=== PATIENT | female | born 1955 | race Caucasian/White ===

== ENCOUNTER → 2018-05-18 12:33 | Outpatient (CLI) | payer OTHER, SELFPAY ==
--- NOTE | 2018-05-18 12:38 | XR_ITS ---
XR chest 2V HISTORY: Follow-up renal cell cancer ITS.REASON: H/O RENAL CELL CA ORDERING PHYSICIAN: Fidel Barkley MD PATIENT AGE: 63 years COMPARISON: 09/09/2017 FINDINGS: The cardiomediastinal silhouette and pulmonary vascularity are within normal limits. The lungs are clear without infiltrates, suspicious nodules, or pleural effusions. No acute bony abnormalities. There is a bone plate over the lower cervical spine. Degenerative changes are present in the thoracic spine IMPRESSION: Negative chest, no acute finding
[2018-05-18 14:40] LABS: Alanine Aminotransferase 26 U/L (12-78); Albumin Level 3.3 gm/dL (3.4-5.0); Albumin/Globulin Ratio 1.2 (1.1-1.8); Alkaline Phosphatase 159 U/L (46-116); Anion Gap 12.7 mEq/L (5-15); Aspartate Amino Transferase 15 U/L (15-37); Bilirubin,Total 0.5 mg/dL (0.2-1.0); Blood Urea Nitrogen 31 mg/dL (7-18); Calcium 9.3 mg/dL (8.5-10.1); Carbon Dioxide 28 mmol/L (21.0-32.0); Chloride 105 mmol/L (98-107); Creatinine,Serum 1.95 mg/dL (0.55-1.02); Estimated Glomerular Filt Rate 26 ml/min (>60); GFR (African American) 31 ML/MIN (>60); Globulin 2.7 gm/dl (1.3-3.2); Glucose 147 mg/dL (74-106); Potassium 4.7 mmoL/L (3.5-5.1); Sodium 141 mmol/L (136-145)
== END ==
PROVIDERS: PCP Internal Medicine; Visit Provider Urology
DX: Z85.528 Personal history of other malignant neoplasm of kidney (principal)
CPT/HCPCS: 36415; 71046; 80053; 87086; 87088; 87186

== ENCOUNTER → 2018-12-19 09:17 | Outpatient (CLI) | payer OTHER, SELFPAY ==
[2018-12-20 15:44] LABS: C difficile Toxins AB, EIA Positive (Negative)
== END ==
PROVIDERS: PCP Internal Medicine; Visit Provider Internal Medicine
DX: R10.9 Unspecified abdominal pain (principal); R19.7 Diarrhea, unspecified
CPT/HCPCS: 87324

== ENCOUNTER 2019-04-23 09:24 | Outpatient (CLI) | payer MEDICARE, OTHER, SELFPAY ==
[2019-04-23 09:31] LABS: Microscopic, Urine URINE MICROSCOPIC (MICROSCOPIC)
--- NOTE | 2019-04-23 09:45 | XR_ITS ---
XR KUB HISTORY: ITS.REASON: RECTAL BLEED, DEFUSED ABD PAIN ORDERING PHYSICIAN: Jd Santacruz PATIENT AGE: 64 years COMPARISON: None FINDINGS: Nonspecific nonobstructive bowel gas pattern. Postsurgical changes of the lumbar spine. There are surgical clips in the left upper quadrant and left mid abdominal region. There are degenerative changes of the hips. IMPRESSION: Nonspecific nonacute findings
[2019-04-23 09:56] LABS: Basophils % 0.1 % (0.1-2.0); Eosinophils # 0.5 K/mm3 (0.0-0.4); Eosinophils % 2.1 % (0.1-12.0); Hemoglobin 14.6 g/dL (12.2-16.2); Lymphocytes # 1.4 K/mm3 (0.7-4.5); Lymphocytes % 6.6 % (10-50); Mean Corpuscular HGB Conc 31.7 g/dL (31.8-35.4); Mean Corpuscular Hemoglobin 26.9 pg (27.0-31.2); Mean Corpuscular Volume 84.9 fl (81-99); Mean Platelet Volume 7.9 fl (7.4-10.4); Monocytes # 1.1 K/mm3 (0.1-1.0); Monocytes % 5.3 % (1.7-9.3); Neutrophils # 18.7 K/mm3 (1.8-7.8); Neutrophils % 85.9 % (37.0-80.0); Platelet Count 303 K/mm3 (142-424); Red Blood Count 5.42 M/mm3 (4.20-5.40); Red Cell Distribution Width 15.9 % (11.5-17.5); White Blood Count 21.8 K/mm3 (4.8-10.8)
[2019-04-23 10:02] LABS: MANUAL DIFFERENTIAL MANUAL DIFFERENTIAL (MANUAL DIFF)
[2019-04-23 10:05] LABS: Appearance,Urine CLEAR (Clear); Bilirubin,Urine Negative (Negative); Blood, Urine Negative (Negative); Color,Urine YELLOW (Yellow); Glucose,Urine (UA) Negative (Negative); Ketones,Urine Negative (Negative); Leukocyte Esterase,Urine TRACE (Negative); Nitrate,Urine Negative (Negative); PH,Urine 6.5 (5.0-8.5); Protein,Urine Negative (Negative); Urobilinogen,Urine 0.2 EU/dl (0.2)
[2019-04-23 10:19] LABS: Eosinophils % 2 % (0-3); Lymphocytes % 3 % (10-50); Monocytes % 4 % (2-9); Neutrophils % 87 % (42-76); Total Cells Counted 100
[2019-04-23 10:20] LABS: Hypochromasia 2+
[2019-04-23 10:21] LABS: Platelet Estimate Normal
[2019-04-23 10:22] LABS: Bacteria,Urine Trace /lpf
[2019-04-23 10:29] LABS: Alanine Aminotransferase 24 U/L (12-78); Alkaline Phosphatase 141 U/L (46-116); Anion Gap 15.7 mEq/L (5-15); Aspartate Amino Transferase 8 U/L (15-37); Blood Urea Nitrogen 37 mg/dL (7-18); Carbon Dioxide 25 mmol/L (21.0-32.0); Chloride 103 mmol/L (98-107); Creatinine,Serum 1.62 mg/dL (0.55-1.02); Estimated Glomerular Filt Rate 32 ml/min (>60); GFR (African American) 39 ML/MIN (>60); Globulin 2.9 gm/dl (1.3-3.2); Glucose 128 mg/dL (74-106); Potassium 4.7 mmoL/L (3.5-5.1); Sodium 139 mmol/L (136-145); Total Protein,Serum 5.9 gm/dL (6.4-8.2)
--- NOTE | 2019-04-23 10:59 | CT_ITS ---
CT abdomen pelvis wo con CLINICAL INDICATION: Lower abdominal pain and tenderness ITS.REASON: ABD PAIN, ELEVATED WHITE BLOOD COUNT 21.8 ORDERING PHYSICIAN: Jd Santacruz PATIENT AGE: 64 years COMPARISON: 01/26/2011 TECHNIQUE: Axial images obtained with sagittal and coronal reformats. All CT scans at the facility use one or more dose reduction, viz: automated exposure control, ma/kV adjustment per patient size (including targeted exams where dose is matched to indication, i.e. head), or iterative reconstruction technique. FINDINGS: Lung bases are clear. There is evidence of old granulomatous disease. The liver, gallbladder, spleen, adrenal glands, and pancreas have an unremarkable unenhanced appearance. There has been a prior left nephrectomy. The right kidney has an unremarkable appearance. No renal or ureteral calculi are evident. Unremarkable appendix. Small ventral abdominal wall hernia containing fat just superior to the umbilicus. There is diverticulosis of the sigmoid colon with thickening of the proximal aspect of the sigmoid colon and stranding of the pericolic fat consistent with acute diverticulitis. In addition, there is a separate area of thickening of the sigmoid colon or distally proximal to the rectosigmoid junction suggesting a second area of acute diverticulitis with stranding of paracolic fat. There are multiple hyperdense diverticula noted. There is no evidence of abscess or perforation. There is a small amount fluid in the pelvis. There has been a prior hysterectomy. There is mild thickening of the ascending colon and hepatic flexure nonspecific and may be due to nondistention. Extensive postsurgical changes are present in the lumbar spine with prior laminectomy at L4 and L5 with posterior fusion. IMPRESSION: 1. The findings are compatible with acute diverticulitis within the sigmoid colon appear to be in 2 separate areas. No evidence of abscess or perforation. Suggest follow-up with IV and oral contrast following treatment to confirm resolution due to the atypical appearance. Neoplasm is not excluded. 2. Prior left nephrectomy.
[2019-04-23 12:23] VITALS: BP 139/78; PULSE 107; RESP 18; TEMP 36.5; O2SAT 97
[2019-04-23 13:40] VITALS: BP 140/82; PULSE 110; RESP 18; O2SAT 98
[2019-04-23 14:45] VITALS: BP 161/80; PULSE 112; RESP 20; O2SAT 96
[2019-04-23 15:56] VITALS: BP 132/83; PULSE 108; RESP 18; O2SAT 98
== END 2019-04-23 15:56 | disposition home or self-care (01) ==
PROVIDERS: PCP Internal Medicine; Visit Provider Internal Medicine
DX: R10.84 Generalized abdominal pain (principal); N18.5 Chronic kidney disease, stage 5; K62.5 Hemorrhage of anus and rectum
CPT/HCPCS: 36415; 74018; 74176; 80053; 81001; 85007; 85025; 86850; 96360; 96361; 96367; J1956

== ENCOUNTER 2019-04-25 09:56 | Outpatient (CLI) | payer MEDICARE, OTHER, SELFPAY ==
[2019-04-25 10:03] LABS: Basophils # 0.1 K/mm3 (0-0.2); Basophils % 0.4 % (0.1-2.0); Eosinophils # 0.5 K/mm3 (0.0-0.4); Eosinophils % 2.6 % (0.1-12.0); Hematocrit 41.5 % (37.0-47.0); Hemoglobin 13.2 g/dL (12.2-16.2); Lymphocytes # 1.5 K/mm3 (0.7-4.5); Lymphocytes % 7.7 % (10-50); Mean Corpuscular HGB Conc 31.9 g/dL (31.8-35.4); Mean Corpuscular Hemoglobin 27.1 pg (27.0-31.2); Mean Platelet Volume 7.6 fl (7.4-10.4); Monocytes # 1.3 K/mm3 (0.1-1.0); Monocytes % 6.4 % (1.7-9.3); Neutrophils # 16.3 K/mm3 (1.8-7.8); Neutrophils % 82.9 % (37.0-80.0); Platelet Count 316 K/mm3 (142-424); Red Blood Count 4.88 M/mm3 (4.20-5.40); Red Cell Distribution Width 16.2 % (11.5-17.5); White Blood Count 19.7 K/mm3 (4.8-10.8)
[2019-04-25 10:06] LABS: MANUAL DIFFERENTIAL MANUAL DIFFERENTIAL (MANUAL DIFF)
[2019-04-25 10:39] LABS: Eosinophils % 3 % (0-3); Lymphocytes % 2 % (10-50); Monocytes % 5 % (2-9); Neutrophils % 90 % (42-76); Platelet Estimate Normal; RBC Morphology Normal; Total Cells Counted 100
[2019-04-25 11:07] VITALS: BP 107/58; PULSE 79; RESP 18; O2SAT 96
[2019-04-25 12:05] VITALS: BP 101/58; PULSE 74; RESP 18; O2SAT 94
[2019-04-25 13:30] VITALS: BP 108/58; PULSE 77; RESP 20; O2SAT 96
[2019-04-25 14:40] VITALS: BP 105/58; PULSE 71; RESP 18; O2SAT 96
[2019-04-25 14:50] VITALS: BP 105/58; PULSE 71; RESP 18; O2SAT 96
== END 2019-04-25 14:50 | disposition home or self-care (01) ==
LOC: LAB.DROPOF 09:57 → INF 10:22
PROVIDERS: PCP Internal Medicine; Visit Provider Internal Medicine
DX: K57.32 Diverticulitis of large intestine without perforation or abscess without bleeding (principal); K62.5 Hemorrhage of anus and rectum; N18.4 Chronic kidney disease, stage 4 (severe)
CPT/HCPCS: 85007; 85025; 96360; 96361; 96365; 96367; J1956

== ENCOUNTER → 2019-04-27 09:47 | Outpatient (CLI) | payer MEDICARE, OTHER, SELFPAY ==
[2019-04-27 09:58] LABS: Basophils % 0.4 % (0.1-2.0); Eosinophils # 0.5 K/mm3 (0.0-0.4); Eosinophils % 4.7 % (0.1-12.0); Hematocrit 41.2 % (37.0-47.0); Hemoglobin 12.9 g/dL (12.2-16.2); Lymphocytes # 1.6 K/mm3 (0.7-4.5); Lymphocytes % 15.4 % (10-50); Mean Corpuscular HGB Conc 31.2 g/dL (31.8-35.4); Mean Corpuscular Hemoglobin 26.8 pg (27.0-31.2); Mean Corpuscular Volume 85.9 fl (81-99); Mean Platelet Volume 7.8 fl (7.4-10.4); Monocytes # 0.8 K/mm3 (0.1-1.0); Monocytes % 7.3 % (1.7-9.3); Neutrophils # 7.5 K/mm3 (1.8-7.8); Neutrophils % 72.2 % (37.0-80.0); Platelet Count 281 K/mm3 (142-424); Red Cell Distribution Width 15.9 % (11.5-17.5); White Blood Count 10.4 K/mm3 (4.8-10.8)
== END ==
PROVIDERS: Visit Provider Internal Medicine
DX: K57.32 Diverticulitis of large intestine without perforation or abscess without bleeding (principal); K62.5 Hemorrhage of anus and rectum; N18.4 Chronic kidney disease, stage 4 (severe)
CPT/HCPCS: 85025

== ENCOUNTER → 2019-05-19 09:58 | Outpatient (CLI) | payer MEDICARE, OTHER, SELFPAY ==
--- NOTE | 2019-05-19 10:07 | XR_ITS ---
PROCEDURE: XR WRIST LT MIN 3V CLINICAL INDICATION: PAIN COMPARISON: No exams were available for comparison FINDINGS: The distal radius and ulna appear intact. There is mild narrowing and spurring of the 1st carpometacarpal joint. Otherwise the carpal bones appear normal. IMPRESSION: Mild osteoarthritic changes at the base of the thumb, no acute fracture seen Dictated by: Dr. Aleksey Figueroa MD 05/19/2019 10:42 Signed by: <Electronically signed by Dr. Aleksey Figueroa MD in [place]> 05/19/2019 10:42
== END ==
PROVIDERS: PCP Internal Medicine; Visit Provider Internal Medicine
DX: M25.532 Pain in left wrist (principal)
CPT/HCPCS: 73110

== ENCOUNTER → 2019-05-29 09:03 | Outpatient (CLI) | payer MEDICARE, OTHER, SELFPAY ==
--- NOTE | 2019-05-29 09:08 | NM_ITS ---
PROCEDURE: NM BONE SCAN WHOLE BODY CLINICAL INDICATION: WEAKNESS,FATIGUE,H/O ILANA CELL CA,BODY PAIN COMPARISON: ABDPELWO CT abdomen pelvis wo con from 04/23/2019 FINDINGS: Dose: 25.7 mCi technetium MDP There are several areas of increased activity within the spine including T9 and T10 as well as L 3 L4 and L5. There are inter pedicular screws at L4 and L5 with prior laminectomy. Multilevel osteophytes are present in the thoracic and lumbar spine. Previous CT scan of 04/23/2019 did not demonstrate any lytic or blastic lesions in the spine. The slight increased activity is present in the greater trochanter of the femur on the right, in the knees, shoulders, and ankles and feet. IMPRESSION: Nonspecific increased activity in the thoracic and lumbar spine which may be due to degenerative and postsurgical changes. Overall, no convincing evidence of metastatic disease. Dictated by: Rhett Segovia MD 05/31/2019 05:53 Electronically signed by Rhett Segovia MD in [place] 05/31/2019 05:53
== END ==
PROVIDERS: PCP Internal Medicine; Visit Provider Internal Medicine
DX: M79.10 Myalgia, unspecified site (principal); R53.1 Weakness; R53.83 Other fatigue; Z85.528 Personal history of other malignant neoplasm of kidney
CPT/HCPCS: 78306; A9503

== ENCOUNTER → 2020-01-31 07:51 | Outpatient (CLI) | payer MEDICARE, OTHER, SELFPAY ==
--- NOTE | 2020-01-31 07:57 | US_ITS ---
PROCEDURE: US ABDOMEN LIMITED CLINICAL INDICATION: RUQ PAIN,POSSIBLE BILARY COLIC COMPARISON: No exams were available for comparison FINDINGS: PANCREAS: Unremarkable. No obvious mass or abnormal fluid collection. No ductal dilatation LIVER: No focal liver lesions demonstrated. Homogeneous echogenicity. No intrahepatic biliary ductal dilatation evident. There is appropriate direction of blood flow within a non dilated portal vein RIGHT KIDNEY: There is cortical thinning of the right kidney. No hydronephrosis. GALLBLADDER: Gallbladder wall is slightly thickened measuring up to 5 mm. No stones, pericholecystic fluid, or biliary dilatation. Common bile duct 5 mm. IMPRESSION: Gallbladder appears contracted with mildly thickened wall otherwise negative right upper quadrant Thinning of the right renal cortex Dictated by: Rhett Segovia MD 01/31/2020 14:50 Electronically signed by Rhett Segovia MD in [place] 01/31/2020 14:50
== END ==
PROVIDERS: PCP Internal Medicine; Visit Provider Internal Medicine
DX: R10.11 Right upper quadrant pain (principal)
CPT/HCPCS: 76705

== ENCOUNTER → 2020-04-28 17:53 | Outpatient (CLI) | payer MEDICARE, OTHER, SELFPAY | PROVIDERS: PCP Internal Medicine; Visit Provider Internal Medicine | DX: G47.33 Obstructive sleep apnea (adult) (pediatric) (principal) | CPT/HCPCS: G0399 ==

== ENCOUNTER → 2020-06-13 10:12 | Outpatient (CLI) | payer MEDICARE, OTHER, SELFPAY ==
--- NOTE | 2020-06-13 10:17 | XR_ITS ---
PROCEDURE: XR CHEST 2V CLINICAL HISTORY: COUGH,SOA, nonsmoker COMPARISON: CR CXR CHEST(2 VIEWS-NOT PORTABLE) from 05/12/2017 CR CXR CHEST(2 VIEWS-NOT PORTABLE) from 09/09/2017 DX CXR2V XR chest 2V from 05/18/2018 FINDINGS: The cardiomediastinal silhouette and pulmonary vascularity are within normal limits. The lungs are clear without infiltrates, suspicious nodules, or pleural effusions. No acute bony abnormalities. There has been previous anterior cervical fusion of C7 and T1. There is mild kyphotic curvature of the thoracic spine with mild multilevel degenerate changes IMPRESSION: No acute findings. Dictated by: Dr. Aleksey Figueroa MD 06/13/2020 11:04 Dr. Aleksey Figueroa MD in [place] 06/13/2020 11:04
== END ==
PROVIDERS: PCP Internal Medicine; Visit Provider Internal Medicine
DX: R06.02 Shortness of breath (principal); R05 Cough
CPT/HCPCS: 71046

== ENCOUNTER → 2020-06-21 10:42 | Outpatient (CLI) | payer MEDICARE, OTHER, SELFPAY ==
[2020-06-21 14:22] LABS: Coronavirus 19 IgG Antibody Negative (Negative); Coronavirus 19 IgM Antibody Negative (Negative)
== END ==
PROVIDERS: Visit Provider Internal Medicine Gastroenterology
DX: Z01.89 Encounter for other specified special examinations (principal); Z13.810 Encounter for screening for upper gastrointestinal disorder
CPT/HCPCS: 36415; 86328

== ENCOUNTER 2020-06-23 13:04 | Day surgery (SDC) | payer MEDICARE, OTHER, SELFPAY ==
[2020-06-23 13:47] VITALS: BP 126/57; PULSE 70; RESP 18; TEMP 36.2; O2SAT 97; BMI 43.5
[2020-06-23 14:14] LABS: POC Glucose,Bedside 194 (70-110)
--- NOTE | 2020-06-23 14:24 | HMH.ANESCL ---
[facility] Anesthesia Checklist - Patient Identification Patient Identification: Arm Band - Structural Data Admitted From: Home Planned Operative Procedure/s: egd Consent for Planned Operative Procedure(s) Verified: Yes Verified Documents: Surgical Consent, History and Physical - NPO Status Verified Time NPO: 00:00 - Additional verifications Anesthesia Reactions: No - Airway Assessment C-Spine Mobility Assessed: Yes (mp2) TMJ Mobility Assessed: Yes Dentition: Good Dentition - Neurological Assessment Level of Consciousness: Awake, Alert - Anesthesia Plan Anesthesia Risk discussed: Yes Anesthesia Plan: Verified ASA Class: III Anesthesia Type: MAC [facility] History I have reviewed the patient's past medical history: Yes Medical History: Reports:: Cancer (kidney CA,), Depression, Diabetes Mellitus Type 2, Hyperlipidemia, Hypertension, MRSA (epidural space) Denies:: Seizures *Have you ever received a pneumonia vaccine?: Yes *Have you received a flu vaccine this season?: Yes Other Medical History: Reports: Other (Gout) Anesthesia experience/problems:: slow to wake Laterality Cases: Right: Arthroscopy Knee, Bilateral: Tonsillectomy Other Surgeries: Yes: Cancer Surgery (Kidney removed ), Other (Kidney Removed) Amputation: No Fractures: No - *Social History Last grade of school completed: High school graduate Smoking Status: Never smoker Alcohol Intake: never Substance Use Type: denies use *Occupational Status:: employed *Travel in the last 8 weeks: None - Psychiatric History Pschychiatric History:: Reports:: Depression Family Hx:: No significant family history
[2020-06-23 15:12] VITALS: O2SAT 98
--- NOTE | 2020-06-23 15:28 | HMH.PROC ---
[facility] Procedure Note Procedure Note:: Upper Endoscopy Procedure Report: Esophagogastroduodenoscopy with cold biopsies and TTS balloon dilation Endoscopost: Adam Reyes II, MD Referring Physician: Jd Santacruz MD Date of Procedure: June 23, 2020 Equipment: Olympus GIF 180 standard upper endoscope Sedation: MAC sedation Indications: Mrs. Ward is a 65-year-old female who is here for diagnostic/therapeutic upper endoscopy secondary to dysphagia over the last 3 to 4 months to solid foods. This can even occur with potatoes and carrots. The patient has had some increased heartburn and reflux. She does get some lower retrosternal pain and discomfort. When she does have dysphagia to a certain solid food she will also get some hiccups and regurgitation. The patient does report some chronic diarrhea for the last year and a half. She has had some occasional bright red rectal bleeding. Her last colonoscopy in 2011 revealed colon polyps. The patient's recent blood work from June 13, 2020 showed normal hemoglobin 11.8 and hematocrit 36.7. She also had normal liver function. Her creatinine was elevated at 2.3. Procedure: Prior to the procedure, a history and physical exam was performed, and patient's medications and allergies were reviewed. The risks, benefits and alternatives of the sedation and procedure were discussed with the patient. All questions were answered and informed consent was obtained. The patient was brought to the procedure room. Patient identification and proposed procedure were verified by the physician and the nurse. The patient was placed in a left lateral decubitus position and the scope was passed under direct vision. Throughout the procedure, the patient's blood pressure, pulse, and oxygen saturations were monitored continuously. The upper GI endoscopy was accomplished without difficulty. The patient tolerated the procedure well. Findings: The scope was passed directly into the upper esophagus and advanced to the third portion of the duodenum. The post bulbar duodenum and duodenal bulb were normal with normal mucosa and conniventes. Within the duodenal bulb there was some peptic duodenitis identified. The scope was withdrawn through a normal pylorus into the stomach. There was some linear reactive gastropathy with bile reflux of the antrum and body. The remainder of the antrum, body and fundus of the stomach were grossly normal. Upon retroflexion there was a small hiatal hernia. 2 biopsies were taken in the antrum and along the lesser curvature for histology to rule out gastritis and/or H pylori. The scope was then withdrawn into the esophagus. There was a distal peptic stricture with distal ulceration of the esophagus and evidence of grade D (LA classification) reflux esophagitis and probable Cortez's esophagus. Cold biopsies were obtained distally. Next, the distal esophagus was dilated gently up to 18 mm with a TTS hydrostatic balloon. The remainder of the mid and proximal esophagus were normal. Impression: 1. Grade D reflux esophagitis with distal peptic stricture status post dilation to 18 mm and with a small 1 to 2 cm hiatal hernia 2. Linear reactive gastropathy with some peptic duodenitis Plan: I am going to place the patient on omeprazole 40 mg by mouth daily. I will follow-up the biopsies to rule out Cortez's esophagus and H. pylori. She does have complicated GERD and will need to maintain PPI therapy long-term. I will discuss the findings with the patient and family.
[2020-06-23 15:35] VITALS: BP 141/82; PULSE 86; RESP 12; TEMP 36.4; O2SAT 95
[2020-06-23 15:45] VITALS: BP 150/81; PULSE 78; RESP 16; O2SAT 97
[2020-06-23 15:55] VITALS: BP 147/69; PULSE 79; RESP 16; O2SAT 100
[2020-06-23 16:05] VITALS: BP 152/85; PULSE 75; RESP 16; TEMP 36.4; O2SAT 98
== END 2020-06-23 16:12 | disposition home or self-care (01) ==
LOC: OUTP 13:07
PROVIDERS: PCP Internal Medicine; Visit Provider Internal Medicine Gastroenterology
PROC: 0DJ08ZZ Inspection of Upper Intestinal Tract, Via Natural or Artificial Opening Endoscopic (ICD-10-PCS; CPT 43235; principal; 2020-06-23 14:00)
DX: K21.0 Gastro-esophageal reflux disease with esophagitis; K31.89 Other diseases of stomach and duodenum; K44.9 Diaphragmatic hernia without obstruction or gangrene; K29.80 Duodenitis without bleeding; K22.10 Ulcer of esophagus without bleeding; K31.9 Disease of stomach and duodenum, unspecified; E11.9 Type 2 diabetes mellitus without complications; I10 Essential (primary) hypertension; E78.5 Hyperlipidemia, unspecified; J45.909 Unspecified asthma, uncomplicated; G47.33 Obstructive sleep apnea (adult) (pediatric); Z85.528 Personal history of other malignant neoplasm of kidney
CPT/HCPCS: 43239; 43249; 82962; 88305; C1726

== ENCOUNTER → 2020-07-30 09:41 | Outpatient (CLI) | payer MEDICARE, OTHER, SELFPAY ==
[2020-07-30 15:09] LABS: Coronavirus 19 IgG Antibody Negative (Negative); Coronavirus 19 IgM Antibody Negative (Negative)
== END ==
PROVIDERS: Visit Provider Internal Medicine Gastroenterology
DX: Z01.818 Encounter for other preprocedural examination (principal); Z13.810 Encounter for screening for upper gastrointestinal disorder; Z12.11 Encounter for screening for malignant neoplasm of colon; R19.7 Diarrhea, unspecified
CPT/HCPCS: 36415; 86328

== ENCOUNTER 2020-08-01 10:35 | Day surgery (SDC) | payer MEDICARE, OTHER, SELFPAY ==
[2020-07-25 13:32] VITALS: BMI 44.1
[2020-08-01] VITALS (7 sets, daily range): BP systolic 97–145; BP diastolic 60–87; PULSE 70–117; RESP 18; TEMP 36.1–36.3; O2SAT 97–100
--- NOTE | 2020-08-01 12:34 | ECG_ITS ---
APPROVED REPORT Exam: Resting ECG HR:113 bpm ECG Measurements Heart Rate [address] 174 P 34 QRSd 82 QRS 21 QT 336 T 16 QTc 460 Conclusion Sinus tachycardia Nonspecific ST-T wave abnormalities Abnormal ECG Electronically signed by : Jd Santacruz, 08/01/2020 18:14:28
--- NOTE | 2020-08-01 13:01 | HMH.PROC ---
[facility] Procedure Note Procedure Note:: Colonoscopy Procedure Report: Colonoscopy with cold snare polypectomy and monopolar ablation/coagulation of internal hemorrhoids to destruction Endoscopist: Adam Reeys II, MD Referring physician: Jd Santacruz MD Date of Procedure: August 01, 2020 Equipment: Olympus 180 variable stiffness pediatric colonoscope Sedation: MAC sedation Indication: Mrs. Ward is a 65-year-old female who is here for screening/surveillance colonoscopy. The patient does have some bowel frequency and intermittent diarrhea. She does have some frequent bright red rectal bleeding/hemorrhoidal bleeding 2-3 times a week. She reports some hemorrhoidal prolapse. She reports some excessive wiping. She reports no abdominal pain, change in bowel habits or family history of colon cancer. Her last colonoscopy was at the [facility] in 2011 and polyps were removed. The patient has had an elevated creatinine at 2.3-2.5 and she just recently had an ultrasound of the kidneys at the [facility]. Procedure: Prior to the procedure, a history and physical exam was performed, and patient's medications and allergies were reviewed. The risks, benefits and alternatives of the sedation and procedure were discussed with the patient. All questions were answered and informed consent was obtained. The patient was brought to the procedure room. Patient identification and proposed procedure were verified by the physician and the nurse. The patient was placed in a left lateral decubitus position and the scope was passed under direct vision. Throughout the procedure, the patient's blood pressure, pulse, and oxygen saturations were monitored continuously. The colonoscopy was accomplished without difficulty. The patient tolerated the procedure well. Findings: On digital rectal examination there was normal rectal tone. There were no external hemorrhoids. The colonoscope was introduced through the anal canal to the rectum and advanced to the cecum. The ileocecal valve and appendiceal orifice were identified. The scope was advanced a short distance into the ileum which appeared grossly normal. The scope was then withdrawn into the colon. There were a total of 5 diminutive colon polyps (cecum x2 (3 and 3 mm), transverse x1 (4 mm) and descending x2 (3 and 4 mm)) which were all removed via cold snare polypectomy. There were scattered diverticuli throughout the descending and sigmoid colon (LEFT colon). The rectum itself was normal. Upon retroflexion within the rectum there were grade 2 internal hemorrhoids. These columns of hemorrhoids were ablated/coagulated using monopolar ablation to destruction. The preparation was excellent throughout with [place] Preparation Score of 9. The cecal time was 12 minutes. Impression: 1. Diminutive colonic polyps x5 2. Left-sided diverticulosis 3. Grade 2 internal hemorrhoids status post monopolar ablation/coagulation Plan: I will follow up the polyp pathology and recommend repeat colonoscopy again in 5 years based upon the polyp histology. I would encourage dietary measures, probiotic and bulk fiber supplementation on a long-term daily maintenance basis.
[2020-08-02 11:26] LABS: POC Glucose,Bedside 220 (70-110)
== END 2020-08-01 14:00 | disposition home or self-care (01) ==
LOC: OUTP 10:36
PROVIDERS: PCP Internal Medicine; Visit Provider Internal Medicine Gastroenterology
PROC: 0DJD8ZZ Inspection of Lower Intestinal Tract, Via Natural or Artificial Opening Endoscopic (ICD-10-PCS; CPT 45378; principal; 2020-08-01 11:30)
DX: Z12.11 Encounter for screening for malignant neoplasm of colon (principal); K63.5 Polyp of colon; K57.30 Diverticulosis of large intestine without perforation or abscess without bleeding; K64.1 Second degree hemorrhoids; E78.5 Hyperlipidemia, unspecified; I11.0 Hypertensive heart disease with heart failure; I50.9 Heart failure, unspecified; G47.33 Obstructive sleep apnea (adult) (pediatric); J45.909 Unspecified asthma, uncomplicated; E11.9 Type 2 diabetes mellitus without complications; K21.9 Gastro-esophageal reflux disease without esophagitis; F41.9 Anxiety disorder, unspecified
CPT/HCPCS: 45385; 46930; 82962; 88305; 93005

== ENCOUNTER → 2020-09-05 11:54 | Outpatient (CLI) | payer MEDICARE, OTHER, SELFPAY ==
[2020-09-05] VITALS (9 sets, daily range): BP systolic 119–178; BP diastolic 77–101; PULSE 81–105; RESP 19–21; TEMP 36.6–37.2; O2SAT 91–94
--- NOTE | 2020-09-05 13:45 | PC.NURSE ---
INFUSION COMPLETE NO REACTION NOTED
--- NOTE | 2020-09-05 14:42 | PC.NURSE ---
PT DISCHARGED, NO REACTION NOTED
== END ==
PROVIDERS: PCP Internal Medicine; Visit Provider Internal Medicine
DX: U07.1 COVID-19 (principal)
CPT/HCPCS: 96365

== ENCOUNTER → 2020-09-17 10:11 | Outpatient (CLI) | payer MEDICARE, OTHER, SELFPAY ==
[2020-09-18 14:17] LABS: Covid-19 Nasal PCR Sendout P&C POSITIVE
== END ==
PROVIDERS: PCP Internal Medicine; Visit Provider Internal Medicine
DX: Z20.828 Contact with and (suspected) exposure to other viral communicable diseases (principal); U07.1 COVID-19
CPT/HCPCS: U0004

== ENCOUNTER → 2020-10-24 09:58 | Outpatient (CLI) | payer MEDICARE, OTHER, SELFPAY ==
--- NOTE | 2020-10-24 10:14 | XR_ITS ---
PROCEDURE: XR CERVICAL SPINE 5V CLINICAL INDICATION: CERVICALGIA Neck pain COMPARISON: No exams were available for comparison FINDINGS: There is normal alignment. There has been prior anterior cervical disc fusion at C6-C7 with an anterior bone plate and disc spacer. No fracture or dislocation. No lytic or blastic change. Anterior osteophytes are present at C3, C4, C5, and C6. Foraminal narrowing is present on the right at C4-C5 and on the left at C3-C4. Facet hypertrophic changes are present from C3-C7. IMPRESSION: Postsurgical and degenerative changes as described above, no acute finding. Dictated by: Rhett Segovia MD 10/24/2020 11:21 Rhett Segovia MD in [place] 10/24/2020 11:21
--- NOTE | 2020-10-24 10:14 | XR_ITS ---
PROCEDURE: XR SHOULDER LT MIN 2V CLINICAL INDICATION: PAIN Left shoulder pain COMPARISON: No exams were available for comparison FINDINGS: No fracture or dislocation. No lytic or blastic change. There is normal mineralization. There are mild osteoarthritic changes of the acromioclavicular and glenohumeral joint. Other findings:None. IMPRESSION: Mild osteoarthritis Dictated by: Rhett Segovia MD 10/24/2020 11:27 Rhett Segovia MD in [place] 10/24/2020 11:27
[2020-10-24 10:35] LABS: Hemoglobin A1C 7.2 % (4.0-6.0)
[2020-10-24 10:46] LABS: Anion Gap 14.4 mEq/L (5-15); Blood Urea Nitrogen 21 mg/dl (7-17); Calcium 10.3 mg/dl (8.4-10.2); Carbon Dioxide 30 mmol/L (22.0-30.0); Chloride 102 mmol/L (98-107); Estimated Glomerular Filt Rate 26 ml/min (>60); GFR (African American) 32 ML/MIN (>60); Glucose 106 mg/dl (74-100); Potassium 4.4 mmoL/L (3.5-5.1); Sodium 142 mmol/L (136-145)
== END ==
PROVIDERS: Visit Provider Internal Medicine
DX: E11.9 Type 2 diabetes mellitus without complications (principal); I10 Essential (primary) hypertension; N14.4 Toxic nephropathy, not elsewhere classified; M54.2 Cervicalgia; M25.512 Pain in left shoulder
CPT/HCPCS: 36415; 72050; 73030; 80048; 83036

== ENCOUNTER → 2021-01-07 08:57 | Outpatient (CLI) | payer MEDICARE, OTHER, SELFPAY | PROVIDERS: PCP Internal Medicine; Visit Provider Internal Medicine | DX: Z20.822 Contact with and (suspected) exposure to COVID-19 (principal) | CPT/HCPCS: U0003 ==

== ENCOUNTER 2021-03-24 20:47 | Emergency (ER) | payer MEDICARE, OTHER, SELFPAY ==
[2021-03-24 20:48] VITALS: BP 157/100; PULSE 92; RESP 18; TEMP 36.6; O2SAT 97; BMI 37.3
[2021-03-24 21:01] LABS: Microscopic, Urine URINE MICROSCOPIC (MICROSCOPIC)
[2021-03-24 21:02] LABS: Appearance,Urine CLEAR (Clear); Bilirubin,Urine Negative (Negative); Blood, Urine TRACE-I (Negative); Color,Urine YELLOW (Yellow); Glucose,Urine (UA) Negative (Negative); Ketones,Urine Negative (Negative); Leukocyte Esterase,Urine 1+ (Negative); Nitrate,Urine Negative (Negative); PH,Urine 5.5 (5.0-8.5); Protein,Urine Negative (Negative); Urobilinogen,Urine 0.2 EU/dl (0.2)
--- NOTE | 2021-03-24 21:09 | CT_ITS ---
PROCEDURE INFORMATION: Exam: CT Abdomen And Pelvis Without Contrast Exam date and time: 03/24/2021 9:09 PM Age: 66 years old Clinical indication: Abdominal pain; Patient HX: Right flank pain, left kidney removed due to cancer several years ago. TECHNIQUE: Imaging protocol: Computed tomography of the abdomen and pelvis without contrast. Radiation optimization: All CT scans at this facility use at least one of these dose optimization techniques: automated exposure control; mA and/or kV adjustment per patient size (includes targeted exams where dose is matched to clinical indication); or iterative reconstruction. COMPARISON: [facility] CT abdomen pelvis wo con 04/23/2019 11:08 AM FINDINGS: Liver: Normal. No mass. Gallbladder and bile ducts: Normal. No calcified stones. No ductal dilation. Pancreas: Normal. No ductal dilation. Spleen: Splenic calcified granulomas. Adrenal glands: Normal. No mass. Kidneys and ureters: The left kidney has been removed. The right kidney is unremarkable. No hydronephrosis or hydroureter. Stomach and bowel: Descending and sigmoid colon diverticula. No abnormal bowel dilation Appendix: Normal appendix. Intraperitoneal space: Unremarkable. No free air. No significant fluid collection. Vasculature: Abdominal aorta and iliac arteries contain scattered calcified plaque. Lymph nodes: Calcified left hilar nodes. Urinary bladder: Unremarkable as visualized. Reproductive: The uterus has been removed. Bones/joints: L4-S1 posterior spinal fusion changes with bipedicular screws and rods. L4 and L5 laminectomy changes. [id number] multilevel degenerative changes of the spine. Soft tissues: 4.2 cm wide anterior abdominal wall defect with mesenteric fat herniating through it. Fat containing right inguinal hernia. IMPRESSION: 1. No acute appearing findings. 2. Stable chronic changes as above.
[2021-03-24 21:13] LABS: Bacteria,Urine 1+ /lpf; Mucus,Urine 1+ /lpf
[2021-03-24 21:41] LABS: Basophils # 0.1 K/mm3 (0-0.2); Basophils % 0.5 % (0.1-2.0); Eosinophils # 0.5 K/mm3 (0.0-0.4); Eosinophils % 5.2 % (0.1-12.0); Hematocrit 37.6 % (37.0-47.0); Hemoglobin 12.3 g/dL (12.2-16.2); Lymphocytes # 1.8 K/mm3 (0.7-4.5); Lymphocytes % 17.9 % (10-50); Mean Corpuscular HGB Conc 32.6 g/dL (31.8-35.4); Mean Corpuscular Hemoglobin 26.1 pg (27.0-31.2); Mean Platelet Volume 8.5 fl (7.4-10.4); Monocytes # 0.6 K/mm3 (0.1-1.0); Monocytes % 6.1 % (1.7-9.3); Neutrophils # 7.2 K/mm3 (1.8-7.8); Neutrophils % 70.2 % (37.0-80.0); Platelet Count 300 K/mm3 (142-424); Red Cell Distribution Width 15.9 % (11.5-17.5); White Blood Count 10.3 K/mm3 (4.8-10.8)
--- NOTE | 2021-03-24 21:42 | HMH.EDNVD ---
ED Disposition Clinical Impression: Lumbar radicular pain Disposition: Home, Self-Care Condition on Discharge: Good Instructions: DI for Low Back Pain Additional Instructions: use meds and see pcp for follow up and urine culture results Prescriptions: predniSONE [Prednisone 20mg Tab] 20 mg PO BID #10 tab Prescription Printed Referrals: Jd Santacruz [Primary Care Provider] - - Critical Care Critical Care Time: No Attestation: On 03/24/21, the high probability of a clinically significant, sudden or life threatening deterioration of the following system(s) required my full and direct attention, intervention and personal management. The time I documented below is in addition to time spent performing reported procedures but includes the following listed in this critical care notation. Medical Decision Making - Medical Records Medical records reviewed: Yes: I reviewed the patient's medical records. - [place] Inquiry Pt receiving controlled substance: No Vital Signs: 03/24/21 20:48 03/24/21 22:56 03/24/21 23:31 Temperature 97.9 F Temperature Source Oral Pulse Rate 69 61 Pulse Rate [Right] 92 H Respiratory Rate 18 Blood Pressure 132/53 L 116/53 L Blood Pressure [Right Arm] 157/100 H Blood Pressure Mean 71 Blood Pressure Mean [Right Arm] 119 02 Sat by Pulse Oximetry 97 96 97 03/25/21 00:01 Temperature Temperature Source Pulse Rate 55 L Pulse Rate [Right] Respiratory Rate Blood Pressure 125/53 L Blood Pressure [Right Arm] Blood Pressure Mean 70 Blood Pressure Mean [Right Arm] 02 Sat by Pulse Oximetry 97 - Lab Data Lab results reviewed: Yes: I reviewed the patient's lab results. Lab Results 03/24/21 21:00: Urine Color Yellow, Urine Appearance Clear, Urine pH 5.5, Ur Specific [place] 1.020, Urine Protein Negative, Urine Glucose (UA) Negative, Urine Ketones Negative, Urine Blood Trace-i, Urine Nitrate Negative, Urine Bilirubin Negative, Urine Urobilinogen 0.2, Ur Leukocyte Esterase 1+ A, Urine RBC 3-5, Urine WBC 10-20, Ur Squamous Epith Cells 10-20, Urine Bacteria 1+, Urine Mucus 1+ 03/24/21 21:30: WBC 10.3, RBC 4.70, Hgb 12.3, Hct 37.6, MCV 80.0 L, MCH 26.1 L, MCHC 32.6, RDW 15.9, Plt Count 300, MPV 8.5, Neut % (Auto) 70.2, Lymph % (Auto) 17.9, [place] % (Auto) 6.1, Eos % (Auto) 5.2, Baso % (Auto) 0.5, Neut # (Auto) 7.2, Lymph # (Auto) 1.8, [place] # (Auto) 0.6, Eos # (Auto) 0.5 H, Baso # (Auto) 0.1, ESR 39 H 03/24/21 21:30: Sodium 139, Potassium 3.9, Chloride 102, Carbon Dioxide 23, Anion Gap 17.9 H, BUN 38 H, Creatinine 2.20 H, Estimated Creat Clear 37, Estimated GFR 22 L, Est GFR ( Amer) 27 L, Glucose 85, Calcium 9.2, Total Bilirubin 0.7, AST 24, ALT 15, Alkaline Phosphatase 145 H, C-Reactive Protein 13.2 H, Total Protein 6.8, Albumin 4.2, Globulin 2.6, Albumin/Globulin Ratio 1.6, Amylase 89, Lipase 229 Result diagrams: 03/24/21 21:30 03/24/21 21:30 Orders (Tests/Meds): ED MEDICATIONS Generic Name Dose Route Start Last Admin Trade Name Freq PRN Reason Stop Dose Admin Sodium Chloride 1,000 mls @ 999 mls/hr 03/24/21 21:45 03/24/21 22:19 Sod Chlor 0.9% 1000ml Bag IV 03/24/21 22:45 999 mls/hr .[id number] DANI Administration Discontinued Medications Generic Name Dose Route Start Last Admin Trade Name Freq PRN Reason Stop Dose Admin Hydromorphone HCl 1 mg 03/24/21 22:57 03/24/21 23:03 Hydromorphone 2mg/Ml Syringe IV 03/24/21 22:58 1 mg ONCE ONE Administration Hydromorphone HCl 1 mg 03/24/21 23:38 03/24/21 23:39 Hydromorphone 2mg/Ml Syringe IV 03/24/21 23:39 1 mg ONCE ONE Administration Methylprednisolone Sodium Succinate 125 mg 03/24/21 23:25 03/24/21 23:27 Methylprednisolone Sod Succ 125mg Vial IV 03/24/21 23:26 125 mg ONCE ONE Administration Morphine Sulfate 4 mg 03/24/21 21:41 03/24/21 22:19 Morphine 4mg/Ml Syringe IV 03/24/21 21:42 4 mg ONCE ONE Administration Ondansetron HCl 4 mg 03/24/21 21:41 03/24
[2021-03-24 21:47] LABS: Alanine Aminotransferase 15 U/L (12-78); Albumin Level 4.2 g/dl (3.5-5.0); Albumin/Globulin Ratio 1.6 (1.1-1.8); Alkaline Phosphatase 145 U/L (38-126); Amylase 89 U/L (30-110); Anion Gap 17.9 mEq/L (5-15); Aspartate Amino Transferase 24 U/L (14-36); Bilirubin,Total 0.7 mg/dl (0.2-1.3); Blood Urea Nitrogen 38 mg/dl (7-17); Calcium 9.2 mg/dl (8.4-10.2); Carbon Dioxide 23 mmol/L (22.0-30.0); Chloride 102 mmol/L (98-107); Creatinine Clearance Estimated 37 mL/min (50-200); Estimated Glomerular Filt Rate 22 ml/min (>60); GFR (African American) 27 ML/MIN (>60); Globulin 2.6 g/dL (1.3-3.2); Glucose 85 mg/dl (74-100); Lipase 229 U/L (23-300); Potassium 3.9 mmoL/L (3.5-5.1); Sodium 139 mmol/L (136-145); Total Protein,Serum 6.8 g/dl (6.3-8.2)
[2021-03-24 21:53] LABS: C-Reactive Protein 13.2 mg/L (0-4)
[2021-03-24 22:10] LABS: Erythrocyte Sedimentation Rate 39 mm/hr (0-30)
[2021-03-24 22:56] VITALS: BP 132/53; PULSE 69; O2SAT 96
[2021-03-24 23:31] VITALS: BP 116/53; PULSE 61; O2SAT 97
[2021-03-25 00:01] VITALS: BP 125/53; PULSE 55; O2SAT 97
[2021-03-25 00:30] VITALS: BP 124/62; PULSE 65; O2SAT 98
[2021-03-25 00:49] VITALS: BP 120/83; PULSE 59; RESP 16; TEMP 36.6; O2SAT 97
== END 2021-03-25 00:50 | disposition home or self-care (01) ==
PROVIDERS: Emergency Provider Emergency Medicine; PCP Internal Medicine
DX: M54.16 Radiculopathy, lumbar region (principal); R10.11 Right upper quadrant pain; E11.9 Type 2 diabetes mellitus without complications; I10 Essential (primary) hypertension; F33.1 Major depressive disorder, recurrent, moderate; E78.5 Hyperlipidemia, unspecified
CPT/HCPCS: 74176; 80053; 81001; 82150; 83690; 85025; 85651; 86140; 87086; 87088; 87186; 96365; 96375; 96376; 99283; J2405

== ENCOUNTER → 2021-08-11 17:39 | Outpatient (CLI) | payer MEDICARE, OTHER, SELFPAY ==
[2021-08-11 18:54] LABS: Alanine Aminotransferase 17 U/L (12-78); Albumin Level 3.8 g/dl (3.5-5.0); Albumin/Globulin Ratio 1.7 (1.1-1.8); Alkaline Phosphatase 140 U/L (38-126); Anion Gap 13.4 mEq/L (5-15); Aspartate Amino Transferase 26 U/L (14-36); Bilirubin,Total 0.4 mg/dl (0.2-1.3); Blood Urea Nitrogen 25 mg/dl (7-17); Calcium 9.2 mg/dl (8.4-10.2); Carbon Dioxide 28 mmol/L (22.0-30.0); Chloride 104 mmol/L (98-107); Chol/HDL Ratio 5.5 (1-3.5); Cholesterol 221 mg/dl (140-200); Estimated Glomerular Filt Rate 28 ml/min (>60); GFR (African American) 34 ML/MIN (>60); Globulin 2.2 g/dL (1.3-3.2); Glucose 74 mg/dl (74-100); HDL Cholesterol 40 mg/dl (40-60); Potassium 4.4 mmoL/L (3.5-5.1); Sodium 141 mmol/L (136-145); Triglycerides 220 mg/dl (30-150); VLDL Cholesterol 44 mg/dL (0-40)
[2021-08-11 19:05] LABS: Direct LDL Cholesterol 109.94 mg/dL (100-129)
[2021-08-11 22:51] LABS: Hemoglobin A1C 5.5 % (4.0-6.0)
== END ==
PROVIDERS: Visit Provider Internal Medicine
DX: E11.9 Type 2 diabetes mellitus without complications (principal); E78.5 Hyperlipidemia, unspecified; I10 Essential (primary) hypertension; N18.9 Chronic kidney disease, unspecified
CPT/HCPCS: 80053; 80061; 83036

== ENCOUNTER → 2022-01-04 10:07 | Outpatient (CLI) | payer MEDICARE, OTHER, SELFPAY ==
--- NOTE | 2022-01-04 10:15 | XR_ITS ---
FINAL REPORT CLINICAL HISTORY: LEFT MEDIAL KNEE PAIN FINDINGS: 3 views of the left knee were obtained. There is no acute fracture or dislocation. There are mild hypertrophic changes along the joint margins. There are small osteophytes along the undersurface of the patella. IMPRESSION: Mild osteoarthritis. Reviewed, Interpreted and Dictated by Rick Clark MD Transcribed by Rk Correa Authenticated by Rick Clark MD on 01/04/2022 11:05:06 AM [facility]
== END ==
PROVIDERS: PCP Internal Medicine; Visit Provider Internal Medicine
DX: M25.562 Pain in left knee (principal)
CPT/HCPCS: 73562

== ENCOUNTER 2022-02-07 17:34 | Observation (INO) | payer MEDICARE, OTHER, SELFPAY ==
--- NOTE | 2022-02-07 17:58 | PC.NURSE ---
EUNICE Quintana at [facility]
[2022-02-07 18:09] VITALS: BP 122/71; PULSE 127; RESP 17; TEMP 36.8; O2SAT 97; BMI 35.6
--- NOTE | 2022-02-07 18:48 | HMH.EDGENADL ---
ED Disposition Clinical Impression: Gastroenteritis, Dehydration Headache Qualifiers: Headache type: unspecified Headache chronicity pattern: acute headache Intractability: intractable Qualified Code(s): R51.9 - Headache, unspecified Disposition: Admitted as Observation Condition on Discharge: Fair Referrals: Jd Santacruz MD [Primary Care Provider] - - Critical Care Critical Care Time: No Attestation: On 02/07/22, the high probability of a clinically significant, sudden or life threatening deterioration of the following system(s) required my full and direct attention, intervention and personal management. The time I documented below is in addition to time spent performing reported procedures but includes the following listed in this critical care notation. Medical Decision Making - Triston Inquiry Pt receiving controlled substance: Yes Triston was queried for this patient: Yes Risks and benefits of using a controlled substance: were not discussed with pt by me Vital Signs: 02/07/22 18:09 Temperature 98.2 F Temperature Source Oral Pulse Rate [Left Radial] 127 H Respiratory Rate 17 Blood Pressure [Right Arm] 122/71 Blood Pressure Mean [Right Arm] 88 02 Sat by Pulse Oximetry 97 Oxygen Delivery Method Room Air - Lab Data Lab Results 02/07/22 19:02: Urine Color Yellow, Urine Appearance Sl cloudy, Urine pH 5.0, Ur Specific [place] 1.020, Urine Protein Negative, Urine Glucose (UA) Negative, Urine Ketones Negative, Urine Blood Negative, Urine Nitrate Negative, Urine Bilirubin Negative, Urine Urobilinogen 0.2, Ur Leukocyte Esterase 1+ A, Urine WBC 10-20, Ur Squamous Epith Cells 10-20 02/07/22 19:04: SARS-CoV-2 (PCR) Not detected, Influenza A Untype (PCR) Not detected, Influenza Type B (PCR) Not detected 02/07/22 19:25: WBC 9.0, RBC 5.01, Hgb 13.6, Hct 41.9, MCV 83.6, MCH 27.2, MCHC 32.6, RDW 16.7, Plt Count 229, MPV 8.3, Neut % (Auto) 88.6 H, Lymph % (Auto) 5.0 L, [place] % (Auto) 4.6, Eos % (Auto) 1.1, Baso % (Auto) 0.8, Neut # (Auto) 8.0 H, Lymph # (Auto) 0.5 L, [place] # (Auto) 0.4, Eos # (Auto) 0.1, Baso # (Auto) 0.1, Total Counted 100, Neutrophils % (Manual) 86 H, Band Neutrophils % 5.0, Lymphocytes % (Manual) 9 L, Platelet Estimate Normal, RBC Morphology Normal 02/07/22 19:25: Sodium 139, Potassium 3.4 L, Chloride 107, Carbon Dioxide 24, Anion Gap 11.4, BUN 34 H, Creatinine 1.90 H, Estimated Creat Clear 41, Estimated GFR 26 L, Est GFR ( Amer) 32 L, Glucose 141 H, Calcium 8.8, Total Bilirubin 0.8, AST 25, ALT 20, Alkaline Phosphatase 117, Total Protein 5.8 L, Albumin 3.6, Globulin 2.2, Albumin/Globulin Ratio 1.6, Lipase 135 Result diagrams: 02/07/22 19:25 02/07/22 19:25 Orders (Tests/Meds): ED MEDICATIONS Generic Name Dose Route Start Last Admin Trade Name Freq PRN Reason Stop Dose Admin Sodium Chloride 10 ml 02/07/22 19:00 Sodium Chloride 0.9% 10ml Flush Syringe IV 03/09/22 18:59 NEEDED PRN Maintain IV Site Discontinued Medications Generic Name Dose Route Start Last Admin Trade Name Freq PRN Reason Stop Dose Admin Morphine Sulfate 4 mg 02/07/22 21:02 02/07/22 21:05 Morphine 4mg/Ml Syringe IV 02/07/22 21:03 4 mg ONCE ONE Administration Ondansetron HCl 4 mg 02/07/22 21:02 02/07/22 21:05 Ondansetron 4mg/2ml Vial IV 02/07/22 21:03 4 mg ONCE ONE Administration Sodium Chloride 1,000 ml 02/07/22 21:03 02/07/22 21:05 Sodium Chloride 0.9% 1000ml Bag IV 02/07/22 21:04 1,000 ml BOLUS ONE Administration ORDERS Category Date Time Status Diarrhea 6-11 Panel, Cdiff PCR Stat Lab 02/07/22 19:10 Ordered Urine Culture Stat Micro 02/07/22 19:02 Received - Physician Consults Physician Consulted: Siri Time: 21:09 Reason -: Admission Comment/Response: Agrees to admit the patient to the hospital. We discussed the patient's clinical information, including history, exam, laboratory and radiology results and ED course. Per hospital procedure, I will
--- NOTE | 2022-02-07 19:00 | CT_ITS ---
PROCEDURE INFORMATION: Exam: CT Abdomen And Pelvis Without Contrast Exam date and time: 02/07/2022 7:55 PM Age: 67 years old Clinical indication: Abdominal pain; Generalized; Additional info: Abd pain TECHNIQUE: Imaging protocol: Computed tomography of the abdomen and pelvis without contrast. Radiation optimization: All CT scans at this facility use at least one of these dose optimization techniques: automated exposure control; mA and/or kV adjustment per patient size (includes targeted exams where dose is matched to clinical indication); or iterative reconstruction. COMPARISON: CT ABDOMEN PELVIS WO CON 03/24/2021 9:50 PM FINDINGS: Diaphragm: Small hiatal hernia, unchanged. Liver: Unremarkable. Gallbladder and bile ducts: Unremarkable. Pancreas: Unremarkable. Spleen: Scattered punctate calcifications in the spleen, compatible with sequelae of prior granulomatous disease. Adrenal glands: Unremarkable. Kidneys and ureters: Stable post-operative appearance of prior left nephrectomy. Stomach and bowel: Colonic diverticulosis without inflammatory changes. Appendix: Appendix is visualized and is normal. Intraperitoneal space: No free fluid. No pneumoperitoneum. Vasculature: Moderate amount of calcific arterial atherosclerosis. No abdominal aortic aneurysm. Lymph nodes: Unremarkable. Urinary bladder: Bladder is decompressed, limiting evaluation. Reproductive: Status post hysterectomy. Bones/joints: Stable post-operative appearance of prior lumbosacral fixation. Multi-level bridging osteophytes in the spine, compatible with diffuse idiopathic skeletal hyperostosis (DISH), unchanged. No acute osseous abnormality. Soft tissues: Small fat containing umbilical hernia, unchanged. IMPRESSION: 1. No acute findings in the abdomen or pelvis. 2. Colonic diverticulosis without evidence of acute diverticulitis. 3. Additional chronic ancillary findings are unchanged from prior exam, as detailed above.
[2022-02-07 19:06] LABS: Microscopic, Urine URINE MICROSCOPIC (MICROSCOPIC)
--- NOTE | 2022-02-07 19:06 | PC.NURSE ---
ED MD at
[2022-02-07 19:08] LABS: Appearance,Urine SL CLOUDY (Clear); Bilirubin,Urine Negative (Negative); Blood, Urine Negative (Negative); Color,Urine YELLOW (Yellow); Glucose,Urine (UA) Negative (Negative); Ketones,Urine Negative (Negative); Leukocyte Esterase,Urine 1+ (Negative); Nitrate,Urine Negative (Negative); Protein,Urine Negative (Negative); Urobilinogen,Urine 0.2 EU/dl (0.2)
--- NOTE | 2022-02-07 19:10 | PC.NURSE ---
Covid/flu swab sent to lab
[2022-02-07 19:12] LABS: Coronavirus 19, PCR Not Detected (NotDetected); Influenza A, PCR Not Detected (NotDetected); Influenza B, PCR Not Detected (NotDetected)
[2022-02-07 19:32] LABS: Basophils # 0.1 K/mm3 (0-0.2); Basophils % 0.8 % (0.1-2.0); Eosinophils # 0.1 K/mm3 (0.0-0.4); Eosinophils % 1.1 % (0.1-12.0); Hematocrit 41.9 % (37.0-47.0); Hemoglobin 13.6 g/dL (12.2-16.2); Lymphocytes # 0.5 K/mm3 (0.7-4.5); Mean Corpuscular HGB Conc 32.6 g/dL (31.8-35.4); Mean Corpuscular Hemoglobin 27.2 pg (27.0-31.2); Mean Corpuscular Volume 83.6 fl (81-99); Mean Platelet Volume 8.3 fl (7.4-10.4); Monocytes # 0.4 K/mm3 (0.1-1.0); Monocytes % 4.6 % (1.7-9.3); Neutrophils % 88.6 % (37.0-80.0); Platelet Count 229 K/mm3 (142-424); Red Blood Count 5.01 M/mm3 (4.20-5.40); Red Cell Distribution Width 16.7 % (11.5-17.5)
[2022-02-07 19:35] LABS: MANUAL DIFFERENTIAL MANUAL DIFFERENTIAL (MANUAL DIFF)
[2022-02-07 19:42] LABS: Alanine Aminotransferase 20 U/L (12-78); Albumin Level 3.6 g/dl (3.5-5.0); Albumin/Globulin Ratio 1.6 (1.1-1.8); Alkaline Phosphatase 117 U/L (38-126); Anion Gap 11.4 mEq/L (5-15); Aspartate Amino Transferase 25 U/L (14-36); Bilirubin,Total 0.8 mg/dl (0.2-1.3); Blood Urea Nitrogen 34 mg/dl (7-17); Calcium 8.8 mg/dl (8.4-10.2); Carbon Dioxide 24 mmol/L (22.0-30.0); Chloride 107 mmol/L (98-107); Creatinine Clearance Estimated 41 mL/min (50-200); Estimated Glomerular Filt Rate 26 ml/min (>60); GFR (African American) 32 ML/MIN (>60); Globulin 2.2 g/dL (1.3-3.2); Glucose 141 mg/dl (74-100); Lipase 135 U/L (23-300); Potassium 3.4 mmoL/L (3.5-5.1); Sodium 139 mmol/L (136-145); Total Protein,Serum 5.8 g/dl (6.3-8.2)
[2022-02-07 19:58] LABS: Lymphocytes % 9 % (10-50); Neutrophils % 86 % (42-76); Platelet Estimate Normal; RBC Morphology Normal; Total Cells Counted 100
--- NOTE | 2022-02-07 21:11 | PC.NURSE ---
Patient admitted to [address] Horner with dehydration and gastroenteritis
[2022-02-07 21:40] VITALS: BMI 35.9
[2022-02-07 22:23] VITALS: BP 111/60; PULSE 96; RESP 16; TEMP 36.7; O2SAT 99
--- NOTE | 2022-02-07 22:31 | PC.NURSE ---
patient up to floor via wheelchair @ this time.
[2022-02-07 22:43] VITALS: BP 111/60; PULSE 105; RESP 22; TEMP 36.8; O2SAT 96
[2022-02-08 04:00] VITALS: BP 105/57; PULSE 102; RESP 16; TEMP 36.6; O2SAT 93
[2022-02-08 05:00] VITALS: BMI 35.9
--- NOTE | 2022-02-08 05:33 | PC.NURSE ---
Pt admitted with colitis, dehydration. Pt states shes been having diarrhea for a week. Since admitted to floor, pt has c/o of lower abd pain once. Medicated per NOV. Took collection hat and specimen cup to pts bathroom and explained to pt need for stool sample. Pt verbalized understanding. Pt has not had a BM yet. IV infusing per order. Call light in reach. No other needs voiced at this time.
[2022-02-08 06:42] LABS: Anion Gap 8.4 mEq/L (5-15); Blood Urea Nitrogen 31 mg/dl (7-17); Calcium 8.4 mg/dl (8.4-10.2); Carbon Dioxide 25 mmol/L (22.0-30.0); Chloride 109 mmol/L (98-107); Creatinine Clearance Estimated 46 mL/min (50-200); Estimated Glomerular Filt Rate 30 ml/min (>60); GFR (African American) 36 ML/MIN (>60); Glucose 103 mg/dl (74-100); Potassium 3.4 mmoL/L (3.5-5.1); Sodium 139 mmol/L (136-145)
--- NOTE | 2022-02-08 07:17 | P.CONPHA_ITS ---
[facility] Pharmacy VTE Monitoring - Patient Demographics Admission date: 02/07/22 Report Date: 02/08/22 Time: 07:17 Allergies/Adverse Reactions: Patient Allergies povidone-iodine [From Betadine] Allergy (Intermediate, Verified 03/24/21 21:11) Rash soap [From Betadine] Allergy (Intermediate, Verified 03/24/21 21:11) Rash amoxicillin [From Augmentin] Adverse Reaction (Severe, Verified 03/24/21 21:11) Diarrhea clavulanic acid [From Augmentin] Adverse Reaction (Severe, Verified 03/24/21 21:11) Diarrhea NSAIDS (Non-Steroidal Anti-Inflamma Adverse Reaction (Intermediate, Verified 03/24/21 21:11) Unknown allergy reaction Sulfa (Sulfonamide Antibiotics) Adverse Reaction (Unknown, Verified 02/08/22 06:14) Unknown allergy reaction Height: 1.6 m Weight: 92.079 kg Patient Problems: Current Active Problems Gastroenteritis (Acute) Dehydration (Acute) Headache (Acute) - VTE Risk Labs: VTE Related Lab Results Hgb 13.6 g/dL (12.2-16.2) 02/07/22 19:25 Hct 41.9 % (37.0-47.0) 02/07/22 19:25 Plt Count 229 K/mm3 (142-424) 02/07/22 19:25 BUN 31 mg/dl (7-17) H 02/08/22 06:00 Creatinine 1.70 mg/dl (0.52-1.04) H 02/08/22 06:00 Estimated Creat Clear 46 mL/min (50-200) 02/08/22 06:00 Was VTE Risk Assessment Performed: Yes VTE Score: 7 VTE Risk Level: Moderate Risk - Prophylaxis VTE Prophylaxis Ordered?: Yes Types of VTE Prophylaxis: TEDS Knee High Location of Applied Device: Bilateral Lower Extremeties
[2022-02-08 08:00] VITALS: BP 133/89; PULSE 85; RESP 15; TEMP 37.1; O2SAT 93; O2SAT 97
--- NOTE | 2022-02-08 08:56 | HMH.HPDC ---
General - General Admission date:: 02/07/22 Discharge date: 02/08/22 *Admission Date: 02/07/22 *Chief complaint: Abdominal pain/nausea *History of present illness: 67-year-old white female with single kidney was recently been traveling and developed a gastroenteritis. This unfortunately has not improved and she came to the emergency department. She is very concerned about dehydration. Although she improved in the ER with treatment and evaluation showed evidence of diverticulosis on CT scan she was admitted overnight for fluid hydration and to make sure that her kidney function and not worsen. [facility] History I have reviewed the patient's past medical history: Yes Medical History: Reports:: Arrhythmia, Cancer, Depression, Diabetes Mellitus Type 2, Hyperlipidemia, Hypertension Denies:: Diabetes Mellitus Type 1, Internal Pacemaker, MRSA, Seizures *Have you ever received a pneumonia vaccine?: Yes *Have you received a flu vaccine this season?: Yes Other Medical History: Reports: Anemia, Arthritis, Fibromyalgia, Other (Gout) Laterality Cases: Right: Arthroscopy Knee, Bilateral: Tonsillectomy Other Surgeries: Yes: Cancer Surgery (Kidney removed ), Hysterectomy-Total, Other (Kidney Removed). No: Pacemaker Amputation: No Fractures: No - *Social History Last grade of school completed: Advanced degree Smoking Status: Never smoker Alcohol Intake: never Substance Use Type: denies use *Occupational Status:: employed Housing: house Household Members: spouse *Travel in the last 8 weeks: Inside the [facility] - Psychiatric History Pschychiatric History:: Reports:: Depression Family Hx:: Diabetes, Heart Attack, Stroke Review of Systems - Review of Systems Review of systems:: pertinent systems reviewed and negative unless documented below Exam Vital signs and Labs for Last 24 Hours: Temp Pulse Resp BP Pulse Ox 98.8 F 85 15 133/89 97 02/08/22 08:00 02/08/22 08:00 02/08/22 08:00 02/08/22 08:00 02/08/22 08:00 Laboratory Results - last 24 hr 02/07/22 19:02: Urine Color Yellow, Urine Appearance Sl cloudy, Urine pH 5.0, Ur Specific [place] 1.020, Urine Protein Negative, Urine Glucose (UA) Negative, Urine Ketones Negative, Urine Blood Negative, Urine Nitrate Negative, Urine Bilirubin Negative, Urine Urobilinogen 0.2, Ur Leukocyte Esterase 1+ A, Urine WBC 10-20, Ur Squamous Epith Cells 10-20 02/07/22 19:04: SARS-CoV-2 (PCR) Not detected, Influenza A Untype (PCR) Not detected, Influenza Type B (PCR) Not detected 02/07/22 19:25: WBC 9.0, RBC 5.01, Hgb 13.6, Hct 41.9, MCV 83.6, MCH 27.2, MCHC 32.6, RDW 16.7, Plt Count 229, MPV 8.3, Neut % (Auto) 88.6 H, Lymph % (Auto) 5.0 L, [place] % (Auto) 4.6, Eos % (Auto) 1.1, Baso % (Auto) 0.8, Neut # (Auto) 8.0 H, Lymph # (Auto) 0.5 L, [place] # (Auto) 0.4, Eos # (Auto) 0.1, Baso # (Auto) 0.1, Total Counted 100, Neutrophils % (Manual) 86 H, Band Neutrophils % 5.0, Lymphocytes % (Manual) 9 L, Platelet Estimate Normal, RBC Morphology Normal 02/07/22 19:25: Sodium 139, Potassium 3.4 L, Chloride 107, Carbon Dioxide 24, Anion Gap 11.4, BUN 34 H, Creatinine 1.90 H, Estimated Creat Clear 41, Estimated GFR 26 L, Est GFR ( Amer) 32 L, Glucose 141 H, Calcium 8.8, Total Bilirubin 0.8, AST 25, ALT 20, Alkaline Phosphatase 117, Total Protein 5.8 L, Albumin 3.6, Globulin 2.2, Albumin/Globulin Ratio 1.6, Lipase 135 02/08/22 06:00: Sodium 139, Potassium 3.4 L, Chloride 109 H, Carbon Dioxide 25, Anion Gap 8.4, BUN 31 H, Creatinine 1.70 H, Estimated Creat Clear 46, Estimated GFR 30 L, Est GFR ( Amer) 36 L, Glucose 103 H D, Calcium 8.4 I & O for Last 24 hours: Intake & Output 02/05/22 02/06/22 02/07/22 02/08/22 11:59 11:59 11:59 11:59 Intake Total 1939 Balance 1939 Weight 202 lb 15.991 oz - Constitutional no acute distress - *Routine HEENT Exam Head: Present: normocephalic Eye: Present: EOMI, PERRL ENT: Present: mucous membranes moist - *Routine Neck Exam Present: sup
--- NOTE | 2022-02-08 09:50 | PC.NURSE ---
Discharge instructions provided by JELENA Hutton under supervision of this RN. All questions answered, pt verbalized understanding. PIV removed. Tyrell Beck pharmD speaking w/ pt at this time regarding discharge med list. Pt will notify staff when she is ready to leave the floor and her ride has arrived.
--- NOTE | 2022-02-09 14:51 | CARE MANAGER ---
I called and spoke with patient today r/t post discharge status. Patient confirmed that she has started all 3 new medications that were ordered at discharge. Patient states that she is doing well, and resting today. She is aware of upcoming f/u appointments.
== END 2022-02-08 09:58 | disposition home or self-care (01) ==
LOC: ER 21:06 → 2ND 21:49
PROVIDERS: Admitting Provider Internal Medicine Adolescent Medicine; Emergency Provider Emergency Medicine; PCP Internal Medicine; Visit Provider Internal Medicine Adolescent Medicine
DX: K57.31 Diverticulosis of large intestine without perforation or abscess with bleeding (principal); E86.0 Dehydration; K52.9 Noninfective gastroenteritis and colitis, unspecified; E11.9 Type 2 diabetes mellitus without complications; Z79.84 Long term (current) use of oral hypoglycemic drugs; K21.9 Gastro-esophageal reflux disease without esophagitis; I10 Essential (primary) hypertension; Z79.899 Other long term (current) drug therapy; Z20.822 Contact with and (suspected) exposure to COVID-19
CPT/HCPCS: 96365; G0378; 36415; 74176; 80048; 80053; 81001; 83690; 85007; 85025; 87086; 96375; 99285; C9803; J2405; U0003; U0005

== ENCOUNTER → 2022-02-16 12:20 | Outpatient (CLI) | payer MEDICARE, OTHER, SELFPAY ==
[2022-02-16 13:25] LABS: Basophils # 0.1 K/mm3 (0-0.2); Basophils % 1.3 % (0.1-2.0); Eosinophils # 0.2 K/mm3 (0.0-0.4); Eosinophils % 1.7 % (0.1-12.0); Hematocrit 43.3 % (37.0-47.0); Lymphocytes # 2.4 K/mm3 (0.7-4.5); Lymphocytes % 22.3 % (10-50); Mean Corpuscular HGB Conc 32.3 g/dL (31.8-35.4); Mean Corpuscular Hemoglobin 27.1 pg (27.0-31.2); Mean Corpuscular Volume 83.9 fl (81-99); Mean Platelet Volume 8.9 fl (7.4-10.4); Monocytes % 9.1 % (1.7-9.3); Neutrophils # 7.1 K/mm3 (1.8-7.8); Neutrophils % 65.7 % (37.0-80.0); Platelet Count 330 K/mm3 (142-424); Red Blood Count 5.16 M/mm3 (4.20-5.40); Red Cell Distribution Width 16.6 % (11.5-17.5); White Blood Count 10.7 K/mm3 (4.8-10.8)
[2022-02-16 14:37] LABS: Alanine Aminotransferase 29 U/L (12-78); Albumin Level 3.2 g/dl (3.5-5.0); Albumin/Globulin Ratio 1.7 (1.1-1.8); Alkaline Phosphatase 97 U/L (38-126); Anion Gap 11.7 mEq/L (5-15); Aspartate Amino Transferase 25 U/L (14-36); Bilirubin,Total 0.2 mg/dl (0.2-1.3); Blood Urea Nitrogen 44 mg/dl (7-17); Calcium 8.6 mg/dl (8.4-10.2); Carbon Dioxide 25 mmol/L (22.0-30.0); Chloride 106 mmol/L (98-107); Chol/HDL Ratio 2.8 (1-3.5); Cholesterol 117 mg/dl (140-200); Estimated Glomerular Filt Rate 28 ml/min (>60); GFR (African American) 34 ML/MIN (>60); Globulin 1.9 g/dL (1.3-3.2); Glucose 66 mg/dl (74-100); HDL Cholesterol 42 mg/dl (40-60); Potassium 3.7 mmoL/L (3.5-5.1); Sodium 139 mmol/L (136-145); Total Protein,Serum 5.1 g/dl (6.3-8.2); Triglycerides 169 mg/dl (30-150); Uric Acid 8.7 mg/dl (2.5-6.2); VLDL Cholesterol 34 mg/dL (0-40)
[2022-02-16 14:48] LABS: Direct LDL Cholesterol 38.51 mg/dL (100-129)
[2022-02-16 15:48] LABS: Hemoglobin A1C 5.8 % (4.0-6.0)
== END ==
PROVIDERS: PCP Internal Medicine; Visit Provider Internal Medicine
DX: K57.90 Diverticulosis of intestine, part unspecified, without perforation or abscess without bleeding; Z79.899 Other long term (current) drug therapy
CPT/HCPCS: 80053; 80061; 83036; 84550; 85025

== ENCOUNTER → 2022-03-25 09:18 | Outpatient (CLI) | payer MEDICARE, OTHER, SELFPAY ==
[2022-03-25 09:37] LABS: Microscopic, Urine URINE MICROSCOPIC (MICROSCOPIC)
[2022-03-25 10:09] LABS: Appearance,Urine SL CLOUDY (Clear); Bilirubin,Urine Negative (Negative); Blood, Urine TRACE-L (Negative); Color,Urine YELLOW (Yellow); Glucose,Urine (UA) Negative (Negative); Ketones,Urine Negative (Negative); Leukocyte Esterase,Urine 2+ (Negative); Nitrate,Urine Negative (Negative); Protein,Urine Negative (Negative); Urobilinogen,Urine 0.2 EU/dl (0.2)
[2022-03-25 10:21] LABS: Bacteria,Urine 3+ /lpf; Squamous Epithelial Cell,Urine Occasional #/hpf (0-5); WBC,Urine 50-100 #/hpf (0-3)
== END ==
PROVIDERS: PCP Internal Medicine; Visit Provider Internal Medicine
DX: N39.0 Urinary tract infection, site not specified (principal); B96.20 Unspecified Escherichia coli [E. coli] as the cause of diseases classified elsewhere
CPT/HCPCS: 81001; 87086; 87088; 87186

== ENCOUNTER → 2022-08-24 12:15 | Outpatient (CLI) | payer MEDICARE, OTHER, SELFPAY | PROVIDERS: PCP Internal Medicine; Visit Provider Internal Medicine | DX: N18.4 Chronic kidney disease, stage 4 (severe) (principal); N39.0 Urinary tract infection, site not specified; B96.29 Other Escherichia coli [E. coli] as the cause of diseases classified elsewhere | CPT/HCPCS: 87086; 87088; 87186 ==

== ENCOUNTER → 2022-08-31 09:41 | Outpatient (CLI) | payer MEDICARE, OTHER, SELFPAY ==
--- NOTE | 2022-08-31 09:50 | ECG_ITS ---
APPROVED REPORT Exam: Resting ECG HR:81 bpm ECG Measurements Heart Rate 81 AXES NH 202 P 56 QRSd 92 QRS 25 QT 372 T 36 QTc 410 Conclusion SINUS RHYTHM NORMAL ECG Electronically signed by : Jd Santacruz MD 08/31/2022 13:56:06
== END ==
PROVIDERS: PCP Internal Medicine; Visit Provider Internal Medicine
DX: Z01.818 Encounter for other preprocedural examination (principal); I10 Essential (primary) hypertension
CPT/HCPCS: 93005

== ENCOUNTER → 2022-08-31 13:27 | Outpatient (CLI) | payer MEDICARE, OTHER, SELFPAY ==
[2022-08-31 14:28] LABS: Basophils # 0.1 K/mm3 (0-0.2); Eosinophils # 0.2 K/mm3 (0.0-0.4); Eosinophils % 3.7 % (0.1-12.0); Hematocrit 39.1 % (37.0-47.0); Hemoglobin 12.7 g/dL (12.2-16.2); Lymphocytes # 1.3 K/mm3 (0.7-4.5); Lymphocytes % 20.7 % (10-50); Mean Corpuscular HGB Conc 32.6 g/dL (31.8-35.4); Mean Corpuscular Hemoglobin 27.5 pg (27.0-31.2); Mean Corpuscular Volume 84.3 fl (81-99); Mean Platelet Volume 9.5 fl (7.4-10.4); Monocytes # 0.4 K/mm3 (0.1-1.0); Neutrophils # 4.2 K/mm3 (1.8-7.8); Neutrophils % 67.5 % (37.0-80.0); Platelet Count 245 K/mm3 (142-424); Red Blood Count 4.64 M/mm3 (4.20-5.40); Red Cell Distribution Width 14.9 % (11.5-17.5); White Blood Count 6.3 K/mm3 (4.8-10.8)
[2022-08-31 15:33] LABS: Alanine Aminotransferase 19 U/L (12-78); Albumin Level 3.7 g/dl (3.5-5.0); Albumin/Globulin Ratio 1.9 (1.1-1.8); Alkaline Phosphatase 150 U/L (38-126); Anion Gap 14.5 mEq/L (5-15); Aspartate Amino Transferase 25 U/L (14-36); Bilirubin,Total 0.5 mg/dl (0.2-1.3); Blood Urea Nitrogen 32 mg/dl (7-17); Calcium 9.4 mg/dl (8.4-10.2); Carbon Dioxide 26 mmol/L (22.0-30.0); Chloride 107 mmol/L (98-107); Chol/HDL Ratio 4.6 (1-3.5); Cholesterol 173 mg/dl (140-200); Estimated Glomerular Filt Rate 25 ml/min (>60); GFR (African American) 30 ML/MIN (>60); Glucose 81 mg/dl (74-100); HDL Cholesterol 38 mg/dl (40-60); Potassium 4.5 mmoL/L (3.5-5.1); Sodium 143 mmol/L (136-145); Total Protein,Serum 5.7 g/dl (6.3-8.2); Triglycerides 112 mg/dl (30-150); Uric Acid 8.7 mg/dl (2.5-6.2); VLDL Cholesterol 22 mg/dL (0-40)
[2022-08-31 15:44] LABS: Direct LDL Cholesterol 88.68 mg/dL (100-129)
[2022-08-31 16:14] LABS: Hemoglobin A1C 5.4 % (4.0-6.0)
== END ==
PROVIDERS: PCP Internal Medicine; Visit Provider Internal Medicine
DX: Z01.818 Encounter for other preprocedural examination (principal); E11.9 Type 2 diabetes mellitus without complications; I10 Essential (primary) hypertension; E78.5 Hyperlipidemia, unspecified; M10.9 Gout, unspecified; Z79.84 Long term (current) use of oral hypoglycemic drugs
CPT/HCPCS: 80053; 80061; 83036; 84550; 85025; 93005

== ENCOUNTER 2023-02-09 09:00 | Outpatient (RCR) | payer MEDICARE, OTHER, SELFPAY | END 2023-03-14 16:35 | disposition home or self-care (01) | LOC: PT 09:00 | PROVIDERS: PCP Internal Medicine; Visit Provider Neurological Surgery | DX: M48.061 Spinal stenosis, lumbar region without neurogenic claudication (principal) | CPT/HCPCS: 20561; 97010; 97014; 97110; 97140; 97163; G0283 ==

== ENCOUNTER 2023-04-22 12:13 | Emergency (ER) | payer MEDICARE, OTHER, SELFPAY ==
[2023-04-22 12:14] VITALS: BP 179/94; PULSE 102; RESP 18; TEMP 37.7; O2SAT 95; BMI 36.3
--- NOTE | 2023-04-22 12:31 | PC.NURSE ---
DR MAYNARD AT BEDSIDE
--- NOTE | 2023-04-22 12:38 | XR_ITS ---
FINAL REPORT TECHNIQUE: Single view chest CLINICAL HISTORY: dyspnea COMPARISON: 06/13/2020 FINDINGS: A single view of the chest was obtained. The heart and mediastinum are within normal limits. The lungs are clear. There is no pneumothorax. Osseous structures are unremarkable. IMPRESSION: No acute cardiopulmonary process. No change from prior exam. Reviewed, Interpreted and Dictated by Jesus Rapp MD Transcribed by Kelley Arellano Authenticated and [facility]
--- NOTE | 2023-04-22 12:39 | HMH.EDGENADL ---
Discharge Plan Disposition Patient Disposition: Home, Self-Care Prescriptions Prescriptions: New Paxlovid 300 mg (150 mg x 2)-100 mg tablets,dose pack See Rx Instructions .ROUTE .COMPLEX Qty: 30 0RF Rx Instructions: take TWO 150 mg tablets of nirmatrelvir with ONE 100 mg tablet of ritonavir twice daily for 5 days albuterol sulfate 90 mcg/actuation HFA aerosol inhaler 4 inh inhalation Q4H PRN (Reason: shortness of breath or wheezing) Qty: 8.5 0RF Rx Instructions: 4 puffs every 4 hours for 48 hours then as needed for shortness of breath or wheezing following benzonatate 100 mg capsule 100 mg PO TID PRN (Reason: cough) 5 Days Qty: 20 0RF No Action diltiazem HCl [Cartia XT] 180 mg capsule,extended release 24hr 180 mg PO DAILY losartan 50 mg tablet 50 mg PO DAILY pregabalin [Lyrica] 100 mg capsule 100 mg PO BID hydrocodone-acetaminophen 5-300 mg tablet 1 tab PO Q6H PRN (Reason: pain) Hold Instructions: Resume on 02/10/22. atorvastatin 40 mg tablet 40 mg PO DAILY semaglutide 7 MG tablet 7 mg PO DAILY promethazine 25 MG tablet 25 mg PO Q6H PRN (Reason: Nausea And Vomiting) Qty: 10 0RF prednisone 20 MG tablet 20 mg PO BID 7 Days Qty: 14 0RF ciprofloxacin HCl 500 MG tablet 500 mg PO BID Qty: 14 0RF fluticasone propion-salmeterol 12 GM HFA aerosol inhaler 12 gm IH DAILY Rx Instructions: pt states she does not use as regular as she should albuterol sulfate 8.5 GM HFA aerosol inhaler 8.5 gm IH DAILY PRN (Reason: Wheezing) omeprazole 20 MG capsule,delayed release(DR/EC) 40 mg PO DAILY amitriptyline 10 MG tablet 10 mg PO DAILY PRN (Reason: Restless) Referrals Follow up/Referrals: Jd Santacruz MD [Primary Care Provider] - See instructions Activity Restrictions/Add. Instructions Additional Instructions/Restrictions: Your symptoms today are consistent with a viral syndrome from COVID-19. Given your previous immunity naturally and from his actions I suspect he will have a benign course. However it is possible you still could have a severe course if you get worse and have significant shortness of breath or feeling worse please return to the emergency department. Paxlovid has been prescribed for you. Continue to take symptomatic medications as instructed including Tylenol and the medications I prescribed for your cough. Clinical Impressions Clinical Impression: COVID-19 Discharge ED Provider: Chanel Sanchez General Adult HPI General Chief complaint: Upper Respiratory Infection Stated complaint: fever, congestion, NGUYEN Time Seen by Provider: 04/22/23 12:31 Mode of Arrival: Ambulatory Limitations: No Limitations Description of Symptoms (Recalled from ER Triage Doc. by RN): PT C/O FEVER, COUGH, HEADACHE, NECK PAIN AND CONGESTION THAT STARTED YESTERDAY. REPORTS 02 SAT AT HOME 89-92% History of Present Illness HPI narrative: 68-year-old female with a history of stage IV CKD and nephrectomy secondary to renal cell carcinoma presenting today with 24-hour period of fevers chills cough and headache. States she felt good 2 days ago and this came on relatively suddenly. No throat ache ear pain nausea vomiting diarrhea or other symptoms. Fever was 103 at home yesterday evening she took Tylenol yesterday but has not had any further antipyretics today. States oxygen saturations at home are between 89 and 92. Related Data Home Medications Medication Instructions Recorded Confirmed atorvastatin 40 mg tablet 40 mg PO DAILY Cholesterol 05/18/18 02/07/22 diltiazem HCl 180 mg 180 mg PO DAILY blood pressure 05/18/18 02/07/22 capsule,extended release 24 hr (Cartia XT) hydrocodone 5 mg-acetaminophen 300 1 tab PO Q6H PRN pain 05/18/18 02/07/22 mg tablet losartan 50 mg tablet 50 mg PO DAILY blood pressure 05/18/18 02/07/22 pregabalin 100 mg capsule (Lyrica) 100 mg PO BID Pain 05/18/18 02/07/22 fluticasone propionate 115
[2023-04-22 12:43] LABS: Influenza A, PCR Not Detected (NotDetected); Influenza B, PCR Not Detected (NotDetected)
[2023-04-22 12:47] LABS: Basophils % 0.4 % (0.1-2.0); Eosinophils % 0.3 % (0.1-12.0); Hematocrit 39.9 % (37.0-47.0); Hemoglobin 12.5 g/dL (12.2-16.2); Lymphocytes # 0.6 K/mm3 (0.7-4.5); Lymphocytes % 14.7 % (10-50); Mean Corpuscular HGB Conc 31.5 g/dL (31.8-35.4); Mean Corpuscular Volume 82.7 fl (81-99); Mean Platelet Volume 8.4 fl (7.4-10.4); Monocytes # 0.6 K/mm3 (0.1-1.0); Monocytes % 14.8 % (1.7-9.3); Neutrophils # 2.8 K/mm3 (1.8-7.8); Neutrophils % 69.8 % (37.0-80.0); Platelet Count 171 K/mm3 (142-424); Red Blood Count 4.82 M/mm3 (4.20-5.40); Red Cell Distribution Width 15.8 % (11.5-17.5); White Blood Count 3.9 K/mm3 (4.8-10.8)
[2023-04-22 12:50] LABS: Alanine Aminotransferase 22 U/L (12-78); Albumin Level 3.7 g/dl (3.5-5.0); Albumin/Globulin Ratio 1.5 (1.1-1.8); Alkaline Phosphatase 115 U/L (38-126); Anion Gap 10.1 mEq/L (5-15); Aspartate Amino Transferase 33 U/L (14-36); Bilirubin,Total 0.9 mg/dl (0.2-1.3); Blood Urea Nitrogen 24 mg/dl (7-17); Calcium 8.8 mg/dl (8.4-10.2); Carbon Dioxide 27 mmol/L (22.0-30.0); Chloride 107 mmol/L (98-107); Creatinine Clearance Estimated 43 mL/min (50-200); Estimated Glomerular Filt Rate 28 ml/min (>60); GFR (African American) 34 ML/MIN (>60); Globulin 2.4 g/dL (1.3-3.2); Glucose 89 mg/dl (74-100); Potassium 4.1 mmoL/L (3.5-5.1); Sodium 140 mmol/L (136-145); Total Protein,Serum 6.1 g/dl (6.3-8.2)
[2023-04-22 13:05] VITALS: BP 158/82; PULSE 108; RESP 20; O2SAT 95
[2023-04-22 13:30] VITALS: BP 137/75; PULSE 88; RESP 18; O2SAT 92
[2023-04-22 13:39] LABS: Coronavirus 19, PCR Detected (NotDetected)
[2023-04-22 13:52] LABS: Lactic Acid 0.9 mmol/L (0.7-2.1)
[2023-04-22 14:00] VITALS: BP 146/78; PULSE 86; RESP 18; O2SAT 93
[2023-04-22 14:30] VITALS: BP 148/74; PULSE 88; RESP 18; O2SAT 93
[2023-04-22 15:30] VITALS: BP 148/74; PULSE 88; RESP 18; TEMP 37.7; O2SAT 95
== END 2023-04-22 15:32 | disposition home or self-care (01) ==
PROVIDERS: Emergency Provider Student in an Organized Health Care Education/Training Program; PCP Internal Medicine
DX: U07.1 COVID-19 (principal); R50.9 Fever, unspecified; R51.9 Headache, unspecified; M54.2 Cervicalgia
CPT/HCPCS: 71045; 80053; 83605; 85025; 87040; 87077; 87186; 87636; 96374; 96375; 99285; J0131

== ENCOUNTER → 2023-05-18 15:13 | Outpatient (CLI) | payer MEDICARE, OTHER, SELFPAY ==
--- NOTE | 2023-05-18 | ECG_ITS ---
APPROVED REPORT Exam: Resting ECG HR:86 bpm ECG Measurements Heart Rate 86 AXES [place] 197 P 49 QRSd 88 QRS 33 QT 367 T 25 QTc 411 Conclusion SINUS RHYTHM POSSIBLE RIGHT VENTRICULAR CONDUCTION DELAY [RSR (QR) IN V1/V2] OTHERWISE NORMAL ECG Electronically signed by : Jd Santacruz MD 06/06/2023 11:51:33
== END ==
PROVIDERS: PCP Internal Medicine; Visit Provider Internal Medicine
DX: R07.89 Other chest pain (principal)
CPT/HCPCS: 93005

== ENCOUNTER → 2023-08-26 13:12 | Outpatient (CLI) | payer MEDICARE, OTHER, SELFPAY ==
[2023-08-26 13:53] LABS: Basophils % 0.4 % (0.1-2.0); Eosinophils # 0.3 K/mm3 (0.0-0.4); Eosinophils % 4.2 % (0.1-12.0); Hematocrit 41.1 % (37.0-47.0); Hemoglobin 13.5 g/dL (12.2-16.2); Lymphocytes # 1.3 K/mm3 (0.7-4.5); Mean Corpuscular HGB Conc 32.8 g/dL (31.8-35.4); Mean Corpuscular Hemoglobin 27.7 pg (27.0-31.2); Mean Corpuscular Volume 84.4 fl (81-99); Mean Platelet Volume 9.3 fl (7.4-10.4); Monocytes # 0.4 K/mm3 (0.1-1.0); Monocytes % 6.3 % (1.7-9.3); Neutrophils # 4.7 K/mm3 (1.8-7.8); Neutrophils % 70.1 % (37.0-80.0); Platelet Count 223 K/mm3 (142-424); Red Blood Count 4.87 M/mm3 (4.20-5.40); Red Cell Distribution Width 15.5 % (11.5-17.5); White Blood Count 6.8 K/mm3 (4.8-10.8)
[2023-08-26 14:14] LABS: Chloride 107 mmol/L (98-107); Sodium 142 mmol/L (136-145)
[2023-08-26 14:17] LABS: Alanine Aminotransferase 23 U/L (12-78); Albumin Level 3.6 g/dl (3.5-5.0); Albumin/Globulin Ratio 1.7 (1.1-1.8); Alkaline Phosphatase 111 U/L (38-126); Aspartate Amino Transferase 27 U/L (14-36); Bilirubin,Total 0.5 mg/dl (0.2-1.3); Blood Urea Nitrogen 28 mg/dl (7-17); Carbon Dioxide 29 mmol/L (22.0-30.0); Cholesterol 119 mg/dl (140-200); Estimated Glomerular Filt Rate 28 ml/min (>60); GFR (African American) 34 ML/MIN (>60); Globulin 2.1 g/dL (1.3-3.2); Total Protein,Serum 5.7 g/dl (6.3-8.2); Triglycerides 101 mg/dl (30-150); VLDL Cholesterol 20 mg/dL (0-40)
[2023-08-26 14:18] LABS: Calcium 8.7 mg/dl (8.4-10.2); Chol/HDL Ratio 3.1 (1-3.5); Glucose 84 mg/dl (74-100); HDL Cholesterol 39 mg/dl (40-60)
[2023-08-26 14:29] LABS: Direct LDL Cholesterol 55.15 mg/dL (100-129)
[2023-08-26 14:48] LABS: Hemoglobin A1C 5.3 % (4.0-6.0)
== END ==
PROVIDERS: PCP Internal Medicine; Visit Provider Internal Medicine
DX: E11.9 Type 2 diabetes mellitus without complications (principal); I10 Essential (primary) hypertension; N18.4 Chronic kidney disease, stage 4 (severe); E78.5 Hyperlipidemia, unspecified; J45.909 Unspecified asthma, uncomplicated; Z85.528 Personal history of other malignant neoplasm of kidney; Z79.84 Long term (current) use of oral hypoglycemic drugs
CPT/HCPCS: 80053; 80061; 83036; 85025

== ENCOUNTER 2023-12-06 10:14 | Outpatient (CLI) | payer MEDICARE, OTHER, SELFPAY ==
--- NOTE | 2023-12-06 10:24 | XR_ITS ---
FINAL REPORT CLINICAL HISTORY: RT SHOULDER PAIN FINDINGS: Right shoulder Three views were obtained. There is no acute fracture or dislocation. There is mild AC joint degenerative change. Spurring is seen along the undersurface of the acromion. No soft tissue abnormality is identified. IMPRESSION: Degenerative changes as above. Reviewed, Interpreted and Dictated by Sunday Sweet III, MD Transcribed by Sachi Santizo Authenticated and . [facility]
--- NOTE | 2023-12-06 10:24 | XR_ITS ---
FINAL REPORT CLINICAL HISTORY: RENAL CELL CARCINOMA COMPARISON: 10/24/2020 FINDINGS: CERVICAL SPINE Six views demonstrate no acute fracture. There are mild and moderate degenerative changes at multiple levels with osteophytes. There is fusion of C6-7. There is mild left C5-6 neural foraminal narrowing. There is no malalignment. IMPRESSION: Degenerative changes as above. Reviewed, Interpreted and Dictated by Sunday Sweet III, MD Transcribed by Sachi Santizo Authenticated and [facility]
== END 2023-12-06 23:59 ==
LOC: RAD 10:15
PROVIDERS: PCP Internal Medicine; Visit Provider Internal Medicine
DX: M54.2 Cervicalgia (principal); M79.601 Pain in right arm; M25.511 Pain in right shoulder; Z85.528 Personal history of other malignant neoplasm of kidney
CPT/HCPCS: 72050; 73030

== ENCOUNTER 2024-03-13 18:00 | Outpatient (CLI) | payer MEDICARE, OTHER, SELFPAY | END 2024-03-13 23:59 | disposition home or self-care (01) | LOC: LAB.DROPOF 03-14 12:26 | PROVIDERS: PCP Internal Medicine; Visit Provider Internal Medicine | DX: N39.0 Urinary tract infection, site not specified (principal); B96.89 Other specified bacterial agents as the cause of diseases classified elsewhere | CPT/HCPCS: 87086; 87088; 87186 ==

== ENCOUNTER 2024-04-13 14:26 | Outpatient (CLI) | payer MEDICARE, OTHER, SELFPAY ==
--- NOTE | 2024-04-13 14:26 | US_ITS ---
FINAL REPORT CLINICAL HISTORY: Rt mass on thigh FINDINGS: Limited sonographic images of the right thigh were obtained. There is a hypoechoic mass at the area of interest measuring 5.8 cm which is relatively avascular most consistent with a lipoma. IMPRESSION: Lipoma at the area of interest. Reviewed, Interpreted and Dictated by Debbi Morgan MD Transcribed by Sachi Santizo Authenticated and [facility]
== END 2024-04-13 23:59 | disposition home or self-care (01) ==
LOC: RAD 14:26
PROVIDERS: PCP Internal Medicine; Visit Provider Surgery
DX: D17.23 Benign lipomatous neoplasm of skin and subcutaneous tissue of right leg (principal)
CPT/HCPCS: 76882

== ENCOUNTER 2024-05-14 06:17 | Day surgery (SDC) | payer MEDICARE, OTHER, SELFPAY ==
[2024-05-09 13:12] VITALS: BMI 38.0
[2024-05-14] VITALS (14 sets, daily range): BP systolic 136–179; BP diastolic 75–97; PULSE 75–94; RESP 16–19; TEMP 36.3–36.6; O2SAT 92–95
[2024-05-14] MEDS: LACTATED RINGERS 1000ML 1,000 ML 25 ML IV (06:27)
[2024-05-14 06:51] LABS: POC Glucose,Bedside 95 (70-110)
--- NOTE | 2024-05-14 07:11 | P.PNANES_ITS ---
[facility] Disclaimer: The information contained in this section may have been updated after the patient was seen, as this information can be updated by other users. Medical History History of kidney disease History of kidney cancer Asthma Hypertension Surgical History History of colonoscopy History of foot surgery History of right knee surgery History of local excision of skin lesion History of nephrectomy History of back surgery Family History Other Family history of diabetes mellitus type II Family history of myocardial infarction Family history of stroke Social History Smoking Status: Never smoker alcohol intake: never substance use type: denies use current occupational status: employed Travel in the last 8 weeks: Inside the [place] household members: spouse housing: house 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 Anesthesia Checklist Patient Identification Patient Identification: Arm Band, Family and Verbal (Name & ) Structural Data Admitted From: Home Planned Operative Procedure/s: Excision of Rt. thigh lipoma Consent for Planned Operative Procedure(s) Verified: Yes Verified Documents: Surgical Consent and History and Physical NPO Status Verified Time NPO: 23:00 Chart Verification Results Verified: CBC, BMP, ECG and Chest Xray Additional verifications Fingerstick Blood Glucose: 95 Patient : No Anesthesia Reactions: No (difficulty waking, difficulty urinating) Hx Blood Transfusions: Yes Blood Transfusion Reaction: No Previous Colonoscopy: Yes Cardiovascular Assessment Heart Sounds: S1 & S2 Pulse Rhythm: Irregular Peripheral Edema: No Airway Assessment Mallampati Score:: Class II C-Spine Mobility Assessed: Yes (FROM) TMJ Mobility Assessed: Yes Dentition: Good Dentition (Nothing loose per pt.) Neurological Assessment Level of Consciousness: Awake, Alert, Appropriate and Follows Commands Hx Seizures: No Numbness or tingling in extremities: No Anesthesia Plan Anesthesia Risk discussed: Yes Anesthesia Plan: Verified ASA Class: III Anesthesia Type: General
[2024-05-14] MEDS: ROPIVACAINE 0.5% 30ML VIAL 150 MG (07:30)
[2024-05-14] MEDS: LIDOCAINE 1% 10ML MDV 10 ML (07:30)
[2024-05-14] MEDS: CLINDAMYCIN PHOSPHATE/D5W 900 MG/50 ML PIGGYBACK 100 MG (07:30)
--- NOTE | 2024-05-14 08:01 | P.OP_ITS ---
Date of procedure: 05/14/24 Pre-op Diagnosis:: Recurrent right thigh lipoma Post-op Diagnosis:: Same Procedure performed:: Excision of recurrent deep right thigh lipoma (excisional length 6 cm) with intermediate complex closure Surgeon:: Sunday Burks MD PHOTOLETTERING MACHINE OPERATOR:: Yue Donnelly Anesthesia: local and LMA Estimated blood loss (mL): 5 Clinical Note:: Patient is a pleasant 69-year-old female whom I had previously performed excision of right thigh lipoma on 02/01/2011. She had recurrence of a lump at the location which increased in size slowly over time. I did have her undergo ultrasound which revealed findings consistent with 5.8 cm lipoma. Operative findings:: Consistent with benign lobulated lipoma Operative note:: Consent was obtained patient was taken to the operating room. She was given preoperative intravenous antibiotic. In the operating room she was placed in a supine position. General anesthesia was induced via LMA. The area was prepped and draped in the standard surgical fashion. Boundaries of the palpable lipoma are marked with a skin marker. Incision was made in previous scar. Careful dissection was carried down through dermis and superficial subcutaneous tissues using electrocautery. Well-circumscribed lobulated fatty tissue was encountered consistent with a lobulated lipoma. This was dissected free from surrounding tissues using some careful blunt dissection and some use of electrocautery. Lipoma was rather deep but within the subcutaneous tissues. It was removed in its entirety. Wound was inspected for residual lipomatous tissue of which none obviously was noted. Wound was irrigated. Local anesthetic was infiltrated. Hemostasis was achieved with electrocautery. Subdermal tissues were closed with interrupted 2-0 Vicryl. Skin was closed with 4-0 Monocryl in a running subcuticular fashion. Dermabond and bulky dressing was applied. Condition: stable Disposition: PACU Complications:: None immediately apparent
--- NOTE | 2024-05-14 08:06 | P.PNANES_ITS ---
[facility] Anesthesia Record Part I Anesthesia Record I Intake, IV Amount: 500 Hydration: Adequate Estimated blood loss (mL): 5 Urine output (mL): 0 Blood Pressure: 147/96 SaO2: 94 Pulse Rate: 94 Airway Patency: Patent Respiratory Rate: 19 Temperature: 97.5 F Patient is:: Awake Stable to PACU at:: 08:04
[2024-05-14 08:14] LABS: POC Glucose,Bedside 98 (70-110)
--- NOTE | 2024-05-14 09:43 | EXP.ANES.II ---
[facility] Anesthesia Record Part II Anesthesia Record Part II Discharge Time: 09:04 Destination: Surgical Day Care (OP Surgery) PACU nurse assessment reviewed?: Yes Patient Condition:: Good Anesthesia Complications:: None Swallowing reflex intact?: Yes Airway Patency: Patent Cyanosis?: No Blood Pressure: 166/76 SaO2: 95 Respiratory Rate: 18 Pulse Rate: 75 Temperature: 97.6 F Mental Status: Alert & Oriented Pain level:: 0 Nausea and/or vomitting:: None Intake, IV Amount: 0 Hydration: Adequate
--- NOTE | 2024-05-17 09:26 | EXP.ANES.II ---
[facility] Anesthesia Record Part II Anesthesia Record Part II Discharge Time: 09:04 Destination: Surgical Day Care (OP Surgery) PACU nurse assessment reviewed?: Yes Patient Condition:: Good Anesthesia Complications:: None Swallowing reflex intact?: Yes Airway Patency: Not Patent Cyanosis?: No Blood Pressure: 166/76 SaO2: 95 Respiratory Rate: 18 Pulse Rate: 75 Temperature: 97.9 F Mental Status: Alert & Oriented Pain level:: 0 Nausea and/or vomitting:: None Intake, IV Amount: 0 Hydration: Adequate
[2024-05-17 09:27] VITALS: BP 166/76; PULSE 75; RESP 18; TEMP 36.6; O2SAT 95
== END 2024-05-14 10:00 | disposition home or self-care (01) ==
PROVIDERS: PCP Internal Medicine; Visit Provider Surgery
DX: D17.23 Benign lipomatous neoplasm of skin and subcutaneous tissue of right leg (principal); E11.9 Type 2 diabetes mellitus without complications; Z79.84 Long term (current) use of oral hypoglycemic drugs; I10 Essential (primary) hypertension; E78.5 Hyperlipidemia, unspecified; Z90.5 Acquired absence of kidney; Z08 Encounter for follow-up examination after completed treatment for malignant neoplasm; Z85.528 Personal history of other malignant neoplasm of kidney
CPT/HCPCS: 27337; 82962; 88304; J1100; J2405; J3010; J7120

== ENCOUNTER 2024-06-20 08:45 | Outpatient (CLI) | payer MEDICARE, OTHER, SELFPAY ==
--- NOTE | 2024-06-20 08:49 | XR_ITS ---
FINAL REPORT CLINICAL HISTORY: Progressive left knee pain and stiffness FINDINGS: LEFT KNEE 3 views of the left knee were obtained. There is no acute fracture or dislocation. There is there is severe patellofemoral joint disease. Mild degenerative changes are seen of the medial and lateral compartments. Bones are osteopenic. Visualized joint spaces are normally aligned. Soft tissues are unremarkable. IMPRESSION: No acute bony abnormality. Reviewed, Interpreted and Dictated by Jesus Rapp MD Transcribed by Kelley Arellano Authenticated and . [facility]
--- NOTE | 2024-06-20 08:49 | XR_ITS ---
FINAL REPORT CLINICAL HISTORY: Progressive right knee pain and stiffness FINDINGS: RIGHT KNEE 3 views of the right knee were obtained. There is no acute fracture or dislocation. There is there is severe patellofemoral joint disease. Mild degenerative changes are seen of the medial and lateral compartments. Bones are osteopenic. Visualized joint spaces are normally aligned. Soft tissues are unremarkable. IMPRESSION: No acute bony abnormality. Reviewed, Interpreted and Dictated by Jesus Rapp MD Transcribed by Kelley Arellano Authenticated and . [facility]
== END 2024-06-20 23:59 | disposition home or self-care (01) ==
LOC: RAD 08:47
PROVIDERS: PCP Internal Medicine; Visit Provider Internal Medicine
DX: M25.562 Pain in left knee (principal); M25.561 Pain in right knee
CPT/HCPCS: 73562

== ENCOUNTER 2024-07-25 14:01 | Outpatient (CLI) | payer MEDICARE, OTHER, SELFPAY ==
--- NOTE | 2024-07-25 14:05 | CA_ITS ---
FINAL REPORT TECHNIQUE: Ultrasound images of the deep venous system were obtained from the left groin to the calf veins. CLINICAL HISTORY: popliteal pain, r/o bakers cyst, FINDINGS: The deep venous system is normally compressible. Normal flow is identified. No mass is seen in the popliteal fossa. IMPRESSION: No evidence of left lower extremity DVT. Reviewed, Interpreted and Dictated by Valente Birmingham MD Transcribed by Sheron Hendricks Authenticated and [facility]
== END 2024-07-25 23:59 | disposition home or self-care (01) ==
LOC: RT 14:02
PROVIDERS: PCP Internal Medicine; Visit Provider Internal Medicine
DX: M79.605 Pain in left leg (principal); M79.89 Other specified soft tissue disorders
CPT/HCPCS: 93971

== ENCOUNTER 2024-09-13 13:40 | Outpatient (CLI) | payer MEDICARE, OTHER, SELFPAY ==
[2024-09-13 14:15] LABS: Hematocrit 39.4 % (37.0-47.0); Hemoglobin 12.5 g/dL (12.2-16.2); Mean Corpuscular HGB Conc 31.7 g/dL (31.8-35.4); Mean Corpuscular Hemoglobin 26.8 pg (27.0-31.2); Mean Corpuscular Volume 84.5 fl (81-99); Mean Platelet Volume 11.1 fl (7.4-10.4); Neutrophils % 70.2 % (37.0-80.0); Platelet Count 221 K/mm3 (142-424); Red Blood Count 4.66 M/mm3 (4.20-5.40); Red Cell Distribution Width 15.9 % (11.5-17.5); White Blood Count 6.1 K/mm3 (4.8-10.8)
[2024-09-13 14:16] LABS: Basophils % 0.3 % (0.1-2.0); Eosinophils # 0.3 K/mm3 (0.0-0.4); Eosinophils % 4.7 % (0.1-12.0); Lymphocytes % 16.2 % (10-50); Monocytes # 0.5 K/mm3 (0.1-1.0); Monocytes % 8.3 % (1.7-9.3); Neutrophils # 4.3 K/mm3 (1.8-7.8)
[2024-09-13 15:08] LABS: Albumin Level 3.7 g/dl (3.5-5.0); Chloride 111 mmol/L (98-107); Potassium 4.6 mmoL/L (3.5-5.1); Sodium 138 mmol/L (136-145)
[2024-09-13 15:10] LABS: Blood Urea Nitrogen 25 mg/dl (7-17)
[2024-09-13 15:11] LABS: Alanine Aminotransferase 19 U/L (12-78); Albumin/Globulin Ratio 1.9 (1.1-1.8); Alkaline Phosphatase 124 U/L (38-126); Anion Gap 5.6 mEq/L (5-15); Aspartate Amino Transferase 28 U/L (14-36); Bilirubin,Total 0.7 mg/dl (0.2-1.3); Calcium 9.1 mg/dl (8.4-10.2); Carbon Dioxide 26 mmol/L (22.0-30.0); Cholesterol 139 mg/dl (140-200); Estimated Glomerular Filt Rate 28 ml/min (>60); GFR (African American) 34 ML/MIN (>60); Globulin 1.9 g/dL (1.3-3.2); Glucose 86 mg/dl (74-100); HDL Cholesterol 35 mg/dl (40-60); Total Protein,Serum 5.6 g/dl (6.3-8.2); Triglycerides 133 mg/dl (30-150); VLDL Cholesterol 27 mg/dL (0-40)
[2024-09-13 15:22] LABS: Direct LDL Cholesterol 61.11 mg/dL (100-129)
== END 2024-09-13 23:59 | disposition home or self-care (01) ==
LOC: LAB.DROPOF 13:41
PROVIDERS: PCP Internal Medicine; Visit Provider Internal Medicine
DX: I10 Essential (primary) hypertension (principal); N18.4 Chronic kidney disease, stage 4 (severe); E11.42 Type 2 diabetes mellitus with diabetic polyneuropathy; E78.5 Hyperlipidemia, unspecified
CPT/HCPCS: 80053; 80061; 83036; 85025

== ENCOUNTER 2024-12-04 11:40 | Outpatient (CLI) | payer MEDICARE, OTHER, SELFPAY ==
--- NOTE | 2024-12-04 11:43 | XR_ITS ---
FINAL REPORT CLINICAL HISTORY: Right sciatica FINDINGS: LUMBAR SPINE AP and lateral views were obtained. There is no acute fracture or malalignment. There is posterior fusion at L4-5 and L5-S1. Moderate anterior osteophytes are seen at T12-L1, L1-2 and L2-3. Vertebrae are normal height. Prevertebral soft tissues are unremarkable. IMPRESSION: No acute bony abnormality. Reviewed, Interpreted and Dictated by Rick Clark MD Transcribed by Kelley Arellano Authenticated and [facility]
--- NOTE | 2024-12-04 11:43 | XR_ITS ---
FINAL REPORT CLINICAL HISTORY: Right hip pain FINDINGS: RIGHT HIP Two views of the right hip demonstrate no acute fracture or dislocation. The joint spaces appear normal. The visualized bony structures are well aligned. Moderate hypertrophic changes are seen in the acetabular margins. No soft tissue abnormality is seen. IMPRESSION: Mild degenerative change without acute bony abnormality. Reviewed, Interpreted and Dictated by Rick Clark MD Transcribed by Kelley Arellano Authenticated and [facility]
== END 2024-12-04 23:59 | disposition home or self-care (01) ==
LOC: RAD 11:42
PROVIDERS: PCP Internal Medicine; Visit Provider Internal Medicine
DX: M25.551 Pain in right hip (principal); M54.31 Sciatica, right side
CPT/HCPCS: 72100; 73502

== ENCOUNTER 2025-03-26 15:23 | Outpatient (CLI) | payer MEDICARE, OTHER, SELFPAY ==
--- OUTSIDE RECORDS SUMMARY | 2025-03-19 14:20 | XMS_ITS | Encounter Summary ---
Author Organization Healthcare Address [address] [place] [address] Care Team Providers Care Application Processor Name Role Phone Jd Santacruz MD Primary Care Provider [phone] Reason for Referral * Imaging (Routine) - Authorized Specialty Diagnoses / Procedures Referred By Contac t Referred To Contact Radiology Diagnoses Stage 3b chronic kidney disease (CMS/HCC) Other cystic kidney diseases Procedures US Renal Complete Nick Harrington MD [address] [place] [phone] Phone: tel: fax: Referral ID Status Reason Start Date Expiration Date V isits Requested Visits Authorized [id number] Authorized 03/19/2025 09/18/2026 1 1 * Consultation (Routine) - Authorized Specialty Diagnoses / Procedures Referred By Contac t Referred To Contact Diagnoses Stage 3b chronic kidney disease (CMS/HCC) Nick Harrington MD [address] [address] Phone: tel: fax: Referral ID Status Reason Start Date Expiration Date V isits Requested Visits Authorized [id number] Authorized 03/19/2025 09/18/2026 1 1 Reason for Visit * Reason Comments Follow-up Encounter Details Date Type Department Care Team ([facility] st Contact Info) Description 03/19/2025 2:20 PM EDT Office Visit [facility] Nephrology, Bone & Mineral Metabolism [address], [address] [place] [address] Nick Harrington MD [address] [place] [address] Stage 3b chronic kidney disease [...] on file Sexual Orientation Not on file Travel History Travel Start Travel End [place] 03/02/2025 03/09/2025 documented as of this encounter Last Filed [...] (Lasix) 40 MG tablet As needed HYDROcodone-acetaminophen ([place]) 5-325 MG tablet Every 6 hours losartan [...] Care Team (Late st Contact Info) Description 09/03/2025 9:10 AM EST Clinical Support [facility] Laboratory Services [address] [place] [address] 09/10/2025 2:20 PM EST Office Visit [facility] Nephrology, Bone & Mineral Metabolism [address], [address] [place] [address] Nick Harrington MD [address] [place] [address] Scheduled Orders Name Type Priority Associated Diagnoses Orde r Schedule Renal Function Panel, Plasma Lab Routine Stage 3b chronic kidney disease (CMS/HCC) Expected: 03/19/2025 (Approximate), Expires: 09/18/2026 CBC W/O Differential Lab Routine Stage 3b chronic kidney disease (CMS/HCC) Expected: 03/19/2025 (Approximate), Expires: 09/18/2026 Urinalysis with reflex microscopic (Culture NOT Included) Lab Routine Stage 3b chronic kidney disease (CMS/HCC) Expected: 03/19/2025 (Approximate), Expires: 09/18/2026 Creatinine, Random, Urine Lab Routine Stage 3b chronic kidney disease (CMS/HCC) Expected: 03/19/2025 (Approximate), Expires: 09/18/2026 Protein, Random, Urine with Creatinine Lab Routine Stage 3b chronic kidney disease (CMS/HCC) Expected: 03/19/2025 (Approximate), Expires: 09/18/2026 PTH Intact Total Lab Routine Stage 3b chronic kidney disease (CMS/HCC) Ordered: 03/19/2025 US Renal Complete Imaging Routine Stage 3b chronic kidney disease (CMS/HCC) Other cystic kidney diseases Expected: 08/27/2025 (Approximate), Expires: 09/20/2026 Scheduled Referrals Name Type Priority Associated Diagnoses Order Schedule Follow Up Nephrology Outpatient Referral Routine Stage 3b chronic kidney disease (CMS/HCC) Expected: 09/12/2025 (Approximate), Expires: 09/20/2026 documented as of this encounter Visit Diagnoses Diagnosis Stage 3b chronic kidney disease (CMS/HCC)- Primary Other cystic kidney diseases Recurrent UTI [...] documented as of this encounter Care Teams Application Processor Relationship Specialty Start Date End Date Jd Santacruz MD [address] [place] [address] [address] [place] [address] PCP - General 02/06/21 documented as of this encounter
[2025-03-26 15:19] LABS: Albumin Level 4.2 g/dl (3.5-5.0); Chloride 100 mmol/L (98-107); Potassium 4.4 mmoL/L (3.5-5.1); Sodium 141 mmol/L (136-145)
[2025-03-26 15:22] LABS: Alanine Aminotransferase 20 U/L (12-78); Albumin/Globulin Ratio 2.0 (1.1-1.8); Alkaline Phosphatase 131 U/L (38-126); Anion Gap 16.4 mEq/L (5-15); Aspartate Amino Transferase 26 U/L (14-36); Bilirubin,Total 1.1 mg/dl (0.2-1.3); Blood Urea Nitrogen 22 mg/dl (7-17); Calcium 9.4 mg/dl (8.4-10.2); Carbon Dioxide 29 mmol/L (22.0-30.0); Cholesterol 130 mg/dl (140-200); Creatinine,Serum 1.80 mg/dl (0.52-1.04); Estimated Glomerular Filt Rate 28 ml/min (>60); GFR (African American) 34 ML/MIN (>60); Globulin 2.1 g/dL (1.3-3.2); Glucose 89 mg/dl (74-100); Total Protein,Serum 6.3 g/dl (6.3-8.2); Triglycerides 173 mg/dl (30-150)
[2025-03-26 15:23] LABS: HDL Cholesterol 36 mg/dl (40-60)
--- OUTSIDE RECORDS SUMMARY | 2025-03-26 15:25 | XMS_ITS | Encounter Summary ---
Author Organization Healthcare Address [address] [place] [address] Care Team Providers Care Java Sdet Name Role Phone Jd Santacruz MD Primary Care Provider [phone] Encounter Details Date Type Department Care Team (Latest Contact Info) Description 03/12/2025 Travel Social History Tobacco Use Types Packs/Day Years Used Date Smoking Tobacco: Never Smokeless Tobacco: Never Alcohol Use Standard Drinks/Week Comments Never 0 (1 standard drink = 0.6 oz pur e alcohol) PHQ-2 Answer Date Recorded Patient Health Questionnaire-2 Score 0 06/18/2024 PHQ-2A Answer Date Recorded Patient Health Questionnaire-2 Score 0 02/08/2023 Comments Unknown Sex and Gender Information Value Date Recorded Sex Assigned at Not on file Legal Sex Female 7:55 PM EDT Gender Identity Not on file Sexual Orientation Not on file Travel History Travel Start Travel End [place] 03/02/2025 03/09/2025 documented as of this encounter Plan of Treatment Upcoming Encounters Date Type Department Care Team (Late st Contact Info) Description 09/03/2025 9:10 AM EST Clinical Support [facility] Laboratory Services [address], [address] [place] [address] 09/10/2025 2:20 PM EST Office Visit [facility] Nephrology, Bone & Mineral Metabolism [address], [address] [place] [address] Nick Harrington MD [address] [place] [address] documented as of this encounter Visit Diagnoses Not on filedocumented in this encounter Additional Health Concerns Assessment Noted Time A fall risk assessment has been complete d for the patient 11/12/2024 1:08 PM EST A Body Mass Index follow-up plan has been documented for the patient 11/12/2024 2:16 PM EST documented as of this encounter Care Teams Java Sdet Relationship Specialty Start Date End Date Jd Santacruz MD [address] [place] [address] [address] [place] [address] PCP - General 02/06/21 documented as of this encounter
--- OUTSIDE RECORDS SUMMARY | 2025-03-26 15:25 | XMS_ITS | Encounter Summary ---
Author Organization Healthcare Address [address] [place] [address] Care Team Providers Care Conservation Scientist Name Role Phone Jd Santacruz MD Primary Care Provider [phone] Encounter Details Date Type Department Care Team (Latest Contact Info) Description 03/15/2025 Travel Social History Tobacco Use Types Packs/Day [...] file Travel History Travel Start Travel End [place] 03/02/2025 03/09/2025 documented as of this encounter Plan of Treatment Upcoming Encounters Date Type Department Care Team (Late st Contact Info) Description 09/03/2025 9:10 AM EST Clinical Support [facility] Laboratory Services [address], [address] [place] [address] 09/10/2025 2:20 PM EST Office Visit [facility] Nephrology, Bone & Mineral Metabolism [address], [address] [place] [address] Nick Harrington MD [address] [place] [address] documented as of this encounter Visit Diagnoses Not on filedocumented in this encounter Additional Health Concerns Assessment Noted Time A fall risk assessment has been complete d for the patient 11/12/2024 1:08 PM EST A Body Mass Index follow-up plan has been documented for the patient 11/12/2024 2:16 PM EST documented as of this encounter Care Teams Conservation Scientist Relationship Specialty Start Date End Date Jd Santacruz MD [address] [place] [address] [address] [place] [address] PCP - General 02/06/21 documented as of this encounter
--- OUTSIDE RECORDS SUMMARY | 2025-03-26 15:25 | XMS_ITS | Clinical Summary ---
Author DANI Salazar [id number] Phone Email Address Preferred Language Prydeinig Marital Status Caodaism Affiliation Unknown Race White Ethnic Group Not or Lati no Author Organization [facility] Address [address] [place] [address] Phone Care Team Providers Care Gear Tester Name Role Phone Sunday Hilliard MD [ ] Conditions or Problems Problem Name Problem Code Onset Date Status Entry Date Provider Comment Standard Description Annotate Clostridium difficile colitis 665791556 (SNOMED CT) 01/03 Active 01/03 Sunday Hilliard MD Clostridium difficile colitis Spine, subsequent encounter, infection/in flammatory reaction due to internal fixation device T84.63xD (ICD-10-CM) 10/10 Active 10/10 Ct [facility] Infection and inflammatory reaction due to internal fixation device of spine, subsequent encounter Abscess, epidural G06.1 (ICD-10-CM) 10/10 Active 10/10 Ct [facility] Intraspinal abscess and granuloma Peptostrepto coccus infection 701139424870 101 (SNOMED CT) 10/10 Active 10/10 Ct [facility] Peptostreptococc us infection DM II with diabetic CKD, 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) 499201101 (SNOMED CT) 10/10 Active 10/10 Ct [facility] Renal disorder due to type 2 diabetes mellitus Neutrophilic leukemoid reaction D72.823 (ICD-10-CM) 10/10 Active 10/10 Ct [facility] Leukemoid reaction Benign Essential Hypertension 35406332 (SNOMED CT) 10/10 Active 10/10 Ct [facility] Benign hypertension CKD, Stage III 789147120 (SNOMED CT) 10/10 Active 10/10 Ct [place] Chronic kidney disease stage 3 Medications Medication Instructions Start Date Stop Date Generic Name NDC Provider CEFDINIR 300 MG CAPS by mouth daily CEFDINIR 12114343041 Mane K PREDNISONE 20 MG TABS by mouth twice daily PREDNISONE 85591494897 Mane K DOXYCYCLINE MONOHYDRATE 100 MG CAPS Take one (1) tablet by mouth twice a day 04/16 DOXYCYCLINE MONOHYDRATE 55785061235 Mane K DOXYCYCLINE MONOHYDRATE 100 MG CAPS Take one (1) tablet by mouth twice a day 04/16 DOXYCYCLINE MONOHYDRATE 03421158141 Sunday Hilliard MD AMOXICILLIN 500 MG CAPS Take one pill three times a day. 01/03 AMOXICILLIN 70127437375 Siage Alexis RN DOXYCYCLINE MONOHYDRATE 100 MG CAPS Take one (1) tablet by mouth twice a day 03/19 DOXYCYCLINE MONOHYDRATE 02511314867 Sunday Hilliard MD CYCLOBENZAPRINE HCL 10 MG TABS Take one by mouth 3 times daily, morning, afternoon and evening./PRN 2/06 CYCLOBENZAPRINE HCL 60325922467 Kristi S DULOXETINE HCL 60 MG CPEP Take one by mouth daily 0 2/06 DULOXETINE HCL 67438715439 Kristi S FLAGYL 500 MG ORAL TABLET Take one (1) tablet by mouth three times a day. 11/15 METRONIDAZOLE 36820558433 Saige Alexis RN CEFTRIAXONE SODIUM 2 GM SOLR 2gm IV Q24hrs/ OPAT 11/15 CEFTRIAXONE SODIUM 54013016895 Saige Alexis RN AMOXICILLIN 500 MG CAPS Take one pill three times a day. 03/08 AMOXICILLIN 80437541843 Sunday Hilliard MD FLAGYL 500 MG ORAL TABLET Take one (1) tablet by mouth three times a day. 11/15 METRONIDAZOLE 74272465488 Sunday Hilliard MD CEFTRIAXONE SODIUM 2 GM SOLR 2gm IV Q24hrs/ OPAT 11/15 CEFTRIAXONE SODIUM 45849249794 Ирина Salvador RN LEVOFLOXACIN 750 MG TABS 750 mg, Oral, Every Other Day, 1 tab every other day for 15 days starting 07/12/1810/14 LEVOFLOXACIN 78057692351 Sunday Hilliard MD FLAGYL 500 MG ORAL TABLET Take one (1) tablet by mouth twice a day 2/03 METRONIDAZOLE 58176304510 Sunday Hilliard MD LYRICA 100 MG CAPS Take one by mouth daily PREGABALIN 14827941763 Gladys Elizaldedox LOSARTAN POTASSIUM 50 MG TABS Take one by mouth daily LOSARTAN POTASSIUM 40725068918 Gladys Campbell LEVOFLOXACIN 750 MG TABS 750 mg, Oral, Every Other Day, 1 tab every other day for 15 days starting 07/12/1810/14 LEVOFLOXACIN 88496984319 Gladys Campbell DULOXETINE HCL 60 MG CPEP Take one by mouth daily 0 4/ DULOXETINE HCL 41210588292 Gladys Elizaldedox CYCLOBENZAPRINE HCL 10 MG TABS Take one by mouth 3 times daily, morning, afternoon and evening./PRN 2/06 CYCLOBENZAPRINE HCL 00192691280 Gladys Elizaldedox CARTIA XT 180 MG [id number] Daily, Hold for BP<100/60, or HR<60 DILTIAZEM HCL COATED BEADS 70171871040 Gladys Campbell ATORVASTATIN CALCIUM 40 MG TABS Take one by mouth daily ATORVASTATIN CALCIUM 80134645017 Gladys Elizaldedox AMITRIPTYLINE HCL 10 MG TABS Take one by mouth daily AMITRIPTYLINE HCL 18904128595 Gladys Campbell ALLOPURINOL 100 MG TABS Take one by mouth daily ALLOPURINOL 65971754382 Gladys Campbell FOLIC ACID 1 MG TABS Take one by mouth daily FOLIC ACID 95802324140 Gladys Campbell FERROUS SULFATE 325 (65 Fe) MG TBEC Take one by mouth daily FERROUS SULFATE 14383950364 Gladys Campbell BETHANECHOL CHLORIDE 25 MG TABS Take one by mouth 3 times daily, morning, afternoon and evening. BETHANECHOL CHLORIDE [id number] Gladys Campbell Medications Administered No information available. Allergies, Adverse Reactions, Alerts Allergy Name Reaction Description Start Date Severity Statu s Provider BETADINE redness Moderate Active Sunday Hilliard MD NSAIDS bad kidney function Moderate Active Sunday Hilliard MD BETADINE Moderate No Longer Active Gladys Campbell BACTRIM DECREASES KIDNEY FUNCTION-HAS ONE KIDNEY AND CKD IN THIS KIDNEY OCCURS WITH BACTRIM Severe Active Gladys Campbell NSAIDS Moderate No Longer Active Gladys Campbell Results Date Name Value Unit Range Flag Description Clinical Lists Update: Prelo ad HGBA1C 6.00 % Hemoglobin A1c/Hemoglobin, total in Blood - % External Other: Patient port al update - Email Push, [employer] ... PAT E-MAIL [email or web address] patient's e-mail address External Other: Patient port al update - [facility]Status, [facility] ... PATPORTALPIN Linked This jack l be used to establish a PIN number for patients to register in the Patient Portal. Lab Report: MANUAL DIFFERENT IAL BASOABSOLMAN 0.00 10*3/MM3 {Cells} /uL 0.00-0.20 basophils, absolute, manual EOSINPABSMAN 0.57 10*3/MM3 {Cells} /uL 0.10-0.30 H eosinophils, absolute, manual MONOCYTABMAN 0.68 10*3/MM3 {Cells} /uL 0.00-1.00 monocytes, absolute, manual LYMPHSABSMAN 0.68 10*3/MM3 {Cells} /uL 0.60-4.80 lymphocytes, absolute, manual NEUT CT MANU 9.12 10*3/mm 3 1.50-8.30 H neutrophil count, blood, manual BASO % MANU 0.0 % 0.0-1.0 basophils as percent of blood leukocytes, manual count EOS % MANU 5.0 % 0.0-3.0 H eosinophil s as percent of blood leukocytes, manual count MONOS % MANU 6.0 % 0.0-12.0 monocyt es as percent of blood leukocytes, manual count LYMPH % MANU 6.0 % 24.0-44.0 L lympho cytes as percent of blood leukocytes, manual count PMN%(MANUAL) 79.0 41.0-71.0 H neutro phils, polymorphonuclear as percent of blood leukocytes, manual count Lab Report: COMPREHENSIVE ME TABOLIC PANEL ANIONGAP 10.0 mmol/L 3.0-11.0 anion gap, serum BUN/CREAT 14.9 7.0-25.0 Urea nitrogen/Creatinine [Mass Ratio] in Serum or Plasma GFRC 45 mL/min/ 1.73m2 >60 L Glomerular Filtration Rate Calculation BILI TOTAL 0.3 mg/dL 0.3-1.2 Bilirubin. total [Mass/volume] in Serum or Plasma ALK PHOS 120 U/L 25-100 H Alkaline marcelle sphatase [Enzymatic activity/volume] in Blood SGOT (AST) 16 U/L 0-33 Aspartate aminotransferase [Enzymatic activity/volume] in Serum or Plasma SGPT (ALT) 13 U/L 7-40 Alanine aminotransferase [Enzymatic activity/volume] in Serum or Plasma ALBUMIN 4.03 g/dL 3.20-4.80 Albumin [Mass/volume] in Serum or Plasma PROTEIN, TOT 5.3 g/dL 5.7-8.2 L Protein [Mass/volume] in Serum or Plasma CALCIUM 9.1 mg/dL 8.7-10.4 Calcium [Moles/volume] in Serum or Plasma CO2 24.0 mmol/L 20.0-31.0 Carbon diox ramakrishna, total [Moles/volume] in Venous blood CHLORIDE 107 mmol/L 99-109 Chloride [Moles/volume] in Serum or Plasma POTASSIUM 4.3 mmol/L 3.5-5.5 Potassium [Moles/volume] in Serum or Plasma SODIUM 141 mmol/L 132-146 Sodium [Moles/volume] in Serum or Plasma CREATININE 1.21 mg/dL 0.60-1.30 Creatini ne [Mass/volume] in Serum or Plasma BUN 18 mg/dL 9-23 Urea nitrogen [Mass/volume] in Serum or Plasma GLUCOSE SER 172 mg/dL 70-100 H Glucose [Mass/volume] in Serum or Plasma Lab Report: CBC WITH AUTO DI FFERENTIAL IMMATUREGRAN 0.03 10*3/MM3 0.00-0.03 Immature granulocytes [#/volume] in Blood BASO# 0.01 10*3/mm3 0.00-0.20 Basop hils [#/volume] in Blood EOS ABSLT 0.51 10*3/uL 0.00-0.30 H Eosinophi ls [#/volume] in Blood MONOSCT AUTO 0.81 10*3/uL 0.00-1.00 Monocy cristela [#/volume] in Blood by Automated count LYMPHCT AUTO 1.21 10*3/mm 3 0.60-4.80 Lymphocytes [#/volume] in Blood by Automated count ABS NEUTROPH 9.73 10*3/uL 1.50-8.30 H Neutro phils [#/volume] in Blood IMM GRANU % 0.2 % 0.0-0.6 Immature granulocytes/100 leukocytes in Blood % EOS AUTO 4.2 % 0.0-3.0 H Eosinophil s/100 leukocytes in Blood by Automated count MONOCYTE BF 6.6 % 0.0-12.0 monocyte s as percent of body fluid leukocytes LYMPHOCY BF 9.9 % 24.0-44.0 L lymphoc ytes as percent of body fluid leukocytes PMN % 79.2 % 41.0-71.0 H Neutrophils /100 leukocytes in Blood by Automated count PLATELETS 360 10*3/mm 3 150-450 Platelets [#/volume] in Blood by Automated count RDW_ 17.2 11.3-14.5 H RDW, no uni ts MCHC 30.3 G/DL 32.0-36.0 L MCHC [Mass/ volume] by Automated count MCH 25.8 pg 27.0-31.0 L MCH [Entiti c mass] by Automated count MCV 85.1 fL 80.0-99.0 MCV [Entiti c volume] by Automated count HCT 39.9 % 34.5-44.0 Hematocrit [Volume Fraction] of Blood by Automated count HGB 12.1 g/dL 11.5-15.5 Hemoglobin [Mass/volume] in Blood RBC 4.69 10*6/mm 3 3.89-5.14 Erythrocytes [#/volume] in Blood by Automated count WBC 12.27 10*3/mm 3 3.50-10.80 H Leukocytes [#/volume] in Blood by Automated count Lab Report: CBC With Differe ntial/Platelet, Comp. Metabolic Panel (14), ... CBC COMMENTS NOTE complete blood count (CBC), comments A/G RATIO 3.2 g/dL 1.5-2.5 H Albumin/Michaela bulin [Mass Ratio] in Serum or Plasma GLOBULIN 1.3 Globulin [Mass/volume] in Serum EGFR NOT AFA 45 mL/min/ 1.73m2 >60 Glomerular filtration rate/1.73 sq M.predicted among non-blacks [Volume Rate/Area] in Serum, Plasma or Blood by Creatinine-based formula (MDRD) BG RANDOM 172 mg/dL 70-100 H Glucose [Mass/volume] in Blood BASOPHIL % 0.1 % 0.0-1.0 Basophils/ 100 leukocytes in Blood by Manual count MONOCYTE % 6.6 % 0.0-12.0 Monocytes /100 leukocytes in Blood by Automated count LYMPHS % 9.9 % 24.0-44.0 L Lymphocyte s/100 leukocytes in Blood by Automated count RDW 17.2 % 11.3-14.5 H Erythrocyte distribution width [Ratio] by Automated count Lab Report: CK CPK 58 U/L 26-174 Creatine jillian se [Enzymatic activity/volume] in Serum or Plasma Lab Report: SEDIMENTATION RA TE ESR 33 mm/h 0-30 H Erythrocyte sedimentation rate by Westergren method Lab Report: C-REACTIVE PROTE IN CRP 1.76 mg/dL 0.00-0.50 H C reactive protein [Mass/volume] in Serum or Plasma Lab Report: URINALYSIS, MICR OSCOPIC ONLY [id number] Automated Microscopy GE use only - fo r LinkLogic import when terms are not otherwise specified HYAL CAST UR 0-6 /[LPF] 0-6 Hyaline casts [#/area] in Urine sediment by Microscopy low power field Lab Report: URINALYSIS WITHO UT MICROSCOPIC (NO CULTURE) UROBILINOGEN 0.2 E.U./dL 0.2 - 1.0 Ur obilinogen [Presence] in Urine by Test strip NITRITE URN Negative Negative Nitrite [Presence] in Urine by Test strip WBC DIPSTK U Large (3+) Negative A Leuk ocyte esterase [Presence] in Urine by Test strip PROTEIN, URN Negative Negative protei n, urine, semiquantitative (dipstick) BILIRUBIN UR Negative Negative Biliru bin.total [Presence] in Urine by Test strip KETONES URN Negative Negative Ketones [Mass/volume] in Urine by Test strip GLUCOSE, URN Negative Negative Glucos e [Mass/volume] in Urine by Test strip SPEC GR URIN 1.017 1.001-1.03 Speci fic gravity of Urine by Test strip PH URINE 5.5 5.0-8.0 pH of Urine by Test strip APPEARANCE U Cloudy Clear A Appearan ce of Urine UA COLOR Yellow Yellow, St Color of Urine Office Visit: Room 6 MEDS REVIEW Done Documenta tion of current medications (procedure) 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 SHRIMP BOAT CAPTAIN yes Dietary management education, guidance, and counseling (procedure) ORALTOBACUSE Never Tobacco smoking status SMOK STATUS Never 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 Plan of Care Type Date Detail Pending order Urine Culture & Sensitivity Pending order Urinalysis with microscopic exam Pending order STAT Labs Pending order C- reactive prot ein Pending order Sedimentation Ra te (ESR) Pending order C- reactive prot ein Pending order Sedimentation Ra te (ESR) Pending order STAT Labs Pending order CPK Pending order STAT Labs Pending order C- reactive prot ein Pending order Sedimentation Ra te (ESR) Pending order C- reactive prot ein Pending order Sedimentation Ra te (ESR) Pending order C- reactive prot ein Pending order Sedimentation Ra te (ESR) Pending order Continue IV anti biotics Pending order CMP Pending order CBC w/o Differen tial Pending order C- reactive prot ein Pending order Sedimentation Ra te (ESR) Pending order CMP Pending order CBC w/o Differen tial Pending order Sedimentation Ra te (ESR) Pending order C- reactive prot ein Pending order CMP Pending order CBC w/o Differen tial Pending order Sedimentation Ra te (ESR) Pending order CMP Pending order CBC with Differe ntial Pending order C- reactive prot ein Pending order Sedimentation Ra te (ESR) Pending order Stat Weekly Labs Patient education Medications Patient education Medications Patient education Medications Patient education Ceftriaxone%20 (Injection)%20(Injectable) Procedures Code Procedure Name Date Entry Date CPT-40955 Urine Culture & Sensitivity CPT-43879 Urinalysis with microscopic exam CPT-sl STAT Labs CPT-24192 C- reactive protein CPT-69471 Sedimentation Rate (ESR) 201 05/31/13 CPT-J8499 Med Administration (PO-SL-IN-IL) CPT-56492 C- reactive protein CPT-43533 Sedimentation Rate (ESR) 201 05/30/10 CPT-sl STAT Labs [id number], [id number] CPK CPT-sl STAT Labs CPT-26696 C- reactive protein CPT-98666 Sedimentation Rate (ESR) 201 05/28/05 CPT-73165 C- reactive protein CPT-01152 Sedimentation Rate (ESR) 201 05/27/09 CPT-75049 C- reactive protein CPT-46855 Sedimentation Rate (ESR) 201 05/07/20 CPT-ca Continue IV antibiotics 2017 CPT-09532 CMP CPT-58074 CBC w/o Differential CPT-27350 C- reactive protein CPT-31287 Sedimentation Rate (ESR) 201 05/07/10 CPT-52539 CMP CPT-36385 CBC w/o Differential CPT-25307 Sedimentation Rate (ESR) 201 05/07/03 CPT-22488 C- reactive protein CPT-77369 CMP CPT-18104 CBC w/o Differential CPT-81117 Sedimentation Rate (ESR) 201 05/06/26 CPT-93603 CMP [id number] CBC with Differential 2017 CPT-84906 C- reactive protein CPT-30842 Sedimentation Rate (ESR) 201 05/06/19 CPT- stat weekly Stat Weekly Labs Vital Signs Date Name Value Unit Description BMI (Body Mass Index) 36.13 kg/m2 Bod y Mass Index (Ratio) Body Temperature 97.9 [degF] temperat ure E&M BP Diastolic 64 mm[Hg] blood pressu re, diastolic BP Systolic 138 mm[Hg] blood pressur e, systolic Heart Rate 78 /min pulse rate Height 63.0 [in_us] height E&M Respiratory Rate 16 /min respirat ory rate E&M Weight Measured 204 [lb_av] weight E& M Weight Measured 204 [lb_av] weight E& M Immunizations Vaccine Administration Date Standard Description CVX Co de Dose Havrix Intramuscular Suspension 720 EL U/0.5ML Havrix Intramuscular Suspension 720 EL U/0.5ML 83 1.0 mL Havrix Intramuscular Suspension 720 EL U/0.5ML Havrix Intramuscular Suspension 720 EL U/0.5ML 83 1.0 mL Advance Directives Directive Description Start Date NO ADVANCED DIRECTIVES AT THIS TIME 2017
--- OUTSIDE RECORDS SUMMARY | 2025-03-26 15:25 | XMS_ITS | Encounter Summary ---
Author Organization Healthcare Address [address] [place] [address] Care Team Providers Care Metal Bed Assembler Name Role Phone Jd Santacruz MD Primary Care Provider [phone] Encounter Details Date Type Department Care Team (Latest Contact Info) Description 03/19/2025 Travel Social History Tobacco Use Types Packs/Day [...] file Travel History Travel Start Travel End [place] 03/02/2025 03/09/2025 documented as of this encounter Functional Status * AUDIT-C Score [...] Mary Callahan documented as of this encounter Plan of Treatment Upcoming Encounters Date Type Department Care Team (Late st Contact Info) Description 09/03/2025 9:10 AM EST Clinical Support [facility] Laboratory Services [address] [address], [address] [place] [address] 09/10/2025 2:20 PM EST Office Visit [facility] Nephrology, Bone & Mineral Metabolism [address], [address] [place] [address] Nick Harrington MD [address] [facility] [address] [place] [address] documented as of this encounter Visit Diagnoses Not on filedocumented in this encounter Additional Health Concerns Assessment Noted Time A fall risk assessment has been complete d for the patient 03/19/2025 1:58 PM EDT A Body Mass Index follow-up plan has been documented for the patient 03/19/2025 3:32 PM EDT documented as of this encounter Care Teams Metal Bed Assembler Relationship Specialty Start Date End Date Jd Santacruz MD [address] [address] [place] [address] PCP - General 02/06/21 documented as of this encounter
--- OUTSIDE RECORDS SUMMARY | 2025-03-26 15:25 | XMS_ITS | Clinical Summary ---
Author Organization [facility] Address [address] [place] [address] Care Team Providers Care It Generalist Name Role Phone Jd Santacruz MD Primary Care Provider [phone] Allergies Active Allergy Reactions Criticality Noted Date Comments Nsaids Unknown - Patient states they do not know rxn details,Nausea High 01/21/2016 Pt had Lt kidney removed due to cancer- Povidone Iodine Rash,Swelling High 11/16/2012 RASH AND SWELLING Sulfa Drugs Hives Medium 02/08/2022 Sulfamethoxazole-Trim ethoprim Unknown - Patient states they do not know rxn details,Headache Low 01/21/2016 DECREASES KIDNEY FUNCTION-HAS ONE KIDNEY AND CKD IN THIS KIDNEY OCCURS WITH BACTRIM Medications atorvastatin (Lipitor) 40 MG tablet Take by mouth 1 (one) time each day. 12/26/19 16 Active furosemide (Lasix) 40 MG tablet Take by mouth as needed. As needed 10/24/19 21 Active HYDROcodone-ac etaminophen ([place]) 5-325 MG tablet Take by mouth every 6 (six) hours. As need 01/09/20 15 Active omeprazole (PriLOSEC) [address] capsule Take by mouth 1 (one) time if needed. 07/28/20 20 Active pregabalin (Lyrica) 100 MG capsule Take by mouth 2 (two) times a day. 03/09/20 14 Active Amitriptyline HCl (ELAVIL PO) Take 10 mg by mouth if needed. 09/10/20 19 Active dilTIAZem CD (Cardizem CD) 180 MG 24 hr capsule Take 1 capsule (180 mg) by mouth 1 (one) time each day. 04/06/20 22 Active aspirin 81 MG EC tablet Take 1 tablet (81 mg) by mouth 1 (one) time each day. 06/06/20 23 Active ezetimibe (Zetia) 10 MG tablet Take 1 tablet (10 mg) by mouth 1 (one) time each day. 07/21/20 23 Active albuterol (Ventolin HFA) 108 (90 Base) MCG/ACT inhaler INHALE 4 PUFFS BY MOUTH EVERY 4 HOURS FOR 48 HOURS THEN NEEDED FOR SHORTNESS OF BREATH OR WHEEZING 04/22/20 23 Active losartan (Cozaar) 25 MG tablet Take 1 tablet (25 mg) by mouth 1 (one) time each day. 90 tablet 3 06/18/20 24 Active Dilt-XR 240 MG 24 hr capsule Take 1 capsule (240 mg) by mouth daily. 07/25/20 24 Active estradiol (Estrace) 0.1 MG/GM vaginal cream Apply pea-size amount daily. 2 g 3 11/12/19 25 Active Mounjaro 10 MG/0.5ML solution auto-injector solution pen-injector 03/11/20 25 Active Semaglutide (Rybelsus) 7 MG tablet 10/24/19 21 025 Discontinued(Pe r Patient Report) diclofenac (Voltaren) 1 % topical gel apply 2 grams topically TO THE affected area(s) of knees FOUR TIMES DAILY NEEDED FOR arthritis pain 06/20/20 24 025 Discontinued Active Problems Problem Noted Date Diagnosed Date Acquired absence of kidney 11/12/2024 Obesity (BMI 35.0-39.9 without comorbidity) 01/25 Class III obesity with body mass index (BMI) of 40.0 or higher 08/15/2023 Stage 3b chronic kidney disease 02/08/2023 Vitamin D deficiency 02/08/2023 E. coli UTI 10/12/2022 Gout due to renal impairment 07/28/2021 Essential hypertension 07/28/2021 ADONAY (renal osteodystrophy) 07/28/2021 Acute cystitis without hematuria 07/28/2021 Resolved Problems Problem Noted Date Diagnosed Date Resolved Date CKD (chronic kidney disease) stage 4, GFR 15-29 ml/min 07/28/2021 02/13/2024 Encounters Date Type Department Care Team Description 03/19/2025 2:20 PM EDT Office Visit [facility] Nephrology, Bone & Mineral Metabolism [address], [address] [place] [address] Nick Harrington MD Stage 3b chronic kidney disease (CMS/HCC) (Primary Dx); Other cystic kidney diseases; Recurrent UTI; Essential hypertension; Vitamin D deficiency; Acquired absence of kidney 03/19/2025 Travel 03/15/2025 Travel 03/12/2025 Travel from Last 3 Months Family History Medical History Relation Name Comments Diabetes Brother 1 Hypercholesterolemia Brother 2 Hypertension Brother 3 Diabetes Father Hypertension Father Stroke Father Diabetes Mother Heart disease Mother Hypertension Mother Arthritis Other 1 Diabetes Other 2 Hypertension Other 3 Hypercholesterolemia Sister 1 Hypertension Sister 2 Relation Name Status Comments Brother 1 Brother 2 Brother 3 Father Mother Other 1 Other 2 Other 3 Sister 1 Sister 2 Social History Tobacco Use Types Packs/Day Years [...] file Travel History Travel Start Travel End [place] 03/02/2025 03/09/2025 Last Filed Vital Signs Vital Sign Reading [...] Mass Index 39.87 03/19/2025 1:50 PM EDT Plan of Treatment Upcoming Encounters Date Type Department Care Team (Late st Contact Info) Description 09/03/2025 9:10 AM EST Clinical Support [facility] Laboratory Services [address] [place] [address] 09/10/2025 2:20 PM EST Office Visit [facility] Nephrology, Bone & Mineral Metabolism [address], [address] [place] [address] Nick Harrington MD [address] [place] [address] Health Maintenance Due Date Last Done Comments [facility]-Hepatitis C Screening 1955 [facility]-Medicare Annual Wellness (AWV) 1955 [facility]-Infant/Child/Adol SDOH Screenings 1955 [facility]- SDOH Screenings 02/07/1972 [facility]-Adult SDOH Screenings 02/07/1972 [facility]-DTaP,Tdap,and Td Vaccines (1 - Tdap) 1973 CT Colonography 1999 FIT-DNA 1999 FIT 1999 FOBT 1999 Sigmoidoscopy 1999 [facility]-Breast Cancer Screening 02/07/2004 [facility]-Pneumococcal Vaccine: 50+ Years (2 of 2 - PCV) 07/28/2019 07/28/2018 [facility]-Bone Density Scan 06/06/2021 06/06/2019, 019 Colonoscopy 10/26/2021 10/26/2011 [facility]-Colorectal Cancer Screening 10/26/2021 [id number] Vaccine ( season) 2024 07/23/2021, 12/25/2020, 11/27/2020 [facility]-Influenza Vaccine (#1) 2025 07/25/2024 [facility]-Depression Screening 06/18/2025 06/18/2024 [facility]-RSV Vaccine: 60+ Years or (1 - 1-dose 75+ series) 2029 [facility]-Hepatitis A Vaccines Aged Out 03/12/2019, 08/26 No longer eligible based on patient's age to complete this topic [facility]-Zoster Vaccines Completed 03/12/2025, [facility]-Obesity Intervention Completed 025, 11/12/2024, 06/18/2024, Additional history exists HPV Vaccines Aged Out No longer eligi ble based on patient's age to complete this topic [facility]-HIB Vaccines Aged Out No longer e ligible based on patient's age to complete this topic [facility]-IPV Vaccines Aged Out No longer e ligible based on patient's age to complete this topic [facility]-Rotavirus Vaccines Aged Out No lo nger eligible based on patient's age to complete this topic Procedures Procedure Name Priority Date/Time Associated Diagnosis Comments URINALYSIS MICROSCOPIC FOR UA REFLEX Routine 03/15/2025 12:39 PM EDT Stage 3b chronic kidney disease (CMS/HCC) URINALYSIS WITH REFLEX MICROSCOPIC Routine 03/15/2025 12:39 PM EDT Stage 3b chronic kidney disease (CMS/HCC) PROTEIN, URINE, RANDOM WITH CREATININE Routine 03/15/2025 12:39 PM EDT Stage 3b chronic kidney disease (CMS/HCC) RENAL FUNCTION PANEL, PLASMA Routine 03/15/2025 11:01 AM EDT Stage 3b chronic kidney disease (CMS/HCC) CBC W/O DIFFERENTIAL Routine 03/15/2025 11:01 AM EDT Stage 3b chronic kidney disease (CMS/HCC) COLONOSCOPY 10/26/2011 from Last 3 Months or Most Recently Relevant to Health Maintenance Results * Urinalysis Microscopic Examination (03/15/2025 12:39 PM EDT) Urine Urine specimen obtained by clean catch procedure / Unknown Non-blood Collection / Unknown 03/15/2025 12:39 PM EDT 03/15/2025 12:40 PM EDT us Nick Harrington MD LAB URINE ORDERABLES Final R esult Performing Organization Address [facility] Co de Phone Number [facility] [address] [place] [address] * Protein, Random, Urine with Creatinine (03/15/2025 12:39 PM EDT) Protein, Urine 9 mg/dL 03/15/2025 3:10 PM EDT [facility] Creatinine, Urine 82 mg/dL 03/15/2025 3:10 PM EDT [facility] Protein/Creati nine Ratio 0.1 mg/mg Creat 03/15/2025 3:10 PM EDT [facility] Urine Urine specimen obtained by clean catch procedure / Unknown Non-blood Collection / Unknown 03/15/2025 12:39 PM EDT 03/15/2025 12:40 PM EDT us Nick Harrington MD LAB URINE ORDERABLES Final R esult Performing Organization Address [facility] de Phone Number [facility] [address] [place] [address] * (ABNORMAL) Urinalysis with reflex microscopic (Culture NOT Included) (03/15/2025 12:39 PM EDT) Color, Urine Yellow LAB URINALYSIS - AUTOMATED METHOD 03/15/2025 3:09 PM EDT [facility] Clarity, Urine Clear LAB URINALYSIS - AUTOMATED METHOD 03/15/2025 3:09 PM EDT [facility] Spec [place], Urine 1.014 1.005 - 1.030 LAB URINALYSIS - AUTOMATED METHOD 03/15/2025 3:09 PM EDT [facility] pH, Urine 7.0 5.0 - 8.0 LAB URINALYSIS - AUTOMATED METHOD 03/15/2025 3:09 PM EDT [facility] Protein, Urine Negative Negative mg/dL LAB URINALYSIS - AUTOMATED METHOD 03/15/2025 3:09 PM EDT [facility] Glucose, Urine Negative Negative mg/dL LAB URINALYSIS - AUTOMATED METHOD 03/15/2025 3:09 PM EDT [facility] Ketones, Urine Negative Negative mg/dL LAB URINALYSIS - AUTOMATED METHOD 03/15/2025 3:09 PM EDT [facility] Blood, Urine Negative Negative LAB URINALYSIS - AUTOMATED METHOD 03/15/2025 3:09 PM EDT [facility] Bilirubin, Urine Negative Negative LAB URINALYSIS - AUTOMATED METHOD 03/15/2025 3:09 PM EDT [facility] Urobilinogen, Urine 1.0 0.2 to 1.0 mg/dL LAB URINALYSIS - AUTOMATED METHOD 03/15/2025 3:09 PM EDT [facility] Leukocytes, Urine Trace(A) Negative LAB URINALYSIS - AUTOMATED METHOD 03/15/2025 3:09 PM EDT [facility] Nitrite, Urine Negative Negative LAB URINALYSIS - AUTOMATED METHOD 03/15/2025 3:09 PM EDT [facility] RBC, Urine <1 0 to 3 /HPF 03/15/2025 3:09 PM EDT [facility] Comment:This result was prev iously suppressed from the chart. WBC, Urine 6 - 10(A) 0 to 5 /HPF 03/15/2025 3:09 PM EDT [facility] Comment:This result was prev iously suppressed from the chart. Squamous Epithelial Cells 6 - 10(A) 0 to 5 /HPF 03/15/2025 3:09 PM EDT [facility] Comment:This result was prev iously suppressed from the chart. Hyaline Casts 0 - 2 0 to 5 /LPF 03/15/2025 3:09 PM EDT [facility] Comment:This result was prev iously suppressed from the chart. Bacteria, Urine Present Negative 03/15/2025 3:09 PM EDT [facility] Comment:This result was prev iously suppressed from the chart. Urine Urine specimen obtained by clean catch procedure / Unknown Non-blood Collection / Unknown 03/15/2025 12:39 PM EDT 03/15/2025 12:40 PM EDT Narrative [facility] - 03/15/2025 3:09 PM EDT Performed by manual method us Nick Harrington MD LAB URINE ORDERABLES Final R esult [facility] [address] [place] [address] * (ABNORMAL) CBC W/O Differential (03/15/2025 11:01 AM EDT) WBC Count 12.45(H) 3.70 - 10.30 10*3/uL LAB HEMATOLOGY METHOD 03/15/2025 2:41 PM EDT [facility] RBC Count 5.07 3.90 - 5.20 10*6/uL LAB HEMATOLOGY METHOD 03/15/2025 2:41 PM EDT [facility] HGB 13.3 11.2 - 15.7 g/dL LAB HEMATOLOGY METHOD 03/15/2025 2:41 PM EDT [facility] HCT 42.9 34.0 - 45.0 % LAB HEMATOLOGY METHOD 03/15/2025 2:41 PM EDT [facility] Platelet Count 234 155 - 369 10*3/uL LAB HEMATOLOGY METHOD 03/15/2025 2:41 PM EDT [facility] MCV 85 79 - 98 fL LAB HEMATOLOGY METHOD 03/15/2025 2:41 PM EDT [facility] MCH 26.2 26.0 - 32.0 pg LAB HEMATOLOGY METHOD 03/15/2025 2:41 PM EDT [facility] MCHC 31.0 30.7 - 35.5 g/dL LAB HEMATOLOGY METHOD 03/15/2025 2:41 PM EDT [facility] RDW 16.5(H) 11.5 - 14.5 % LAB HEMATOLOGY METHOD 03/15/2025 2:41 PM EDT [facility] MPV 11.3 8.8 - 12.5 fL LAB HEMATOLOGY METHOD 03/15/2025 2:41 PM EDT [facility] nRBC 0.0 <=0.0 per 100 WBCs LAB HEMATOLOGY METHOD 03/15/2025 2:41 PM EDT [facility] Blood Venous blood specimen / Unknown Venipuncture / Unknown 03/15/2025 11:01 AM EDT 03/15/2025 11:01 AM EDT us Nick Harrington MD LAB BLOOD ORDERABLES Final R esult [facility] [address] [place] [address] * (ABNORMAL) Renal Function Panel, Plasma (03/15/2025 11:01 AM EDT) Glucose, Plasma 161(H) 74 - 99 mg/dL 03/15/2025 2:54 PM EDT [facility] BUN, Plasma 32(H) 8 - 23 mg/dL 03/15/2025 2:54 PM EDT [facility] Creatinine, Plasma 2.04(H) 0.60 - 1.10 mg/dL 03/15/2025 2:54 PM EDT [facility] BUN/Creatinine Ratio 16 03/15/2025 2:54 PM EDT [facility] Sodium, Plasma 142 136 - 145 mmol/L 03/15/2025 2:54 PM EDT [facility] Potassium, Plasma 4.4 3.6 - 4.9 mmol/L 03/15/2025 2:54 PM EDT [facility] Chloride, Plasma 99 97 - 107 mmol/L 03/15/2025 2:54 PM EDT [facility] CO2, Plasma 29 22 - 29 mmol/L 03/15/2025 2:54 PM EDT [facility] Anion Gap 14 6 - 16 mmol/L 03/15/2025 2:54 PM EDT [facility] Total Calcium, Plasma 9.5 8.9 - 10.2 mg/dL 03/15/2025 2:54 PM EDT [facility] Phosphorus, Plasma 3.1 2.5 - 4.5 mg/dL 03/15/2025 2:54 PM EDT [facility] Albumin, Plasma 4.1 3.5 - 5.2 g/dL 03/15/2025 2:54 PM EDT [facility] eGFRcr 25.7 mL/min/1.7 3m*2 03/15/2025 2:54 PM EDT [facility] Comment:Reported eGFRcr in m L/min/1.73m2 is based the CKD-EPI 2020 equation that does not use a race coefficient. Blood Venous blood specimen / Unknown Venipuncture / Unknown 03/15/2025 11:01 AM EDT 03/15/2025 11:01 AM EDT us Nick Harrington MD LAB BLOOD ORDERABLES Final R esult [facility] [address] [place] [address] * COLONOSCOPY (10/26/2011) Anatomical Region Laterality Modality Endoscopy Narrative 10/26/2011 Ordered by an unspecified provider. us Historical Provider GI PROCEDURE ORDERABLES F inal Result from Last 3 Months or Most Recently Relevant to Health Maintenance Insurance MEDICARE Member Subscriber Plan / Payer (Ef fective 2019-Present) Name:Eva Ward Member ID:[id number] Relation to Subscriber:Self Name:Eva Ward Subscriber ID:[id number] Payer ID:MEDICARE Group ID:Not on file Type:Medicare Address: [address] [facility] [place] [address] Care Teams It Generalist Relationship Specialty Start Date End Date Jd Santacruz MD [address] [facility] [address] [place] [address] PCP - General 02/06/21
[2025-03-26 17:45] LABS: Hemoglobin A1C 7.1 % (4.0-6.0)
== END 2025-03-26 23:59 | disposition home or self-care (01) ==
LOC: LAB.DROPOF 15:24
PROVIDERS: PCP Internal Medicine; Visit Provider Internal Medicine
DX: I12.9 Hypertensive chronic kidney disease with stage 1 through stage 4 chronic kidney disease, or unspecified chronic kidney disease (principal); E11.42 Type 2 diabetes mellitus with diabetic polyneuropathy; E78.5 Hyperlipidemia, unspecified; N18.4 Chronic kidney disease, stage 4 (severe)
CPT/HCPCS: 80053; 80061; 82043; 82570; 83036

== ENCOUNTER 2025-04-17 12:12 | Outpatient (CLI) | payer MEDICARE, OTHER, SELFPAY ==
--- OUTSIDE RECORDS SUMMARY | 2025-02-28 13:00 | XMS_ITS | Encounter Summary ---
Author Organization [facility] Address [address] [place] [id number] Care Team Providers Care Acid Supervisor Name Role Phone Jd Santacruz MD Primary Care Provider [phone] Reason for Referral * MRI/CAT/PET Scan (Routine) - Closed Specialty Diagnoses / Procedures Referred By Daniel palmer Referred To Contact Radiology Diagnoses Lumbar stenosis with neurogenic claudication Preoperative testing Procedures MRI Thoracic Spine Without Contrast Azar Andino MD [address] [facility] [address] [place] [address] Phone: tel: fax: Referral ID Status Reason Start Date Expiration Date Visits Re quested Visits Authorized [id number] Closed 02/28/2025 05/30/2026 1 1 * Surgical (Routine) - Closed Specialty Diagnoses / Procedures Referred By Contbridgette palmer Referred To Contact Diagnoses Lumbar stenosis with neurogenic claudication Lumbar postlaminectomy syndrome Procedures External Facility Surgical/Procedural Request Azar Andino MD [address] [facility] [address] [place] [address] Phone: tel: fax: [facility] [address] [facility] [address] [place] [address] Phone: tel: fax: Referral ID Status Reason Start Date Expiration Date V isits Requested Visits Authorized [id number] Closed Other 02/28/2025 05/30/2026 1 1 Encounter Details Date Type Department Care Team (Late st Contact Info) Description 02/28/2025 1:00 PM EDT Office Visit [facility] [address] [phone] Azar Andino MD [address] [id number] Lumbar postlaminectomy syndrome; Lumbar stenosis with neurogenic claudication; Ligamentum flavum hypertrophy; Degeneration of intervertebral disc of lumbosacral region with discogenic back pain; Piriformis syndrome of right side; Myofascial pain; Stage 4 chronic kidney disease; Renal insufficiency; BMI 38.0-38.9,adult; Moderate obesity; Physical deconditioning; Gait disturbance; Impaired functional mobility, balance, gait, and endurance; Preoperative testing Social History Tobacco Use Types Packs/Day Years Used Date Smoking Tobacco: Never Smokeless Tobacco: Never Alcohol Use Standard Drinks/Week Comments No 0 (1 standard drink = 0.6 oz pur e alcohol) PHQ-2 Answer Date Recorded Retired PHQ-9: Brief Depression Severity Measure Score 0 03/15/2023 PHQ-2 Answer Date Recorded Patient Health Questionnaire-2 Score 1 02/28/2025 Comments No Sex and Gender Information Value Date Recorded Sex Assigned at Not on file Legal Sex Female 10:05 AM EDT Gender Identity Not on file Sexual Orientation Not on file documented as of this encounter Last Filed Vital Signs Vital Sign Reading Time Taken Comments Blood Pressure - - Pulse - - Temperature - - Respiratory Rate - - Oxygen Saturation - - Inhaled Oxygen Concentration - - Weight 98 kg (216 lb) 02/28/2025 12:12 PM EDT Height 157.5 cm (5' 2 ) 02/28/2025 12:12 PM EDT Body Mass Index 39.51 02/28/2025 12:12 PM EDT documented in this encounter Functional Status documented as of this encounter Progress Notes * Azar Andino MD - 02/28/2025 1:00 PM EDT Chief Complaint: Lower back, both hips and leg pain. Chronic Pain History: Ms. Eva Ward, 70 y.o. female originally referred by Dr. Isaias Alvarado in consultation for longstanding for chronic progressive intractable lower back pain. Eva Ward underwent L4-S1 PLIF by Dr. Christensen on 06/28/2018. Her postoperative course was complicated by an abscess that required a operation on 07/15/2018. She did well thereafter. By [id number], she started experiencing lower back pain radiating into the gluteal area RT> LT with protracted sitting. Eva Ward underwent neurosurgical consultation with Dr. Isaias Alvarado on on 02/22/2023, and was found not to be a surgical candidate. MRI of the lumbar spine without contrast on 12/22/2022 revealed PLIF L4-S1 with intact hardware. Possible neuroforaminal stenosis at L5-S1. Lumbar facet hypertrophy from L1-L2 through L3-L4. At L3-L4, disc bulge, facet hypertrophy, ligamentum flavum hypertrophy, and a left-sided facet joint synovial cyst contributing to moderate canal stenosis and neuroforaminal s tenosis. Lumbar x-rays with flexion and extension views on 02/22/2023 revealed L4-S1 PLIF without evidence of instability. Facet hypertrophy most advanced at L2-L3 and L3-L4. Eva Ward presentswith significant comorbidities including chronic kidney disease, history of left nephrectomy in 2010, diabetes mellitus, hypercholesterolemia, gout, hypertension, migraines. Eva Ward underwenttwo sets of diagnostic bilateral lumbar MBBs followed by bilateral lumbar medial branch rhizotomiesat L1, L2, L3; for bilateral lumbar facet joints at L2-L3, and L3-L4 on 03/28/2023, from which she experienced almost 100% pain relief and functional improvement that lasted for more than 18 months. On 01/30/2025, she underwent Dx and Tx bilateral L3-L4 TESI with short term pain relief. Therefore, she does not meet the criteria for repeat procedure. She is not a candidate for repeat RFA. Recent lumbar MRI revealed severe lumbar stenosis. She is here to discuss the prospects of a spinal cord stimulator trial, as this has also been recommended by Dr. Alvarado. The patient has been found not to radha surgical candidate. In addition, she is not interested in the prospects of additional lumbar surgery given her medical comorbidities and past experiences with lumbar surgery. She would like to gainmore information regarding SCS because she doesn't know much about the procedure or how the SCS could help her pain. Eva Ward underwent recent follow up psychological evaluation with Dr Hurtado on 02/20/2025: From a psychological perspective patient appears to be an appropriate candidate for a PNS, SCS or an Intrathecal Pain Pump at this time. Eva Ward failed to obtain pain relief with conservative measures for several years including oral analgesics, topical analgesics,ice, heat, physical therapy (4 weeks/3 x per week, last visit within the past 6 weeks; no relief), physical therapist directed home exercise program HEP (ongoing), to name a few. 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 Paraspinal muscle atrophy. Postsurgical changes of posterior fusion and decompression from L4-S1. Degenerative change most pronounced at L3-4 with severe canal stenosis. Moderate right greater than left neural foraminal stenosis at L5-S1 difficult to evaluate due to susceptibility artifact. She did not complete lumbar X-rays or MRI of the T spine. Pain Description: Constant lower back pain with intermittent exacerbation, described as aching, dull, sharp, stabbing, throbbing, and burning sensation. Radiation of Pain: The pain radiates into the gluteal region and down both legs Pain intensity today: 10/10 Average pain intensity last week: 5/10 Pain intensity ranges from: 0/10 to 10/10 Aggravating factors: Pain increases with standing, walking. Patient describes neurogenic claudication. Patient reports limitations and general mobility deficits. Patient uses a cane Alleviating factors: Pain decreases with sitting down, sitting on a recliner, lying down Associated Symptoms: Patient denies pain, numbness, or weakness in the lower extremities. Patient denies any new bladder or bowel problems. Patient denies difficulties with her balance or recent falls. Pain interferes with ADLs, general activities, and affects patient's quality of life Pain interferes with sleep: Falling asleep and causing sleep fragmentation Muscle spasms: BLE Stiffness: LB Review of previous therapies and additional medical records: Eva Ward has already failed the following measures, including: Conservative Measures: Oral analgesics, topical analgesics, ice, heat, physical therapy (several rounds in the past, 4 weeks/3 x per week, last visit within the past 6 weeks; no relief), physical therapist directed home exercise program HEP (ongoing) Interventional Measures: 01/30/2025: Dx and Tx bilateral L3-L4 TESI with short term pain relief. 03/28/2023: Bilateral lumbar medial branch rhizotomies at L1, L2, L3; for bilateral lumbar facet joints at L2-L3, and L3-L4 03/21/2023: Second set diagnostic bilateral lumbar medial branch blocks at L1, L2, L3; for bilateral lumbar facet joints at L2-L3, and L3-L4 03/16/2023: First set diagnostic bilateral lumbar medial branch blocks at L1, L2, L3; for bilaterallumbar facet joints at L2-L3, and L3-L4 Surgical Measures: 06/28/2018: L4-S1 PLIF by Dr. Christensen followed by evacuation of abscess an 07/15/2018. No history of previous hip surgery. Eva Ward underwent neurosurgical consultation with Dr. Isaias Alvarado on 02/22/2023, and was found not to be a surgical candidate. Eva Ward underwent psychological evaluation with Dr Lisbet Hong on 02/20/2025: From a psychological perspective patient appears to be an appropriate candidate for a PNS, SCS or an Intrathecal Pain Pump at this time. Eva Ward presents with significant comorbidities including chronic kidney disease, history of left nephrectomy in 2010, diabetes mellitus, hypercholesterolemia, gout, hypertension, migraines, aspirin 81 mg In terms of current analgesics, Eva Ward takes: Arma, Lyrica, amitriptyline. Patient also takes allopurinol I have reviewed Chance Report consistent with medication reconciliation. SOAPP: Low Risk Little interest or pleasure in doing things? Several days Feeling down, depressed, or hopeless? Not at all PHQ-2 Total Score 1 Pain Self-Efficacy Questionnaire (PSEQ) ITEM 03-15 I can enjoy things despite the pain. 5 5 1 I can do most of the basketball player (tidying up, washing dishes, etc), despite the pain. 5 4 1 I can socialize with my friends or family members as often as I used to do, despite the pain. 4 6 1 I can cope with my pain in most situations. 5 5 1 I can do some form of work, despite the pain (includes housework, paid, and unpaid work). 5 6 1 I can still do many of the things I enjoy doing, such as hobbies or leisure activity despite pain. 4 5 1 I can cope with my pain without medications. 5 5 1 I can accomplish most of my goals in life despite the pain. 4 5 1 I can live in a normal lifestyle, despite the pain. 4 5 1 I can gradually become more active, despite the pain. 4 4 1 TOTAL SCORE 45/60 50/60 10 Global Pain Scale 03-15 Pain 10 3 17 Feelings 4 0 2 Clinical outcomes 5 10 16 Activities 12 0 18 GPS Total: 31 13 53 [place] Back Pain Disability Scale DATE 03-15 Sleep through the night 2 1 4 Turn over in bed 2 1 4 Get out of bed 1 1 4 Make your bed 0 0 4 Put on socks (pantyhose) 1 0 4 Ride in a car 1 0 1 Sit in a chair for several hours 2 2 1 Stand up for 20-30 minutes 3 0 4 Climb one flight of stairs 1 1 4 Walk a few blocks (200-300 yards) 2 2 4 Walk several miles 5 5 4 Run one block (about 50 yards) 5 5 4 Take food out of the refrigerator 1 0 2 Reach up to high shelves 2 1 4 Move a chair 1 0 4 Pull or push heavy doors 1 0 4 Bend over to clean the bathtub 1 1 4 Throw a ball 0 0 4 Carry two bags of groceries 0 0 4 Lift and carry a heavy suitcase 3 1 4 Total score 35 21 76 Review of New Diagnostic Studies: I have independently reviewed and interpreted the images with thepatient and used the images and a tridimensional spine model to explain findings. I have also reviewed the reports. MRI LUMBAR SPINE WO CONTRAST: 01/24/2025. The last well formed disc space is labeled as L5-S1. Normal morphology and signal. The conus medullaris terminates at L2. Cauda equina and nerve roots: Slightly redundant appearance of the nerve roots secondary to canal stenosis. The vertebral bodies appearin normal alignment. The vertebral body heights are preserved. Type II Modic changes at L3-4, L4-5 and L5-S1. No suspicious osseous lesions are demonstrated. Paraspinal muscle atrophy. Postsurgical changes of posterior fusion and decompression from L4-S1. Degenerative change most pronounced at L3-4with severe canal stenosis. Moderate right greater than left neural foraminal stenosis at L5-S1 difficult to evaluate due to susceptibility artifact. Axial imaging: T12-L1: Facet arthropathy. No spinal canal or neural foraminal stenosis. L1-L2: Mild facet arthropathy. No spinal canal or neural foraminal stenosis. L2-L3: Facet arthropathy. No spinal canal or neural foraminal stenosis. L3-L4: Posterior disc bulge, facet arthropathy and ligamentum flavum hypertrophy. Severe canal stenosis. Mild right greater than left neural foraminal stenosis. L4-L5: Postsurgical changes of posterior fusion and decompression. No canal stenosis. Mild bilateral foraminal stenosis. L5-S1: Postsurgical changes of posterior fusion and decompression. No canal stenosis. At least moderate right greater than left neural foraminal stenosis difficult to evaluate due to susceptibility. Review of Previous Diagnostic Studies: I have independently reviewed and interpreted the images with the patient and used the images and a tridimensional spine model to explain findings. I have also reviewed the reports. MRI of the lumbar spine without contrast on 12/22/2022 revealed L4 S1 PLIF with intact hardware. Multilevel spondylosis. Axial imaging: L1-L2: Disc bulge, facet hypertrophy. No significant canal or foraminal stenosis L2-L3: Disc bulge, facet hypertrophy. Mild canal stenosis and mild bilateral foraminal stenosis L3-L4: Disc bulge, facet hypertrophy, ligamentum flavum hypertrophy. Left-sided intracanalicular facet joint cyst. Moderate canal stenosis and moderate bilateral neuroforaminal stenosis L4-L5: PLIF well decompressed canal and foramina L5-S1: PLIF well decompressed canal and foraminal, although questionable neuroforaminal stenosis Lumbar x-rays with flexion and extension views on 02/22/2023 revealed L4-S1 PLIF with interbody spacers and without evidence of hardware complication. Minimal retrolisthesis of L2 on L3 without change during flexion or extension. Facet hypertrophy most advanced at L2-L3 and L3-L4. The following portions of the patient's history were reviewed and updated as appropriate: problem list, past medical history, past surgery history, social history, family history, medication reconciliation, and allergies Review of Systems Respiratory: Positive for apnea. Cardiovascular: Positive for leg swelling. Musculoskeletal: Positive for arthralgias, back pain, myalgias and neck stiffness. All other systems reviewed and are negative. Patient Active Problem List Diagnosis Spondylolisthesis of lumbar region Degeneration of lumbar or lumbosacral intervertebral disc Lumbar stenosis with neurogenic claudication Chronic renal disease Low back pain Essential hypertension Anemia due to stage 3 chronic kidney disease Renal insufficiency Impaired mobility and ADLs Impaired functional mobility, balance, gait, and endurance Folate deficiency Arthritis S/P lumbar spinal fusion Chronic bilateral low back pain without sciatica Spondylosis of lumbar region without myelopathy or radiculopathy Piriformis syndrome of right side Synovial cyst of lumbar facet joint Myofascial pain Lumbar postlaminectomy syndrome Ligamentum flavum hypertrophy Moderate obesity Physical deconditioning Acute cystitis without hematuria Gout due to renal impairment Recurrent UTI ADONAY (renal osteodystrophy) Gait disturbance BMI 38.0-38.9,adult Past Medical History: Diagnosis Date BOSTON (acute kidney injury) 07/05/2018 Anemia 1980 Anesthesia complication VERY HARD TIME TO AWAKEN FOLLOWING KIDNEY SURGERY Arthritis Arthritis 09/12/2018 Asthma Bronchitis Cancer kidney Cataract Cervical disc disorder 12/2009 Chronic kidney disease (CKD) stage G4/A1, severely decreased glomerular filtration rate (GFR) between 15-29 mL/min/1.73 square meter and albuminuria creatinine ratio less than 30 mg/g Chronic pain disorder 2004 Diabetes mellitus DOESN'T DO FSBG AT HOME, DOESN'T TAKE MEDICATIONS FOR THIS EITHER. Elevated cholesterol Extremity pain Fibromyalgia, primary Gout Headache, tension-type History of echocardiogram History of echocardiogram 2022 History of stress test History of transfusion Hypertension Joint pain 1989 Low back pain Lumbosacral disc disease 2010 Migraine NONE SINCE MENOPAUSE Neck pain 2010 Osteoarthritis 2014 Piriformis syndrome of right side 03/15/2023 Pneumonia Sleep apnea Spinal stenosis Thoracic disc disorder 2010 TMJ dysfunction Wears reading eyeglasses Past Surgical History: Procedure Laterality Date BACK SURGERY 06/2018 CERVICAL FUSION COLONOSCOPY ECTOPIC EPIDURAL BLOCK HEEL SPUR SURGERY Left HYSTERECTOMY KNEE ARTHROSCOPY Right LAMINECTOMY LUMBAR DISCECTOMY FUSION INSTRUMENTATION N/A 06/28/2018 Procedure: TLIF L4-S1, WITH POST LATERAL FUSION L4-S1; Surgeon: Fidel Christensen MD; [facility]; Service: Neurosurgery NECK SURGERY 12/2009 NEPHRECTOMY Left 2010 due to cancer ORTHOPEDIC SURGERY SPINAL FUSION 06/2018 TRIGGER POINT INJECTION 2016 TUBAL ABDOMINAL LIGATION WOUND CLOSURE Bilateral 07/19/2018 Procedure: WOUND EXPLORATION EVACUATION OF EPIDURAL ABSCESS AND PRIMARY CLOSURE; Surgeon: Fidel Christensen MD; Location: [facility] OR; Service: Neurosurgery Family History Problem Relation Age of Onset Heart attack Mother Diabetes Mother Hyperlipidemia Mother Stroke Father Diabetes Father Alcohol abuse Father Hyperlipidemia Father Diabetes Sister Diabetes Brother Liver disease Brother Alcohol abuse Brother Hyperlipidemia Brother Hyperlipidemia Sister Hyperlipidemia Sister Hyperlipidemia Brother Social History Socioeconomic History Marital status: Tobacco Use Smoking status: Never Smokeless tobacco: Never Vaping Use Vaping status: Never Used Substance and Sexual Activity Alcohol use: No Drug use: No Sexual activity: Yes Partners: Male control/protection: Tubal ligation, Hysterectomy Current Outpatient Medications: amitriptyline (ELAVIL) 10 MG tablet, Take 1 tablet by mouth At Night As Needed., Disp: , Rfl: aspirin 81 MG EC tablet, Take 1 tablet by mouth Daily., Disp: 90 tablet, Rfl: 3 atorvastatin (LIPITOR) 40 MG tablet, Take 1 tablet by mouth Every Night., Disp: , Rfl: Dilt-XR 240 MG 24 hr capsule, Take 1 capsule by mouth Daily., Disp: , Rfl: ezetimibe (ZETIA) 10 MG tablet, Take 1 tablet by mouth Daily., Disp: 90 tablet, Rfl: 3 HYDROcodone-acetaminophen (NORCO) 5-325 MG per tablet, Take 1 tablet by mouth 2 (Two) Times a Day As Needed., Disp: , Rfl: losartan (COZAAR) 50 MG tablet, Take 0.5 tablets by mouth Daily., Disp: , Rfl: LYRICA 100 MG capsule, Take 1 capsule by mouth 2 (Two) Times a Day., Disp: , Rfl: Mounjaro 5 MG/0.5ML solution auto-injector, Inject 5 mg under the skin into the appropriate area asdirected 1 (One) Time Per Week., Disp: , Rfl: omeprazole (priLOSEC) 40 MG capsule, 1 capsule Daily., Disp: , Rfl: Ventolin HFA 108 (90 Base) MCG/ACT inhaler, INHALE 4 PUFFS BY MOUTH EVERY 4 HOURS FOR 48 HOURS THENAS NEEDED FOR SHORTNESS OF BREATH OR WHEEZING, Disp: , Rfl: Allergies Allergen Reactions Clavulanic Acid Diarrhea Levaquin [Levofloxacin] Other (See Comments) Makes all her joints hurt Nsaids Other (See Comments) and Unknown (See Comments) Pt had Lt kidney removed due to cancer- Povidone Iodine Swelling and Rash RASH AND SWELLING Acetaminophen Headache Povidone-Iodine Rash Soap Rash Sulfa Antibiotics Hives Sulfamethoxazole-Trimethoprim Other (See Comments) and Unknown (See Comments) DECREASES KIDNEY FUNCTION-HAS ONE KIDNEY AND CKD IN THIS KIDNEY OCCURS WITH BACTRIM Ht 157.5 cm (62 ) Wt 98 kg (216 lb) LMP (LMP Unknown) BMI 39.51 kg/m?? Physical Exam: Constitutional: Patient appears well-developed, well-nourished, well-hydrated, appears younger thanstated age HEENT: Head: Normocephalic and atraumatic Eyes: Conjunctivae and lids are normal Pupils: Equal, round, reactive to light Peripheral vascular exam: Posterior tibialis: right 2+ and left 2+. Dorsalis pedis: right 2+ and left 2+. 1+edema. Musculoskeletal Gait and station: Gait evaluation demonstrated shuffling (limited). Uses a cane Lumbar Spine: Passive and active range of motion are limited secondary to pain. Extension, rotationof the lumbar spine increased and reproduced pain. Lumbar facet joint loading maneuvers are positive. Sacroiliac Joints Provocative Maneuvers: Negative Piriformis maneuvers: Negative Right Hip Joint: The range of motion of the hip joint is limited to flexion and internal rotation but without pain Left Hip Joint: The range of motion of the hip joint is limited to flexion and internal rotation but without pain Palpation of the bilateral psoas tendons and iliopsoas bursas: Unrevealing Palpation of the bilateral greater trochanters: Reveals tenderness on the right Examination of the Iliotibial band: Reveals tenderness on the right Neurological: Patient is alert and oriented to person, place, and time. Speech: Normal. Cortical function: Normal mental status. Reflex Scores: Right patellar: 0+ Left patellar: 0+ Right Achilles: 0+ Left Achilles: 0+ Motor strength: 5/5 Motor Tone: Normal Involuntary movements: None. Superficial/Primitive Reflexes: Primitive reflexes were absent. Right Whitt: Absent Left Whitt: Absent Right ankle clonus: Absent Left ankle clonus: Absent Babinsky: Absent Long tract signs: Negative. Straight leg raising test: Negative. Femoral stretch sign: Negative. Sensory exam: Intact to light touch, intact pain and temperature sensation, intact vibration sensation and normal proprioception Coordination: Finger to nose: Normal. Balance: Normal. Romberg's sign: Negative Skin and subcutaneous tissue: Skin is warm and intact. No rash noted. No cyanosis. Psychiatric: Judgment and insight: Normal. Recent and remote memory: Intact. Mood and affect: Normal. Eva Ward 1955 ASSESSMENT: 1. Lumbar postlaminectomy syndrome 2. Lumbar stenosis with neurogenic claudication 3. Ligamentum flavum hypertrophy 4. Degeneration of intervertebral disc of lumbosacral region with discogenic back pain 5. Piriformis syndrome of right side 6. Myofascial pain 7. Stage 4 chronic kidney disease 8. Renal insufficiency 9. BMI 38.0-38.9,adult 10. Moderate obesity 11. Physical deconditioning 12. Gait disturbance 13. Impaired functional mobility, balance, gait, and endurance 14. Preoperative testing PLAN/MEDICAL DECISION MAKING: Ms. Eva Ward, 70 y.o. female originally referred by Dr. Cerrato in consultation for longstanding for chronic progressive intractable lower back pain. Melany Ward underwent L4-S1 PLIF by Dr. Christensen on 06/28/2018. Her postoperative course was complicatedby an abscess that required a operation on 07/15/2018. She did well thereafter. By [id number], she started experiencing lower back pain radiating into the gluteal area RT> LT with protracted sitting. Eva Ward underwent neurosurgical consultation with Dr. Isaias Alvarado on on 02/22/2023, andwas found not to be a surgical candidate. MRI of the lumbar spine without contrast on 12/22/2022 revealed PLIF L4-S1 with intact hardware. Possible neuroforaminal stenosis at L5-S1. Lumbar facet hypertrophy from L1-L2 through L3-L4. At L3-L4, disc bulge, facet hypertrophy, ligamentum flavum hypertrophy, and a left-sided facet joint synovial cyst contributing to moderate canal stenosis and neuroforaminal stenosis. Lumbar x-rays with flexion and extension views on 02/22/2023 revealed L4-S1 PLIF without evidence of instability. Facet hypertrophy most advanced at L2-L3 and L3-L4. Eva Ward presents with significant comorbidities including chronic kidney disease, history of left nephrectomy in 2010, diabetes mellitus, hypercholesterolemia, gout, hypertension, migraines. Eva Ward underwent two sets of diagnostic bilateral lumbar MBBs followed by bilateral lumbar medial branch rhizotomies at L1, L2, L3; for bilateral lumbar facet joints at L2-L3, and L3-L4 on 03/28/2023, from which she experienced almost 100% pain relief and functional improvement that lasted for more than 18 months. On 01/30/2025, she underwent Dx and Tx bilateral L3-L4 TESI with short term pain relief. Therefore, she does not meet the criteria for repeat procedure. She is not a candidate for repeat RFA. Recent lumbar MRI revealed severe lumbar stenosis. She is here to discuss the prospects of a spinal cord stimulator trial, as this has also been recommended by Dr. Alvarado. The patient has been found not to be a surgical candidate. In addition, she is not interested in the prospects of additional lumbar surgery given her medical comorbidities and past experiences with lumbar surgery. She would liketo gain more information regarding SCS because she doesn't know much about the procedure or how theSCS could help her pain. Eva Ward underwent recent follow up psychological evaluation with Dr Lisbet Hong on 02/20/2025: From a psychological perspective patient appears to be an appropriate candidate for a PNS, SCS or an Intrathecal Pain Pump at this time. Eva Ward failed to obtain pain relief with conservative measures for several years including oral analgesics, topical analgesics, ice, heat, physical therapy (4 weeks/3 x per week, last visit within the past 6 weeks; no relief), physical therapist directed home exercise program HEP (ongoing), to name a few. A recent MRIof the lumbar spine wo contrast on 01/24/2025 revealed clumping of the nerve roots resembling arachn oiditis secondary to canal stenosis. Paraspinal muscle atrophy. Postsurgical changes of posterior fusion and decompression from L4-S1. Degenerative change most pronounced at L3-4 with severe canal stenosis. Moderate right greater than left neural foraminal stenosis at L5-S1 difficult to evaluate due to susceptibility artifact. She did not complete lumbar X-rays or MRI of the T spine. A comprehensive evaluation--including a detailed history, physical examination, and relevant physiologic and functional assessments--was conducted. The patient presents with intractable pain attributed to the diagnoses listed above. This pain has persisted despite trials of conservative modalities, as well as prior minimally invasive interventional pain procedures and surgical interventions, as documented in the HPI and previous records. The patient's moderate to severe pain significantly impacts daily functioning, activities of daily living (ADLs), and overall quality of life. This is evidenced by results from standardized assessment tools, including: Global Pain Scale: 53 /100 [place] Back Pain Disability Scale: 76/100 [place] Claudication Score: NA/50 [place] Gait & Balance Assessment Tool: NA (limited ambulation secondary to severe pain) Additionally, I have reviewed relevant diagnostic imaging and studies supporting the chronicity andseverity of the patient???s pain condition. I have also reviewed available medical records, including documentation of previous therapies and treatment outcomes. Psychological screening was also performed: PHQ-2: 1 Pain Self-Efficacy Questionnaire (PSEQ): Pain nature: The patient???s pain is predominantly physical in nature. I conducted a detailed discussion with Ms. Eva Ward regarding the nature of her chronic pain condition and reviewed potential therapeutic options. This conversation included a review of the risks, benefits, alternatives, and the rationale for each approach. We agreed to pursue a stepwise treatment strategy, beginning with the least invasive interventions appropriate to the severity and complexity of the patient???s condition. The proposed treatment plan is consistent with current clinical guidelines and evidence-based standards of care. Its scope, duration, and setting are medically appropriate, with the intent toimprove function, reduce pain, and enhance quality of life. Accordingly, I recommend the following plan: 1. Diagnostic studies: A. Lumbar Spine X-rays, full views including flexion and extension to assess lumbar stability B. Bilateral hip X-rays, full views C. MRI of the thoracic spine without contrast to assess capacity and patency of the spinal canal and epidural space prior to spinal cord stimulator trial and implant D. CBC, PT, PTT, CMP, HbA1C 2. Interventional pain management measures: Patient does not take blood thinners other than ASA 81 mg Patient will be scheduled for a spinal cord stimulator trial with Nevro. Patient has received formal education from me including risks, benefits, and alternative treatments, as well as detailed information regarding the procedure and specific goals for the trial. Patient has also received didactic materials including educational booklets and DVDs on spinal cord stimulation therapies. 3. Pharmacological measures: Reviewed and discussed; Patient takes amitriptyline, Lyrica 100 mg BID. Patient also takes Arma. She can't take NSAIDs 4. Long-term rehabilitation efforts: A. The patient does not have a history of falls. Fall precautions: Patient has been instructed regarding universal fall precautions, such as; Using gait aids a cane and/or a walker at the appropriate height at all times for ambulation or a wheelchair Removing all area rugs and coffee tables to create a safe environment at home Ensure clean, dry floors Wearing supportive footwear and properly fitting clothing Ensure bed/chair is appropriate height and patient's feet can touch the floor Using a shower transfer bench Using walk-in shower and having shower safety bars installed Ensure proper lighting, minimize glare Have nightlights operational and in use Participation in an exercise program for gait training, balance training and strength Avoid carrying laundry up and down steps Ensure proper compliance and organization of medications to avoid errors Avoid use of over the counter sedatives and alcohol consumption Ensure easy access to call harrell, glasses, TV control, telephone Ensure glasses/hearing aids are in use or close by (on top of night table) B. Physical therapy program: Deferred C. Contrast therapy: Apply ice-packs for 15-20 minutes, followed by heating pads for 15-20 minutes to affected area D. Start a low impact exercise program such as water therapy, swimming, yoga, Pilates: Deferred E. Referral to Dr. Tom Juan for update on psychological clearance for peripheral nerve stimulation, spinal cord stimulation, intrathecal therapies F. Referral to [facility]. Patient's Body mass index is 40.59 kg/m??. Patient counseled on the importance of weight loss to help with overall health and pain control. GRocio Ward reports that she has never smoked. She has never used smokeless tobacco. 5. The patient has been instructed to contact my office with any questions or difficulties. The patient understands the plan and agrees to proceed accordingly. The patient has a documented plan of care to address chronic pain. Eva Ward reports a pain score of 10/10. Given her pain assessment as noted, treatment options were discussed and the following options were decided upon as a follow-up plan to address the patient's pain: continuation of current treatment plan for pain, educational materials on pain management, home exercises and therapy, patient declined analgesics, patient not interested in pharmacological measures, prescription for non-opiod analgesics, referral to Physical Therapy, referral to specialist for assistance in pain treatment guidance, steroid injections, use of non-medical modalities (ice, heat, stretching and/or behavior modifications), and interventional pain management measures. Patient does not receive prescriptions for controlled substances from this office. Therefore, a controlled substance agreement is not medically necessary at this time. CHANCE query complete. CHANCE reviewed by Azar Andino MD. Pain Management Panel Latest Ref Rng & Units 06/29/2018 Pain Management Panel Creatinine, Urine mg/dL 151.9 Pain Medications amitriptyline (ELAVIL) 10 MG tablet Take 1 tablet by mouth At Night As Needed. aspirin 81 MG EC tablet Take 1 tablet by mouth Daily. HYDROcodone-acetaminophen (NORCO) 5-325 MG per tablet Take 1 tablet by mouth 2 (Two) Times a Day AsNeeded. LYRICA 100 MG capsule Take 1 capsule by mouth 2 (Two) Times a Day. Orders Placed This Encounter Procedures External Facility Surgical/Procedural Request Standing Status: Future Expected Date: 02/28/2025 Expiration Date: 02/28/2026 Provider: AZAR ANDINO [[id number]] Requested Location: [address] [place] [address] Procedure/ Order for Consent: spinal cord stimulator trial with Nevro Laterality: Not Applicable Anesthesia type: Sedation [260] Pre-op diagnosis: lumbar postlaminectomy syndrome MRI Thoracic Spine Without Contrast Standing Status: Future Expected Date: 03/01/2025 Expiration Date: 05/31/2026 Release to patient: Routine Release [[id number]] Reason for Exam:: preoperative assessment for SCS trial and implant aPTT Standing Status: Future Expected Date: 03/30/2025 Expiration Date: 02/28/2026 Release to patient: Routine Release [[id number]] Protime-INR Standing Status: Future Expected Date: 03/30/2025 Expiration Date: 02/28/2026 Release to patient: Routine Release [[id number]] CBC (No Diff) Standing Status: Future Expected Date: 03/30/2025 Expiration Date: 02/28/2026 Release to patient: Routine Release [[id number]] Comprehensive Metabolic Panel Standing Status: Future Expected Date: 03/05/2025 Expiration Date: 02/28/2026 Release to patient: Routine Release [[id number]] Hemoglobin A1c Standing Status: Future Expected Date: 03/05/2025 Expiration Date: 05/31/2026 Release to patient: Routine Release [[id number]] Please note that portions of this note were completed with a voice recognition program. Any copied data in any portion of my note from previous notes included in the HPI, PE, MDM and/or assessment and plan has been reviewed by myself and accurate as of this date. The Cures Act makes medical notes like this available to patients in the interest of transparency. This is a medical document intended as peer to peer communication. It is written in medical language and may contain abbreviations or verbiage that are unfamiliar. It may appear blunt or direct. Medical documents are intended to carry relevant information, facts as evident, and the clinical opinion of the practitioner. Azar Andino MD Patient Care Team: Jd Santacruz MD as PCP - General (Internal Medicine) Jeremias Nascimento MD as Consulting Physician (Anesthesiology) Jeremias Nascimento MD as Consulting Physician (Anesthesiology) Azar Andino MD as Consulting Physician (Pain Medicine) Messi Looney MD as Consulting Physician (Cardiology) No orders of the defined types were placed in this encounter. Future Appointments Date Time Provider Department Center 04/22/2025 10:30 AM Messi Looney MD [facility] 05/07/2025 10:30 AM Shakira Joshua APRN [facility] documented in this encounter Plan of Treatment Upcoming Encounters Date Type Department Care Team (Late st Contact Info) Description 04/22/2025 10:30 AM EDT Office Visit [facility] [address] [facility] [address] [place] [address] Messi Looney MD [address] [place] [address] [address] [place] [address] 04/22/2025 2:19 PM EDT Hospital Encounter [facility] [address] [place] [phone] Azar Andino MD [address] [id number] 04/22/2025 2:19 PM EDT - 04/22/2025 4:25 PM EDT Surgery [facility] OR [address] [place] [phone] Azar Andino MD [address] [id number] SPINAL CORD STIMULATOR INSERTION PHASE 2 [[id number] (CPT ) +2 more] 04/25/2025 7:30 AM EDT Office Visit [facility] [address] [place] [phone] Shakira Joshua, MOLDING LINE ASSISTANT [address] [id number] 05/07/2025 10:30 AM EDT Office Visit [facility] [address] [place] [phone] Shakira Joshua, MOLDING LINE ASSISTANT [address] [address] Scheduled Orders Name Type Priority Associated Diagnoses Orde r Schedule External Facility Surgical/Procedural Request Procedures Routine Lumbar stenosis with neurogenic claudication Lumbar postlaminectomy syndrome Expected: 02/28/2025, Expires: 02/28/2026 Scheduled Procedures Name Priority Associated Diagnoses Date/Ti me SPINAL CORD STIMULATOR INSERTION PHASE 2 Lumbar postlaminectomy syndrome 04/22/2025 2:19 PM EDT documented as of this encounter Results * (ABNORMAL) Hemoglobin A1c (03/19/2025 1:24 PM EDT) Hemoglobin A1C 6.00(H) 4.80 - 5.60 % 03/20/2025 12:02 AM EDT [facility] Blood Venipuncture / Unknown 03/19/2025 1:24 PM EDT 03/19/2025 1:24 PM EDT Narrative [facility] - 03/20/2025 12:02 AM EDT Hemoglobin A1C Ranges: Increased Risk for Diabetes 5.7% to 6.4% Diabetes >= 6.5% Diabetic Goal < 7.0% Azar Andino MD LAB BLOOD ORDERABLES Final Re sult [facility]
[address] [place] [address], * (ABNORMAL) Comprehensive Metabolic Panel (03/19/2025 1:24 PM EDT) Glucose 128(H) 65 - 99 mg/dL 03/20/2025 12:19 AM EDT [facility] BUN 32.0(H) 8.0 - 23.0 mg/dL 03/20/2025 12:19 AM EDT [facility] Creatinine 2.02(H) 0.57 - 1.00 mg/dL 03/20/2025 12:19 AM EDT [facility] Sodium 143 136 - 145 mmol/L 03/20/2025 12:19 AM EDT [facility] Potassium 4.5 3.5 - 5.2 mmol/L 03/20/2025 12:19 AM EDT [facility] Chloride 105 98 - 107 mmol/L 03/20/2025 12:19 AM EDT [facility] CO2 25.0 22.0 - 29.0 mmol/L 03/20/2025 12:19 AM EDT [facility] Calcium 9.9 8.6 - 10.5 mg/dL 03/20/2025 12:19 AM [facility] Total Protein 6.4 6.0 - 8.5 g/dL 03/20/2025 12:19 AM [facility] Albumin 3.7 3.5 - 5.2 g/dL 03/20/2025 12:19 AM [facility] ALT (SGPT) 13 1 - 33 U/L 03/20/2025 12:19 AM [facility] AST (SGOT) 16 1 - 32 U/L 03/20/2025 12:19 AM [facility] Alkaline Phosphatase 105 39 - 117 U/L 03/20/2025 12:19 AM [facility] Total Bilirubin 0.8 0.0 - 1.2 mg/dL 03/20/2025 12:19 AM [facility] Globulin 2.7 gm/dL 03/20/2025 12:19 AM [facility] A/G Ratio 1.4 g/dL 03/20/2025 12:19 AM [facility] BUN/Creatinine Ratio 15.8 7.0 - 25.0 03/20/2025 12:19 AM [facility] Anion Gap 13.0 5.0 - 15.0 mmol/L 03/20/2025 12:19 AM [facility] eGFR 26.0(L) >60.0 mL/min/1.7 3 03/20/2025 12:19 AM [facility] Blood Venipuncture / Unknown 03/19/2025 1:24 PM EDT 03/19/2025 1:24 PM [facility] - 03/20/2025 12:19 AM EDT GFR Categories in Chronic Kidney Disease (CKD) GFR Category GFR (mL/min/1.73) Interpretation G1 90 or greater Normal or high (1) G2 60-89 Mild decrease (1) G3a 45-59 Mild to moderate decrease G3b 30-44 Moderate to severe decrease G4 15-29 Severe decrease G5 14 or less Kidney failure (1)In the absence of evidence of kidney disease, neither GFR category G1 or G2 fulfill the criteria for CKD. eGFR calculation 2020 CKD-EPI creatinine equation, which does not include race as a factor Azar Andino MD LAB BLOOD ORDERABLES Final Re sult [facility]
[address] [place] [address], * (ABNORMAL) CBC (No Diff) (03/19/2025 1:24 PM EDT) WBC 7.85 3.40 - 10.80 10*3/mm3 03/19/2025 11:22 PM EDT [facility] RBC 4.88 3.77 - 5.28 10*6/mm3 03/19/2025 11:22 PM EDT [facility] Hemoglobin 13.0 12.0 - 15.9 g/dL 03/19/2025 11:22 PM EDT [facility] Hematocrit 42.1 34.0 - 46.6 % 03/19/2025 11:22 PM EDT [facility] MCV 86.3 79.0 - 97.0 fL 03/19/2025 11:22 PM EDT [facility] MCH 26.6 26.6 - 33.0 pg 03/19/2025 11:22 PM EDT [facility] MCHC 30.9(L) 31.5 - 35.7 g/dL 03/19/2025 11:22 PM EDT [facility] RDW 15.5(H) 12.3 - 15.4 % 03/19/2025 11:22 PM EDT [facility] RDW-SD 48.4 37.0 - 54.0 fl 03/19/2025 11:22 PM EDT [facility] MPV 11.6 6.0 - 12.0 fL 03/19/2025 11:22 PM EDT [facility] Platelets 192 140 - 450 10*3/mm3 03/19/2025 11:22 PM EDT [facility] Blood Venipuncture / Unknown 03/19/2025 1:24 PM EDT 03/19/2025 1:24 PM EDT us Azar Andino MD LAB BLOOD ORDERABLES Final Re sult [facility]
[address] [place] [address], [place] [phone] * Protime-INR (03/19/2025 1:24 PM EDT) Protime 13.0 12.2 - 15.3 Seconds 03/19/2025 5:58 PM EDT [facility] INR 0.92 0.89 - 1.12 03/19/2025 5:58 PM EDT [facility] Blood Venipuncture / Unknown 03/19/2025 1:24 PM EDT 03/19/2025 1:24 PM EDT us Azar Andino MD LAB BLOOD ORDERABLES Final Re sult Performing Organization Address City/[facility]/ZIP Co de Phone Number [facility]
[address] [place] [address], [place] [phone] * aPTT (03/19/2025 1:24 PM EDT) PTT 32.7 22.0 - 39.0 seconds 03/19/2025 5:58 PM EDT [facility] Blood Venipuncture / Unknown 03/19/2025 1:24 PM EDT 03/19/2025 1:24 PM EDT Narrative [facility] - 03/19/2025 5:58 PM EDT PTT = The equivalent PTT values for the therapeutic range of heparin levels at 0.3 to 0.5 U/ml are 60 to 70 seconds. us Azar Andino MD LAB BLOOD ORDERABLES Final Re sult [facility]
[address] [place] [address], * MRI Thoracic Spine Without Contrast (03/16/2025 4:34 PM EDT) Anatomical Region Laterality Modality Spine, T-spine N/A Magnetic Resonan ce 03/23/2025 7:20 AM EDT Impressions 03/23/2025 7:26 AM EDT 1. Multilevel thoracic degenerative disc disease with small disc protrusions in the mid thoracic spine. There is no canal stenosis. 2. Mild neural foraminal narrowing in the lower thoracic spine. 3. T2 hyperintense 7 mm lesion in the T9 vertebral body is suspected to represent an atypical hemangioma. Electronically Signed: Triny Mohr MD 03/23/2025 7:26 AM EDT Workstation ID: [id number] Narrative 03/23/2025 7:26 AM EDT MRI THORACIC SPINE WO CONTRAST Date of Exam: 03/16/2025 4:07 PM EDT Indication: preoperative assessment for SCS trial and implant. Comparison: None available. Technique: Routine multiplanar/multisequence sequence images of the thoracic spine were obtained without contrast administration. Findings: ALIGNMENT: There is exaggeration of the normal thoracic kyphosis without subluxation. DISK SPACE: There is multilevel moderate disc space narrowing throughout the thoracic spine. VERTEBRA: There is no acute fracture. There are multiple small vertebral body hemangiomas. There is also a 7 mm round lesion in the T9 vertebral body which is hyperintense on T2-weighted images and may represent an atypical hemangioma. CORD: Normal anatomy and signal intensity. CRANIOVETEBRAL JUNCTION: Normal SOFT TISSUES: No mass nor lymphadenopathy. There is a small right renal cyst. LEVELS: T6-T7: 1 mm central disc protrusion. No significant canal stenosis or neural foraminal narrowing. T7-T8: 2 mm left paracentral disc protrusion contacts and deforms the left ventral cord surface. The central canal is widely patent. There is no significant neural foraminal narrowing. T11-T12: There is mild bilateral foraminal narrowing slightly greater on the left secondary to facet joint arthropathy. T12-L1: Mild bilateral neural foraminal narrowing secondary to facet joint arthropathy. Procedure Note Triny Mohr MD - 03/23/2025 MRI THORACIC SPINE WO CONTRAST Date of Exam: 03/16/2025 4:07 PM EDT Indication: preoperative assessment for SCS trial and implant. Comparison: None available. Technique: Routine multiplanar/multisequence sequence images of thethoracic spine were obtained without contrast administration. Findings: ALIGNMENT: There is exaggeration of the normal thoracic kyphosis withoutsubluxation. DISK SPACE: There is multilevel moderate disc space narrowing throughoutthe thoracic spine. VERTEBRA: There is no acute fracture. There are multiple small vertebralbody hemangiomas. There is also a 7 mm round lesion in the T9 vertebralbody which is hyperintense on T2-weighted images and may represent anatypical hemangioma. CORD: Normal anatomy and signal intensity. CRANIOVETEBRAL JUNCTION: Normal SOFT TISSUES: No mass nor lymphadenopathy. There is a small right renalcyst. LEVELS: T6-T7: 1 mm central disc protrusion. No significant canal stenosis orneural foraminal narrowing. T7-T8: 2 mm left paracentral disc protrusion contacts and deforms the leftventral cord surface. The central canal is widely patent. There is nosignificant neural foraminal narrowing. T11-T12: There is mild bilateral foraminal narrowing slightly greater onthe left secondary to facet joint arthropathy. T12-L1: Mild bilateral neural foraminal narrowing secondary to facet jointarthropathy. IMPRESSION: 1. Multilevel thoracic degenerative disc disease with small discprotrusions in the mid thoracic spine. There is no canal stenosis. 2. Mild neural foraminal narrowing in the lower thoracic spine. 3. T2 hyperintense 7 mm lesion in the T9 vertebral body is suspected torepresent an atypical hemangioma. Electronically Signed: Triny Mohr MD 03/23/2025 7:26 AM EDT Workstation ID: [id number] Azar Andino MD IMG MRI ORDERABLES Final Resu lt documented in this encounter Visit Diagnoses Diagnosis Lumbar postlaminectomy syndrome Postlaminectomy syndrome, lumbar region Lumbar stenosis with neurogenic claudication Ligamentum flavum hypertrophy Degeneration of intervertebral disc of lumbosacral region with discogenic back pain Piriformis syndrome of right side Myofascial pain Unspecified myalgia and myositis Stage 4 chronic kidney disease Renal insufficiency Unspecified disorder of kidney and ureter BMI 38.0-38.9,adult Moderate obesity Physical deconditioning Muscular wasting and disuse atrophy, not elsewhere classified Gait disturbance Abnormality of gait Impaired functional mobility, balance, gait, and endurance Preoperative testing Unspecified pre-operative examination Lumbar stenosis with neurogenic claudication Preoperative testing Unspecified pre-operative examination Lumbar postlaminectomy syndrome Postlaminectomy syndrome, lumbar region documented in this encounter Care Teams Acid Supervisor Relationship Specialty Start Date End Date Jd Santacruz MD [address] [facility] [address] [place] [id number] PCP - General Internal Medicine 05/18/18 documented as of this encounter
--- OUTSIDE RECORDS SUMMARY | 2025-03-16 15:30 | XMS_ITS | Encounter Summary ---
Author Organization [facility] Address [address] [place] [address] Care Team Providers Care Comb Fixer Name Role Phone Jd Santacruz MD Primary Care Provider [phone] Reason for Referral * MRI/CAT/PET Scan (Routine) - Closed Specialty Diagnoses / Procedures Referred By Contac t Referred To Contact Radiology Diagnoses Lumbar stenosis with neurogenic claudication Preoperative testing Procedures MRI Thoracic Spine Without Contrast [facility]ar [facility] MD [facility] [place] [address] Phone: tel: fax: Referral ID Status Reason Start Date Expiration Date Visits Re quested Visits Authorized [id number] Closed 02/28/2025 05/30/2026 1 1 Reason for Visit * MRI/CAT/PET Scan (Routine) - Closed Specialty Diagnoses / Procedures Referred By Contac t Referred To Contact Radiology Diagnoses Lumbar stenosis with neurogenic claudication Preoperative testing Procedures MRI Thoracic Spine Without Contrast Azar Andino MD [address] [place] [address] Phone: tel: fax: Referral ID Status Reason Start Date Expiration Date Visits Re quested Visits Authorized [id number] Closed 02/28/2025 05/30/2026 1 1 Encounter Details Date Type Department Care Team (Latest Contact Info) Description 03/16/2025 3:30 PM EDT - 03/16/2025 11:59 PM EDT Hospital Encounter [facility] MRI [place] [address] [place] [address] Lumbar stenosis with neurogenic claudication; Preoperative testing Discharge Disposition: Home or Self Care Social History Tobacco Use Types Packs/Day Years [...] on file documented as of this encounter Medications at Time of Discharge amitriptyline (ELAVIL) 10 MG tablet Take 1 tablet by mouth At Night As Needed. 03/22/2018 aspirin 81 MG EC tablet Take 1 tablet by mouth Daily. 90 tablet 3 06/12/2024 atorvastatin (LIPITOR) 40 MG tablet Take 1 tablet by mouth Every Night. 03/22/2018 Dilt-XR 240 MG 24 hr capsule Take 1 capsule by mouth Daily. 07/25/2024 ezetimibe (ZETIA) 10 MG tablet Take 1 tablet by mouth Daily. 90 tablet 3 09/25/2024 HYDROcodone-acet aminophen (NORCO) 5-325 MG per tablet Take 1 tablet by mouth 2 (Two) Times a Day As Needed. 02/24/2023 losartan (COZAAR) 25 MG tablet Take 1 tablet by mouth Daily. losartan (COZAAR) 25 MG tablet Take 1 tablet by mouth Daily. 03/11/2025 LYRICA 100 MG capsule Take 1 capsule by mouth 2 (Two) Times a Day. 04/20/2018 Mounjaro 5 MG/0.5ML solution auto-injector Inject 5 mg under the skin into the appropriate area as directed 1 (One) Time Per Week. 01/09/2025 omeprazole (priLOSEC) 40 MG capsule 1 capsule Daily. 06/26/2020 Ventolin HFA 108 (90 Base) MCG/ACT inhaler INHALE 4 PUFFS BY MOUTH EVERY 4 HOURS FOR 48 HOURS THEN NEEDED FOR SHORTNESS OF BREATH OR WHEEZING 04/22/2023 documented as of this encounter Plan of Treatment Upcoming Encounters Date Type Department Care Team (Late st Contact Info) Description 04/22/2025 10:30 AM EDT Office Visit [facility] CARDIOLOGY [address] [facility] [address] [place] [phone] Messi Looney MD [address] [facility] [address] [place] [address] 04/22/2025 2:19 PM EDT Hospital Encounter [facility] OR [address] [place] [address] Azar Andino MD 1760 [facility] [address] [place] [address] 04/22/2025 2:19 PM EDT - 04/22/2025 4:25 PM EDT Surgery [facility] OR [address] [place] [address] Azar Andino MD [address]60 [facility] [address] [place] [address] SPINAL CORD STIMULATOR INSERTION PHASE 2 [23901 (CPT ) +2 more] 04/25/2025 7:30 AM EDT Office Visit [facility] PAIN MANAGEMENT [address] [facility] [address] [place] [address] Shakira Joshua, TOOL POLISHING MACHINE OPERATOR 1760 [facility] [address] [place] [address] 05/07/2025 10:30 AM EDT Office Visit [facility] PAIN MANAGEMENT [address] [facility] [address] [place] [address] Shakira Joshua, TOOL POLISHING MACHINE OPERATOR [address] [facility] [address] [place] [address] Scheduled Procedures Name Priority Associated Diagnoses Date/Ti me SPINAL CORD STIMULATOR INSERTION PHASE 2 Lumbar postlaminectomy syndrome 04/22/2025 2:19 PM EDT documented as of this encounter Procedures Procedure Name Priority Date/Time Associated Diagnosis Comments MRI THORACIC SPINE WO CONTRAST Routine 03/16/2025 4:34 PM EDT Lumbar stenosis with neurogenic claudication Preoperative testing documented in this encounter Results * MRI Thoracic Spine Without Contrast (03/16/2025 [...] MD 03/23/2025 7:26 AM EDT Workstation ID: [id number] Narrative 03/23/2025 7:26 AM EDT MRI THORACIC [...] MD 03/23/2025 7:26 AM EDT Workstation ID: [id number] us Azar Andino MD IMG MRI ORDERABLES Final Resu lt documented in this encounter Visit Diagnoses Diagnosis Lumbar stenosis with neurogenic claudication Preoperative testing Unspecified pre-operative examination Lumbar postlaminectomy syndrome Postlaminectomy syndrome, lumbar region documented in this encounter Care Teams Comb Fixer Relationship Specialty Start Date End Date Jd Santacruz MD [address] [facility] [address] [facility] [address] [facility] [place] [address] PCP - General Internal Medicine 05/18/18 documented as of this encounter
--- OUTSIDE RECORDS SUMMARY | 2025-03-16 15:47 | XMS_ITS | Encounter Summary ---
Author Organization [facility] Address [address] [place] [address] Care Team Providers Care Ornamental Metal Fabricator Apprentice Name Role Phone Jd Santacruz MD Primary Care Provider [phone] Reason for Referral * Diagnostic Imaging (Emergency) - Closed Specialty Diagnoses / Procedures Referred By Contac t Referred To Contact Radiology Diagnoses Lumbar postlaminectomy syndrome Impaired functional mobility, balance, gait, and endurance Procedures XR Pelvis 3+ View Azar Andino MD [address] [place] [address] Phone: tel: fax: Referral ID Status Reason Start Date Expiration Date Visits Re quested Visits Authorized Closed 01/24/2025 04/25/2026 1 1 * Diagnostic Imaging (Emergency) - Closed Specialty Diagnoses / Procedures Referred By Contac t Referred To Contact Radiology Diagnoses Lumbar postlaminectomy syndrome Impaired functional mobility, balance, gait, and endurance Procedures XR Spine Lumbar Complete With Flex & Ext Azar Andino MD [address] [place] [address] Phone: tel: fax: Referral ID Status Reason Start Date Expiration Date Visits Re quested Visits Authorized Closed 01/24/2025 04/25/2026 1 1 Reason for Visit * Diagnostic Imaging (Emergency) - Closed Specialty Diagnoses / Procedures Referred By Contac t Referred To Contact Radiology Diagnoses Lumbar postlaminectomy syndrome Impaired functional mobility, balance, gait, and endurance Procedures XR Spine Lumbar Complete With Flex & Ext Azar Andino MD [address] [facility] [address] [place] [address] Phone: tel: fax: Referral ID Status Reason Start Date Expiration Date Visits Re quested Visits Authorized [id number] Closed 01/24/2025 04/25/2026 1 1 Encounter Details Date Type Department Care Team (Latest Contact Info) Description 03/16/2025 3:47 PM EDT - 03/16/2025 11:59 PM EDT Hospital Encounter [facility] [place] [address] [facility] [address] [place] [phone] Lumbar postlaminectomy syndrome; Impaired functional mobility, balance, gait, and endurance Discharge Disposition: Home or Self Care Social [...] Description 04/22/2025 10:30 AM EDT Office Visit [facility] CARDIOLOGY [address] [facility] [address] [place] [phone] Messi Looney MD [address] [place] [address] 04/22/2025 2:19 PM EDT Hospital Encounter [facility] OR [address] [place] [address] Azar Andino MD [address]60 [facility] [address] [place] [address] 04/22/2025 2:19 PM EDT - 04/22/2025 4:25 PM EDT Surgery [facility] OR [address] [place] [address] Azar Andino MD [address]60 [facility] [address] [place] [address] SPINAL CORD STIMULATOR INSERTION PHASE 2 [39273 (CPT ) +2 more] 04/25/2025 7:30 AM EDT Office Visit [facility] PAIN MANAGEMENT [address] [address] Shakira Joshua, DINING SERVICE INSPECTOR [address] [id number] 05/07/2025 10:30 AM EDT Office Visit [facility] PAIN MANAGEMENT [address] [address] Shakira Joshua, DINING SERVICE INSPECTOR [address] [phone] Scheduled Procedures Name Priority Associated Diagnoses Date/Ti me SPINAL CORD STIMULATOR INSERTION PHASE 2 Lumbar postlaminectomy syndrome 04/22/2025 2:19 PM EDT documented as of this encounter Procedures Procedure Name Priority Date/Time Associated Diagnosis Comments XR PELVIS 3+ VW STAT 03/16/2025 4:57 PM EDT Lumbar postlaminectomy syndrome Impaired functional mobility, balance, gait, and endurance XR SPINE LUMBAR COMPLETE W FLEX EXT STAT 03/16/2025 4:57 PM EDT Lumbar postlaminectomy syndrome Impaired functional mobility, balance, gait, and endurance documented in this encounter Results * XR Pelvis 3+ View (03/16/2025 4:57 PM EDT) Anatomical Region Laterality Modality Body, Pelvis N/A Radiographic Inna ging 03/16/2025 5:03 PM EDT Impressions 03/16/2025 5:05 PM EDT Impression: 1.No evidence of acute fracture. 2.Moderate bilateral hip arthritis. Electronically Signed: Robert Walden MD 03/16/2025 5:05 PM EDT Workstation ID: [id number] Narrative 03/16/2025 5:05 PM EDT XR PELVIS 3+ VW Date of Exam: 03/16/2025 4:33 PM EDT Indication: Hx PLIF. Sudden onset of LBP/RLE pain Comparison: None available. Findings: No evidence of acute fracture. Moderate bilateral hip arthritis. Partially visualized lumbar fusion hardware. Mild bilateral SI joint arthritis. Soft tissues are unremarkable. Procedure Note Robert Walden MD - 03/16/2025 XR PELVIS 3+ VW Date of Exam: 03/16/2025 4:33 PM EDT Indication: Hx PLIF. Sudden onset of LBP/RLE pain Comparison: None available. Findings: No evidence of acute fracture. Moderate bilateral hip arthritis. Partiallyvisualized lumbar fusion hardware. Mild bilateral SI joint arthritis. Softtissues are unremarkable. IMPRESSION: Impression: 1.No evidence of acute fracture. 2.Moderate bilateral hip arthritis. Electronically Signed: Robert Walden MD 03/16/2025 5:05 PM EDT Workstation ID: [id number] Azar Andino MD IMG DIAGNOSTIC IMAGING ORDERA BLES Final Result * XR Spine Lumbar Complete With Flex & Ext (03/16/2025 4:57 PM EDT) Anatomical Region Laterality Modality Spine, L-spine N/A Radiographic Inna ging 03/16/2025 5:01 PM EDT Impressions 03/16/2025 5:06 PM EDT Impression: Lumbar spine series with obliques demonstrating multilevel degenerative and postoperative change, stable. No subluxation or instability is evident on flexion and extension views. Electronically Signed: Gustavo Kunz MD 03/16/2025 5:06 PM EDT Workstation ID: [id number] Narrative 03/16/2025 5:06 PM EDT XR SPINE LUMBAR COMPLETE W FLEX EXT Date of Exam: 03/16/2025 4:33 PM EDT Indication: Hx PLIF. Sudden onset of LBP/RLE pain Comparison: MR lumbar spine 01/24/2025, L-spine series 02/22/2023 Technique: Radiographs of the lumbar spine were obtained with flexion and extension. 6 views minimum were obtained. Findings: Vertebral body heights are maintained. Disc spaces are maintained. Pedicle screws are seen in the L4, L5, and S1 vertebral elements. Posterior laminectomy defect is evident. Metallic markers consistent with interbody prostheses in the L4-5 and L5-S1 disc spaces are in unchanged position. No fracture or subluxation is seen. No instability is evident on flexion and extension views. The wall of the abdominal aorta is calcified. The abdominal aorta is mildly ectatic. Procedure Note Gustavo Kunz MD - 03/16/2025 XR SPINE LUMBAR COMPLETE W FLEX EXT Date of Exam: 03/16/2025 4:33 PM EDT Indication: Hx PLIF. Sudden onset of LBP/RLE pain Comparison: MR lumbar spine 01/24/2025, L-spine series 02/22/2023 Technique: Radiographs of the lumbar spine were obtained with flexion andextension. 6 views minimum were obtained. Findings: Vertebral body heights are maintained. Disc spaces are maintained. Pedicle screws are seen in the L4, L5, and S1 vertebral elements.Posterior laminectomy defect is evident. Metallic markers consistent withinterbody prostheses in the L4-5 and L5-S1 disc spaces are in unchangedposition. No fracture or subluxation is seen. No instability is evident on flexion and extension views. The wall of the abdominal aorta is calcified. The abdominal aorta ismildly ectatic. IMPRESSION: Impression: Lumbar spine series with obliques demonstrating multilevel degenerativeand postoperative change, stable. No subluxation or instability is evident on flexion and extension views. Electronically Signed: Gustavo Kunz MD 03/16/2025 5:06 PM EDT Workstation ID: [id number] us Azar Andino MD IMG DIAGNOSTIC IMAGING ORDERA BLES Final Result documented in this encounter Visit Diagnoses Diagnosis Lumbar postlaminectomy syndrome Postlaminectomy syndrome, lumbar region Impaired functional mobility, balance, gait, and endurance Lumbar postlaminectomy syndrome Postlaminectomy syndrome, lumbar region documented in this encounter Care Teams Ornamental Metal Fabricator Apprentice Relationship Specialty Start Date End Date Jd Santacruz MD [address] [place] [facility] [address] [place] [address] PCP - General Internal Medicine 05/18/18 documented as of this encounter
--- OUTSIDE RECORDS SUMMARY | 2025-03-19 13:25 | XMS_ITS | Encounter Summary ---
Author Organization [facility] Address [address] [place] [address] Care Team Providers Care Bar Pointer Name Role Phone Jd Santacruz MD Primary Care Provider Encounter Details Date Type Department Care Team (Late st Contact Info) Description 03/19/2025 1:25 PM EDT Lab [facility] DIAGNOSTIC [place] AT [address] [place] [address] Preoperative testing Social History Tobacco Use Types [...] on file documented as of this encounter Plan of Treatment Upcoming Encounters Date Type Department Care Team (Late st Contact Info) Description 04/22/2025 10:30 AM EDT Office Visit [facility] CARDIOLOG[facility] [address] [facility] [address] [place] [address] Messi Looney MD [address] [facility] [address] [place] [address] 04/22/2025 2:19 PM EDT Hospital Encounter [facility] OR [address]40 [place] [address] Azar Andino MD [address] [address] 04/22/2025 2:19 PM EDT - 04/22/2025 4:25 PM EDT Surgery [facility] OR [address] [place] [address] Azar Andino MD [address] [id number] SPINAL CORD STIMULATOR INSERTION PHASE 2 [53711 (CPT ) +2 more] 04/25/2025 7:30 AM EDT Office Visit [facility] PAIN MANAGEMENT [address] [phone] Shakira Joshua, AMPOULE WASHING MACHINE OPERATOR [address] [address] 05/07/2025 10:30 AM EDT Office Visit [facility] PAIN MANAGEMENT [address] [phone] Shakira Joshua, AMPOULE WASHING MACHINE OPERATOR [address] [address] Scheduled Procedures Name Priority Associated Diagnoses Date/Ti me SPINAL CORD STIMULATOR INSERTION PHASE 2 Lumbar postlaminectomy syndrome 04/22/2025 2:19 PM EDT documented as of this encounter Procedures Procedure Name Priority Date/Time Associated Diagnosis Comments APTT Routine 03/19/2025 1:24 PM EDT Preoperative testing PROTIME-INR Routine 03/19/2025 1:24 PM EDT Preoperative testing CBC (NO DIFF) Routine 03/19/2025 1:24 PM EDT Preoperative testing HEMOGLOBIN A1C Routine 03/19/2025 1:24 PM EDT Preoperative testing COMPREHENSIVE METABOLIC PANEL Routine 03/19/2025 1:24 PM EDT Preoperative testing documented in this encounter Results * (ABNORMAL) Hemoglobin A1c (03/19/2025 1:24 PM EDT) Hemoglobin A1C 6.00(H) 4.80 - 5.60 % 03/20/2025 12:02 AM EDT [facility] Blood Venipuncture / Unknown 03/19/2025 1:24 PM EDT 03/19/2025 1:24 PM EDT [facility]ORY - 03/20/2025 12:02 AM EDT Hemoglobin A1C Ranges: Increased Risk for Diabetes 5.7% to 6.4% Diabetes >= 6.5% Diabetic Goal < 7.0% Azar Andino MD LAB BLOOD ORDERABLES Final Re sult [facility]
[address] [place] [address], * (ABNORMAL) Comprehensive Metabolic Panel (03/19/2025 1:24 PM EDT) Glucose 128(H) 65 - 99 mg/dL 03/20/2025 12:19 AM EDT [facility] BUN 32.0(H) 8.0 - 23.0 mg/dL 03/20/2025 12:19 AM EDT [facility] Creatinine 2.02(H) 0.57 - 1.00 mg/dL 03/20/2025 12:19 AM EDT [facility] Sodium 143 136 - 145 mmol/L 03/20/2025 12:19 AM EDT [facility] Potassium 4.5 3.5 - 5.2 mmol/L 03/20/2025 12:19 AM [facility] Chloride 105 98 - 107 mmol/L 03/20/2025 12:19 AM [facility] CO2 25.0 22.0 - 29.0 mmol/L 03/20/2025 12:19 AM [facility] Calcium 9.9 8.6 - 10.5 mg/dL 03/20/2025 12:19 AM [facility] Total Protein 6.4 6.0 - 8.5 g/dL 03/20/2025 12:19 AM [facility] Albumin 3.7 3.5 - 5.2 g/dL 03/20/2025 12:19 AM [facility] ALT (SGPT) 13 1 - 33 U/L 03/20/2025 12:19 AM [facility] AST (SGOT) 16 1 - 32 U/L 03/20/2025 12:19 AM [facility] Alkaline Phosphatase 105 39 - 117 U/L 03/20/2025 12:19 AM [facility] Total Bilirubin 0.8 0.0 - 1.2 mg/dL 03/20/2025 12:19 AM [facility] Globulin 2.7 gm/dL 03/20/2025 12:19 AM [facility] A/G Ratio 1.4 g/dL 03/20/2025 12:19 AM [facility] BUN/Creatinine Ratio 15.8 7.0 - 25.0 03/20/2025 12:19 AM [facility] Anion Gap 13.0 5.0 - 15.0 mmol/L 03/20/2025 12:19 AM [facility] eGFR 26.0(L) >60.0 mL/min/1.7 3 03/20/2025 12:19 AM [facility] Blood Venipuncture / Unknown 03/19/2025 1:24 PM T 03/19/2025 1:24 PM EDT Narrative [facility] - 03/20/2025 12:19 AM EDT GFR [...] does not include race as a factor us Azar Andino MD LAB BLOOD ORDERABLES Final Re sult [facility]
[address] [place] [address], * (ABNORMAL) CBC (No Diff) (03/19/2025 1:24 PM EDT) WBC 7.85 3.40 - 10.80 10*3/mm3 03/19/2025 11:22 PM EDT [facility] RBC 4.88 3.77 - 5.28 10*6/mm3 03/19/2025 11:22 PM EDT [facility] Hemoglobin 13.0 12.0 - 15.9 g/dL 03/19/2025 11:22 PM EDT [facility] Hematocrit 42.1 34.0 - 46.6 % 03/19/2025 11:22 PM EDT [facility] MCV 86.3 79.0 - 97.0 fL 03/19/2025 11:22 PM EDT [facility] MCH 26.6 26.6 - 33.0 pg 03/19/2025 11:22 PM EDT [facility] MCHC 30.9(L) 31.5 - 35.7 g/dL 03/19/2025 11:22 PM EDT [facility] RDW 15.5(H) 12.3 - 15.4 % 03/19/2025 11:22 PM EDT [facility] RDW-SD 48.4 37.0 - 54.0 fl 03/19/2025 11:22 PM EDT [facility] MPV 11.6 6.0 - 12.0 fL 03/19/2025 11:22 PM EDT [facility] Platelets 192 140 - 450 10*3/mm3 03/19/2025 11:22 PM EDT [facility] Blood Venipuncture / Unknown 03/19/2025 1:24 PM EDT 03/19/2025 1:24 PM EDT us Azar Andino MD LAB BLOOD ORDERABLES Final Re sult Performing Organization Address City/[facility]/ZIP Co de Phone Number [facility]
[address] [place] [address], [place] [phone] * Protime-INR (03/19/2025 1:24 PM EDT) Protime 13.0 12.2 - 15.3 Seconds 03/19/2025 5:58 PM EDT [facility] INR 0.92 0.89 - 1.12 03/19/2025 5:58 PM EDT [facility] Blood Venipuncture / Unknown 03/19/2025 1:24 PM EDT 03/19/2025 1:24 PM EDT us Azar Andino MD LAB BLOOD ORDERABLES Final Re sult [facility]
[address] [place] [address], [place] [phone] * aPTT (03/19/2025 1:24 PM EDT) PTT 32.7 22.0 - 39.0 seconds 03/19/2025 5:58 PM EDT [facility] Blood Venipuncture / Unknown 03/19/2025 1:24 PM EDT 03/19/2025 1:24 PM EDT Narrative [facility] - 03/19/2025 5:58 PM EDT PTT = The equivalent PTT values for the therapeutic range of heparin levels at 0.3 to 0.5 U/ml are 60 to 70 seconds. us Azar Andino MD LAB BLOOD ORDERABLES Final Re sult [facility]
[address] [place] [address], documented in this encounter Visit Diagnoses Diagnosis Preoperative testing Unspecified pre-operative examination Lumbar postlaminectomy syndrome Postlaminectomy syndrome, lumbar region documented in this encounter Care Teams Bar Pointer Relationship Specialty Start Date End Date Jd Santacruz MD [address] [place] [address] [address] [place] [address] PCP - General Internal Medicine 05/18/18 documented as of this encounter
--- OUTSIDE RECORDS SUMMARY | 2025-03-19 14:20 | XMS_ITS | Encounter Summary ---
Author Organization Healthcare Address [address] [place] [address] Care Team Providers Care Gore Stitcher Name Role Phone Jd Santacruz MD Primary Care Provider [phone] Reason for Referral * Imaging (Routine) - Authorized Specialty Diagnoses / Procedures Referred By Contac t Referred To Contact Radiology Diagnoses Stage 3b chronic kidney disease (CMS/HCC) Other cystic kidney diseases Procedures US Renal Complete Nick Harrington MD [address] [place] [id number] Phone: tel: fax: Referral ID Status Reason Start Date Expiration Date V isits Requested Visits Authorized [id number] Authorized 03/19/2025 09/18/2026 1 1 * Consultation (Routine) - Authorized Specialty Diagnoses / Procedures Referred By Contac t Referred To Contact Diagnoses Stage 3b chronic kidney disease (CMS/HCC) Nick Harrington MD [address] [address] Phone: tel: fax: Referral ID Status Reason Start Date Expiration Date V isits Requested Visits Authorized [id number] Authorized 03/19/2025 09/18/2026 1 1 Reason for Visit * Reason Comments Follow-up Encounter Details Date Type Department Care Team ([facility] st Contact Info) Description 03/19/2025 2:20 PM EDT Office Visit [facility] Nephrology, Bone & Mineral Metabolism [address], [address] [place] [address] Nick Harrington MD [address] [place] [address] Stage 3b chronic kidney disease (CMS/HCC) (Primary Dx); Other cystic kidney diseases; Recurrent UTI; Essential hypertension; Vitamin D deficiency; Acquired absence of kidney Social History Tobacco Use Types Packs/Day Years Used Date Smoking Tobacco: Never Smokeless Tobacco: Never Alcohol Use Standard Drinks/Week Comments Never 0 (1 standard drink = 0.6 oz pur e alcohol) PHQ-2 Answer Date Recorded Patient Health Questionnaire-2 Score 0 06/18/2024 AUDIT-C Answer Date Recorded Q1: How often do you have a drink containing alcohol? Never 03/19/2025 Q2: How many drinks containi ng alcohol do you have on a typical day when you are drinking? Patient does not drink Q3: How often do you have si x or more drinks on one occasion? Never 03/19/2025 PHQ-2A Answer Date Recorded Patient Health Questionnaire-2 Score 0 02/08/2023 Comments Unknown Sex and Gender Information Value Date Recorded Sex Assigned at Not on file Legal Sex Female 7:55 PM EDT Gender Identity Not on file Sexual Orientation Not on file documented as of this encounter Last Filed Vital Signs Vital Sign Reading Time Taken Comments Blood Pressure 125/85 03/19/2025 1:50 PM EDT Pulse 105 03/19/2025 1:50 PM EDT Temperature 36.8 C (98.2 F) 03/19/2025 1:50 PM EDT Respiratory Rate 18 03/19/2025 1:50 PM EDT Oxygen Saturation 94% 03/19/2025 1:50 PM EDT Inhaled Oxygen Concentration - - Weight 98.9 kg (218 lb) 03/19/2025 1:50 PM EDT Height 157.5 cm (5' 2 ) 03/19/2025 1:50 PM EDT Body Mass Index 39.87 03/19/2025 1:50 PM EDT documented in this encounter Functional Status * AUDIT-C Score Answer Date of Assessment Author 0 03/19/2025 1:53 PM EDT Kinga Callahan * Question Answer Date of Assessment Author Q1: How often do you have a drink containing alcohol? Never 03/19/2025 1:53 PM EDT Mary Callahan Q2: How many drinks containing alcohol do you have on a typical day when you are drinking? Patient does not drink 03/19/2025 1:53 PM EDT Mary Callahan Q3: How often do you have six or more drinks on one occasion? Never 03/19/2025 1:53 PM EDT Mary Callahan documented as of this encounter Miscellaneous Notes * Progress Notes - Nick Harrington MD - 03/19/2025 2:20 PM EDT AARON Ward is a 70 y.o. female who presents for follow-up CKD3b/ S/P nephrectomy HPI-doing great. No c/o. MRI wirg right cyst. No UTI. BP good. No protein. Patient RTC with . No c/o. Doing great. No edema. No SOA. No CP. No LUTS. BP excellent. Recent MRI revealed right cyst- not present in prior US. Current Outpatient Medications Medication Instructions albuterol (Ventolin HFA) 108 (90 Base) MCG/ACT inhaler INHALE 4 PUFFS BY MOUTH EVERY 4 HOURS FOR 48HOURS THEN NEEDED FOR SHORTNESS OF BREATH OR WHEEZING Amitriptyline HCl (ELAVIL PO) 10 mg, As needed aspirin 81 mg, ZZ Daily RT atorvastatin (Lipitor) 40 MG tablet Daily diclofenac (Voltaren) 1 % topical gel apply 2 grams topically TO THE affected area(s) of knees FOURTIMES DAILY NEEDED FOR arthritis pain Dilt-XR 240 mg, Daily dilTIAZem CD (CARDIZEM CD) 180 mg, Daily estradiol (Estrace) 0.1 MG/GM vaginal cream Apply pea-size amount daily. ezetimibe (ZETIA) 10 mg, ZZ Daily RT furosemide (Lasix) 40 MG tablet As needed HYDROcodone-acetaminophen ([place]) 5-325 MG tablet Every 6 hours losartan (COZAAR) 25 mg, Oral, Daily Mounjaro 10 MG/0.5ML solution auto-injector solution pen-injector omeprazole (PriLOSEC) [address] capsule Once pregabalin (Lyrica) 100 MG capsule 2 times daily OBJECTIVE Vitals: 03/19/25 1350 BP: 125/85 Pulse: 105 Resp: 18 Temp: 36.8 ??C (98.2 ??F) SpO2: 94% BMI Readings from Last 5 Encounters: 03/19/25 39.87 kg/m?? 11/12/24 39.21 kg/m?? 06/18/24 38.97 kg/m?? 02/13/24 39.75 kg/m?? 08/15/23 40.17 kg/m?? PHYSICAL EXAMINATION Constitutional: No acute distress. Comfortable in the chair. HEENT: No icterus Cardiovascular: Normal rate and regular rhythm; No S3 gallop or rub; No edema Pulmonary: Normal effort of breathing; Clear to auscultation. No CVAT Abdominal: Soft, non-distended. No tenderness; No organomegaly Musculoskeletal: Normal range of motion in upper and lower extremities Skin: No rashes or lesions in exposed areas Neurologic: No focal deficits Psychiatric: Orientated to person, place, and time: Normal Mood and affect LAB RESULTS Lab Results Component Value Date/Time CREATININE 2.04 (H) 03/15/2025 1101 CREATININE 1.79 (H) 11/12/2024 1045 CREATININE 1.64 (H) 06/08/2024 1327 BUN 32 (H) 03/15/2025 1101 BUN 23 11/12/2024 1045 BUN 18 06/08/2024 1327 EGFR 25.7 03/15/2025 1101 EGFR 30.2 11/12/2024 1045 EGFR 33.5 06/08/2024 1327 K 4.4 03/15/2025 1101 K 4.4 11/12/2024 1045 K 4.3 06/08/2024 1327 CO2 29 03/15/2025 1101 CO2 23 11/12/2024 1045 CO2 23 06/08/2024 1327 NA 142 03/15/2025 1101 NA 141 11/12/2024 1045 NA 143 06/08/2024 1327 UTPCR 0.1 03/15/2025 1239 UTPCR 0.1 11/12/2024 1136 UTPCR 0.1 06/08/2024 1325 URBC <1 03/15/2025 1239 URBC <1 11/12/2024 1136 URBC <1 06/08/2024 1325 VITD25 43.0 11/12/2024 1045 VITD25 40.1 06/08/2024 1327 VITD25 33.9 02/10/2024 1502 PTH 179 (H) 11/12/2024 1045 PTH 122 (H) 06/08/2024 1327 PTH 101 (H) 02/10/2024 1502 HGB 13.3 03/15/2025 1101 HGB 14.2 11/12/2024 1045 HGB 13.0 06/08/2024 1327 CALCIUM 9.5 03/15/2025 1101 CALCIUM 9.9 11/12/2024 1045 CALCIUM 9.8 06/08/2024 1327 PHOS 3.1 03/15/2025 1101 PHOS 3.8 11/12/2024 1045 PHOS 3.9 06/08/2024 1327 WBC 12.45 (H) 03/15/2025 1101 WBC 8.26 11/12/2024 1045 WBC 7.30 06/08/2024 1327 ASSESSMENT #CKD-3b- secondary to HTN, nephrectomy - Cr at baseline at 1.6-1.8- today up slightly to 2.0 #Secondary Hyperparathyroidism of renal origin #CKD/MBD -PTH 179 (10/2024)- level is appropriate for degree of decreased GFR. -Continue vitamin d 1000 units/day -Last DEXA shows mild osteopenia in L. Hip; patient will need repeat DEXA at least every 2 years #HTN -on target #Hx of Renal Cell Carcinoma -S/p left nephrectomy -Follows with Dr. Soto, urologist #Gout -No recent flairs #UTI/Cystitis - Likely E. Coli as before #Hyperlipidemia in CKD -on atorvastatin and ezetimibe #Cyst-right kidney PLAN -Increase fluid intake. RTC 6 months with labs and US to follow up the cyst. documented in this encounter Plan of Treatment Upcoming Encounters Date Type Department Care Team (Late Contact Info) Description 09/03/2025 9:10 AM EST Clinical Support [facility] Laboratory Services [address], [address] [place] [address] 09/10/2025 2:20 PM EST Office Visit [facility] Nephrology, Bone & Mineral Metabolism [address], [address] [place] [address] Nick Harrington MD [address] [place] [address] Scheduled Orders Name Type Priority Associated Diagnoses Orde r Schedule Renal Function Panel, Plasma Lab Routine Stage 3b chronic kidney disease ([facility]/HCC) Expected: 03/19/2025 (Approximate), Expires: 09/18/2026 CBC W/O Differential Lab Routine Stage 3b chronic kidney disease ([facility]/HCC) Expected: 03/19/2025 (Approximate), Expires: 09/18/2026 Urinalysis with reflex microscopic (Culture NOT Included) Lab Routine Stage 3b chronic kidney disease ([facility]/HCC) Expected: 03/19/2025 (Approximate), Expires: 09/18/2026 Creatinine, Random, Urine Lab Routine Stage 3b chronic kidney disease ([facility]/HCC) Expected: 03/19/2025 (Approximate), Expires: 09/18/2026 Protein, Random, Urine with Creatinine Lab Routine Stage 3b chronic kidney disease ([facility]/HCC) Expected: 03/19/2025 (Approximate), Expires: 09/18/2026 PTH Intact Total Lab Routine Stage 3b chronic kidney disease ([facility]/HCC) Ordered: 03/19/2025 Renal Complete Imaging Routine Stage 3b chronic kidney disease ([facility]/HCC) Other cystic kidney diseases Expected: 08/27/2025 (Approximate), Expires: 09/20/2026 Scheduled Referrals Name Type Priority Associated Diagnoses Order Schedule Follow Up Nephrology Outpatient Referral Routine Stage 3b chronic kidney disease ([facility]/HCC) Expected: 09/12/2025 (Approximate), Expires: 09/20/2026 documented as of this encounter Visit Diagnoses Diagnosis Stage 3b chronic kidney disease ([facility])- Primary Other cystic kidney diseases Recurrent UTI Urinary tract infection, site not specified Essential hypertension Unspecified essential hypertension Vitamin D deficiency Acquired absence of kidney documented in this encounter Additional Health Concerns Assessment Noted Time A fall risk assessment has been complete d for the patient 03/19/2025 1:58 PM EDT A Body Mass Index follow-up plan has been documented for the patient 03/19/2025 3:32 PM EDT documented as of this encounter Care Teams Gore Stitcher Relationship Specialty Start Date End Date Jd Santacruz MD [address] [place] [address] [address] [facility] PCP - General 02/06/21 documented as of this encounter
--- OUTSIDE RECORDS SUMMARY | 2025-04-03 08:15 | XMS_ITS | Encounter Summary ---
Author Organization [facility] Address [address] [place] [id number] Care Team Providers Care Gold Plater Name Role Phone Jd Santacruz MD Primary Care Provider [phone] Reason for Visit * Surgical (Routine) - Closed Specialty Diagnoses / Procedures Referred By Contac t Referred To Contact Diagnoses Lumbar stenosis with neurogenic claudication Lumbar postlaminectomy syndrome Procedures External Facility Surgical/Procedural Request Azar Andino MD [address] [place] [address] Phone: tel: fax: [facility] AT [address] [address] Phone: tel: fax: Referral ID Status Reason Start Date Expiration Date V isits Requested Visits Authorized [id number] Closed Other 02/28/2025 05/30/2026 1 1 Encounter Details Date Type Department Care Team (Late st Contact Info) Description 04/03/2025 8:15 AM EDT Outside Facility Service [facility] PAIN MANAGEMENT [address] [place] [phone] Azar Andino MD [address] [place] [address] Social History Tobacco Use Types Packs/Day Years [...] Description 04/22/2025 10:30 AM EDT Office Visit [facility] CARDIOLOGY [address] [facility] [address] [place] [address] Messi Looney MD [address] [facility] [address] [place], [place] [id number] 04/22/2025 2:19 PM EDT Hospital Encounter [facility] OR [address] [place] [address] Azar Andino MD [address] [facility] [address] [place] [address] 04/22/2025 2:19 PM EDT - 04/22/2025 4:25 PM EDT Surgery [facility] OR [address] [place] [address] Azar Andino MD [address] [facility] [address] [place] [address] SPINAL CORD STIMULATOR INSERTION PHASE 2 [91997 (CPT ) +2 more] 04/25/2025 7:30 AM EDT Office Visit [facility] PAIN MANAGEMENT [address] [facility] [address] [place] [phone] Shakira Joshua, GMAT INSTRUCTOR [address] [facility] [address] [place] [address] 05/07/2025 10:30 AM EDT Office Visit [facility] PAIN MANAGEMENT [address] [facility] [address] [place] [phone] Shakira Joshua, GMAT INSTRUCTOR [address] [facility] [address] [place] [address] Scheduled Procedures Name Priority Associated Diagnoses Date/Ti pa SPINAL CORD STIMULATOR INSERTION PHASE 2 Lumbar postlaminectomy syndrome 04/22/2025 2:19 PM EDT documented as of this encounter Visit Diagnoses Not on filedocumented in this encounter Care Teams Gold Plater Relationship Specialty Start Date End Date Jd Santacruz MD [address] [facility] [address] [facility] [address] [place] [address] PCP - General Internal Medicine 05/18/18 documented as of this encounter
--- OUTSIDE RECORDS SUMMARY | 2025-04-09 09:00 | XMS_ITS | Encounter Summary ---
Author Organization [facility] Address [address] [place] [phone] Care Team Providers Care Systems Support Engineer Name Role Phone Jd Santacruz MD Primary Care Provider [phone] Encounter Details Date Type Department Care Team (Late st Contact Info) Description 04/09/2025 9:00 AM EDT Office Visit [facility] PAIN MANAGEMENT [address] [facility] [address] [place] [phone] Shakira Joshua, AUTO HEADLIGHT MECHANIC [address] [facility] [address] [place] [address] Lumbar postlaminectomy syndrome; Lumbar stenosis with neurogenic [...] this encounter Progress Notes * Shakira Joshua, AUTO HEADLIGHT MECHANIC - 04/09/2025 9:00 AM EDT Chief Complaint: [...] hypertrophy most advanced at L2-L3 and L3-L4. vEa Ward presents with significant comorbidities including chronic [...] found not to be a surgical candidate. [facility] psychological evaluation with Dr Lisbet Hong on 02/20/2025: From a psychological perspective patient appears to be an appropriate candidate for a PNS, SCS or an Intrathecal Pain Pump at thistime. Eva Ward presents with significant comorbidities including chronic kidney disease, history of left nephrectomy in 2010, diabetes mellitus, hypercholesterolemia, gout, hypertension, migraines, aspirin 81 mg In terms of current analgesics, Eva Ward takes: [place], Lyrica, amitriptyline. Patient also takes allopurinol I [...] FUSION L4-S1; Surgeon: Fidel Christensen MD; Location: [facility]; Service: Neurosurgery NECK SURGERY 12/2009 NEPHRECTOMY Left 2010 due to cancer ORTHOPEDIC SURGERY SPINAL FUSION 06/2018 TRIGGER POINT INJECTION 2016 TUBAL ABDOMINAL LIGATION WOUND CLOSURE Bilateral 07/19/2018 Procedure: WOUND EXPLORATION EVACUATION OF EPIDURAL ABSCESS AND PRIMARY CLOSURE; Surgeon: Fidel Christensen MD; Location: [facility] OR; Service: Neurosurgery Family History Problem Relation [...] on 07/15/2018. She did well thereafter. By [phone], she started experiencing lower back pain radiating [...] daily for 5 days before surgery Start [id number] Hibiclens showers daily 5 days before surgery [...] 04/22/2025 10:30 AM Messi Looney MD Kateryna [facility] 05/07/2025 10:30 AM Shakira Joshua APRN MGE APM RIKKI RIKKI documented in this encounter Plan of Treatment Upcoming Encounters Date Type Department Care Team (Late st Contact Info) Description 04/22/2025 10:30 AM EDT Office Visit [facility] CARDIOLOGY [address] [facility] [address] [place] [phone] Messi Looney MD [address] [facility] [address] [place] [address] 04/22/2025 2:19 PM EDT Hospital Encounter [facility] OR [address] [place] [phone] Azar Andino MD [address] [address] 04/22/2025 2:19 PM EDT - 04/22/2025 4:25 PM EDT Surgery [facility] OR [address] [place] [phone] Azar Andino MD [address] [address] SPINAL CORD STIMULATOR INSERTION PHASE 2 [79333 (CPT ) +2 more] 04/25/2025 7:30 AM EDT Office Visit [facility] PAIN MANAGEMENT [address] [phone] Shakira Joshua, AUTO HEADLIGHT MECHANIC [address] [address] 05/07/2025 10:30 AM EDT Office Visit [facility] PAIN MANAGEMENT [address] [phone] Shakira Joshua, AUTO HEADLIGHT MECHANIC [address] [address] Scheduled Procedures Name Priority Associated Diagnoses Date/Ti [...] of spinal cord stimulator Presence of neurostimulator Lumbar postlaminectomy syndrome Postlaminectomy syndrome, lumbar region documented in this encounter Care Teams Systems Support Engineer Relationship Specialty Start Date End Date Jd Santacruz MD [address] [place] [address] [place] [address] PCP - General Internal Medicine 05/18/18 documented as of this encounter
--- OUTSIDE RECORDS SUMMARY | 2025-04-16 15:30 | XMS_ITS | Encounter Summary ---
[facility] Address [address] [place] [address] Care Team Providers Care Recovery Assistant Name Role Phone Jd Santacruz MD Primary Care Provider [phone] Encounter Details Date Type Department Care Team (Latest Contact Info) Description 04/16/2025 3:30 PM EDT Pre-Admission Testing [facility] PREADMISSION T [address] [place] [address] Lumbar postlaminectomy syndrome Social History Tobacco Use Types Packs/Day Years Used Date Smoking Tobacco: Never Smokeless Tobacco: Never Alcohol Use Standard Drinks/Week Comments No 0 (1 standard drink = 0.6 oz pur e alcohol) PHQ-2 Answer Date Recorded Retired PHQ-9: Brief Depression Severity Measure Score 0 03/15/2023 Abuse Screen Answer Date Recorded Feels Unsafe at Home or Work/School no 04/16/2025 Feels Threatened by Someone no 03/27 Does Anyone Try to Keep You From Having Contact with Others or Doing Things Outside Your Home? no 04/16/2025 Physical Signs of Abuse Present no 04/16/2025 Education Answer Date Recorded Help with school or training? Not on file Preferred Language Tuvaluan 04/16/2025 PHQ-2 Answer Date Recorded Patient Health Questionnaire-2 [...] - Inhaled Oxygen Concentration - - Weight 97.2 kg (214 lb 4.6 oz) 04/16/2025 4:17 P M EDT Height 157.5 cm (5' 2 ) 04/16/2025 4:17 PM EDT Body Mass Index 39.19 04/16/2025 4:17 PM EDT documented in this encounter OR Notes * PAT - Cristin Andrade RN - 04/16/2025 3:30 PM EDT An arrival time for procedure was not provided during PAT visit. If patient had any questions or concerns about their arrival time, they were instructed to contact their surgeon/physician. Additionally, if the patient referred to an arrival time that was acquired from their my chart account, patient was encouraged to verify that time with their surgeon/physician. Arrival times are NOT provided inPre Admission Testing Department. Patient's surgeon called in a prescription for Bactroban nasal ointment to patient's pharmacy. Verbal and written instructions given regarding proper use of the Bactroban nasal ointment were providedto patient and/or famlily during PAT visit. Patient/family also instructed to complete Bactroban nasal ointment checklist and return it to Pre-op on the day of surgery. Patient and/or family verbalized understanding. Patient to apply Chlorhexadine wipes to surgical area (as instructed) the night before procedure and the AM of procedure. Wipes provided. documented in this encounter Plan of Treatment Upcoming Encounters Date Type Department Care Team (Late st Contact Info) Description 04/22/2025 10:30 AM EDT Office Visit [facility] [address] [facility] [address] [place] [phone] Messi Looney MD [address] [place] [address] 04/22/2025 2:19 PM EDT Hospital Encounter [facility] OR [address] [place] [phone] Azar Andino MD [address] [id number] 04/22/2025 2:19 PM EDT - 04/22/2025 4:25 PM EDT Surgery [facility] OR [address] [place] [address] Azar Andino MD [address] [address] SPINAL CORD STIMULATOR INSERTION PHASE 2 [84626 (CPT ) +2 more] 04/25/2025 7:30 AM EDT Office Visit [facility] PAIN [facility] [address] [phone] Shakira Joshua, COAT CHECKER [address] [address] 05/07/2025 10:30 AM EDT Office Visit [facility] [address] [phone] Shakira Joshua, COAT CHECKER [address] [address] Pending Results Name Type Priority Associated Diagnoses Date /Time MRSA Screen Culture (Outpatient) - Swab, Nares Microbiology Routine Lumbar postlaminectomy syndrome 04/16/2025 3:42 PM EDT ECG 12 Lead ECG Routine 04/16/2025 4: 10 PM EDT Urine Culture - Urine, Urine, Clean Catch Microbiology Routine Lumbar postlaminectomy syndrome 04/16/2025 3:42 PM EDT Scheduled Procedures Name Priority Associated Diagnoses Date/Ti me SPINAL CORD STIMULATOR INSERTION PHASE 2 Lumbar postlaminectomy syndrome 04/22/2025 2:19 PM EDT documented as of this encounter Procedures Procedure Name Priority Date/Time Associated Diagnosis Comments ECG 12-LEAD Routine 04/16/2025 4:10 PM EDT Procedure Note - 04/16/2025 4:10 PM EDTThis note is in progress. Test Reason : Pre-Op / Pre-Procedure Blood Pressure : */* mmHG Vent. Rate : 86 BPM Atrial Rate : 86 BPM P-R Int : 216 ms QRS Dur : 80 ms QT Int : 364 ms P-R-T Axes : 62 36 36 degrees QTcB Int : 435 ms Sinus rhythm with 1st degree AV block Otherwise normal ECG When compared with ECG of 01-Jul-2018 02:10, MS interval has increased Referred By: Confirmed By: URINALYSIS, MICROSCOPIC ONLY Routine 04/16/2025 3:42 PM EDT Lumbar postlaminectomy syndrome URINALYSIS W/ CULTURE IF INDICATED Routine 04/16/2025 3:42 PM EDT Lumbar postlaminectomy syndrome CBC WITH AUTO DIFFERENTIAL Routine 04/16/2025 3:42 PM EDT Lumbar postlaminectomy syndrome APTT Routine 04/16/2025 3:42 PM EDT Lumbar postlaminectomy syndrome PROTIME-INR Routine 04/16/2025 3:42 PM EDT Lumbar postlaminectomy syndrome CBC AND DIFFERENTIAL Routine 04/16/2025 3:42 PM EDT Lumbar postlaminectomy syndrome COMPREHENSIVE METABOLIC PANEL Routine 04/16/2025 3:42 PM EDT Lumbar postlaminectomy syndrome documented in this encounter Results * (ABNORMAL) Urinalysis, Microscopic Only - Urine, Clean Catch (04/16/2025 3:42 PM EDT) RBC, UA 0-2 None Seen, 0-2 /HPF 04/16/2025 4:26 PM EDT [facility] WBC, UA 3-5(A) None Seen, 0-2 /HPF 04/16/2025 4:26 PM EDT [facility] Bacteria, UA 3+(A) None Seen /HPF 04/16/2025 4:26 PM EDT [facility] Squamous Epithelial Cells, UA 7-12(A) None Seen, 0-2 /HPF 04/16/2025 4:26 PM EDT [facility] Hyaline Casts, UA 0-2 None Seen /LPF 04/16/2025 4:26 PM EDT [facility] Methodology Automated Microscopy 04/16/2025 4:26 PM EDT [facility] Urine Urine specimen obtained by clean catch procedure / Unknown Collection / Unknown 04/16/2025 3:42 PM EDT 04/16/2025 4:15 PM EDT Shakira Joshua COAT CHECKER URINE ORDERABLES Final Resul t [facility]
[address] [place] [address], * (ABNORMAL) CBC Auto Differential (04/16/2025 3:42 PM EDT) WBC 7.56 3.40 - 10.80 10*3/mm3 04/16/2025 4:33 PM EDT [facility] RBC 4.64 3.77 - 5.28 10*6/mm3 04/16/2025 4:33 PM EDT [facility] Hemoglobin 12.1 12.0 - 15.9 g/dL 04/16/2025 4:33 PM EDT [facility] Hematocrit 39.5 34.0 - 46.6 % 04/16/2025 4:33 PM EDT [facility] MCV 85.1 79.0 - 97.0 fL 04/16/2025 4:33 PM EDT [facility] MCH 26.1(L) 26.6 - 33.0 pg 04/16/2025 4:33 PM EDT [facility] MCHC 30.6(L) 31.5 - 35.7 g/dL 04/16/2025 4:33 PM [facility] RDW 16.0(H) 12.3 - 15.4 % 04/[facility]25 [facility] RDW-SD 50.2 37.0 - 54.0 fl 04/16/2025 4:33 PM [facility] MPV 11.1 6.0 - 12.0 fL 04/16/2025 4:33 PM EDT [facility] Platelets 238 140 - 450 10*3/mm3 04/16/2025 4:33 PM [facility] Neutrophil % 73.1 42.7 - 76.0 % 04/16/2025 4:33 PM [facility] Lymphocyte % 13.1(L) 19.6 - 45.3 % 04/16/2025 4:33 PM [facility] Monocyte % 9.7 5.0 - 12.0 % 04/16/2025 4:33 PM [facility] Eosinophil % 3.4 0.3 - 6.2 % 04/16/2025 4:33 PM [facility] Basophil % 0.4 0.0 - 1.5 % 04/16/2025 4:33 PM [facility] Immature Grans % 0.3 0.0 - 0.5 % 04/16/2025 4:33 PM [facility] Neutrophils, Absolute 5.53 1.70 - 7.00 10*3/mm3 04/16/2025 4:33 PM [facility] Lymphocytes, Absolute 0.99 0.70 - 3.10 10*3/mm3 04/16/2025 4:33 PM [facility] Monocytes, Absolute 0.73 0.10 - 0.90 10*3/mm3 04/16/2025 4:33 PM [facility] Eosinophils, Absolute 0.26 0.00 - 0.40 10*3/mm3 04/16/2025 4:33 PM [facility] Basophils, Absolute 0.03 0.00 - 0.20 10*3/mm3 04/16/2025 4:33 PM EDT [facility] Immature Grans, Absolute 0.02 0.00 - 0.05 10*3/mm3 04/16/2025 4:33 PM EDT [facility] nRBC 0.0 0.0 - 0.2 /100 WBC 04/16/2025 4:33 PM EDT [facility] Blood Venipuncture / Unknown 04/16/2025 3:42 PM EDT 04/16/2025 4:23 PM EDT Shakira Joshua APRN LAB BLOOD ORDERABLES Final R esult [facility]
[address] [place] [address], [place] [phone] * (ABNORMAL) Urinalysis With Culture If Indicated - Urine, Clean Catch (04/16/2025 3:42 PM EDT) Color, UA Yellow Yellow, Straw 04/16/2025 4:21 PM EDT [facility] Appearance, UA Cloudy(A) Clear 04/16/2025 4:21 PM EDT [facility] pH, UA 5.5 5.0 - 8.0 04/16/2025 4:21 PM EDT [facility] Specific [place], UA 1.017 1.005 - 1.030 04/16/2025 4:21 PM EDT [facility] Glucose, UA Negative Negative 04/16/2025 4:21 PM EDT [facility] Ketones, UA Negative Negative 04/16/2025 4:21 PM EDT [facility] Bilirubin, UA Negative Negative 04/16/2025 4:21 PM EDT [facility] Blood, UA Negative Negative 04/16/2025 4:21 PM EDT [facility] Protein, UA Negative Negative 04/16/2025 4:21 PM EDT [facility] Leuk Esterase, UA Small (1+)(A) Negative 04/16/2025 4:21 PM EDT [facility] Nitrite, UA Negative Negative 04/16/2025 4:21 PM EDT [facility] Urobilinogen, UA 1.0 E.U./dL 0.2 - 1.0 E.U./dL 04/16/2025 4:21 PM EDT [facility] Urine Urine specimen obtained by clean catch procedure / Unknown Collection / Unknown 04/16/2025 3:42 PM EDT 04/16/2025 4:15 PM EDT [facility] - 04/16/2025 4:21 PM EDT In absence of clinical symptoms, the presence of pyuria, bacteria, and/or nitrites on the urinalysis result does not correlate with infection. Shakira Joshua APRN URINE ORDERABLES Final Resul t Performing Organization Address City/[facility]/ZIP Co de Phone Number [facility]
[address] [place] [address], [place] [phone] * Protime-INR (04/16/2025 3:42 PM EDT) Protime 13.8 12.2 - 15.3 Seconds 04/16/2025 4:46 PM EDT [facility] INR 1.00 0.89 - 1.12 04/16/2025 4:46 PM EDT [facility] Blood Venipuncture / Unknown 04/16/2025 3:42 PM EDT 04/16/2025 4:22 PM EDT us Shakira Joshua APRN LAB BLOOD ORDERABLES Final R esult [facility]
[address] [place] [address], [place] [phone] * aPTT (04/16/2025 3:42 PM EDT) Pathologist [facility] PTT 33.7 22.0 - 39.0 seconds 04/16/2025 4:46 PM EDT [facility] Blood Venipuncture / Unknown 04/16/2025 3:42 PM EDT 04/16/2025 4:22 PM EDT Narrative [facility] - 04/16/2025 4:46 PM EDT PTT = The equivalent PTT values for the therapeutic range of heparin levels at 0.3 to 0.5 U/ml are 60 to 70 seconds. Shakira Joshua COAT CHECKER LAB BLOOD ORDERABLES Final R esult [facility]
[address] [place] [address], * (ABNORMAL) Comprehensive Metabolic Panel (04/16/2025 3:42 PM EDT) [facility] Glucose 96 65 - 99 mg/dL 04/16/2025 4:54 PM EDT [facility] BUN 23.4(H) 8.0 - 23.0 mg/dL 04/16/2025 4:54 PM EDT [facility] Creatinine 2.00(H) 0.57 - 1.00 mg/dL 04/16/2025 4:54 PM EDT [facility] Sodium 144 136 - 145 mmol/L 04/16/2025 4:54 PM EDT [facility] Potassium 5.0 3.5 - 5.2 mmol/L 04/16/2025 4:54 PM EDT [facility] Chloride 111(H) 98 - 107 mmol/L 04/16/2025 4:54 PM EDT [facility] CO2 23.4 22.0 - 29.0 mmol/L 04/16/2025 4:54 PM EDT [facility] Calcium 9.5 8.6 - 10.5 mg/dL 04/16/2025 4:54 PM EDT [facility] Total Protein 5.7(L) 6.0 - 8.5 g/dL 04/16/2025 4:54 PM EDT [facility] Albumin 4.0 3.5 - 5.2 g/dL 04/16/2025 4:54 PM EDT [facility] ALT (SGPT) 13 1 - 33 U/L 04/16/2025 4:54 PM EDT [facility] AST (SGOT) 18 1 - 32 U/L 04/16/2025 4:54 PM EDT [facility] Alkaline Phosphatase 120(H) 39 - 117 U/L 04/16/2025 4:54 PM T [facility] Total Bilirubin 0.5 0.0 - 1.2 mg/dL 04/16/2025 4:54 PM [facility] Globulin 1.7 gm/dL 04/16/2025 4:54 PM T [facility] Comment:Calculated Result A/G Ratio 2.4 g/dL 04/16/2025 4:54 PM T [facility] BUN/Creatinine Ratio 11.7 7.0 - 25.0 04/16/2025 4:54 PM T [facility] Anion Gap 9.6 5.0 - 15.0 mmol/L 04/16/2025 4:54 PM [facility] eGFR 26.3(L) >60.0 mL/min/1.7 3 04/16/2025 4:54 PM T [facility] Blood Venipuncture / Unknown 04/16/2025 3:42 PM EDT 04/16/2025 4:23 PM EDT [facility] - 04/16/2025 4:54 PM EDT GFR Categories in Chronic Kidney Disease [...] does not include race as a factor Shaikra Joshua COAT CHECKER LAB BLOOD ORDERABLES Final R esult [facility]
[address] [place] [address], documented in this encounter Visit Diagnoses Diagnosis Lumbar postlaminectomy syndrome- Primary Postlaminectomy syndrome, lumbar region Lumbar postlaminectomy syndrome Postlaminectomy syndrome, lumbar region Lumbar postlaminectomy syndrome Postlaminectomy syndrome, lumbar region documented in this encounter Care Teams Recovery Assistant Relationship Specialty Start Date End Date Jd Santacruz MD [address] [place] [address] [address] [place] [address] PCP - General Internal Medicine 05/18/18 documented as of this encounter
--- OUTSIDE RECORDS SUMMARY | 2025-04-17 12:14 | XMS_ITS | Clinical Summary ---
Author DANI Salazar [address] Phone Email Address Preferred Language Kittitian Marital Status Caodaism Affiliation Unknown Race White Ethnic Group Not or Lati no Author Organization [facility] Address [address] [facility] [address] [place] [address] Phone Care Team Providers Care Certified Nursing Attendant Name Role Phone Sunday Hilliard MD [phone] [ ] Conditions or Problems Problem Name Problem Code Onset Date Status Entry Date Provider Comment Standard Description Annotate Clostridium difficile colitis 196170802 (SNOMED CT) 01/03 Active 01/03 Sunday Hilliard MD Clostridium difficile colitis Spine, subsequent encounter, infection/in flammatory reaction due to internal fixation device T84.63xD (ICD-10-CM) 10/10 Active 10/10 Ct [facility] Infection and inflammatory reaction due to internal fixation device of spine, subsequent encounter Abscess, epidural G06.1 (ICD-10-CM) 10/10 Active 10/10 Ct [facility] Intraspinal abscess and granuloma Peptostrepto coccus infection 913906770227 101 (SNOMED CT) 10/10 Active 10/10 Ct [facility] Peptostreptococc us infection DM II with diabetic CKD, 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) 156545065 (SNOMED CT) 10/10 Active 10/10 Ct [facility] Renal disorder due to type 2 diabetes mellitus Neutrophilic leukemoid reaction D72.823 (ICD-10-CM) 10/10 Active 10/10 Ct [facility] Leukemoid reaction Benign Essential Hypertension 17303667 (SNOMED CT) 10/10 Active 10/10 Ct [facility] Benign hypertension CKD, Stage III 082434158 (SNOMED CT) 10/10 Active 10/10 Ct [facility] Chronic kidney disease stage 3 Medications Medication Instructions Start Date Stop Date Generic Name NDC Provider CEFDINIR 300 MG CAPS by mouth daily CEFDINIR 38442237635 Mane K PREDNISONE 20 MG TABS by mouth twice daily PREDNISONE 18343454946 Mane K DOXYCYCLINE MONOHYDRATE 100 MG CAPS Take one (1) tablet by mouth twice a day 04/16 DOXYCYCLINE MONOHYDRATE 80122340404 Mane K DOXYCYCLINE MONOHYDRATE 100 MG CAPS Take one (1) tablet by mouth twice a day 04/16 DOXYCYCLINE MONOHYDRATE 95287221324 Sunday Hilliard MD AMOXICILLIN 500 MG CAPS Take one pill three times a day. 01/03 AMOXICILLIN 51595159671 Saige Alexis RN DOXYCYCLINE MONOHYDRATE 100 MG CAPS Take one (1) tablet by mouth twice a day 03/19 DOXYCYCLINE MONOHYDRATE 78414082725 Sunday Hilliard MD CYCLOBENZAPRINE HCL 10 MG TABS Take one by mouth 3 times daily, morning, afternoon and evening./PRN 2/06 CYCLOBENZAPRINE HCL 68383096179 Kristi S DULOXETINE HCL 60 MG CPEP Take one by mouth daily 0 2/06 DULOXETINE HCL 06805418245 Kristi S FLAGYL 500 MG ORAL TABLET Take one (1) tablet by mouth three times a day. 11/15 METRONIDAZOLE 61439959328 Saige Alexis RN CEFTRIAXONE SODIUM 2 GM SOLR 2gm IV Q24hrs/ OPAT 11/15 CEFTRIAXONE SODIUM 94429263438 Saige Alexis RN AMOXICILLIN 500 MG CAPS Take one pill three times a day. 03/26 AMOXICILLIN 38657952654 Sunday Hilliard MD FLAGYL 500 MG ORAL TABLET Take one (1) tablet by mouth three times a day. 11/15 METRONIDAZOLE 54587803128 Sunday Hilliard MD CEFTRIAXONE SODIUM 2 GM SOLR 2gm IV Q24hrs/ OPAT 11/15 CEFTRIAXONE SODIUM 65410666360 Ирина Salvador RN LEVOFLOXACIN 750 MG TABS 750 mg, Oral, Every Other Day, 1 tab every other day for 15 days starting 07/12/1810/14 LEVOFLOXACIN 90716225102 Sunday Hilliard MD FLAGYL 500 MG ORAL TABLET Take one (1) tablet by mouth twice a day 2/03 METRONIDAZOLE 41580861665 Sunday Hilliard MD LYRICA 100 MG CAPS Take one by mouth daily PREGABALIN 17728771647 Gladys Elizaldedox LOSARTAN POTASSIUM 50 MG TABS Take one by mouth daily LOSARTAN POTASSIUM 93325896040 Gladys Campbell LEVOFLOXACIN 750 MG TABS 750 mg, Oral, Every Other Day, 1 tab every other day for 15 days starting 07/12/1810/14 LEVOFLOXACIN 87144474427 Gladys Campbell DULOXETINE HCL 60 MG CPEP Take one by mouth daily 0 4/ DULOXETINE HCL 50052840145 Gladys Elizaldedox CYCLOBENZAPRINE HCL 10 MG TABS Take one by mouth 3 times daily, morning, afternoon and evening./PRN 2/06 CYCLOBENZAPRINE HCL 64847243463 Gladys Elizaldedox CARTIA XT 180 MG [id number] Daily, Hold for BP<100/60, or HR<60 DILTIAZEM HCL COATED BEADS 01896815283 Gladys Campbell ATORVASTATIN CALCIUM 40 MG TABS Take one by mouth daily ATORVASTATIN CALCIUM 22558232056 Gladys Elizaldedox AMITRIPTYLINE HCL 10 MG TABS Take one by mouth daily AMITRIPTYLINE HCL 17780809488 Gladys Campbell ALLOPURINOL 100 MG TABS Take one by mouth daily ALLOPURINOL 00794868268 Gladys Campbell FOLIC ACID 1 MG TABS Take one by mouth daily FOLIC ACID 28255027545 Gladys Campbell FERROUS SULFATE 325 (65 Fe) MG TBEC Take one by mouth daily FERROUS SULFATE 66190775873 Gladys Campbell BETHANECHOL CHLORIDE 25 MG TABS Take one by mouth 3 times daily, morning, afternoon and evening. BETHANECHOL CHLORIDE [id number] Gladys Campbell Medications Administered No information available. [...] Patient port al update - Email Push, [employer] ... PAT E-MAIL [email or web address] patient's e-mail address External Other: Patient port al update - EmailStatus, [facility] ... 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 smoking status Plan of Care Type Date [...] Procedures Code Procedure Name Date Entry Date CPT-19929 Urine Culture & Sensitivity CPT-98379 Urinalysis with microscopic exam CPT-sl STAT Labs CPT-00885 C- reactive protein CPT-73335 Sedimentation Rate (ESR) 201 05/31/13 CPT-J8499 Med Administration (PO-SL-IN-HI) CPT-63485 C- reactive protein CPT-13510 Sedimentation Rate (ESR) 201 05/30/10 CPT-sl STAT Labs [id number], [id number] CPK CPT-sl STAT Labs CPT-88755 C- reactive protein CPT-59894 Sedimentation Rate (ESR) 201 05/28/05 CPT-78387 C- reactive protein CPT-27844 Sedimentation Rate (ESR) 201 05/27/09 CPT-53834 C- reactive protein CPT-68211 Sedimentation Rate (ESR) 201 05/07/20 CPT-ca Continue IV antibiotics 2017 CPT-02725 CMP CPT-96726 CBC w/o Differential CPT-44930 C- reactive protein CPT-75056 Sedimentation Rate (ESR) 201 05/07/10 CPT-97571 CMP CPT-44013 CBC w/o Differential CPT-34964 Sedimentation Rate (ESR) 201 05/07/03 CPT-11138 C- reactive protein CPT-07130 CMP CPT-22421 CBC w/o Differential CPT-01053 Sedimentation Rate (ESR) 201 05/06/26 CPT-63553 CMP [id number] CBC with Differential 2017 CPT-07957 C- reactive protein CPT-50876 Sedimentation Rate (ESR) 201 05/06/19 CPT- stat [...]
--- OUTSIDE RECORDS SUMMARY | 2025-04-17 12:14 | XMS_ITS | Encounter Summary ---
Author Organization [facility] Address [address] [place] [address] Care Team Providers Care Equalizer Operator Name Role Phone Jd Santacruz MD Primary Care Provider [phone] Encounter Details Date Type Department Care Team (Latest Contact Info) Description 04/16/2025 Travel Social History Tobacco Use Types Packs/Day [...] or training? Not on file Preferred Language Comoran 04/16/2025 PHQ-2 Answer Date Recorded Patient Health Questionnaire-2 Score 1 02/28/2025 Comments No Sex and Gender Information Value Date Recorded Sex Assigned at Not on file Legal Sex Female 10:05 AM EDT Gender Identity Not on file Sexual Orientation Not on file documented as of this encounter Plan of Treatment Upcoming Encounters Date Type Department Care Team ( st Contact Info) Description 04/22/2025 10:30 AM EDT Office Visit [facility] [address] [facility] [address] [place] [address] Messi Looney MD [address] [facility] [address] [place] [address] 04/22/2025 2:19 PM EDT Hospital Encounter [facility] OR [address] [place] [phone] Azar Andino MD [address] [address] 04/22/2025 2:19 PM EDT - 04/22/2025 4:25 PM EDT Surgery [facility] OR [address] [place] [phone] Azar Andino MD [address] [address] SPINAL CORD STIMULATOR INSERTION PHASE 2 [89520 (CPT ) +2 more] 04/25/2025 7:30 AM EDT Office Visit [facility] [address] [phone] Shakira Joshua, CAN RECONDITIONER [address] [address] 05/07/2025 10:30 AM EDT Office Visit [facility] [address] [phone] Shakira Joshua, CAN RECONDITIONER [address] [address] Scheduled Procedures Name Priority Associated Diagnoses Date/Ti me SPINAL CORD STIMULATOR INSERTION PHASE 2 Lumbar postlaminectomy syndrome 04/22/2025 2:19 PM EDT documented as of this encounter Visit Diagnoses Not on filedocumented in this encounter Care Teams Equalizer Operator Relationship Specialty Start Date End Date Jd Santacruz MD [address] [place] [address] [place] [address] PCP - General Internal Medicine 05/18/18 documented as of this encounter
--- OUTSIDE RECORDS SUMMARY | 2025-04-17 12:15 | XMS_ITS | Encounter Summary ---
Author Organization [facility] Address [address] [place] [address] Care Team Providers Care Smoking Tobacco Cutter Operator Name Role Phone Jd Santacruz MD Primary Care Provider [phone] Encounter Details Date Type Department Care Team (Late Contact Info) Description 04/10/2025 Telephone [facility] PAIN [facility]NAGEMENT [address] [address] Genet Jnoes RN Social History Tobacco Use Types Packs/Day Years [...] on file documented as of this encounter Miscellaneous Notes * Telephone Encounter - Genet Jones RN - 04/10/2025 6:32 PM EDT LVM with surgery arrival information. [employer] message sent to patient with same information and paper copy sent to patient. documented in this encounter Plan of Treatment Upcoming Encounters Date Type Department Care Team (Late Contact Info) Description 04/22/2025 10:30 AM EDT Office Visit [facility] CARDIOLOGY 3000 [facility] [address] [place] [address] Messi Looney MD 1720 [facility] [address] [place] [address] 04/22/2025 2:19 PM EDT Hospital Encounter [facility] OR 1740 [place] [phone] Azar Andino MD 1760 [facility] 302 [place] [address] 04/22/2025 2:19 PM EDT - 04/22/2025 4:25 PM EDT Surgery [facility] OR 1740 [place] [address] Azar Andino MD 1760 [facility] 302 [place] [address] SPINAL CORD STIMULATOR INSERTION PHASE 2 [35410 (CPT ) +2 more] 04/25/2025 7:30 AM EDT Office Visit [facility] PAIN MANAGEMENT [address] [phone] Shakira Joshua, MACHINE ATTENDANT [address] [address] 05/07/2025 10:30 AM EDT Office Visit [facility] PAIN MANAGEMENT [address] [phone] Shakira Joshua, MACHINE ATTENDANT [address] [address] Scheduled Procedures Name Priority Associated Diagnoses Date/Ti me SPINAL CORD STIMULATOR INSERTION PHASE 2 Lumbar postlaminectomy syndrome 04/22/2025 2:19 PM EDT documented as of this encounter Visit Diagnoses Not on filedocumented in this encounter Care Teams Smoking Tobacco Cutter Operator Relationship Specialty Start Date End Date Jd Santacruz MD 1210 [facility] [address] [address] PCP - General Internal Medicine 05/18/18 documented as of this encounter
--- OUTSIDE RECORDS SUMMARY | 2025-04-17 12:15 | XMS_ITS | Encounter Summary ---
Author Organization [facility] Address [address] [place] [id number] Care Team Providers Care Vineyard Supervisor Name Role Phone Jd Santacruz MD Primary Care Provider [phone] Encounter Details Date Type Department Care Team (Late st Contact Info) Description 04/03/2025 Documentation [facility] PAIN MANAGEMENT [address] [address] Azar Andino MD [address] [address] Social History Tobacco Use Types Packs/Day Years [...] on file documented as of this encounter Progress Notes * Azar Andino MD - 04/03/2025 11:01 AM EDT PROCEDURE DATE: 04/03/2025 PREOPERATIVE DIAGNOSES: 1. Lumbar postlaminectomy syndrome 2. Lumbar stenosis with neurogenic claudication 3. Ligamentum flavum hypertrophy 4. Degeneration of intervertebral disc of lumbosacral region 5. Physical deconditioning 6. Impaired functional mobility, balance, gait, and endurance POSTOPERATIVE DIAGNOSES: 1. Lumbar postlaminectomy syndrome 2. Lumbar stenosis with neurogenic claudication 3. Ligamentum flavum hypertrophy 4. Degeneration of intervertebral disc of lumbosacral region 5. Physical deconditioning 6. Impaired functional mobility, balance, gait, and endurance PROCEDURES PERFORMED: Spinal cord stimulator trial: percutaneously placed trial leads (two octopolar leads = 16 electrodes) Complex spinal cord stimulator programming ANESTHESIA: Local anesthesia plus moderate IV sedation COMPLICATIONS: None MEDICAL NECESSITY: A comprehensive evaluation, including history and physical exam and pertinent physiologic and functional assessment, was performed. Patient presents with intractable pain due to the diagnoses listed above. Patient has failed to respond to conservative modalities, as referenced under HPI including the impact of patient's [id number] pain contributing to significant impairment in daily activities, ADLs, and a negative impact on quality of life. Supporting diagnostic studies of patient's chronic pain condition have been reviewed. We have discussed using a stepwise approach starting with the shortest or least intense level of treatment, care, or service as determined by the extent required to diagnose and or treat a patient's condition. The treatments proposed are consistent with the patient's medical condition and are known to be as safe and effective by current guidelines and standard of care. See OV note for additional details. PROCEDURE SUMMARY: After explaining all the risks and benefits of the procedure, an informed consent was obtained. History and physical examination were updated, and the patient's surgical site confirmed with the patient and marked in the holding room accordingly. The patient received antibiotic prophylaxis as per standard protocol. The patient was transferred to the procedure room and placed on the operating room table in the prone position. Time out was completed. Noninvasive monitors were applied. Administration of IV sedation was performed by a designated procedure room nurse, who monitored the patient's level of consciousness and physiological status. Pertinent information was reportedon a sedation flow sheet, which is part of the patient's permanent medical records. Sedation start time: 12:41 PM . The patient's vital signs remained within normal limits. The thoracic and lumbar spine regions were prepped with ChloraPrep followed by DuraPrep, and draped with sterile towels, Iobanand universal drapes. Using C-arm fluoroscopic guidance, the interlaminar space at T12-L1 (target) was identified. The skin and subcutaneous tissues overlying the target were anesthetized with five ml of 1% lidocaine followed by twenty ml of 0.25% bupivacaine with epinephrine 1:200,000. Using NevroTrial Lead Kit Tlead 1058- 50B, 50 cm Length, Lot [id number] , Expiration 08/2027 ; and Lot [id number] , Expiration 08/2027, two Tuohy needles were advanced from about two vertebral levels below target, with a 10-degree needle angle from a bilateral paramedian approach into the posterior epidural space at T12-L1 without difficulties. Aspiration was negative for blood and/or CSF. AP and lateral X-ray view were obtained confirming appropriate needle placement. Two spinal cord stimulator trial leads were advanced through the needles into the posterior epidural space up to the level of the superior endplate of the T8 vertebral body, and the second lead at the level of the superior endplate of T9 at first attempt. The leads were placed in the anatomical midline of the posterior epidural space. AP and lateral x-ray views were obtained and scanned in the patient's chart. Analysis of impedance revealed normal impedance for all contacts. Subsequently, the styletts were removed from the leads, and then, the needles were removed uneventfully. The leads were secured to the skin with Steri-Strips andTegaderm. Fluoroscopy was utilized using low-dose of radiation applying collimation, pulsed mode, and shielding following ALARA recommendations. Fluoroscopy time: 97 seconds. End sedation time: 12:56PM . The patient tolerated the procedure well and without incident. Upon completion of the procedure, the patient was transferred to the recovery room in stable condition. The patient was discharged from the Surgery Center neurologically intact and with appropriate discharge instructions. Complex spinal cord stimulator programming took place in the recovery room. Three programs were created: Program ONE (T9-T10) Electrode polarities: 6-, 7+ Amplitudes: 2.5 mA Pulse width: 30 mcs Rate: 10.000 Hz Program TWO Electrode polarities: 9-, 10+ Amplitudes: 2.5 mA Pulse width: 30 mcs Rate: 10.000 Hz Program THREE Electrode polarities: 1-, 2+, 3-, 4+, 5-, 6+, 7-, 8+ Amplitudes: 2.5 mA Pulse width: 30 mcs Rate: 10.000 Hz Cycling: Yes A copy of the telemetry report was scanned in the patient's chart. PLAN: Follow-up with Shakira The patient has been instructed to contact my office with any questions or difficulties. The patient understands the plan and agrees to proceed accordingly. Signatures Electronically signed by: Azar Andino M.D.; APRIL 03, 2025, 13:59 EST (Author) documented in this encounter Plan of Treatment Upcoming Encounters Date Type Department Care Team (Late st Contact Info) Description 04/22/2025 10:30 AM EDT Office Visit [facility] CARDIOLOGY 3000 [facility] [address] [place] [phone] Messi Looney MD 1720 [facility] [address] [place] [address] 04/22/2025 2:19 PM EDT Hospital Encounter [facility] OR 1740 [place] [address] Azar Andino MD 1760 [facility] 302 [place] [address] 04/22/2025 2:19 PM EDT - 04/22/2025 4:25 PM EDT Surgery [facility] OR 1740 [place] [address] Azar Andino MD 1760 [facility] 302 [place] [address] SPINAL CORD STIMULATOR INSERTION PHASE 2 [15937 (CPT ) +2 more] 04/25/2025 7:30 AM EDT Office Visit [facility] PAIN MANAGEMENT 1760 [facility] 302 [place] [address] Shakira Joshua, SOAKER MEAT 1760 [facility] 302 [place] [address] 05/07/2025 10:30 AM EDT Office Visit [facility] PAIN MANAGEMENT 1760 [facility] 302 [place] [address] Shakira Joshua, SOAKER MEAT 1760 [facility] 302 [place] [address] Scheduled Procedures Name Priority Associated Diagnoses Date/Ti ny SPINAL CORD STIMULATOR INSERTION PHASE 2 Lumbar postlaminectomy syndrome 04/22/2025 2:19 PM EDT documented as of this encounter Visit Diagnoses Not on filedocumented in this encounter Care Teams Vineyard Supervisor Relationship Specialty Start Date End Date Jd Santacruz MD 1210 [facility] 36 E [facility] [address] [place] [address] PCP - General Internal Medicine 05/18/18 documented as of this encounter
--- OUTSIDE RECORDS SUMMARY | 2025-04-17 12:15 | XMS_ITS | Encounter Summary ---
Author Organization [facility] Address [address] [place] [address] Care Team Providers Care Scheduling Specialist Name Role Phone Jd Santacruz MD Primary Care Provider [phone] Encounter Details Date Type Department Care Team (Late Contact Info) Description 03/23/2025 Results Follow-Up [facility] PAIN MANAGEMENT 1760 [facility] 302 [place] [address] Azar Andino MD 1760 [facility] 302 [place] [address] Social History Tobacco Use Types Packs/Day Years [...] Description 04/22/2025 10:30 AM EDT Office Visit [facility] CARDIOLOGY 3000 [facility] [address] [place] [phone] Messi Looney MD 1720 [facility] [address] [place] [address] 04/22/2025 2:19 PM EDT Hospital Encounter [facility] OR 1740 [place] [address] Azar Andino MD [address] [address] 04/22/2025 2:19 PM EDT - 04/22/2025 4:25 PM EDT Surgery [facility] OR 1740 [place] [address] Azar Andino MD [address] [address] SPINAL CORD STIMULATOR INSERTION PHASE 2 [22235 (CPT ) +2 more] 04/25/2025 7:30 AM EDT Office Visit [facility] PAIN MANAGEMENT [address] [phone] Shakira Joshua, FURNITURE REFINISHER [address] [address] 05/07/2025 10:30 AM EDT Office Visit [facility] PAIN MANAGEMENT [address] [phone] Shakira Joshua, FURNITURE REFINISHER [address] [address] Scheduled Procedures Name Priority Associated Diagnoses Date/Ti me SPINAL CORD STIMULATOR INSERTION PHASE 2 Lumbar postlaminectomy syndrome 04/22/2025 2:19 PM EDT documented as of this encounter Visit Diagnoses Not on filedocumented in this encounter Care Teams Scheduling Specialist Relationship Specialty Start Date End Date Jd Santacruz MD [address] [place] [address] [address] [place] [address] PCP - General Internal Medicine 05/18/18 documented as of this encounter
--- OUTSIDE RECORDS SUMMARY | 2025-04-17 12:15 | XMS_ITS | Encounter Summary ---
Author Organization [facility] Address [address] [place] [address] Care Team Providers Care Fuel Cell Systems Engineer Name Role Phone Jd Santacruz MD Primary Care Provider [phone] Encounter Details Date Type Department Care Team (Late st Contact Info) Description 03/20/2025 Telephone [facility] PAIN [facility]EMENT [address] [address] Lisa Chance MA Social History Tobacco Use Types Packs/Day Years [...] encounter Miscellaneous Notes * Telephone Encounter - Lisa Chance MA - 03/20/2025 11:27 AM EDT S/w patient, scheduled SCS rial with Greg. Let her know she does not need to stop Mounjaro, per Dr Andino. documented in this encounter Plan of Treatment Upcoming Encounters Date Type Department Care Team (Late st Contact Info) Description 04/22/2025 10:30 AM EDT Office Visit [facility] CARDIOLOGY 3000 [facility] [address] [place] [phone] Messi Looney MD 1720 [facility] [address] [place] [address] 04/22/2025 2:19 PM EDT Hospital Encounter [facility] OR 1740 [place] [address] Azar Andino MD [address] [phone] 04/22/2025 2:19 PM EDT - 04/22/2025 4:25 PM EDT Surgery [facility] OR 1740 [place] [address] Azar Andino MD [address] [address] SPINAL CORD STIMULATOR INSERTION PHASE 2 [71489 (CPT ) +2 more] 04/25/2025 7:30 AM EDT Office Visit [facility] PAIN MANAGEMENT [address] [phone] Shakira Joshua, MANAGER PLUMBING [address] [address] 05/07/2025 10:30 AM EDT Office Visit [facility] PAIN MANAGEMENT [address] [phone] Shakira Joshua, MANAGER PLUMBING [address] [address] Scheduled Procedures Name Priority Associated Diagnoses Date/Ti me SPINAL CORD STIMULATOR INSERTION PHASE 2 Lumbar postlaminectomy syndrome 04/22/2025 2:19 PM EDT documented as of this encounter Visit Diagnoses Not on filedocumented in this encounter Care Teams Fuel Cell Systems Engineer Relationship Specialty Start Date End Date Jd Santacruz MD 1210 [facility] 36 E [facility] [place] [address] PCP - General Internal Medicine 05/18/18 documented as of this encounter
--- OUTSIDE RECORDS SUMMARY | 2025-04-17 12:15 | XMS_ITS | Encounter Summary ---
Author Organization [facility] Address [address] [place] [id number] Care Team Providers Care Vp Care Management Name Role Phone Jd Santacruz MD Primary Care Provider [phone] Encounter Details Date Type Department Care Team (Late st Contact Info) Description 04/09/2025 Prep for Surgery [facility] ONLY 1740 [place] [address] Shakira Johsua, PROGRAM SPECIALIST [address] [address] Lumbar postlaminectomy syndrome (Primary Dx); Lumbar stenosis with neurogenic claudication; Ligamentum flavum hypertrophy; Spondylosis of lumbar region without myelopathy or radiculopathy; Myofascial pain; Physical deconditioning; Gait disturbance Social History Tobacco Use Types Packs/Day Years [...] Visit [facility] CARDIOLOGY 3000 [facility] [address] [place] [address] Messi Looney MD 1720 [facility] [address] [place] [address] 04/22/2025 2:19 PM EDT Hospital Encounter [facility] OR 1740 [place] [address] Azar Andino MD 1760 [facility] 302 [place] [address] 04/22/2025 2:19 PM EDT - 04/22/2025 4:25 PM EDT Surgery [facility] OR 1740 [place] [address] Azar Andino MD [address] [address] SPINAL CORD STIMULATOR INSERTION PHASE 2 [70751 (CPT ) +2 more] 04/25/2025 7:30 AM EDT Office Visit [facility] PAIN MANAGEMENT [address] [phone] Shakira Joshua, PROGRAM SPECIALIST [address] [address] 05/07/2025 10:30 AM EDT Office Visit [facility] PAIN MANAGEMENT [address] [address] Shakira Joshua, PROGRAM SPECIALIST [address] [address] Pending Results Name Type Priority Associated Diagnoses Date /Time MRSA Screen Culture (Outpatient) - Swab, Nares Microbiology Routine Lumbar postlaminectomy syndrome 04/16/2025 3:42 PM EDT Scheduled Orders Name Type Priority Associated Diagnoses Orde r Schedule MRSA Screen Culture (Outpatient) - Swab, Nares Microbiology Routine Lumbar postlaminectomy syndrome Expected: 04/16/2025 (Approximate), Expires: 07/10/2026 Scheduled Procedures Name Priority Associated Diagnoses Date/Ti me SPINAL CORD STIMULATOR INSERTION PHASE 2 Lumbar postlaminectomy syndrome 04/22/2025 2:19 PM EDT documented as of this encounter Results * (ABNORMAL) Urinalysis With Culture If Indicated - Urine, Clean Catch (04/16/2025 3:42 PM EDT) Color, UA Yellow Yellow, Straw 04/16/2025 4:21 PM EDT [facility] Appearance, UA Cloudy(A) Clear 04/16/2025 4:21 PM EDT [facility] pH, UA 5.5 5.0 - 8.0 04/16/2025 4:21 PM EDT [facility] Specific [place], UA 1.017 1.005 - 1.030 04/16/2025 4:21 PM EDT [facility] Glucose, UA Negative Negative 04/16/2025 4:21 PM EDT [facility] Ketones, UA Negative Negative 04/16/2025 4:21 PM EDT [facility] Bilirubin, UA Negative Negative 04/16/2025 4:21 PM EDT [facility] Blood, UA Negative Negative 04/16/2025 4:21 PM EDT [facility] Protein, UA Negative Negative 04/16/2025 4:21 PM EDT [facility] Leuk Esterase, UA Small (1+)(A) Negative 04/16/2025 4:21 PM EDT [facility] Nitrite, UA Negative Negative 04/16/2025 4:21 PM EDT [facility] Urobilinogen, UA 1.0 E.U./dL 0.2 - 1.0 E.U./dL 04/16/2025 4:21 PM EDT [facility] Urine Urine specimen obtained by clean catch procedure / Unknown Collection / Unknown 04/16/2025 3:42 PM EDT 04/16/2025 4:15 PM EDT [facility]ORATORY - 04/16/2025 4:21 PM EDT In absence of clinical symptoms, the presence of pyuria, bacteria, and/or nitrites on the urinalysis result does not correlate with infection. us Shakira Joshua PROGRAM SPECIALIST URINE ORDERABLES Final Resul t Performing Organization Address [facility] de Phone Number [facility]
[address] [place] [address], * Protime-INR (04/16/2025 3:42 PM EDT) Protime 13.8 12.2 - 15.3 Seconds 04/16/2025 4:46 PM EDT [facility] INR 1.00 0.89 - 1.12 04/16/2025 4:46 PM EDT [facility] Blood Venipuncture / Unknown 04/16/2025 3:42 PM EDT 04/16/2025 4:22 PM EDT us Shakira Joshua APRN LAB BLOOD ORDERABLES Final R esult Performing Organization Address [facility] de Phone Number [facility]
[address] [place] [address], [place] [phone] * aPTT (04/16/2025 3:42 PM EDT) PTT 33.7 22.0 - 39.0 seconds 04/16/2025 4:46 PM EDT [facility] Blood Venipuncture / Unknown 04/16/2025 3:42 PM EDT 04/16/2025 4:22 PM EDT Amalia [facility] - 04/16/2025 4:46 PM EDT PTT = The equivalent PTT values for the therapeutic range of heparin levels at 0.3 to 0.5 U/ml are 60 to 70 seconds. Shakira Joshua PROGRAM SPECIALIST LAB BLOOD ORDERABLES Final R esult [facility]
[address] [place] [address], * (ABNORMAL) Comprehensive Metabolic Panel (04/16/2025 3:42 PM EDT) [facility] Glucose 96 65 - 99 mg/dL 04/16/2025 4:54 PM EDT [facility] BUN 23.4(H) 8.0 - 23.0 mg/dL 04/16/2025 4:54 PM EDT [facility] Creatinine 2.00(H) 0.57 - 1.00 mg/dL 04/16/2025 4:54 PM EDT [facility] Sodium 144 136 - 145 mmol/L 04/16/2025 4:54 PM EDT [facility] Potassium 5.0 3.5 - 5.2 mmol/L 04/16/2025 4:54 PM EDT [facility] Chloride 111(H) 98 - 107 mmol/L 04/16/2025 4:54 PM EDT [facility] CO2 23.4 22.0 - 29.0 mmol/L 04/16/2025 4:54 PM EDT [facility] Calcium 9.5 8.6 - 10.5 mg/dL 04/16/2025 4:54 PM EDT [facility] Total Protein 5.7(L) 6.0 - 8.5 g/dL 04/16/2025 4:54 PM EDT [facility] Albumin 4.0 3.5 - 5.2 g/dL 04/16/2025 4:54 PM EDT [facility] ALT (SGPT) 13 1 - 33 U/L 04/16/2025 4:54 PM EDT [facility] AST (SGOT) 18 1 - 32 U/L 04/16/2025 4:54 PM EDT [facility] Alkaline Phosphatase 120(H) 39 - 117 U/L 04/16/2025 4:54 PM EDT [facility] Total Bilirubin 0.5 0.0 - 1.2 mg/dL 04/16/2025 4:54 PM EDT [facility] Globulin 1.7 gm/dL 04/16/2025 4:54 PM EDT [facility] Comment:Calculated Result A/G Ratio 2.4 g/dL 04/16/2025 4:54 PM EDT [facility] BUN/Creatinine Ratio 11.7 7.0 - 25.0 04/16/2025 4:54 PM EDT [facility] Anion Gap 9.6 5.0 - 15.0 mmol/L 04/16/2025 4:54 PM EDT [facility] eGFR 26.3(L) >60.0 mL/min/1.7 3 04/16/2025 4:54 PM EDT [facility] Blood Venipuncture / Unknown 04/16/2025 3:42 PM EDT 04/16/2025 4:23 PM EDT [facility]ORATORY - 04/16/2025 4:54 PM EDT GFR [...] race as a factor us Shakira Joshua APRN LAB BLOOD ORDERABLES Final R esult [facility]
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 Myofascial pain Unspecified myalgia and myositis Physical deconditioning Muscular wasting and disuse atrophy, not elsewhere classified Gait disturbance Abnormality of gait Lumbar postlaminectomy syndrome- Primary Postlaminectomy syndrome, lumbar region Lumbar postlaminectomy syndrome Postlaminectomy syndrome, lumbar region documented in this encounter Care Teams Vp Care Management Relationship Specialty Start Date End Date Jd Santacruz MD [facility] [address] [address] PCP - General Internal Medicine 05/18/18 documented as of this encounter
--- OUTSIDE RECORDS SUMMARY | 2025-04-17 12:15 | XMS_ITS | Encounter Summary ---
Author Organization Healthcare Address [address] [place] [address] Care Team Providers Care Heel Slugger Name Role Phone Jd Santacruz MD Primary Care Provider [phone] Encounter Details Date Type Department Care Team [...] on file documented as of this encounter Functional Status [...] Description 09/03/2025 9:10 AM EST Clinical Support [facility] Laboratory Services [address] [facility], 1st [place] [address] 09/10/2025 2:20 PM EST Office Visit [facility] Nephrology, Bone & Mineral Metabolism [address] [facility], [address] [place] [address] Nick Harrington MD [address] [facility] [address] [place] [address] documented as of this encounter Visit Diagnoses Not on filedocumented in this encounter Additional Health Concerns Assessment Noted Time A fall risk assessment has been complete d for the patient 03/19/2025 1:58 PM EDT A Body Mass Index follow-up plan has been documented for the patient 03/19/2025 3:32 PM EDT documented as of this encounter Care Teams Heel Slugger Relationship Specialty Start Date End Date Jd Santacruz MD [facility] [address] [place] [address] PCP - General 02/06/21 documented as of this encounter
--- OUTSIDE RECORDS SUMMARY | 2025-04-17 12:15 | XMS_ITS | Encounter Summary ---
Author Organization Healthcare Address [address] [place] [address] Care Team Providers Care Director Of State Name Role Phone Jd Santacruz MD Primary Care Provider [phone] Encounter Details Date Type Department Care Team [...] Description 09/03/2025 9:10 AM EST Clinical Support [facility] Laboratory Services [address], 1st [place] [address] 09/10/2025 2:20 PM EST Office Visit [facility] Nephrology, Bone & Mineral Metabolism [address], [address] [place] [address] Nick Harrington MD [address] [place] [address] documented as of this encounter Visit Diagnoses Not on filedocumented in this encounter Additional Health Concerns Assessment Noted Time A fall risk assessment has been complete d for the patient 11/12/2024 1:08 PM EST A Body Mass Index follow-up plan has been documented for the patient 11/12/2024 2:16 PM EST documented as of this encounter Care Teams Director Of State Relationship Specialty Start Date End Date Jd Santacruz MD [address] [place] [address] PCP - General 02/06/21 documented as of this encounter
--- OUTSIDE RECORDS SUMMARY | 2025-04-17 12:15 | XMS_ITS | Encounter Summary ---
Author Organization [facility] Address [address] [place] [id number] Care Team Providers Care Watch Case Polisher Name Role Phone Jd Santacruz MD Primary Care Provider [phone] Reason for Visit * Reason Onset Date Comments Med Management 02/04/2025 Encounter Details Date Type Department Care Team (Late st Contact Info) Description 02/04/2025 Telephone [facility] PAIN [facility]NAGEMENT [address] [phone] Azar Andino MD [address] [address] Med Management Social History Tobacco Use Types Packs/Day Years [...] documented as of this encounter Functional Status documented as of this encounter Miscellaneous Notes * Telephone Encounter - Genet Jones RN - 03/08/2025 9:46 AM EDT OV 02/28, closing encounter * Telephone Encounter - Elisha So RegSched Rep - 2025 2:04 PM EDT PATIENT CALLED TO CHECK STATUS OF CALL BACK - PLEASE REACH OUT AND ADVISE * Telephone Encounter - Florencia Foley RegSched Rep - 02/04/2025 11:59 AM EDT Caller: EVA Relationship: SELF Best call back number: [phone] What is the best time to reach you: ANY Who are you requesting to speak with (clinical staff, provider, specific staff member): CLINICAL What was the call regarding: GOT UP TO USE RESTROOM ON 02/01/25 AND PAIN WAS BACK- 6 OR 7/10 NOW- RIGHT LEG WORSE BUT PAIN IS BACK IN BOTH LEGS- PLEASE CALL documented in this encounter Plan of Treatment Upcoming Encounters Date Type Department Care Team (Late st Contact Info) Description 04/22/2025 10:30 AM EDT Office Visit [facility] CARDIOLOGY [address] [facility] [address] [place] [address] Messi Looney MD [address] [place] [id number] 04/22/2025 2:19 PM EDT Hospital Encounter [facility] OR [address] [place] [address] Azar Andino MD [address] [place] [address] 04/22/2025 2:19 PM EDT - 04/22/2025 4:25 PM EDT Surgery [facility] OR [address] [place] [address] Azar Andino MD [address] [phone] SPINAL CORD STIMULATOR INSERTION PHASE 2 [83189 (CPT ) +2 more] 04/25/2025 7:30 AM EDT Office Visit [facility] PAIN MANAGEMENT [address] [phone] Shakira Joshua, EQUITY TRADER [address] [phone] 05/07/2025 10:30 AM EDT Office Visit [facility] PAIN MANAGEMENT [address] [address] Shakira Joshua, EQUITY TRADER [address] [address] Scheduled Procedures Name Priority Associated Diagnoses Date/Ti me SPINAL CORD STIMULATOR INSERTION PHASE 2 Lumbar postlaminectomy syndrome 04/22/2025 2:19 PM EDT documented as of this encounter Visit Diagnoses Not on filedocumented in this encounter Care Teams Watch Case Polisher Relationship Specialty Start Date End Date Jd Santacruz MD 1210 [facility] [address] [facility] [address] [place] [address] PCP - General Internal Medicine 05/18/18 documented as of this encounter
--- OUTSIDE RECORDS SUMMARY | 2025-04-17 12:15 | XMS_ITS | Encounter Summary ---
Author Organization [facility] Address [address] [place] [address] Care Team Providers Care Senior Security Engineer Name Role Phone Jd Santacruz MD Primary Care Provider [phone] Encounter Details Date Type Department Care Team (Late st Contact Info) Description 03/18/2025 Telephone [facility] [address] [address] Lisa Chance MA Social History [...] Telephone Encounter - Lisa Chance MA - 03/18/2025 11:02 AM EDT Patient called because she said the staff at the [facility] lab where she went to do her labwork told her there were no labs entered for her. I advised her to tell the staff that her labs are attached to her 02/28/[address] Anidno. documented in this encounter Plan of Treatment Upcoming Encounters Date Type Department Care Team (Late st Contact Info) Description 04/22/2025 10:30 AM EDT Office Visit [facility] C[facility] [address] [facility] [address] [place] [phone] Messi Looney MD [address] [facility] [address] [place], [place] [phone] 04/22/2025 2:19 PM EDT Hospital Encounter [facility] OR [address] [place] [address] Azar Andino MD [address] [address] 04/22/2025 2:19 PM EDT - 04/22/2025 4:25 PM EDT Surgery [facility] OR [address] [place] [phone] Azar Andino MD [address] [phone] SPINAL CORD STIMULATOR INSERTION PHASE 2 [45804 (CPT ) +2 more] 04/25/2025 7:30 AM EDT Office Visit [facility] [address] [phone] Shakira Joshua, LABORER [employer] [address] [address] 05/07/2025 10:30 AM EDT Office Visit [facility] [address] [phone] Shakira Joshua, LABORER [employer] [address] [address] Scheduled Procedures Name Priority Associated Diagnoses Date/Ti me SPINAL CORD STIMULATOR INSERTION PHASE 2 Lumbar postlaminectomy syndrome 04/22/2025 2:19 PM EDT documented as of this encounter Visit Diagnoses Not on filedocumented in this encounter Care Teams Senior Security Engineer Relationship Specialty Start Date End Date Jd Santacruz MD [facility]0 [facility] [address] [facility] [address] [place] [address] PCP - General Internal Medicine 05/18/18 documented as of this encounter
--- OUTSIDE RECORDS SUMMARY | 2025-04-17 12:15 | XMS_ITS | Encounter Summary ---
Author Organization [facility] Address [address] [place] [id number] Care Team Providers Care Wood Carver Hand Name Role Phone Jd Santacruz MD Primary Care Provider [phone] Encounter Details Date Type Department Care Team (Latest Contact Info) Description 02/28/2025 Travel Social History Tobacco Use Types Packs/Day [...] Functional Status documented as of this encounter Plan of Treatment Upcoming Encounters Date Type Department Care Team (Late st Contact Info) Description 04/22/2025 10:30 AM EDT Office Visit [facility] CARDIOLOGY [address] [facility] [address] [place] [address] Messi Looney MD [address] [place], [place] [phone] 04/22/2025 2:19 PM EDT Hospital Encounter [facility] OR [address] [place] [address] Azar Andino MD [address] [address] 04/22/2025 2:19 PM EDT - 04/22/2025 4:25 PM EDT Surgery [facility] OR [address] [place] [address] Azar Andino MD [address] [address] SPINAL CORD STIMULATOR INSERTION PHASE 2 [94767 (CPT ) +2 more] 04/25/2025 7:30 AM EDT Office Visit [facility] PAIN MANAGEMENT [address] [phone] Shakira Joshua, SKYDIVING INSTRUCTOR [address] [address] 05/07/2025 10:30 AM EDT Office Visit [facility] PAIN MANAGEMENT [address] [phone] Shakira Joshua, SKYDIVING INSTRUCTOR [address] [address] Scheduled Procedures Name Priority Associated Diagnoses Date/Ti me SPINAL CORD STIMULATOR INSERTION PHASE 2 Lumbar postlaminectomy syndrome 04/22/2025 2:19 PM EDT documented as of this encounter Visit Diagnoses Not on filedocumented in this encounter Care Teams Wood Carver Hand Relationship Specialty Start Date End Date Jd Santacruz MD [address] [facility] [address] [facility] [address] [place] [address] PCP - General Internal Medicine 05/18/18 documented as of this encounter
--- OUTSIDE RECORDS SUMMARY | 2025-04-17 12:15 | XMS_ITS | Encounter Summary ---
Author Organization Healthcare Address [address] [place] [address] Care Team Providers Care Trigonometry Tutor Name Role Phone Jd Santacruz MD Primary Care Provider [phone] Encounter Details Date Type Department Care Team [...] Description 09/03/2025 9:10 AM EST Clinical Support [facility] Laboratory Services [address], 1st [place] [address] 09/10/2025 2:20 PM EST Office Visit [facility] Nephrology, Bone & Mineral Metabolism [address], [address] [place] [address] Nick Harrington MD [address] [place] [address] documented as of this encounter Visit Diagnoses Not on filedocumented in this encounter Additional Health Concerns Assessment Noted Time A fall risk assessment has been complete d for the patient 11/12/2024 1:08 PM EST A Body Mass Index follow-up plan has been documented for the patient 11/12/2024 2:16 PM EST documented as of this encounter Care Teams Trigonometry Tutor Relationship Specialty Start Date End Date Jd Santacruz MD [address] [place] [address] PCP - General 02/06/21 documented as of this encounter
--- OUTSIDE RECORDS SUMMARY | 2025-04-17 12:15 | XMS_ITS | Clinical Summary ---
Author Organization [facility] Address [address] [place] [address] Care Team Providers Care Registered Nursing Professor Name Role Phone Jd Santacruz MD Primary Care Provider [phone] Allergies Active Allergy Reactions Criticality Noted Date [...] As needed 10/24/19 21 Active HYDROcodone-ac etaminophen ([place]) 5-325 MG tablet Take by mouth every [...] Description 03/19/2025 2:20 PM EDT Office Visit [facility] Nephrology, Bone & Mineral Metabolism [address] [facility], [address] [place] [address] Nick Harrington MD Stage 3b [...] on file Sexual Orientation Not on file Last Filed Vital Signs Vital Sign Reading [...] Description 09/03/2025 9:10 AM EST Clinical Support [facility] Laboratory Services [address] [facility], 1st [place] [address] 09/10/2025 2:20 PM EST Office Visit [facility] Nephrology, Bone & Mineral Metabolism [address] [facility], [address] [place] [address] Nick Harrington MD [address] [place] [address] Health Maintenance Due Date Last Done Comments [facility]-Hepatitis C Screening 1954 [facility]-Medicare Annual Wellness (AWV) 1954 [facility]-/Child/Adol SDOH Screenings 1954 [facility]- SDOH Screenings 02/07/1972 [facility]-Adult SDOH Screenings 02/07/1972 [facility]-DTaP,Tdap,and Td Vaccines (1 - Tdap) 1973 CT Colonography 1999 FIT-DNA 1999 FIT 1999 FOBT 1999 Sigmoidoscopy 1999 [facility]-Breast Cancer Screening 02/07/2004 [facility]-Pneumococcal Vaccine: 50+ Years (2 of 2 - PCV) 07/28/2019 07/28/2018 [facility]-Bone Density Scan 06/06/2021 06/06/2019, 019 Colonoscopy 10/26/2021 10/26/2011 [facility]-Colorectal Cancer Screening 10/26/2021 [id number] Vaccine ( season) 2024 07/23/2021, 12/25/2020, 11/27/2020 [...] 12:39 PM EDT 03/15/2025 12:40 PM EDT Nick Harrington MD LAB URINE ORDERABLES Final R esult Performing Organization Address [facility] Co de Phone Number [facility] [address] [place] [address] * Protein, Random, Urine with Creatinine (03/15/2025 12:39 PM EDT) Protein, Urine 9 mg/dL 03/15/2025 3:10 PM EDT [facility] Creatinine, Urine 82 mg/dL 03/15/2025 3:10 PM EDT [facility] Protein/Creati nine Ratio 0.1 mg/mg Creat 03/15/2025 3:10 PM EDT [facility] Urine Urine specimen obtained by clean catch procedure / Unknown Non-blood Collection / Unknown 03/15/2025 12:39 PM EDT 03/15/2025 12:40 PM EDT Nick Harrington MD LAB URINE ORDERABLES [facility] Performing Organization Address [facility] de Phone Number [facility] [address] [place] [address] * (ABNORMAL) Urinalysis with reflex microscopic (Culture NOT Included) (03/15/2025 12:39 PM EDT) Color, Urine Yellow LAB URINALYSIS - AUTOMATED METHOD 03/15/2025 3:09 PM EDT [facility] Clarity, Urine Clear LAB URINALYSIS - AUTOMATED METHOD 03/15/2025 3:09 PM EDT [facility] Spec Chauncey, Urine 1.014 1.005 - 1.030 LAB URINALYSIS - AUTOMATED METHOD 03/15/2025 3:09 PM EDT [facility] pH, Urine 7.0 5.0 - 8.0 LAB URINALYSIS - AUTOMATED METHOD 03/15/2025 3:09 PM EDT [facility] Protein, Urine Negative Negative mg/dL LAB URINALYSIS - AUTOMATED METHOD 03/15/2025 3:09 PM EDT [facility] Glucose, Urine Negative Negative mg/dL LAB URINALYSIS - AUTOMATED METHOD 03/15/2025 3:09 PM EDT [facility] Ketones, Urine Negative Negative mg/dL LAB URINALYSIS - AUTOMATED METHOD 03/15/2025 3:09 PM EDT [facility] Blood, Urine Negative Negative LAB URINALYSIS - AUTOMATED METHOD 03/15/2025 3:09 PM EDT [facility] Bilirubin, Urine Negative Negative LAB URINALYSIS - AUTOMATED METHOD 03/15/2025 3:09 PM EDT [facility] Urobilinogen, Urine 1.0 0.2 to 1.0 mg/dL LAB URINALYSIS - AUTOMATED METHOD 03/15/2025 3:09 PM EDT [facility] Leukocytes, Urine Trace(A) Negative LAB URINALYSIS - AUTOMATED METHOD 03/15/2025 3:09 PM EDT [facility] Nitrite, Urine Negative Negative LAB URINALYSIS - AUTOMATED METHOD 03/15/2025 3:09 PM EDT [facility] RBC, Urine <1 0 to 3 /HPF 03/15/2025 3:09 PM EDT [facility] Comment:This result was prev iously suppressed from the chart. WBC, Urine 6 - 10(A) 0 to 5 /HPF 03/15/2025 3:09 PM EDT [facility] Comment:This result was prev iously suppressed from the chart. Squamous Epithelial Cells 6 - 10(A) 0 to 5 /HPF 03/15/2025 3:09 PM EDT [facility] Comment:This result was prev iously suppressed from the chart. Hyaline Casts 0 - 2 0 to 5 /LPF 03/15/2025 3:09 PM EDT [facility] Comment:This result was prev iously suppressed from the chart. Bacteria, Urine Present Negative 03/15/2025 3:09 PM EDT [facility] Comment:This result was prev iously suppressed from the chart. Urine Urine specimen obtained by clean catch procedure / Unknown Non-blood Collection / Unknown 03/15/2025 12:39 PM EDT 03/15/2025 12:40 PM EDT Narrative [facility] - 03/15/2025 3:09 PM EDT Performed by manual method us Nick Harrington MD LAB URINE ORDERABLES Final R esult [facility] [address] [place] [id number] * (ABNORMAL) CBC W/O Differential (03/15/2025 11:01 AM EDT) [facility] Signature WBC Count 12.45(H) 3.70 - 10.30 10*3/uL LAB HEMATOLOGY METHOD 03/15/2025 2:41 PM EDT [facility] RBC Count 5.07 3.90 - 5.20 10*6/uL LAB HEMATOLOGY METHOD 03/15/2025 2:41 PM EDT [facility] HGB 13.3 11.2 - 15.7 g/dL LAB HEMATOLOGY METHOD 03/15/2025 2:41 PM EDT [facility] HCT 42.9 34.0 - 45.0 % LAB HEMATOLOGY METHOD 03/15/2025 2:41 PM EDT [facility] Platelet Count 234 155 - 369 10*3/uL LAB HEMATOLOGY METHOD 03/15/2025 2:41 PM EDT [facility] MCV 85 79 - 98 fL LAB HEMATOLOGY METHOD 03/15/2025 2:41 PM EDT [facility] MCH 26.2 26.0 - 32.0 pg LAB HEMATOLOGY METHOD 03/15/2025 2:41 PM EDT [facility] MCHC 31.0 30.7 - 35.5 g/dL LAB HEMATOLOGY METHOD 03/15/2025 2:41 PM EDT [facility] RDW 16.5(H) 11.5 - 14.5 % LAB HEMATOLOGY METHOD 03/15/2025 2:41 PM EDT [facility] MPV 11.3 8.8 - 12.5 fL LAB HEMATOLOGY METHOD 03/15/2025 2:41 PM EDT [facility] nRBC 0.0 <=0.0 per 100 WBCs LAB HEMATOLOGY METHOD 03/15/2025 2:41 PM EDT [facility] Blood Venous blood specimen / Unknown Venipuncture / Unknown 03/15/2025 11:01 AM EDT 03/15/2025 11:01 AM EDT us Nick Harrington MD LAB BLOOD ORDERABLES Final R esult [facility] [address] [place] [address] * (ABNORMAL) Renal Function Panel, Plasma (03/15/2025 11:01 AM EDT) [facility] Glucose, Plasma 161(H) 74 - 99 mg/dL 03/15/2025 2:54 PM EDT [facility] BUN, Plasma 32(H) 8 - 23 mg/dL 03/15/2025 2:54 PM EDT [facility] Creatinine, Plasma 2.04(H) 0.60 - 1.10 mg/dL 03/15/2025 2:54 PM EDT [facility] BUN/Creatinine Ratio 16 03/15/2025 2:54 PM EDT [facility] Sodium, Plasma 142 136 - 145 mmol/L 03/15/2025 2:54 PM EDT [facility] Potassium, Plasma 4.4 3.6 - 4.9 mmol/L 03/15/2025 2:54 PM EDT [facility] Chloride, Plasma 99 97 - 107 mmol/L 03/15/2025 2:54 PM EDT [facility] CO2, Plasma 29 22 - 29 mmol/L 03/15/2025 2:54 PM EDT [facility] Anion Gap 14 6 - 16 mmol/L 03/15/2025 2:54 PM EDT [facility] Total Calcium, Plasma 9.5 8.9 - 10.2 mg/dL 03/15/2025 2:54 PM EDT [facility] Phosphorus, Plasma 3.1 2.5 - 4.5 mg/dL 03/15/2025 2:54 PM EDT [facility] Albumin, Plasma 4.1 3.5 - 5.2 g/dL 03/15/2025 2:54 PM EDT [facility] eGFRcr 25.7 mL/min/1.7 3m*2 03/15/2025 2:54 PM EDT [facility] Comment:Reported eGFRcr in m L/min/1.73m2 is based the CKD-EPI 2020 equation that does not use a race coefficient. Blood Venous blood specimen / Unknown Venipuncture / Unknown 03/15/2025 11:01 AM EDT 03/15/2025 11:01 AM EDT us Nick Harrington MD LAB BLOOD ORDERABLES Final R esult [facility] [address] [place] [address] * COLONOSCOPY (10/26/2011) Anatomical Region Laterality Modality Endoscopy Narrative 10/26/2011 Ordered by an unspecified provider. us Historical Provider GI PROCEDURE ORDERABLES F inal Result from Last 3 Months or Most Recently Relevant to Health Maintenance Insurance MEDICARE Member Subscriber Plan / Payer (Ef fective 2019-Present) Name:Eva Ward Member ID:[id number] Relation to Subscriber:Self Name:Eva Ward Subscriber ID:[id number] Payer ID:MEDICARE Group ID:Not on file Type:Medicare Address: [address] [place] [address] Care Teams Registered Nursing Professor Relationship Specialty Start Date End Date Jd Santacruz MD 12[address] [facility] [address] [place] [address] PCP - General 02/06/21
--- OUTSIDE RECORDS SUMMARY | 2025-04-17 12:15 | XMS_ITS | Encounter Summary ---
Author Organization [facility] Address [address] [place] [address] Care Team Providers Care Bobbin Dumper Name Role Phone Jd Santacruz MD Primary Care Provider [phone] Encounter Details Date Type Department Care Team [...] Description 04/22/2025 10:30 AM EDT Office Visit [facility] CARDIOLOGY [address] [facility] [address] [place] [phone] Messi Looney MD [address]20 [facility] [address] [place] [address] 04/22/2025 2:19 PM EDT Hospital Encounter [facility] OR [address] [place] [phone] Azar Andino MD [address] [address] 04/22/2025 2:19 PM EDT - 04/22/2025 4:25 PM EDT Surgery [facility] OR [address] [place] [address] Azar Andino MD [address] [address] SPINAL CORD STIMULATOR INSERTION PHASE 2 [16894 (CPT ) +2 more] 04/25/2025 7:30 AM EDT Office Visit [facility] PAIN MANAGEMENT [address] [phone] Shakira Joshua, FRENCH WEAVER [address] [address] 05/07/2025 10:30 AM EDT Office Visit [facility] PAIN MANAGEMENT [address] [address] Shakira Joshua, FRENCH WEAVER [address] [address] Scheduled Procedures Name Priority Associated Diagnoses Date/Ti sd SPINAL CORD STIMULATOR INSERTION PHASE 2 Lumbar postlaminectomy syndrome 04/22/2025 2:19 PM EDT documented as of this encounter Visit Diagnoses Not on filedocumented in this encounter Care Teams Bobbin Dumper Relationship Specialty Start Date End Date Jd Santacruz MD 1210 [facility] [address] [facility] [address] [place] [address] PCP - General Internal Medicine 05/18/18 documented as of this encounter
--- OUTSIDE RECORDS SUMMARY | 2025-04-17 12:15 | XMS_ITS | Encounter Summary ---
Author Organization [facility] Address [address] [place] [address] Care Team Providers Care Transport Specialist Name Role Phone Jd Santacruz MD Primary Care Provider [phone] Encounter Details Date Type Department Care Team (Latest Contact Info) Description 04/09/2025 Travel Social History Tobacco Use Types Packs/Day [...] Description 04/22/2025 10:30 AM EDT Office Visit [facility] C[facility] [address] [facility] [address] [place] [phone] Messi Looney MD [address] [facility] [address] [place] [address] 04/22/2025 2:19 PM EDT Hospital Encounter [facility] OR [address] [place] [phone] Azar Andino MD [address] [address] 04/22/2025 2:19 PM EDT - 04/22/2025 4:25 PM EDT Surgery [facility] OR [address] [place] [address] Azar Andino MD [address] [address] SPINAL CORD STIMULATOR INSERTION PHASE 2 [78594 (CPT ) +2 more] 04/25/2025 7:30 AM EDT Office Visit [facility] PAIN [facility]NAGEMENT [address] [phone] Shakira Joshua, ENGINE INSTALLER [address] [address] 05/07/2025 10:30 AM EDT Office Visit [facility] PAIN [facility]NAGEMENT [address] [address] Shakira Joshua, ENGINE INSTALLER [address] [address] Scheduled Procedures Name Priority Associated Diagnoses Date/Ti de SPINAL CORD STIMULATOR INSERTION PHASE 2 Lumbar postlaminectomy syndrome 04/22/2025 2:19 PM EDT documented as of this encounter Visit Diagnoses Not on filedocumented in this encounter Care Teams Transport Specialist Relationship Specialty Start Date End Date Jd Santacruz MD [address] [facility] [address] [facility] [address] [place] [address] PCP - General Internal Medicine 05/18/18 documented as of this encounter
--- OUTSIDE RECORDS SUMMARY | 2025-04-17 12:15 | XMS_ITS | Data Portability ---
Author Rd [place] [address] Home Phone Mobile Phone Preferred Language en Marital Status Unknown Jainism Affiliation Unknown Race White Ethnic Group Not or Lati no Author Organization [facility] - Luis valladares MD, Main Office [facility] [address] [address] Assessment No assessment recorded. Plan of Treatment Reminders Order Date Submit Date Provider Last Modified By Organization Details Last Modified Time Details Appointments None record ed. Lab None record ed. Referral None record ed. Procedures None record ed. Surgeries None record ed. Imaging None record ed. Medication Orders None record ed. Patient TargetsNo targets recorded. Patient Instructions Encounter Date Encounter Id Patient Instructions Last Modified By Organization Details Last Modified Time 06/06/2018 [id number] Learning About Relief for Back Pain [email or web address] Not available 06/06/2018 12:10:58 Reason for Referral None Reported. Results Created Date Observation Date Name Description Value Unit Range Abnormal Flag Note LastModifiedBy Organization Detail LastModifiedTime 06/06/20 18 06/06/2018 elect romyo gram + nerve condu ction study No observ ation record ed. BARCODE Not Available 2017 10:26:58 Result Notes None recorded. Procedures Surgical History Date Name Laterality Status Provider Name and Address Organization Details Recorded Time 06/06/2018 NCV/EMG completed Devang Pete MD 06/06/2018 10:14:03 Imaging Results None recorded. Procedure Notes None recorded. Medical Equipment None Reported. Vitals None Recorded Social History None recorded. Functional Status None recorded. Mental Status None recorded. Family History Nothing Reported. Medical History No medical history recorded. Gynecological HistoryNo gynecological history recorded. Obstetrics History GPAL:G 0 P 0 0 0 0 Past Encounters Encounter ID Performer Location Encounter Start Date Encounter Closed Date Diagnosis/Indication Diagnosis SNOMED-CT Code Diagnosis ICD10 Code Diagnosis Note [id number] Luis Pete MD Main Office 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 Health Concerns Section Related Observation LastModified by Organization Detai ls LastModified Time None Recorded Concern Status LastModified by Organization Details LastModified Time None Recorded Advance Directives Directive None Recorded Payers Insurance Date Sequence Insurance Name Policy Number Policy Valderrama Covered Member ID Valderrama Member ID Guarantor Name 06/06/2018 1 [employer] Eva E Odonnell [id number] Eva E Odonnell OBGyn Episode No OBEpisode recorded.
--- OUTSIDE RECORDS SUMMARY | 2025-04-17 12:15 | XMS_ITS | Encounter Summary ---
Author Organization [facility] Address [address] [place] [address] Care Team Providers Care [employer] Name Role Phone Jd Santacruz MD Primary Care Provider [phone] Encounter Details Date Type Department Care Team (Latest Contact Info) Description 03/16/2025 Travel Social History Tobacco Use Types Packs/Day [...] Description 04/22/2025 10:30 AM EDT Office Visit [facility] CARD[facility] [address] [facility] [address] [place] [phone] Messi Looney MD [address] [facility] [address] [place] [address] 04/22/2025 2:19 PM EDT Hospital Encounter [facility] OR [address] [place] [phone] Azar Andino MD [address] [address] 04/22/2025 2:19 PM EDT - 04/22/2025 4:25 PM EDT Surgery [facility] OR [address] [place] [address] Azar Andino MD [address] [address] SPINAL CORD STIMULATOR INSERTION PHASE 2 [58494 (CPT ) +2 more] 04/25/2025 7:30 AM EDT Office Visit [facility] PAIN MANAGEMENT [address] [phone] Shakira Joshua, LOCK EXPERT [address] [address] 05/07/2025 10:30 AM EDT Office Visit [facility] [address] [address] Shakira Joshua, LOCK EXPERT [address] [address] Scheduled Procedures Name Priority Associated Diagnoses Date/Ti il SPINAL CORD STIMULATOR INSERTION PHASE 2 Lumbar postlaminectomy syndrome 04/22/2025 2:19 PM EDT documented as of this encounter Visit Diagnoses Not on filedocumented in this encounter Care Teams [employer] Relationship Specialty Start Date End Date Jd Santacruz MD [address] [facility] [address] [facility] [address] [place] [address] PCP - General Internal Medicine 05/18/18 documented as of this encounter
--- OUTSIDE RECORDS SUMMARY | 2025-04-17 12:15 | XMS_ITS | Clinical Summary ---
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 Name Role Phone Jd Santacruz MD Primary Care Provider [phone] Allergies Active Allergy Reactions Criticality Noted Date Comments Clavulanic Acid Diarrhea High 03/24/2021 Levofloxacin Other (See Comments) High 04/09/2024 Makes all her joints hurt Nsaids Other (See Comments),Unknown (See Comments) High 01/21/2016 Pt had Lt kidney removed due to cancer- Povidone Iodine Swelling,Rash High 11/16/2012 RASH AND SWELLING Povidone-Iodine Rash Medium 03/24/2021 Soap Rash Medium 03/24/2021 Sulfa Antibiotics Other (See Comments) Medium 02/09/20 22 Kidney function decline Sulfamethoxazole-Trimet hoprim Other (See Comments),Unknown (See Comments) Low 01/21/2016 DECREASES KIDNEY FUNCTION-HAS ONE KIDNEY AND CKD IN THIS KIDNEY OCCURS WITH BACTRIM Medications atorvastatin (LIPITOR) 40 MG tablet Take 1 tablet by mouth Every Night. 8 Active LYRICA 100 MG capsule Take 1 capsule by mouth 2 (Two) Times a Day. 8 Active amitriptyline (ELAVIL) 10 MG tablet Take 1 tablet by mouth At Night As Needed. 8 Active HYDROcodone-jayden taminophen (NORCO) 5-325 MG per tablet Take 1 tablet by mouth 2 (Two) Times a Day As Needed. 3 Active Ventolin HFA 108 (90 Base) MCG/ACT inhaler INHALE 4 PUFFS BY MOUTH EVERY 4 HOURS FOR 48 HOURS THEN NEEDED FOR SHORTNESS OF BREATH OR WHEEZING 3 Active omeprazole (priLOSEC) 40 MG capsule 1 capsule Daily. 0 Active losartan (COZAAR) 25 MG tablet Take 1 tablet by mouth Daily. Active aspirin 81 MG EC tablet Take 1 tablet by mouth Daily. 90 tablet 3 4 Active ezetimibe (ZETIA) 10 MG tablet Take 1 tablet by mouth Daily. 90 tablet 3 4 Active Dilt-XR 240 MG 24 hr capsule Take 1 capsule by mouth Daily. 4 Active Mounjaro 5 MG/0.5ML solution auto-injector Inject 5 mg under the skin into the appropriate area as directed 1 (One) Time Per Week. 5 Active Mounjaro 10 MG/0.5ML solution auto-injector Inject 10 mg under the skin into the appropriate area as directed 1 (One) Time Per Week. Active losartan (COZAAR) 25 MG tablet Take 1 tablet by mouth Daily. 5 Active mupirocin (BACTROBAN) 2 % nasal ointment Administer 1 Application into the nostril(s) as directed by provider 3 (Three) Times a Day. Apply three times daily for 5 days prior to procedure and after procedure as directed by surgeon. 30 g 5 Active loperamide (IMODIUM) 2 MG capsule Take 1 capsule by mouth 4 (Four) Times a Day As Needed for Diarrhea. Active furosemide (LASIX) 40 MG tablet Take 1 tablet by mouth Daily. Active Active Problems Problem Noted Date Diagnosed Date Gait disturbance 01/24/2025 BMI 38.0-38.9,adult 01/24/2025 Spondylosis of lumbar region without myelopathy or radiculopathy 03/15/2023 Piriformis syndrome of right side 03/15/2023 Synovial cyst of lumbar facet joint 03/15/2023 Myofascial pain 03/15/2023 Lumbar postlaminectomy syndrome 03/15/2023 Ligamentum flavum hypertrophy 03/15/2023 Moderate obesity 03/15/2023 Physical deconditioning 03/15/2023 Recurrent UTI 10/12/2022 Acute cystitis without hematuria 07/28/2021 Gout due to renal impairment 07/28/2021 MICHELET (renal osteodystrophy) 07/28/2021 Chronic bilateral low back pain without sciatica 04/10/2019 S/P lumbar spinal fusion 11/14/2018 Arthritis 09/12/2018 Folate deficiency 07/19/2018 Low back pain 07/14/2018 Essential hypertension 07/14/2018 Anemia due to stage 3 chronic kidney disease Renal insufficiency 07/14/2018 Overview (07/19/2018): Added automatically from request for surgery [id number] Impaired mobility and ADLs 07/14/2018 Overview (07/19/2018): Added automatically from request for surgery [id number] Impaired functional mobility, balance, gait, and endurance 07/14/2018 Overview (07/19/2018): Added automatically from request for surgery [id number] Chronic renal disease 07/05/2018 Lumbar stenosis with neurogenic claudication 11/2017 Spondylolisthesis of lumbar region 05/30/2018 Overview (05/30/2018): L4/5 Degeneration of lumbar or lumbosacral interverte bral disc 05/30/2018 Resolved Problems Problem Noted Date Diagnosed Date Resolved Date Abscess in epidural space of lumbar spine. Status post exploration with aspiration and drainage 07/19/18 07/20/2018 09/12/2018 Metabolic encephalopathy due to acute illness 07/19/20 18 07/28/2018 Leukocytosis 07/14/2018 07/20/2018 [place] resolved 07/05/2018 07/28/2018 Spinal stenosis, lumbar traci on, with neurogenic claudication 06/14/2018 09/12/2018 Overview (06/14/2018): Added automatically from request for surgery [id number] Radiculopathy with lower extremity symptoms 05/30/2018 09/12/2018 Encounters Date Type Department Care Team Description 04/16/2025 3:30 PM EDT Pre-Admission Testing [facility] PREADMISSION T [address] [place] [address] Lumbar postlaminectomy syndrome 04/16/2025 Travel 04/10/2025 Telephone [facility] PAIN [facility]NAGEMENT [address] [address] Genet Zelaya RN 04/09/2025 9:00 AM EDT Office Visit [facility]IN [facility] [address] [address] Shakira Joshua, GETTER WELDER Lumbar postlaminectomy syndrome; Lumbar stenosis with neurogenic claudication; Ligamentum flavum hypertrophy; Spondylosis of lumbar region without myelopathy or radiculopathy; Myofascial pain; Physical deconditioning; Gait disturbance; Encounter for fitting and adjustment of spinal cord stimulator; Presence of neurostimulator 04/09/2025 Prep for Surgery [facility] [address] [place] [address] Shakira Joshua, GETTER WELDER Lumbar postlaminectomy syndrome (Primary Dx); Lumbar stenosis with neurogenic claudication; Ligamentum flavum hypertrophy; Spondylosis of lumbar region without myelopathy or radiculopathy; Myofascial pain; Physical deconditioning; Gait disturbance 04/09/2025 Travel 04/03/2025 8:15 AM EDT Outside Facility Service [facility] [address] [address] Azar Andino MD 04/03/2025 Documentation [facility] [address] [address] Azar Andino MD 03/23/2025 Results Follow-Up [facility] [address] [address] Azar Andino MD 03/20/2025 Telephone [facility] [address] [address] Lisa Chance MA 03/19/2025 1:25 PM EDT Lab [facility] DI[facility] AT [address] [place] [address] Preoperative testing 03/19/2025 Travel 03/18/2025 Telephone [facility] [address] [place] [address] Lisa Chance MA 03/16/2025 3:47 PM EDT - 03/16/2025 11:59 PM EDT Hospital Encounter [facility] XRAY [place] [address] [facility] [address] [place] [address] Lumbar postlaminectomy syndrome; Impaired functional mobility, balance, gait, and endurance Discharge Disposition: Home or Self Care 03/16/2025 3:30 PM EDT - 03/16/2025 11:59 PM EDT Hospital Encounter [facility] MRI [place] [address] [facility] [address] [place] [address] Lumbar stenosis with neurogenic claudication; Preoperative testing Discharge Disposition: Home or Self Care 03/16/2025 Travel 02/28/2025 1:00 PM EDT Office Visit [facility]IN [facility]EMENT [address] [place] [address] Azar Andino MD Lumbar postlaminectomy syndrome; Lumbar stenosis with neurogenic claudication; Ligamentum flavum hypertrophy; Degeneration of intervertebral disc of lumbosacral region with discogenic back pain; Piriformis syndrome of right side; Myofascial pain; Stage 4 chronic kidney disease; Renal insufficiency; BMI 38.0-38.9,adult; Moderate obesity; Physical deconditioning; Gait disturbance; Impaired functional mobility, balance, gait, and endurance; Preoperative testing 02/28/2025 Travel 02/05/2025 2:53 PM EDT - 02/05/2025 11:59 PM EDT Hospital Encounter [facility] NUTRIT SV [address] [place] [address] Discharge Disposition: Home or Self Care 02/05/2025 Travel 02/04/2025 Telephone [facility] [address] [facility] [address] [place] [address] Azar Andino MD Med Management 01/31/2025 Telephone [facility]IN [facility] [address] [facility] [address] [place] [address] Azar Andino MD 01/30/2025 12:15 PM EDT Outside Facility Service [facility] [address] [facility] [address] [place] [address] Azar Andino MD 01/24/2025 1:18 PM EDT - 01/24/2025 11:59 PM EDT Hospital Encounter [facility] MRI [place] [address] [facility] [address] [place] [address] Azar Andino MD Discharge Disposition: Home or Self Care 01/24/2025 11:00 AM EDT Office Visit [facility]IN [facility]NAGEMENT [address] [facility] [address] [place] [address] Azar Andino MD Lumbar postlaminectomy syndrome; Lumbar stenosis with neurogenic claudication; Spondylosis of lumbar region without myelopathy or radiculopathy; Degeneration of intervertebral disc of lumbosacral region with discogenic back pain; Ligamentum flavum hypertrophy; Myofascial pain; Stage 4 chronic kidney disease; Moderate obesity; BMI 38.0-38.9,adult; Physical deconditioning; Gait disturbance; Impaired functional mobility, balance, gait, and endurance; Preoperative testing 01/24/2025 Travel from Last 3 Months Immunizations Immunization Administration Dates Next Due Fluzone High-Dose 65+YRS 07/25/2024 Hep A, 2 Dose 03/12/2019,09/04/2018 Hep B, Unspecified 11/08/1995 Pneumococcal Polysaccharide (PPSV23) 07/28/2018 Family History Medical History Relation Name Comments Alcohol abuse Brother 1 Matias Galvan Diabetes Brother 1 Matias Galvan Hyperlipidemia Brother 1 Matias Galvan Liver disease Brother 1 Matias Galvan Hyperlipidemia Brother 2 Anthony Alcohol abuse Father Dionte Galvan Diabetes Father Dionte Galvan Hyperlipidemia Father Dionte Galvan Stroke Father Dionte Galvan Diabetes Mother Poppy Galvan Heart attack Mother Poppy Galvan Hyperlipidemia Mother Poppy Galvan Diabetes Sister 1 Jinajackelin Rivera Hyperlipidemia Sister 2 Jacquie Hyperlipidemia Sister 3 Harrison Relation Name Status Comments Brother 1 Matias Galvan Brother 2 Anthony Father Dionte Galvan Mother Poppy Galvan Sister 1 Jinajackelin Rivera Sister 2 Jacquie Sister 3 Harrison Social History Tobacco Use Types Packs/Day Years [...] or training? Not on file Preferred Language Maltese 04/16/2025 PHQ-2 Answer Date Recorded Patient Health Questionnaire-2 Score 1 02/28/2025 Comments No Sex and Gender Information Value Date Recorded Sex Assigned at Not on file Legal Sex Female 10:05 AM EDT Gender Identity Not on file Sexual Orientation Not on file Last Filed Vital Signs Vital Sign Reading Time Taken Comments Blood Pressure 128/72 10/22/2024 9:28 AM EST Pulse 106 10/22/2024 9:28 AM EST Temperature 35.3 C (95.5 F) 03/15/2023 9:59 AM EDT Respiratory Rate 18 07/28/2018 7:27 AM EDT Oxygen Saturation 96% 10/22/2024 9:28 AM EST Inhaled Oxygen Concentration - - Weight 97.2 kg (214 lb 4.6 oz) 04/16/2025 4:17 P M EDT Height 157.5 cm (5' 2 ) 04/16/2025 4:17 PM EDT Body Mass Index 39.19 04/16/2025 4:17 PM EDT Plan of Treatment Upcoming Encounters Date Type Department Care Team (Late st Contact Info) Description 04/22/2025 10:30 AM EDT Office Visit [facility] CARDIOLOGY [address] [address] [place] [address] Messi Looney MD [address] [facility] [address] [place] [address] 04/22/2025 2:19 PM EDT Hospital Encounter [facility] OR [address] [place] [address] Azar Andino MD [address] [address] 04/22/2025 2:19 PM EDT - 04/22/2025 4:25 PM EDT Surgery [facility] OR [address] [place] [address] Azar Andino MD [address] [phone] SPINAL CORD STIMULATOR INSERTION PHASE 2 [02065 (CPT ) +2 more] 04/25/2025 7:30 AM EDT Office Visit [facility] PAIN [facility]NAGEMENT [address] [place] [phone] Shakira Joshua, GETTER WELDER [address] [address] 05/07/2025 10:30 AM EDT Office Visit [facility] PAIN [facility]NAGEMENT [address] [phone] Shakira Joshua, GETTER WELDER [address] [address] Scheduled Procedures Name Priority Associated Diagnoses Date/Ti me SPINAL CORD STIMULATOR INSERTION PHASE 2 Lumbar postlaminectomy syndrome 04/22/2025 2:19 PM EDT Health Maintenance Due Date Last Done Comments DIABETIC EYE EXAM 02/07/1964 DIABETIC FOOT EXAM 02/07/1964 TDAP/TD VACCINES (1 - Tdap) 1973 MAMMOGRAM 1994 COLOGUARD 1999 COLON CANCER SCREENING 5 YEA R SIGMOIDOSCOPY 1999 CT COLONOGRAPHY 1999 FECAL OCCULT BLOOD TEST 1999 FIT Testing (1 year) 1999 ANNUAL WELLNESS VISIT 05/30/2018 HEPATITIS C SCREENING 05/30/2018 Pneumococcal Vaccine 50+ (2 of 2 - PCV) 07/28/2019 07/28/2018 DXA SCAN 06/06/2021 06/06/2019 COLONOSCOPY 10/26/2021 10/26/2011, 10/26/2011 COLORECTAL CANCER SCREENING 10/26/2021 COVID-19 Vaccine (5 - 2023-2 5 season) 2025 07/30/2024, 07/23/2021, 12/25/2020, Additional history exists LIPID PANEL 04/09/2025 04/09/2024, 06/06/2023 INFLUENZA VACCINE 06/26/2025 07/25/2024 HEMOGLOBIN A1C 09/18/2025 03/19/2025, 06/27, 06/23/2018 URINE MICROALBUMIN-CREATININ E RATIO (uACR) 11/12/2025 11/12/2024 ZOSTER VACCINE Completed 03/12/2025, 12/04/2024 Medical Devices Implanted Type Area Director Of Compensation Device Identifier Shelf Expiration Date Model / Serial / Lot Scrw Kourtney Cdh Legacy Fortune 6.5x50mm - [id number] Implanted:Qty: 1 on 06/28/2018 by Fidel Christensen MD at [facility] Implant N/A: Spine Lumbar [employer] 10/28/2021 [id number] / / [id number] Spacr Capstone Ptc [id number] - [id number] Implanted:Qty: 1 on 06/28/2018 by Fidel Christensen MD at [facility] Implant N/A: Spine Lumbar [employer] 03/21/2026 [id number] / / [id number] Scrw Peek Ext Or Extrnl Hex - [id number] Implanted:Qty: 6 on 06/28/2018 by Fidel Christensen MD at [facility] Implant N/A: Spine Lumbar [employer] [id number] / / Michelet Peek 6.69o74ef - [id number] Implanted:Qty: 1 on 06/28/2018 by Fidel Christensen MD at [facility] Implant N/A: Spine Lumbar [employer] 12/02/2022 [id number] / / [id number] Michelet Peek 6.11n32sz - [id number] Implanted:Qty: 1 on 06/28/2018 by Fidel Christensen MD at [facility] Implant N/A: Spine Lumbar [employer] 12/02/2022 [id number] / / [id number] Scrw Kourtney Cdh Legacy Mas Fortune 6.5x45mm - [id number] Implanted:Qty: 1 on 06/28/2018 by Fidel Christensen MD at [facility] Implant N/A: Spine Lumbar [employer] 02/23/2022 [id number] / / [id number] Scrw Kourtney Cdh [employer] 6.5x50mm - [id number] Implanted:Qty: 1 on 06/28/2018 by Fidel Christensen MD at [facility] Implant N/A: Spine Lumbar [employer] 10/28/2021 [id number] / / [id number] Scrw Kourtney Cdh Legacy Mas Fortune 6.5x45mm - [id number] Implanted:Qty: 1 on 06/28/2018 by Fidel Christensen MD at [facility] Implant N/A: Spine Lumbar [employer] 02/23/2022 [id number] / / [id number] Scrw Kourtney Cdh [employer] 6.5x50mm - [id number] Implanted:Qty: 1 on 06/28/2018 by Fidel Christensen MD at [facility] Implant N/A: Spine Lumbar [employer] 10/28/2021 [id number] / / [id number] Scrw Kourtney Cdh [employer] Fortune 6.5x50mm - [id number] Implanted:Qty: 1 on 06/28/2018 by Fidel Christensen MD at [facility] Implant N/A: Spine Lumbar [employer] 10/28/2021 [id number] / / [id number] Spacr Capstone Ptc 26t80tf - [id number] Implanted:Qty: 1 on 06/28/2018 by Fidel Christensen MD at [facility] Implant N/A: Spine Lumbar [employer] 05/24/2026 [id number] / / [id number] Spacr Capstone Ptc [id number] - [id number] Implanted:Qty: 1 on 06/28/2018 by Fidel Christensen MD at [facility] Implant N/A: Spine Lumbar [employer] 05/24/2026 [id number] / / [id number] Spacr Capstone Ptc 58w17fi - [id number] Implanted:Qty: 1 on 06/28/2018 by Fidel Christensen MD at [facility] Implant N/A: Spine Lumbar [employer] 03/21/2026 [id number] / / [id number] Procedures Procedure Name Priority Date/Time Associated Diagnosis [...] When compared with ECG of 01-Jul-2018 02:10, MI interval has increased Referred By: Confirmed By: CBC AND DIFFERENTIAL Routine 04/16/2025 3:42 PM EDT Lumbar postlaminectomy syndrome URINALYSIS, MICROSCOPIC ONLY Routine 04/16/2025 3:42 PM [...] 04/16/2025 3:42 PM EDT Lumbar postlaminectomy syndrome HEMOGLOBIN A1C Routine 03/19/2025 1:24 PM EDT Preoperative testing COMPREHENSIVE METABOLIC PANEL Routine 03/19/2025 1:24 PM EDT Preoperative testing CBC (NO DIFF) Routine 03/19/2025 1:24 PM EDT Preoperative testing PROTIME-INR Routine 03/19/2025 1:24 PM EDT Preoperative testing APTT Routine 03/19/2025 1:24 PM EDT Preoperative testing XR PELVIS 3+ VW STAT 03/16/2025 4:57 PM EDT Lumbar postlaminectomy syndrome Impaired functional mobility, balance, gait, and endurance XR SPINE LUMBAR COMPLETE W FLEX EXT STAT 03/16/2025 4:57 PM EDT Lumbar postlaminectomy syndrome Impaired functional mobility, balance, gait, and endurance MRI THORACIC SPINE WO CONTRAST Routine 03/16/2025 4:34 PM EDT Lumbar stenosis with neurogenic claudication Preoperative testing MRI LUMBAR SPINE WO CONTRAST STAT 01/24/2025 1:50 PM EDT Lumbar postlaminectomy syndrome Impaired functional mobility, balance, gait, and endurance LIPID PANEL Routine 04/09/2024 11:18 AM EDT Hyperlipidemia, unspecified hyperlipidemia type DEXA BONE DENSITY AXIAL Routine 06/06/2019 2:35 PM EDT Disorder of bone density and structure, unspecified S/P lumbar spinal fusion Chronic bilateral low back pain without sciatica Degenerative disc disease, lumbar from Last 3 Months or Most Recently Relevant to Health Maintenance Results * (ABNORMAL) Urinalysis, Microscopic Only - Urine, Clean Catch (04/16/2025 3:42 PM EDT) RBC, UA 0-2 None Seen, 0-2 /HPF 04/16/2025 4:26 PM EDT [facility] WBC, UA 3-5(A) None Seen, 0-2 /HPF 04/16/2025 4:26 PM EDT [facility] Bacteria, UA 3+(A) None Seen /HPF 04/16/2025 4:26 PM EDT [facility] Squamous Epithelial Cells, UA 7-12(A) None Seen, 0-2 /HPF 04/16/2025 4:26 PM EDT [facility] Hyaline Casts, UA 0-2 None Seen /LPF 04/16/2025 4:26 PM EDT [facility] Methodology Automated Microscopy 04/16/2025 4:26 PM EDT [facility] Urine Urine specimen obtained by clean catch procedure / Unknown Collection / Unknown 04/16/2025 3:42 PM EDT 04/16/2025 4:15 PM EDT us Shakira Joshua GETTER WELDER URINE ORDERABLES Final Resul t [facility]
[address] [place] [address], * (ABNORMAL) Urinalysis With Culture If Indicated - Urine, Clean Catch (04/16/2025 3:42 PM EDT) Color, UA Yellow Yellow, Straw 04/16/2025 4:21 PM EDT [facility] Appearance, UA Cloudy(A) Clear 04/16/2025 4:21 PM EDT [facility] pH, UA 5.5 5.0 - 8.0 04/16/2025 4:21 PM EDT [facility] Specific [place], UA 1.017 1.005 - 1.030 04/16/2025 4:21 PM EDT [facility] Glucose, UA Negative Negative 04/16/2025 4:21 PM EDT [facility] Ketones, UA Negative Negative 04/16/2025 4:21 PM EDT [facility] Bilirubin, UA Negative Negative 04/16/2025 4:21 PM EDT [facility] Blood, UA Negative Negative 04/16/2025 4:21 PM EDT [facility] Protein, UA Negative Negative 04/16/2025 4:21 PM EDT [facility] Leuk Esterase, UA Small (1+)(A) Negative 04/16/2025 4:21 PM EDT [facility] Nitrite, UA Negative Negative 04/16/2025 4:21 PM EDT [facility] Urobilinogen, UA 1.0 E.U./dL 0.2 - 1.0 E.U./dL 04/16/2025 4:21 PM EDT [facility] Urine Urine specimen obtained by clean catch procedure / Unknown Collection / Unknown 04/16/2025 3:42 PM EDT 04/16/2025 4:15 PM EDT [facility] - 04/16/2025 4:21 PM EDT In absence of clinical symptoms, the presence of pyuria, bacteria, and/or nitrites on the urinalysis result does not correlate with infection. Shakira Joshua GETTER WELDER URINE ORDERABLES Final Resul t [facility]
[address] [place] [address], * (ABNORMAL) CBC Auto Differential (04/16/2025 3:42 PM EDT) [facility] WBC 7.56 3.40 - 10.80 10*3/mm3 04/16/2025 4:33 PM EDT [facility] RBC 4.64 3.77 - 5.28 10*6/mm3 04/16/2025 4:33 PM EDT [facility] Hemoglobin 12.1 12.0 - 15.9 g/dL 04/16/2025 4:33 PM EDT [facility] Hematocrit 39.5 34.0 - 46.6 % 04/16/2025 4:33 PM EDT [facility] MCV 85.1 79.0 - 97.0 fL 04/16/2025 4:33 PM EDT [facility] MCH 26.1(L) 26.6 - 33.0 pg 04/16/2025 4:33 PM EDT [facility] MCHC 30.6(L) 31.5 - 35.7 g/dL 04/16/2025 4:33 PM EDT [facility] RDW 16.0(H) 12.3 - 15.4 % 04/16/2025 4:33 PM EDT [facility] RDW-SD 50.2 37.0 - 54.0 fl 04/16/2025 4:33 PM EDT [facility] MPV 11.1 6.0 - 12.0 fL 04/16/2025 4:33 PM EDT [facility] Platelets 238 140 - 450 10*3/mm3 04/16/2025 4:33 PM EDT [facility] Neutrophil % 73.1 42.7 - 76.0 % 04/16/2025 4:33 PM EDT [facility] Lymphocyte % 13.1(L) 19.6 - 45.3 % 04/16/2025 4:33 PM EDT [facility] Monocyte % 9.7 5.0 - 12.0 % 04/16/2025 4:33 PM EDT [facility] Eosinophil % 3.4 0.3 - 6.2 % 04/16/2025 4:33 PM EDT [facility] Basophil % 0.4 0.0 - 1.5 % 04/16/2025 4:33 PM EDT [facility] Immature Grans % 0.3 0.0 - 0.5 % 04/16/2025 4:33 PM EDT [facility] Neutrophils, Absolute 5.53 1.70 - 7.00 10*3/mm3 04/16/2025 4:33 PM EDT [facility] Lymphocytes, Absolute 0.99 0.70 - 3.10 10*3/mm3 04/16/2025 4:33 PM EDT [facility] Monocytes, Absolute 0.73 0.10 - 0.90 10*3/mm3 04/16/2025 4:33 PM EDT [facility] Eosinophils, Absolute 0.26 0.00 - 0.40 10*3/mm3 04/16/2025 4:33 PM EDT [facility] Basophils, Absolute 0.03 0.00 - 0.20 10*3/mm3 04/16/2025 4:33 PM EDT [facility] Immature Grans, Absolute 0.02 0.00 - 0.05 10*3/mm3 04/16/2025 4:33 PM EDT [facility] nRBC 0.0 0.0 - 0.2 /100 WBC 04/16/2025 4:33 PM EDT [facility] Blood Venipuncture / Unknown 04/16/2025 3:42 PM EDT 04/16/2025 4:23 PM EDT us Shakira Joshua APRN LAB BLOOD ORDERABLES Final R esult [facility]
[address] [place] [address], * aPTT (04/16/2025 3:42 PM EDT) Only the most recent of2 resultswithin the time period is included. PTT 33.7 22.0 - 39.0 seconds 04/16/2025 4:46 PM EDT [facility] Blood Venipuncture / Unknown 04/16/2025 3:42 PM EDT 04/16/2025 4:22 PM EDT Narrative [facility] - 04/16/2025 4:46 PM EDT PTT = The equivalent PTT values for the therapeutic range of heparin levels at 0.3 to 0.5 U/ml are 60 to 70 seconds. us Shakira Joshua APRN LAB BLOOD ORDERABLES Final R esult Performing Organization Address City/[facility]/ZIP Co de Phone Number [facility]
[address] [place] [address], [place] [phone] * Protime-INR (04/16/2025 3:42 PM EDT) Only the most recent of2 resultswithin the time period is included. Protime 13.8 12.2 - 15.3 Seconds 04/16/2025 4:46 PM EDT [facility] INR 1.00 0.89 - 1.12 04/16/2025 4:46 PM EDT [facility] Blood Venipuncture / Unknown 04/16/2025 3:42 PM EDT 04/16/2025 4:22 PM EDT Shakira Joshua APRN LAB BLOOD ORDERABLES Final R esult [facility]
[address] [place] [address], [place] [phone] * (ABNORMAL) Comprehensive Metabolic Panel (04/16/2025 3:42 PM EDT) Only the most recent of2 resultswithin the time period is included. Glucose 96 65 - 99 mg/dL 04/16/2025 4:54 PM [facility] BUN 23.4(H) 8.0 - 23.0 mg/dL 04/16/2025 4:54 PM [facility] Creatinine 2.00(H) 0.57 - 1.00 mg/dL 04/16/2025 4:54 PM [facility] Sodium 144 136 - 145 mmol/L 04/16/2025 4:54 PM T [facility] Potassium 5.0 3.5 - 5.2 mmol/L 04/16/2025 4:54 PM [facility] Chloride 111(H) 98 - 107 mmol/L 04/16/2025 4:54 PM [facility] CO2 23.4 22.0 - 29.0 mmol/L 04/16/2025 4:54 PM [facility] Calcium 9.5 8.6 - 10.5 mg/dL 04/16/2025 4:54 PM [facility] Total Protein 5.7(L) 6.0 - 8.5 g/dL 04/16/2025 4:54 PM [facility] Albumin 4.0 3.5 - 5.2 g/dL 04/16/2025 4:54 PM [facility] ALT (SGPT) 13 1 - 33 U/L 04/16/2025 4:54 PM [facility] AST (SGOT) 18 1 - 32 U/L 04/16/2025 4:54 PM [facility] Alkaline Phosphatase 120(H) 39 - 117 U/L 04/16/2025 4:54 PM [facility] Total Bilirubin 0.5 0.0 - 1.2 mg/dL 04/16/2025 4:54 PM [facility] Globulin 1.7 gm/dL 04/16/2025 4:54 PM [facility] Comment:Calculated Result A/G Ratio 2.4 g/dL 04/16/2025 4:54 PM [facility] BUN/Creatinine Ratio 11.7 7.0 - 25.0 04/16/2025 4:54 PM EDT [facility] Anion Gap 9.6 5.0 - 15.0 mmol/L 04/16/2025 4:54 PM EDT [facility] eGFR 26.3(L) >60.0 mL/min/1.7 3 04/16/2025 4:54 PM EDT [facility] Blood Venipuncture / Unknown 04/16/2025 3:42 PM EDT 04/16/2025 4:23 PM EDT [facility] - 04/16/2025 4:54 PM [...] APRN LAB BLOOD ORDERABLES Final R esult [facility]
[address] [place] [address], * (ABNORMAL) CBC (No Diff) (03/19/2025 1:24 PM EDT) WBC 7.85 3.40 - 10.80 10*3/mm3 03/19/2025 11:22 PM EDT [facility] RBC 4.88 3.77 - 5.28 10*6/mm3 03/19/2025 11:22 PM EDT [facility] Hemoglobin 13.0 12.0 - 15.9 g/dL 03/19/2025 11:22 PM EDT [facility] Hematocrit 42.1 34.0 - 46.6 % 03/19/2025 11:22 PM EDT [facility] MCV 86.3 79.0 - 97.0 fL 03/19/2025 11:22 PM EDT [facility] MCH 26.6 26.6 - 33.0 pg 03/19/2025 11:22 PM EDT [facility] MCHC 30.9(L) 31.5 - 35.7 g/dL 03/19/2025 11:22 PM EDT [facility] RDW 15.5(H) 12.3 - 15.4 % 03/19/2025 11:22 PM EDT [facility] RDW-SD 48.4 37.0 - 54.0 fl 03/19/2025 11:22 PM EDT [facility] MPV 11.6 6.0 - 12.0 fL 03/19/2025 11:22 PM EDT [facility] Platelets 192 140 - 450 10*3/mm3 03/19/2025 11:22 PM EDT [facility] Blood Venipuncture / Unknown 03/19/2025 1:24 PM EDT 03/19/2025 1:24 PM EDT Azar Andino MD LAB BLOOD ORDERABLES Final Re sult [facility]
[address] [place] [address], * (ABNORMAL) Hemoglobin A1c (03/19/2025 1:24 PM EDT) Hemoglobin A1C 6.00(H) 4.80 - 5.60 % 03/20/2025 12:02 AM EDT [facility] Blood Venipuncture / Unknown 03/19/2025 1:24 PM EDT 03/19/2025 1:24 PM EDT Narrative [facility] - 03/20/2025 12:02 AM EDT Hemoglobin A1C Ranges: Increased Risk for Diabetes 5.7% to 6.4% Diabetes >= 6.5% Diabetic Goal < 7.0% us Azar Andino MD LAB BLOOD ORDERABLES Final Re sult [facility]
[address] [place] [address], [place] [phone] * XR Pelvis 3+ View (03/16/2025 4:57 PM EDT) Anatomical Region Laterality Modality Body, Pelvis N/A Radiographic Inna ging 03/16/2025 5:03 PM EDT Impressions 03/16/2025 5:05 PM EDT Impression: 1.No evidence of acute fracture. 2.Moderate bilateral hip arthritis. Electronically Signed: Robert Walden MD 03/16/2025 5:05 PM EDT Workstation ID: [id number] Narrative 03/16/2025 5:05 PM EDT XR PELVIS [...] MD 03/16/2025 5:05 PM EDT Workstation ID: [id number] us Azar Andino MD IMG DIAGNOSTIC IMAGING [...] MD 03/16/2025 5:06 PM EDT Workstation ID: [id number] Narrative 03/16/2025 5:06 PM EDT XR SPINE [...] MD 03/16/2025 5:06 PM EDT Workstation ID: [id number] Azar Andino MD IMG DIAGNOSTIC IMAGING ORDERA BLES Final Result * MRI Thoracic Spine Without Contrast (03/16/2025 [...] MD 03/23/2025 7:26 AM EDT Workstation ID: [id number] Narrative 03/23/2025 7:26 AM EDT MRI THORACIC [...] MD 03/23/2025 7:26 AM EDT Workstation ID: [id number] Azar Andino MD IMG MRI ORDERABLES Final Resu lt * MRI Lumbar Spine Without Contrast (01/24/2025 1:50 PM EDT) Anatomical Region Laterality Modality Spine, L-spine N/A Magnetic Resonan ce 01/24/2025 1:53 PM EDT Impressions 01/24/2025 3:20 PM EDT Impression: 1.Postsurgical changes of posterior fusion and decompression from L4-S1. 2.Degenerative change most pronounced at L3-4 with severe canal stenosis. 3.At least moderate right greater than left neural foraminal stenosis at L5-S1 difficult to evaluate due to susceptibility artifact. Electronically Signed: Adria Kelly MD 01/24/2025 3:20 PM EDT Workstation ID: [id number] Narrative 01/24/2025 3:20 PM EDT MRI LUMBAR SPINE WO CONTRAST Date of Exam: 01/24/2025 1:25 PM EDT Indication: Hx PLIF. Sudden onset of LBP/RLE pain. Comparison: 02/22/2023 lumbar spine radiographs, 12/22/2022 MR lumbar spine Technique: Routine multiplanar/multisequence sequence images of the lumbar spine were obtained without contrast administration. Findings: The last well formed disc space is labeled as L5-S1. Distal cord and conus: Normal morphology and signal. The conus medullaris terminates at L2. Cauda equina and nerve roots: Slightly redundant appearance of the nerve roots secondary to canal stenosis. Alignment: The vertebral bodies appear in normal alignment. Bones: The vertebral body heights are preserved. Type II Modic changes at L3-4, L4-5 and L5-S1. No suspicious osseous lesions are demonstrated. Description of degenerative changes at specific levels is as follows: T12-L1: Facet arthropathy. No spinal canal or neural foraminal stenosis. L1-2: Mild facet arthropathy. No spinal canal or neural foraminal stenosis. L2-3: Facet arthropathy. No spinal canal or neural foraminal stenosis. L3-4: Posterior disc bulge, facet arthropathy and ligamentum flavum hypertrophy. Severe canal stenosis. Mild right greater than left neural foraminal stenosis. L4-5: Postsurgical changes of posterior fusion and decompression. No canal stenosis. Mild bilateral foraminal stenosis. L5-S1: Postsurgical changes of posterior fusion and decompression. No canal stenosis. At least moderate right greater than left neural foraminal stenosis difficult to evaluate due to susceptibility. Extra-vertebral soft tissues: Paraspinal muscle atrophy. Visualized abdomen/pelvis: Status post left nephrectomy. Right renal cystic lesions. Procedure Note Adria Kelly MD - 01/24/2025 MRI LUMBAR SPINE WO CONTRAST Date of Exam: 01/24/2025 1:25 PM EDT Indication: Hx PLIF. Sudden onset of LBP/RLE pain. Comparison: 02/22/2023 lumbar spine radiographs, 12/22/2022 MR lumbarspine Technique: Routine multiplanar/multisequence sequence images of thelumbar spine were obtained without contrast administration. Findings: The last well formed disc space is labeled as L5-S1. Distal cord and conus: Normal morphology and signal. The conus medullaristerminates at L2. Cauda equina and nerve roots: Slightly redundant appearance of the nerveroots secondary to canal stenosis. Alignment: The vertebral bodies appear in normal alignment. Bones: The vertebral body heights are preserved. Type II Modic changes atL3-4, L4-5 and L5-S1. No suspicious osseous lesions are demonstrated. Description of degenerative changes at specific levels is as follows: T12-L1: Facet arthropathy. No spinal canal or neural foraminal stenosis. L1-2: Mild facet arthropathy. No spinal canal or neural foraminalstenosis. L2-3: Facet arthropathy. No spinal canal or neural foraminal stenosis. L3-4: Posterior disc bulge, facet arthropathy and ligamentum flavumhypertrophy. Severe canal stenosis. Mild right greater than left neuralforaminal stenosis. L4-5: Postsurgical changes of posterior fusion and decompression. No canalstenosis. Mild bilateral foraminal stenosis. L5-S1: Postsurgical changes of posterior fusion and decompression. Nocanal stenosis. At least moderate right greater than left neural foraminalstenosis difficult to evaluate due to susceptibility. Extra-vertebral soft tissues: Paraspinal muscle atrophy. Visualized abdomen/pelvis: Status post left nephrectomy. Right renalcystic lesions. IMPRESSION: Impression: 1.Postsurgical changes of posterior fusion and decompression from L4-S1. 2.Degenerative change most pronounced at L3-4 with severe canalstenosis. 3.At least moderate right greater than left neural foraminal stenosis atL5-S1 difficult to evaluate due to susceptibility artifact. Electronically Signed: Adria Kelly MD 01/24/2025 3:20 PM EDT Workstation ID: [id number] us Azar Andino MD IMG MRI ORDERABLES Final Resu lt * Lipid Panel (04/09/2024 11:18 AM EDT) Total Cholesterol 124 0 - 200 mg/dL 04/09/2024 11:28 PM EDT [facility] Triglycerides 146 0 - 150 mg/dL 04/09/2024 11:28 PM EDT [facility] HDL Cholesterol 41 40 - 60 mg/dL 04/09/2024 11:28 PM EDT [facility] LDL Cholesterol 58 0 - 100 mg/dL 04/09/2024 11:28 PM EDT [facility] VLDL Cholesterol 25 5 - 40 mg/dL 04/09/2024 11:28 PM EDT [facility] LDL/HDL Ratio 1.31 04/09/2024 11:28 PM EDT [facility] Blood Venipuncture / Unknown 04/09/2024 11:18 AM EDT 04/09/2024 11:19 AM EDT Narrative [facility] - 04/09/2024 11:28 PM EDT Cholesterol Reference Ranges (U.S. Department of Health and Human Services ATP III Classifications) Desirable <200 mg/dL Borderline High 200-239 mg/dL High Risk >240 mg/dL Triglyceride Reference Ranges (U.S. Department of Health and Human Services ATP III Classifications) Normal <150 mg/dL Borderline High 150-199 mg/dL High 200-499 mg/dL Very High >500 mg/dL HDL Reference Ranges (U.S. Department of Health and Human Services ATP III Classifications) Low <40 mg/dl (major risk factor for CHD) High >60 mg/dl ('negative' risk factor for CHD) LDL Reference Ranges (U.S. Department of Health and Human Services ATP III Classifications) Optimal <100 mg/dL Near Optimal 100-129 mg/dL Borderline High 130-159 mg/dL High 160-189 mg/dL Very High >189 mg/dL Messi Looney MD LAB BLOOD ORDERABLES nal Result [facility]
[address] [place] [address], * DEXA Bone Density Axial (06/06/2019 2:35 PM EDT) Anatomical Region Laterality Modality Wrist, Hip, L-spine N/A Other 06/06/2019 3:01 PM EDT Impressions 06/07/2019 3:25 PM EDT Bone mineral density results are within normal limits. The ten year fracture risk assessment was not calculated because all T-scores were at or above -1.0. All the treatment decisions require clinical judgment and consideration of individual patient factors, including patient preferences, co-morbidities, previous drug use, risk factors not captured in the FRAX model (frailty, falls, vitamin D deficiency, increased bone turnover, interval significant decline in bone density) and possible under or over estimation of fracture risk by FRAX. Approaches to reduce osteoporosis related fracture risk include optimizing calcium and vitamin D status, appropriate weight bearing exercises and fall-prevention measurements. The National Osteoporosis Foundation recommends (http://www.nof.org/hcp/practice/mulqwqxu-zwa-lnqzdmmo-guidelines/clinic ans-guide) that FDA-approved medical therapies be considered in postmenopausal women and men aged equal or greater than 50 years with : a) hip or vertebral (clinical or morphometric) fracture; b) T-score of -2.5 or less at the spine or hip; c) Ten-year fracture probability by FRAX of greater than 3% for hip fracture of greater than 20% for major osteoporotic fracture. Secondary causes of bone loss should be evaluated if clinically indicated since the etiology of low BMD cannot be determined by BMD measurement alone. FOLLOWUP: Consider repeating the study in 2-3 years to reassess the patient's status or sooner if there is some new clinical indication. INTERVAL CHANGE: There were no previous studies for comparison. At this facility, the least significant change in the BMD at the left hip with 95% confidence is 0.131935 gm/cm2 at the hip and 0.157700 g/cm2 at the lumbar spine. This report was finalized on 06/07/2019 3:[address] Jose Antonio Roach MD. Narrative 06/07/2019 3:25 PM EDT DUAL-ENERGY X-RAY ABSORPTIOMETRY (DXA) INDICATION: Postmenopausal, screening for osteoporosis, history of glucocorticoids, asthma or emphysema, and stage renal disease, hysterectomy COMPARISON: There are no previous studies for comparison PROCEDURE: A DXA scan was performed using a Hologic densitometer. The lumbar spine L1 and L2 was evaluated as well as bilateral total hip. The T-score compares the patient's bone mineral density with the peak bone mass of young normal patients. According to criteria established by the World Health Organization, patients with T-scores between 1.0 and 2.5 standard deviations BELOW the mean are osteopenic (low bone mass). Patients with T-scores EQUAL TO OR GREATER than 2.5 standard deviations below the mean are osteoporotic. The Z-score compares the patient bone mineral density with age and sex matched peers. According to the International Society for Clinical Densitometry's 2007 consensus conference: In women prior to menopause and men less than age 50, Z-scores, not T-scores are preferred. A Z-score of -2.0 or lower is defined as below the expected range for age and a Z-score above -2.0 is within the expected range for age. The WHO diagnostic criteria may be applied in women in the menopausal transition. Osteoporosis cannot be diagnosed in men under age 50 on the basis of BMD alone. TECHNICAL QUALITY: The study is of good technical quality. RESULTS: Lumbar Spine: The BMD measured in the L1 and L2 region is 1.337 g/cm2. The average T-score is 3.3. The Z-score is 4.9. Total Hip: The BMD measured at the left total proximal femur is 0.983 g/cm2. The T-score is 0.3. The Z-score is 1.6. Femoral Neck: The BMD measured at the left femoral neck is 0.831 g/cm2. The T-score is -0.2. The Z-score is 1.4. Total Hip: The BMD measured at the right total proximal femur is 0.916 g/cm2. The T-score is -0.2. The Z-score is 1.0. Femoral neck: The BMD measured at the right femoral neck is 0.789 g/cm2. The T score is -0.5. The Z score is 1.0. Procedure Note Tori Segura PA - 06/07/2019 DUAL-ENERGY X-RAY ABSORPTIOMETRY (DXA) INDICATION: Postmenopausal, screening for osteoporosis, history of glucocorticoids, asthma or emphysema, and stage renal disease, hysterectomy COMPARISON: There are no previous studies for comparison PROCEDURE: A DXA scan was performed using a Hologic densitometer. The lumbar spine L1 and L2 was evaluated as well as bilateral total hip. The T-score compares the patient's bone mineral density with the peak bone mass of young normal patients. According to criteria established by the World Health Organization, patients with T-scores between 1.0 and 2.5 standard deviations BELOW the mean are osteopenic (low bone mass). Patients with T-scores EQUAL TO OR GREATER than 2.5 standard deviations below the mean are osteoporotic. The Z-score compares the patient bone mineral density with age and sex matched peers. According to the International Society for Clinical Densitometry's 2007 consensus conference: In women prior to menopause and men less than age 50, Z-scores, not T-scores are preferred. A Z-score of -2.0 or lower is defined as below the expected range for age and a Z-score above -2.0 is within the expected range for age. The WHO diagnostic criteria may be applied in women in the menopausal transition. Osteoporosis cannot be diagnosed in men under age 50 on the basis of BMD alone. TECHNICAL QUALITY: The study is of good technical quality. RESULTS: Lumbar Spine: The BMD measured in the L1 and L2 region is 1.337 g/cm2. The average T-score is 3.3. The Z-score is 4.9. Total Hip: The BMD measured at the left total proximal femur is 0.983 g/cm2. The T-score is 0.3. The Z-score is 1.6. Femoral Neck: The BMD measured at the left femoral neck is 0.831 g/cm2. The T-score is -0.2. The Z-score is 1.4. Total Hip: The BMD measured at the right total proximal femur is 0.916 g/cm2. The T-score is -0.2. The Z-score is 1.0. Femoral neck: The BMD measured at the right femoral neck is 0.789 g/cm2. The T score is -0.5. The Z score is 1.0. IMPRESSION: Bone mineral density results are within normal limits. The ten year fracture risk assessment was not calculated because all T-scores were at or above -1.0. All the treatment decisions require clinical judgment and consideration of individual patient factors, including patient preferences, co-morbidities, previous drug use, risk factors not captured in the FRAX model (frailty, falls, vitamin D deficiency, increased bone turnover, interval significant decline in bone density) and possible under or over estimation of fracture risk by FRAX. Approaches to reduce osteoporosis related fracture risk include optimizing calcium and vitamin D status, appropriate weight bearing exercises and fall-prevention measurements. The National Osteoporosis Foundation recommends (http://www.nof.org/hcp/practice/zasxjtuv-noy-ntxipazw-guidelines/clinic ans-guide) that FDA-approved medical therapies be considered in postmenopausal women and men aged equal or greater than 50 years with : a) hip or vertebral (clinical or morphometric) fracture; b) T-score of -2.5 or less at the spine or hip; c) Ten-year fracture probability by FRAX of greater than 3% for hip fracture of greater than 20% for major osteoporotic fracture. Secondary causes of bone loss should be evaluated if clinically indicated since the etiology of low BMD cannot be determined by BMD measurement alone. FOLLOWUP: Consider repeating the study in 2-3 years to reassess the patient's status or sooner if there is some new clinical indication. INTERVAL CHANGE: There were no previous studies for comparison. At this facility, the least significant change in the BMD at the left hip with 95% confidence is 0.611553 gm/cm2 at the hip and 0.571588 g/cm2 at the lumbar spine. This report was finalized on 06/07/2019 3:[address] Jose Antonio Roach MD. Fidel Christensen MD IM DXA ORDERABLES Final Res ult from Last 3 Months or Most Recently Relevant to Health [place] [address] [place] [address] MEDICARE A & B Member Subscriber Plan / Payer (Ef fective 2019-Present) Name:Eva Ward Member ID:[id number] Relation to Subscriber:Self Name:Eva Ward Subscriber ID:[id number] Payer ID:[id number] Group ID:Not on file Type:Not on file Address: [facility] [id number] [address] Advance Directives * CPR (Attempt to Resuscitate) (Latest Code Status on File) Date Activated Date Inactivated Comments 07/19/2018 7:13 PM 07/28/2018 5:22 PM Question Answer Comments Code Status (Patient has no pulse and is not breathing): CPR (Attempt to Resuscitate) Medical Interventions (Patie nt has pulse or is breathing): Full Level Of Support Discussed With: Patient * CPR (Attempt to Resuscitate) Date Activated Date Inactivated Comments 07/14/2018 7:53 PM 07/19/2018 7:12 PM Question Answer Comments Code Status (Patient has no pulse and is not breathing): CPR (Attempt to Resuscitate) Medical Interventions (Patie nt has pulse or is breathing): Full * CPR (Attempt to Resuscitate) Date Activated Date Inactivated Comments 06/28/2018 12:59 PM 07/05/2018 8:20 PM Question Answer Comments Code Status (Patient has no pulse and is not breathing): CPR (Attempt to Resuscitate) Medical Interventions (Patie nt has pulse or is breathing): Full Level Of Support Discussed With: Patient 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
--- NOTE | 2025-04-17 14:30 | MM_ITS ---
PROCEDURE INFORMATION: Exam: MG Bilateral Screening 3D Mammography Exam date and time: 04/17/2025 2:33 PM Age: 70 years old Clinical indication: Screening examination. TECHNIQUE: Imaging protocol: Bilateral Screening tomosynthesis and 2D mammography including computer-aided detection (CAD) when performed. COMPARISON: 1. MG [facility] DIG MAMM-SCREEN GLORIA 04/08/2015 9:53 AM 2. MG [facility] DIGITAL MAMM-SCREEN BILATERAL 05/26/2012 11:38 AM FINDINGS: MAMMOGRAPHY: Breast composition: The breasts are almost entirely fatty. Mass: None. Architectural distortion: None. Calcifications: No suspicious calcifications. Asymmetric density: None. Skin thickening: None. Axillary adenopathy: None. IMPRESSION: No mammographic evidence of malignancy. Annual screening is recommended unless otherwise clinically indicated. ASSESSMENT: BI-RADS Category 1: Negative.
== END 2025-04-17 23:59 | disposition home or self-care (01) ==
LOC: RAD 12:13
PROVIDERS: PCP Internal Medicine; Visit Provider Internal Medicine
DX: Z12.31 Encounter for screening mammogram for malignant neoplasm of breast (principal)
CPT/HCPCS: 77063; 77067

== ENCOUNTER 2025-05-20 09:30 | Outpatient (CLI) | payer MEDICARE, OTHER, SELFPAY ==
--- OUTSIDE RECORDS SUMMARY | 2025-04-03 08:15 | XMS_ITS | Encounter Summary ---
Author Organization [facility] Address [address] [place] [phone] Care Team Providers Care Correctional Program Officer Name Role Phone Jd Santacruz MD Primary Care Provider [phone] Reason for Visit * Surgical (Routine) - Closed Specialty Diagnoses / Procedures Referred By Contac t Referred To Contact Diagnoses Lumbar stenosis with neurogenic claudication Lumbar postlaminectomy syndrome Procedures External Facility Surgical/Procedural Request Azar Andino MD [address] [place] [address] Phone: tel: fax: [facility] AT [address] [address] Phone: tel: fax: Referral ID Status Reason Start Date Expiration Date V isits Requested Visits Authorized [id number] Closed Other 02/28/2025 05/30/2026 1 1 Encounter Details Date Type Department Care Team (Late st Contact Info) Description 04/03/2025 8:15 AM EDT Outside Facility Service [facility] PAIN MANAGEMENT [address] [place] [phone] Azar Andino MD [address] [place] [address] Social History Tobacco Use Types Packs/Day Years [...] Care Team (Late st Contact Info) Description 07/11/2025 11:00 AM EDT Office Visit [facility] PAIN MANAGEMENT [address] [facility] [address] [place] [phone] Shakira Joshua, SHELL TRIM OPERATOR [address] [facility] [address] [place] [address] 01/27/2026 9:45 AM EDT Office Visit [facility]IOLOGY [address] [facility] [address] [place] [phone] Messi Looney MD [address] [facility] [address] [place], [place] [id number] documented as of this encounter Visit Diagnoses Not on filedocumented in this encounter Care Teams Correctional Program Officer Relationship Specialty Start Date End Date Jd Santacurz MD [address] [facility] [address] [place] [address] PCP - General Internal Medicine 05/18/18 documented as of this encounter
--- OUTSIDE RECORDS SUMMARY | 2025-04-09 09:00 | XMS_ITS | Encounter Summary ---
Author Organization [facility] Address [address] [place] [id number] Care Team Providers Care Associate Doctor Name Role Phone Jd Santacruz MD Primary Care Provider [phone] Encounter Details Date Type Department Care Team (Late st Contact Info) Description 04/09/2025 9:00 AM EDT Office Visit [facility]EMENT [address] [phone] Shakira Joshua, CLARIFIER [address] [facility] [address] [place] [address] Lumbar postlaminectomy syndrome; Lumbar stenosis with neurogenic claudication; Ligamentum flavum hypertrophy; Spondylosis of lumbar region without myelopathy or radiculopathy; Myofascial pain; Physical deconditioning; Gait disturbance; Encounter for fitting and adjustment of spinal cord stimulator; Presence of neurostimulator Social History Tobacco Use Types Packs/Day Years Used Date Smoking Tobacco: Never Smokeless Tobacco: Never Tobacco Cessation:Counseling Given: Not Answered Alcohol Use Standard Drinks/Week Comments No 0 [...] - Inhaled Oxygen Concentration - - Weight 99.3 kg (219 lb) 04/09/2025 8:58 AM EDT Height 157.5 cm (5' 2.01 ) 04/09/2025 8:58 AM ED T Body Mass Index 40.05 04/09/2025 8:58 AM EDT documented in this encounter Progress Notes * Shakira Joshua, CLARIFIER - 04/09/2025 9:00 AM EDT Chief Complaint: I did very well during the stimulator trial Brief History: Mrs. Eva Ward is a 70 y.o. female, who returns to the clinic for possible spinal cord stimulator reprogramming and removal of spinal cord stimulator trial leads placed on 04/03/2025. Ms. Eva Ward reports 70% relief of her chronic lower back and lower extremity pain along with remarkable functional improvement with the use of her stimulator device. Patient reports significant relief of her previously severe neurogenic claudication. In addition, patient reports improvement of her nocturnal pain with the use of the SCS device. Eva Ward did not require SCS reprogramming during the trial. Patient was able to operate herstimulator device without difficulties. Patient did not take additional analgesics throughout her spinal cord stimulator trial. She has remained afebrile throughout the trial. Dressings are dry and intact. Patient denies any complications related to the procedure. Patient is very satisfied with the trial and would like to move forward with implantation of a spinal cord stimulator device. Pain level is rated as 2/10 with the stimulator turned on.?? Patient level ranges from 2/10 to 4/10 with the use of the spinal cord stimulator. Patient denies pain, numbness, and weakness in the lower extremities. Patient denies any new bladder or bowel problems. Pain History: Ms. Eva Ward, 70 y.o. female originally referred by Dr. Isaias Alvarado in consultation for longstanding for chronic progressive intractable lower back pain. Eva Ward underwent L4-S1 PLIFby Dr. Christensen on 06/28/2018. Her postoperative course was complicated by an abscess that required aoperation on 07/15/2018. She did well thereafter. By , she started experiencing lower backpain radiating into the gluteal area RT> LT [...] 2010, diabetes mellitus, hypercholesterolemia, gout, hypertension, migraines. She underwent bilateral lumbar medial branch rhi zotomies at L1, L2, L3; for bilateral lumbar facet joints at L2-L3, and L3-L4 on 03/28/2023, from which she experienced almost 100% pain relief and functional improvement that lasted for more than 18months. On 01/30/2025, she underwent diagnostic and therapeutic bilateral L3-L4 TESI with short term pain relief. MRI revealed severe lumbar stenosis. She is here to discuss the prospects of a spinalcord stimulator trial, as this has also been recommended by Dr. Alvarado. The patient has been found not to be a surgical candidate. In addition, she is not interested in the prospects of additional lumbar surgery given her medical comorbidities and past experiences with lumbar surgery. Eva Ward underwent recent follow up psychological evaluation with Dr Lisbet Hong on 02/20/2025: From a psychological perspective patient appears to be an appropriate candidate for a PNS, SCS or an Intrathecal Pain Pump at this time. Eva Ward failed to obtain pain relief with conservative measures for several years including oral analgesics, topical analgesics, ice, heat, physical therapy (4weeks/3 x per week, last visit within the past 6 weeks; no relief), physical therapist directed home exercise program HEP (ongoing), to name a few. Pain Description: Constant lower back pain with [...] Oral analgesics, topical analgesics, ice, heat, physical therapy, physical therapist directed home exercise program HEP (ongoing) Interventional Measures: 01/30/2025: Dx and Tx bilateral L3-L4 TESI with short term pain relief. 03/28/2023: Bilateral lumbar medial branch rhizotomies at L1, L2, L3; for bilateral lumbar facet joints at L2-L3, and L3-L4 Surgical Measures: 06/28/2018: L4-S1 PLIF by Dr. Christensen followed by evacuation of abscess an 07/15/2018. No history of previous hip surgery. Eva Ward underwent neurosurgical consultation with Dr. Isaias Alvarado on 02/22/2023, and was found not to be a surgical candidate. [facility] psychological evaluation with Dr Lisbet Hong on 02/20/2025: From a psychological perspective patient appears to be an appropriate candidate for a PNS, SCS or an Intrathecal Pain Pump at thistime. Eva Ward presents with significant comorbidities including chronic kidney disease, history of left nephrectomy in 2010, diabetes mellitus, hypercholesterolemia, gout, hypertension, migraines, aspirin 81 mg In terms of current analgesics, Eva Ward takes: [place], Lyrica, amitriptyline. Patient also takes allopurinol I have reviewed [place] Report consistent with medication reconciliation. SOAPP: Low Risk Global Pain Scale 03-15 Pain 10 3 17 Feelings 4 0 2 Clinical outcomes 5 10 16 Activities 12 0 18 GPS Total: 31 13 53 Review of New Diagnostic Studies: Lumbar spine x-rays with flexion-extension views 03/16/2025: Postoperative changes from prior fusionat L4-S1. Otherwise multilevel degenerative changes. No evidence of instability. X-ray of the pelvis 03/16/2025: Moderate bilateral hip arthrosis with bilateral SI joint arthritis. MRI of the thoracic spine without contrast 03/16/2025: Multilevel thoracic degenerative disc diseasewith facet arthritis. No high-grade central spinal stenosis. Previous Diagnostic Studies: MRI LUMBAR SPINE WO CONTRAST: 01/24/2025. The [...] stenosis difficult to evaluate due to susceptibility. The following portions of the patient's history were reviewed and updated as appropriate: problem list, past medical history, past surgery history, social history, family history, medications, and allergies Review of Systems Musculoskeletal: Positive for back pain. All other systems reviewed and are negative. [...] 1989 Low back pain Lumbosacral disc disease 2009 Migraine NONE SINCE MENOPAUSE Neck pain 2010 [...] FUSION L4-S1; Surgeon: Fidel Christensen MD; Location: [facility]; Service: Neurosurgery NECK SURGERY 12/2009 NEPHRECTOMY Left 2010 due to cancer ORTHOPEDIC SURGERY SPINAL FUSION 06/2018 TRIGGER POINT INJECTION 2016 TUBAL ABDOMINAL LIGATION WOUND CLOSURE Bilateral 07/19/2018 Procedure: WOUND EXPLORATION EVACUATION OF EPIDURAL ABSCESS AND PRIMARY CLOSURE; Surgeon: Fidel Christensen MD; Location: [facility] OR; Service: Neurosurgery Family History Problem [...] As Needed., Disp: , Rfl: losartan (COZAAR) 25 MG tablet, Take 1 tablet by mouth Daily., Disp: , Rfl: LYRICA 100 MG capsule, Take 1 capsule by mouth 2 (Two) Times a Day., Disp: , Rfl: Mounjaro 10 MG/0.5ML solution auto-injector, Inject 10 mg under the skin into the appropriate area as directed 1 (One) Time Per Week., Disp: , Rfl: omeprazole (priLOSEC) 40 MG capsule, 1 capsule Daily., Disp: , Rfl: Ventolin HFA 108 (90 Base) MCG/ACT inhaler, INHALE 4 PUFFS BY MOUTH EVERY 4 HOURS FOR 48 HOURS THENAS NEEDED FOR SHORTNESS OF BREATH OR WHEEZING, Disp: , Rfl: losartan (COZAAR) 50 MG tablet, Take 0.5 tablets by mouth Daily. (Patient not taking: Reported on 04/09/2025), Disp: , Rfl: Mounjaro 5 MG/0.5ML solution auto-injector, Inject 5 mg under the skin into the appropriate area asdirected 1 (One) Time Per Week. (Patient not taking: Reported on 04/09/2025), Disp: , Rfl: Allergies Allergen Reactions Clavulanic [...] KIDNEY OCCURS WITH BACTRIM Ht 157.5 cm (62.01 ) Wt 99.3 kg (219 lb) LMP (LMP Unknown) BMI 40.05 kg/m?? Physical Exam Constitutional: Patient appears well-developed, well-nourished, well-hydrated HEENT: Head: Normocephalic and atraumatic Eyes: Conjunctivae and lids are normal Pupils: Equal, round, reactive to light Musculoskeletal Gait and station: Gait evaluation demonstrated shuffling Neurological: Patient is alert and oriented to person, place, and time. Speech: Normal. Cortical function: Normal mental status. Motor strength: 5/5 Motor Tone: Normal . Involuntary movements: None. Skin and subcutaneous tissue: Skin is warm and intact. No rash noted. No cyanosis. The stimulator placement site looks unremarkable without erythema, drainage or fluid accumulation Psychiatric: Judgment and insight: Normal. Recent and remote memory: Intact. Mood and affect: Normal. PROCEDURES: Procedure #1: Analysis of the spinal cord stimulator device without spinal cord stimulator reprogramming Patient used the Nevro spinal cord stimulator device 100% of the time since initiation of the trialphase. Program ONE (T9-T10) Electrode polarities: 6-, 7+ Amplitudes: 2.5 mA Pulse width: 30 mcs Rate: 10.000 Hz Program TWO Electrode polarities: 9-, 10+ Amplitudes: 2.5 mA Pulse width: 30 mcs Rate: 10.000 Hz Program THREE Electrode polarities: 1-, 2+, 3-, 4+, 5-, 6+, 7-, 8+ Amplitudes: 2.5 mA Pulse width: 30 mcs Rate: 10.000 Hz Cycling: Yes A copy of the telemetry report will be scanned in the patient's chart. Procedure #2: Removal of spinal cord stimulator trial leads. Two leads were removed with tips intact. There is no erythema, drainage, or fluid accumulation at the site. The area was cleansed with chlorhexidine. A small Covaderm was applied. ASSESSMENT: 1. Lumbar postlaminectomy syndrome 2. Lumbar stenosis with neurogenic claudication 3. Ligamentum flavum hypertrophy 4. Spondylosis of lumbar region without myelopathy or radiculopathy 5. Myofascial pain 6. Physical deconditioning 7. Gait disturbance 8. Encounter for fitting and adjustment of spinal cord stimulator 9. Presence of neurostimulator PLAN/MEDICAL DECISION MAKING: Ms. Eva Ward, 70 y.o. female originally referred by Dr. Cerrato in consultation for longstanding for chronic progressive intractable lower back pain. Melany Ward underwent L4-S1 PLIF by Dr. Christensen on 06/28/2018. Her postoperative course was complicatedby an abscess that required a operation on 07/15/2018. She did well thereafter. By [id number], she started experiencing lower back pain radiating [...] 2010, diabetes mellitus, hypercholesterolemia, gout, hypertension, migraines. She underwent bilateral lumbar medial branch rhizotomies at L1, L2, L3; for bilateral lumbar facet joints at L2-L3, and L3-L4 on 03/28/2023, from which she experienced almost 100% pain relief and functional improvement that lasted for more than 18 months. On 01/30/2025, she underwent diagnostic and therapeutic bilateral L3-L4 TESI with short term pain relief. MRI revealed severe lumbar stenosis. She is here to discuss the prospects of a spinal cord stimulator trial, as this has also been recommended by Dr. Alvarado. The patient has been found not to be a surgical candidate. In addition, she is not interested in the prospects of additional lumbar surgery given her medical comorbidities and past experiences withlumbar surgery. Eva Ward failed to obtain pain relief with conservative measures for severalyears including oral analgesics, topical analgesics, ice, heat, physical therapy, physical therapist directed home exercise program HEP (ongoing), to name a few. I had a lengthy conversation with Ms.Brenda Kateryna Ward regarding her chronic pain condition and potential therapeutic options including risks, benefits, alternative therapies, to name a few. Patient's chronic pain condition has been significantly improved during the spinal cord stimulator trial. Patient is very satisfied with the outcome of the spinal cord stimulator trial and would like to move forward with implantation of a spinal cord stimulator device. Therefore, I have proposed the following plan: 1. Patient will be scheduled for implantation of a spinal cord stimulator device with Nevro. I haverecommended two Nevro Nevro Senza percutaneous lead with the top electrodes projecting at the levelof the superior endplate of the T8 vertebral body, and a second lead at the level of the superior endplate of the T9 vertebral body. I have recommended Nevro Nevro HFXIQ NIPG 3000 rechargeable 2. Recommendations for infection control prior to surgery, as follows: Start intranasal Bactroban 2% three times daily for 5 days before surgery Start [id number] Hibiclens showers daily 5 days before surgery Chlorhexidine towelettes (given at time of Pre-Admission Testing appointment) night before and day of surgery Routine cephalosporin surgical prophylaxis Patient will wear an abdominal binder for 2-4 weeks after surgery. I have ordered a back brace for postsurgical care. Patient is going to wear a rigid LSO for a period of at least 6 weeks to facilitate healing and reduce movement following surgery. Patient has been prescribed a rigid LSO to wear after surgery for a period of at least 6 weeks to facilitate healing. The brace will limit motion to stabilize patient following surgery. 3. Diagnostics Studies: CBC with differential, PT, PTT, CMP, MRSA screening, UA with culture 4. The patient has been instructed to contact my office with any questions or difficulties. The patient understands the plan and agrees to proceed accordingly. Patient does not receive prescriptions for controlled substances from this office. Therefore, a controlled substance agreement is not medically necessary at this time. Pain Medications amitriptyline (ELAVIL) 10 MG tablet Take 1 tablet by mouth At Night As Needed. aspirin 81 MG EC tablet Take 1 tablet by mouth Daily. HYDROcodone-acetaminophen (NORCO) 5-325 MG per tablet Take 1 tablet by mouth 2 (Two) Times a Day AsNeeded. LYRICA 100 MG capsule Take 1 capsule by mouth 2 (Two) Times a Day. No orders of the defined types were placed in this encounter. Please note that portions of this note were completed with a voice recognition program. Any copied data in any portion of my note from previous notes included in the HPI, PE, MDM and/or assessment and plan has been reviewed by myself and accurate as of this date. The Century Cures Act makes medical notes like this [...] and the clinical opinion of the practitioner. Shakira Joshua APRN Patient Care Team: Jd Santacruz MD as [...] Center 04/22/2025 10:30 AM Messi Looney MD Kateryna [facility] 05/07/2025 10:30 AM Shakira Joshua APRN [facility] RIKKI RIKKI documented in this encounter Plan of Treatment Upcoming Encounters Date Type Department Care Team (Late st Contact Info) Description 07/11/2025 11:00 AM EDT Office Visit [facility] PAIN MANAGEMENT [address] [facility] [address] [place] [phone] Shakira Joshua, CLARIFIER [address] [facility] [address] [place] [address] 01/27/2026 9:45 AM EDT Office Visit [facility] CARDIOLOGY [address] [facility] [address] [place] [phone] Messi Looney MD [address] [facility] [address] [place], [place] [phone] documented as of this encounter Visit Diagnoses Diagnosis Lumbar postlaminectomy syndrome Postlaminectomy syndrome, lumbar region Lumbar stenosis with neurogenic claudication 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
--- OUTSIDE RECORDS SUMMARY | 2025-04-16 15:30 | XMS_ITS | Encounter Summary ---
[facility] Organization [facility] Address [address] [place] [address] Care Team Providers Care Senior Information Security Architect Name Role Phone Jd Santacruz MD Primary Care Provider [phone] Encounter Details Date Type Department Care Team (Latest Contact Info) Description 04/16/2025 3:30 PM EDT Pre-Admission Testing [facility] PREADMISSION T [address] [place] [address] Lumbar postlaminectomy syndrome Social History [...] or training? Not on file Preferred Language Peruvian 04/16/2025 PHQ-2 Answer Date Recorded Patient Health [...] Description 07/11/2025 11:00 AM EDT Office Visit [facility] PAIN [facility]NAGEMENT [address] [facility] [address] [place] [phone] Shakira Joshua, CUSTOM PROTECTION OFFICER [address] [facility] [address] [place] [address] 01/27/2026 9:45 AM EDT Office Visit [facility] CARDIOLOGY [address] [facility] [address] [place] [address] Messi Looney MD [address] [facility] [address] [place] [phone] documented as of this encounter Procedures Procedure Name Priority Date/Time Associated Diagnosis Comments ECG 12-LEAD Routine 04/16/2025 4:10 PM EDT URINALYSIS, MICROSCOPIC ONLY Routine 04/16/2025 3:42 PM [...] 04/16/2025 3:42 PM EDT Lumbar postlaminectomy syndrome URINE CULTURE Routine 04/16/2025 3:42 PM EDT Lumbar postlaminectomy syndrome MRSA SCREEN Routine 04/16/2025 3:42 PM EDT Lumbar postlaminectomy syndrome COMPREHENSIVE METABOLIC PANEL Routine 04/16/2025 3:42 PM EDT Lumbar postlaminectomy syndrome documented in this encounter Results * ECG 12 Lead (04/16/2025 4:10 PM EDT) QT Interval 364 ms ECG QTC Interval 435 ms ECG 04/16/2025 4:10 PM EDT 04/19/2025 7:10 PM EDT Narrative ECG - 04/19/2025 7:10 PM EDT Test Reason : Pre-Op / Pre-Procedure Blood [...] When compared with ECG of 01-Jul-2018 02:10, DE interval has increased Confirmed by VENESSA DELGADO MD ([id number]) on 04/19/2025 7:10:15 PM Referred By: Confirmed By: VENESSA DELGADO MD Procedure Note Venessa Delgado MD - 04/19/2025 Test Reason : Pre-Op / Pre-Procedure Blood [...] When compared with ECG of 01-Jul-2018 02:10, DE interval has increased Confirmed by VENESSA DELGADO MD ([id number]) on 04/19/2025 7:10:15 PM Referred By: Confirmed By: VENESSA DELGADO MD Azar Andino MD ECG ORDERABLES Final Result ECG * Urine Culture - Urine, Urine, Clean Catch (04/16/2025 3:42 PM EDT) Urine Culture 25,000 CFU/mL Normal Urogenital Lauren DIANE 04/18/2025 9:26 AM EDT [facility] Urine Urine specimen obtained by clean catch procedure / Unknown Collection / Unknown 04/16/2025 3:42 PM EDT 04/16/2025 4:15 PM EDT Narrative [facility] - 04/18/2025 9:26 AM EDT Colonization of the urinary tract without infection is common. Treatment is discouraged unless the patient is symptomatic, , or undergoing an invasive urologic procedure. us Shakira Joshua APRN MICROBIOLOGY - GENERAL ORDER MUKESH Final Result [facility]
[address] [place] [address], [place] [phone] * (ABNORMAL) Urinalysis, Microscopic Only - Urine, Clean Catch (04/16/2025 3:42 PM EDT) RBC, UA 0-2 None Seen, 0-2 /HPF 04/16/2025 4:26 PM EDT [facility] WBC, UA 3-5(A) None Seen, 0-2 /HPF 04/16/2025 4:26 PM EDT [facility] Bacteria, UA 3+(A) None Seen /HPF 04/16/2025 4:26 PM EDT [facility] Squamous Epithelial Cells, UA 7-12(A) None Seen, 0-2 /HPF 04/16/2025 4:26 PM EDT [facility] Hyaline Casts, UA 0-2 None Seen /LPF 04/16/2025 4:26 PM EDT [facility] Methodology Automated Microscopy 04/16/2025 4:26 PM EDT [facility] Urine Urine specimen obtained by clean catch procedure / Unknown Collection / Unknown 04/16/2025 3:42 PM EDT 04/16/2025 4:15 PM EDT us Shakira Joshua APRN URINE ORDERABLES Final Resul t [facility]
[address] [place] [address], [place] [phone] * (ABNORMAL) CBC Auto Differential (04/16/2025 3:42 PM EDT) WBC 7.56 3.40 - 10.80 10*3/mm3 04/16/2025 4:33 PM EDT [facility] RBC 4.64 3.77 - 5.28 10*6/mm3 04/16/2025 4:33 PM EDT [facility] Hemoglobin 12.1 12.0 - 15.9 g/dL 04/16/2025 4:33 PM EDT [facility] Hematocrit 39.5 34.0 - 46.6 % 04/16/2025 4:33 PM EDT [facility] MCV 85.1 79.0 - 97.0 fL 04/16/2025 4:33 PM EDT [facility] MCH 26.1(L) 26.6 - 33.0 pg 04/16/2025 4:33 PM EDT [facility] MCHC 30.6(L) 31.5 - 35.7 g/dL 04/16/2025 4:33 PM EDT [facility] RDW 16.0(H) 12.3 - 15.4 % 04/16/2025 4:33 PM EDT [facility] RDW-SD 50.2 37.0 - 54.0 fl 04/16/2025 4:33 PM EDT [facility] MPV 11.1 6.0 - 12.0 fL 04/16/2025 4:33 PM EDT [facility] Platelets 238 140 - 450 10*3/mm3 04/16/2025 4:33 PM EDT [facility] Neutrophil % 73.1 42.7 - 76.0 % 04/16/2025 4:33 PM EDT [facility] Lymphocyte % 13.1(L) 19.6 - 45.3 % 04/16/2025 4:33 PM EDT [facility] Monocyte % 9.7 5.0 - 12.0 % 04/16/2025 4:33 PM EDT [facility] Eosinophil % 3.4 0.3 - 6.2 % 04/16/2025 4:33 PM EDT [facility] Basophil % 0.4 0.0 - 1.5 % 04/16/2025 4:33 PM EDT [facility] Immature Grans % 0.3 0.0 - 0.5 % 04/16/2025 4:33 PM EDT [facility] Neutrophils, Absolute 5.53 1.70 - 7.00 10*3/mm3 04/16/2025 4:33 PM EDT [facility] Lymphocytes, Absolute 0.99 0.70 - 3.10 10*3/mm3 04/16/2025 4:33 PM EDT [facility] Monocytes, Absolute 0.73 0.10 - 0.90 10*3/mm3 04/16/2025 4:33 PM EDT [facility] Eosinophils, Absolute 0.26 0.00 - 0.40 10*3/mm3 04/16/2025 4:33 PM EDT [facility] Basophils, Absolute 0.03 0.00 - 0.20 10*3/mm3 04/16/2025 4:33 PM EDT [facility] Immature Grans, Absolute 0.02 0.00 - 0.05 10*3/mm3 04/16/2025 4:33 PM EDT [facility] nRBC 0.0 0.0 - 0.2 /100 WBC 04/16/2025 4:33 PM EDT [facility] Blood Venipuncture / Unknown 04/16/2025 3:42 PM EDT 04/16/2025 4:23 PM EDT Shakira Joshua CUSTOM PROTECTION OFFICER LAB BLOOD ORDERABLES Final R esult [facility]
[address] [place] [address], * MRSA Screen Culture (Outpatient) - Swab, Nares (04/16/2025 3:42 PM EDT) MRSA Screen Cx No Methicillin Resistant Staphylococcus aureus isolated DIANE 04/17/2025 5:13 PM EDT [facility] Swab Structure of anterior naris / Unknown Collection / Unknown 04/16/2025 3:42 PM EDT 04/16/2025 4:41 PM EDT Narrative [facility] - 04/17/2025 5:13 PM EDT The negative predictive value of this diagnostic test is high and should only be used to consider de-escalating anti-MRSA therapy. A positive result may indicate colonization with MRSA and must be correlated clinically. Shakira Joshua APRN MICROBIOLOGY - GENERAL ORDER MUKESH Final Result [facility]
[address] [place] [address], [place] [phone] * (ABNORMAL) Urinalysis With Culture If Indicated - Urine, Clean Catch (04/16/2025 3:42 PM EDT) Color, UA Yellow Yellow, Straw 04/16/2025 4:21 PM EDT [facility] Appearance, UA Cloudy(A) Clear 04/16/2025 4:21 PM EDT [facility] pH, UA 5.5 5.0 - 8.0 04/16/2025 4:21 PM EDT [facility] Specific [place], UA 1.017 1.005 - 1.030 04/16/2025 4:21 PM EDT [facility] Glucose, UA Negative Negative 04/16/2025 4:21 PM EDT [facility] Ketones, UA Negative Negative 04/16/2025 4:21 PM EDT [facility] Bilirubin, UA Negative Negative 04/16/2025 4:21 PM EDT [facility] Blood, UA Negative Negative 04/16/2025 4:21 PM EDT [facility] Protein, UA Negative Negative 04/16/2025 4:21 PM EDT [facility] Leuk Esterase, UA Small (1+)(A) Negative 04/16/2025 4:21 PM EDT [facility] Nitrite, UA Negative Negative 04/16/2025 4:21 PM EDT [facility] Urobilinogen, UA 1.0 E.U./dL 0.2 - 1.0 E.U./dL 04/16/2025 4:21 PM EDT [facility] Urine Urine specimen obtained by clean catch procedure / Unknown Collection / Unknown 04/16/2025 3:42 PM EDT 04/16/2025 4:15 PM EDT Narrative [facility] - 04/16/2025 4:21 PM EDT In absence of clinical symptoms, the presence of pyuria, bacteria, and/or nitrites on the urinalysis result does not correlate with infection. us Shkaira Joshua APRN URINE ORDERABLES Final Resul t Performing Organization Address [facility] Co de Phone Number [facility]
[address] [place] [address], * Protime-INR (04/16/2025 3:42 PM EDT) Protime 13.8 12.2 - 15.3 Seconds 04/16/2025 4:46 PM EDT [facility] INR 1.00 0.89 - 1.12 04/16/2025 4:46 PM EDT [facility] Blood Venipuncture / Unknown 04/16/2025 3:42 PM EDT 04/16/2025 4:22 PM EDT us Shakira Joshua APRN LAB BLOOD ORDERABLES Final R esult [facility]
[address] [place] [address], [place] [phone] * aPTT (04/16/2025 3:42 PM EDT) PTT 33.7 22.0 - 39.0 seconds 04/16/2025 4:46 PM EDT [facility] Blood Venipuncture / Unknown 04/16/2025 3:42 PM EDT 04/16/2025 4:22 PM EDT Narrative [facility] - 04/16/2025 4:46 PM EDT PTT = The equivalent PTT values for the therapeutic range of heparin levels at 0.3 to 0.5 U/ml are 60 to 70 seconds. Shakira Joshua CUSTOM PROTECTION OFFICER LAB BLOOD ORDERABLES Final R esult [facility]
[address] [place] [address], * (ABNORMAL) Comprehensive Metabolic Panel (04/16/2025 3:42 PM EDT) [facility] Glucose 96 65 - 99 mg/dL 04/16/2025 4:54 PM EDT [facility] BUN 23.4(H) 8.0 - 23.0 mg/dL 04/16/2025 4:54 PM EDT [facility] Creatinine 2.00(H) 0.57 - 1.00 mg/dL 04/16/2025 4:54 PM EDT [facility] Sodium 144 136 - 145 mmol/L 04/16/2025 4:54 PM EDT [facility] Potassium 5.0 3.5 - 5.2 mmol/L 04/16/2025 4:54 PM EDT [facility] Chloride 111(H) 98 - 107 mmol/L 04/16/2025 4:54 PM EDT [facility] CO2 23.4 22.0 - 29.0 mmol/L 04/16/2025 4:54 PM EDT [facility] Calcium 9.5 8.6 - 10.5 mg/dL 04/16/2025 4:54 PM EDT [facility] Total Protein 5.7(L) 6.0 - 8.5 g/dL 04/16/2025 4:54 PM EDT [facility] Albumin 4.0 3.5 - 5.2 g/dL 04/16/2025 4:54 PM EDT [facility] ALT (SGPT) 13 1 - 33 U/L 04/16/2025 4:54 PM EDT [facility] AST (SGOT) 18 1 - 32 U/L 04/16/2025 4:54 PM EDT [facility] Alkaline Phosphatase 120(H) 39 - 117 U/L 04/16/2025 4:54 PM EDT [facility] Total Bilirubin 0.5 0.0 - 1.2 mg/dL 04/16/2025 4:54 PM EDT [facility] Globulin 1.7 gm/dL 04/16/2025 4:54 PM EDT [facility] Comment:Calculated Result A/G Ratio 2.4 g/dL 04/16/2025 4:54 PM EDT [facility] BUN/Creatinine Ratio 11.7 7.0 - 25.0 04/16/2025 4:54 PM EDT [facility] Anion Gap 9.6 5.0 - 15.0 mmol/L 04/16/2025 4:54 PM EDT [facility] eGFR 26.3(L) >60.0 mL/min/1.7 3 04/16/2025 4:54 PM EDT [facility] Blood Venipuncture / Unknown 04/16/2025 3:42 PM EDT 04/16/2025 4:23 PM EDT Narrative [facility] - 04/16/2025 4:54 PM EDT GFR [...] not include race as a factor us Shakira Joshua CUSTOM PROTECTION OFFICER LAB BLOOD ORDERABLES Final R esult [facility]
[address] [place] [id number], documented in this encounter Visit Diagnoses Diagnosis Lumbar postlaminectomy syndrome Postlaminectomy syndrome, lumbar region documented in this encounter Care Teams Senior Information Security Architect Relationship Specialty Start Date End Date Jd Santacruz MD [facility] [address] [place] [address] PCP - General Internal Medicine 05/18/18 documented as of this encounter
--- OUTSIDE RECORDS SUMMARY | 2025-04-22 10:30 | XMS_ITS | Encounter Summary ---
Author Organization [facility] Address [address] [place] [address] Care Team Providers Care Admissions Consultant Name Role Phone Jd Santacruz MD Primary Care Provider [phone] Reason for Visit * Reason Comments Hyperlipidemia, unspecified hyperlipidem ia type Encounter Details Date Type Department Care Team (Late st Contact Info) Description 04/22/2025 10:30 AM EDT Office Visit [facility] [address] [place] [address] Messi Looney MD [address] [facility] [address] [place] [address] Hyperlipidemia, unspecified hyperlipidemia type (Primary Dx); Chronic stable angina Social History Tobacco Use Types Packs/Day Years Used Date Smoking Tobacco: Never Smokeless Tobacco: Never Alcohol Use Standard Drinks/Week Comments No 0 (1 standard drink = 0.6 oz pur e alcohol) PHQ-2 Answer Date Recorded Retired PHQ-9: Brief Depression Severity Measure Score 0 03/15/2023 Abuse Screen Answer Date Recorded Feels Unsafe at Home or Work/School no 04/22/2025 Feels Threatened by Someone no 03/27 Does Anyone Try to Keep You From Having Contact with Others or Doing Things Outside Your Home? no 04/22/2025 Physical Signs of Abuse Present no 04/22/2025 Housing Stability Answer Date Recorded Current Living Arrangements home 03/27 Potentially Unsafe Housing Conditions Not on donovan e 04/22/2025 Disabilities Answer Date Recorded Difficulty Concentrating, Remembering or Making Decisions no 04/22/2025 Difficulty Managing Errands Independently no 04/22/2025 Education Answer Date Recorded Help with school or training? Not on file Preferred Language Georgian 04/16/2025 PHQ-2 Answer Date Recorded Patient Health Questionnaire-2 Score 1 02/28/2025 Comments No Sex and Gender Information Value Date Recorded Sex Assigned at Not on file Legal Sex Female 10:05 AM EDT Gender Identity Not on file Sexual Orientation Not on file documented as of this encounter Last Filed Vital Signs Vital Sign Reading Time Taken Comments Blood Pressure 120/80 04/22/2025 10:30 AM EDT Pulse 95 04/22/2025 10:30 AM EDT Temperature - - Respiratory Rate - - Oxygen Saturation 100% 04/22/2025 10:30 AM EDT Inhaled Oxygen Concentration - - Weight 98.2 kg (216 lb 9.6 oz) 04/22/2025 10:30 AM EDT Height - - Body Mass Index 39.62 04/16/2025 4:17 PM EDT documented in this encounter Functional Status * Question Answer Date of Assessment Author 1. Wish to be (Past 1 Month) No 025 1:12 PM EDT Yonatan Chino RN 2. Non-Specific Active Suici kole Thoughts (Past 1 Month) No 04/22/2025 1:12 PM EDT Evelyn Chino RN * Calculated C-SSRS Risk Score (Lifetime/Recent) Answer Date of Assessment Author No Risk Indicated 04/22/2025 1:12 PM EDT Yonatan Chino RN * [place] Suicide Severity Rating Scale (Screener/Recent Self-Report) Question Answer Date of Assessment Author 6. Suicidal Behavior (Lifetime) No 1:12 PM EDT Yonatan Chino RN documented as of this encounter Progress Notes * Messi Looney MD - 04/22/2025 10:30 AM EDT Chief Complaint Hyperlipidemia, unspecified hyperlipidemia type Subjective History of Present Illness Problem List -Precordial pain, non diagnostic stress echo, low risk nuclear stress test (ct showed mild CAC) -HTN -HLD, elevated LPA, LDL over 70, HSCRP chronically elevated (chronic elevation has resolved) -DM -CKD -EKG non specific changes, echo normal, on non dedicated CT aortic atherosclerosis appreciated Mrs. Ward is a 68 year old lady with above hx. She gets occasional chest pain when stressed (non exertional) with radiation to neck. Mild and last about 10 minutes. Eventually goes away. Short of breath at same time. ROS negative except for the above. Update 07/07/23 No changes. Non diagnostic stress echo. Update 07/21/23 Low risk nuclear stress test. Mild CAC Update 10/10/23 Occasional random chest pain that last a few minutes. Update 04/09/24 No CV complaints. Update 10/22/24 No complaints. Update 04/22/25 No complaints. Objective Vital Signs: Vitals: 04/22/25 1030 BP: 120/80 Pulse: 95 SpO2: 100% Estimated body mass index is 39.62 kg/m?? as calculated from the following: Height as of 04/16/25: 157.5 cm (62 ). Weight as of this encounter: 98.2 kg (216 lb 9.6 oz). Physical Exam HENT: Head: Normocephalic. Eyes: Extraocular Movements: Extraocular movements intact. Cardiovascular: Rate and Rhythm: Normal rate and regular rhythm. Heart sounds: No murmur heard. No gallop. Pulmonary: Breath sounds: Normal breath sounds. Abdominal: Palpations: Abdomen is soft. Musculoskeletal: Right lower leg: No edema. Left lower leg: No edema. Skin: General: Skin is warm and dry. Neurological: General: No focal deficit present. Mental Status: She is alert. Psychiatric: Mood and Affect: Mood normal. Assessment -Precordial pain, non diagnostic stress echo, low risk nuclear stress test (ct showed mild CAC) -HTN -HLD, elevated LPA, LDL over 70, HSCRP chronically elevated (chronic elevation has resolved) -DM -CKD -EKG non specific changes, echo normal, on non dedicated CT aortic atherosclerosis appreciated Plan -discussed lifestyle modification and offered cardiac rehab given CAD (but insurance declined) (done prior) -nothing to suggest obstructive disease currently. Will montior -cont. Aspirin, statin and zetia. LDL has been under excellent control. Hscrp has remained mildly elevate but on last check was normal. -already on GLP-1 agonist. Recurrent UTIs preclude SGLT-2 inhibitor. -er warnings given Return in about 6 months (around 10/23/2025). Messi Looney MD documented in this encounter Plan of Treatment Upcoming Encounters Date Type Department Care Team (Late st Contact Info) Description 07/11/2025 11:00 AM EDT Office Visit [facility] [address] [place] [id number] Shakira Joshua, BAR TURNER [address] [facility] [address] [place], [place] [id number] 01/27/2026 9:45 AM EDT Office Visit [facility] [address] [place] [id number] Messi Looney MD [address] [facility] [address] [place] [address] documented as of this encounter Visit Diagnoses Diagnosis Hyperlipidemia, unspecified hyperlipidemia type- Primary Chronic stable angina documented in this encounter Care Teams Admissions Consultant Relationship Specialty Start Date End Date Jd Santacruz MD [address] [facility] [address] [place] [address] PCP - General Internal Medicine 05/18/18 documented as of this encounter
--- OUTSIDE RECORDS SUMMARY | 2025-04-22 12:35 | XMS_ITS | Encounter Summary ---
Author Organization [facility] Address [address] [place] [address] Care Team Providers Care Ethics Officer Name Role Phone Jd Santacruz MD Primary Care Provider [phone] Reason for Visit * Auth/Cert Specialty Diagnoses / Procedures Referred By Contac t Referred To Contact Diagnoses Lumbar postlaminectomy syndrome Procedures WA INSJ/RPLCMT SPINAL NPG/RCVR POCKET CRTJ&CONNJ WA PRQ IMPLTJ NSTIM ELECTRODE ARRAY EPIDURAL WA PRQ IMPLTJ NSTIM ELECTRODE ARRAY EPIDURAL SPINAL CORD STIMULATOR INSERTION PHASE 2 Referral ID Status Reason Start Date Expiration Date Visits Re quested Visits Authorized [id number] 1 1 Encounter Details Date Type Department Care Team (Late st Contact Info) Description 04/22/2025 12:35 PM EDT - 04/22/2025 7:10 PM EDT Hospital Encounter [facility] [address] [place] [address] Azar Andino MD [address] [address] Postoperative pain (Primary Dx); Lumbar postlaminectomy syndrome Discharge Disposition: Home or Self Care Social [...] or training? Not on file Preferred Language Anguillan 04/16/2025 PHQ-2 Answer Date Recorded Patient Health Questionnaire-2 Score 1 02/28/2025 Comments No Sex and Gender Information Value Date Recorded Sex Assigned at Not on file Legal Sex Female 10:05 AM EDT Gender Identity Not on file Sexual Orientation Not on file documented as of this encounter Last Filed Vital Signs Vital Sign Reading Time Taken Comments Blood Pressure 166/98 04/22/2025 6:40 PM EDT Pulse 91 04/22/2025 6:40 PM EDT Temperature 36.3 C (97.3 F) 04/22/2025 6:40 PM EDT Respiratory Rate 18 04/22/2025 6:40 PM EDT Oxygen Saturation 95% 04/22/2025 6:40 PM EDT Inhaled Oxygen Concentration - - Weight 98 kg (216 lb) 04/22/2025 1:23 PM EDT Height 157.5 cm (5' 2 ) 04/22/2025 1:23 PM EDT Body Mass Index 39.51 04/22/2025 1:23 PM EDT documented in this encounter Functional Status * Question Answer Date of Assessment Author 1. Wish to be (Past 1 Month) No 025 1:12 PM EDT Yonatan Chino, RN 2. Non-Specific Active Suici kole Thoughts (Past 1 Month) No 04/22/2025 1:12 PM EDT Evelyn Chino, RN * Calculated C-SSRS Risk Score (Lifetime/Recent) Answer Date of Assessment Author No Risk Indicated 04/22/2025 1:12 PM EDT Yonatan Chino RN * [place] Suicide Severity Rating Scale (Screener/Recent Self-Report) Question Answer Date of Assessment Author 6. Suicidal Behavior (Lifetime) No 5 1:12 PM EDT Yonatan Chino RN documented as of this encounter Discharge Instructions * Attachments The following attachments cannot be sent through Care Everywhere. * General Anesthesia Adult Care After ([place]guillan) * Spinal Cord Stimulator Implantation Care After ([place]guillan) documented in this encounter Medications at Time of Discharge [...] by mouth Daily. 90 tablet 3 09/25/2024 furosemide (LASIX) 40 MG tablet Take 1 tablet by mouth Daily. HYDROcodone-acet aminophen (NORCO) 5-325 MG per tablet Take 1 tablet by mouth 2 (Two) Times a Day As Needed. 02/24/2023 HYDROcodone-acet aminophen (NORCO) 7.5-325 MG per tabletIndication s:Postoperative pain Take 1/2 to 1 tablet by mouth 4 Times a Day As Needed. 12 tablet 04/22/2025 5:28 PM EDT 04/22/2025 loperamide (IMODIUM) 2 MG capsule Take 1 capsule by mouth 4 (Four) Times a Day As Needed for Diarrhea. losartan (COZAAR) 25 MG tablet Take 1 tablet by mouth Daily. 03/11/2025 LYRICA 100 MG capsule Take 1 capsule by mouth 2 (Two) Times a Day. 04/20/2018 Mounjaro 10 MG/0.5ML solution auto-injector Inject 12.5 mg under the skin into the appropriate area as directed 1 (One) Time Per Week. naloxone (NARCAN) 4 MG/0.1ML nasal spray Call 911. Don't prime. [place] in 1 nostril for overdose. Repeat in 2-3 minutes in other nostril if no or minimal breathing/respons iveness. 2 each 04/22/2025 5:28 PM EDT 04/22/2025 omeprazole (priLOSEC) 40 MG capsule 1 capsule Daily. 06/26/2020 Ventolin HFA 108 (90 Base) MCG/ACT inhaler INHALE 4 PUFFS BY MOUTH EVERY 4 HOURS FOR 48 HOURS THEN NEEDED FOR SHORTNESS OF BREATH OR WHEEZING 04/22/2023 Tirzepatide 10 MG/0.5ML solution auto-injector Inject under the skin into the appropriate area as directed. documented as of this encounter H&P Notes * Azar Andino MD - 04/22/2025 12:53 PM EDT H&P reviewed. The patient was examined and there are no changes to the H&P. Source Note - Shakira Joshua APRN - 04/09/2025 9:00 AM EDT Chief Complaint: [...] on 07/15/2018. She did well thereafter. By [id number], she started experiencing lower backpain radiating into [...] found not to be a surgical candidate. [facility] psychological evaluation with Dr Lisbet Hong on 02/20/2025: From a psychological perspective patient appears to be an appropriate candidate for a PNS, SCS or an Intrathecal Pain Pump at thistime. Eva Ward presents with significant comorbidities including chronic kidney disease, history of left nephrectomy in 2010, diabetes mellitus, hypercholesterolemia, gout, hypertension, migraines, aspirin 81 mg In terms of current analgesics, Eva Ward takes: Flora, Lyrica, amitriptyline. Patient also takes allopurinol I [...] Sleep apnea Spinal stenosis Thoracic disc disorder 2009 TMJ dysfunction Wears reading eyeglasses Past Surgical History: Procedure Laterality Date BACK SURGERY 06/2018 CERVICAL FUSION COLONOSCOPY ECTOPIC EPIDURAL BLOCK HEEL SPUR SURGERY Left HYSTERECTOMY KNEE ARTHROSCOPY Right LAMINECTOMY LUMBAR DISCECTOMY FUSION INSTRUMENTATION N/A 06/28/2018 Procedure: TLIF L4-S1, WITH POST LATERAL FUSION L4-S1; Surgeon: Fidel Christensen MD; Location: [facility] OR; Service: Neurosurgery NECK SURGERY 12/2009 NEPHRECTOMY Left 2010 due to cancer ORTHOPEDIC SURGERY SPINAL FUSION 06/2018 TRIGGER POINT INJECTION 2016 TUBAL ABDOMINAL LIGATION WOUND CLOSURE Bilateral 07/19/2018 Procedure: WOUND EXPLORATION EVACUATION OF EPIDURAL ABSCESS AND PRIMARY CLOSURE; Surgeon: Fidel Christensen MD; Location: [facility] OR; Service: Neurosurgery Family History Problem Relation [...] 70 y.o. female originally referred by Dr. Cerrtao in consultation for longstanding for chronic progressive intractable lower back pain. Melany Ward underwent L4-S1 PLIF by Dr. Christensen on 06/28/2018. Her postoperative course was complicatedby an abscess that required a operation on 07/15/2018. She did well thereafter. By [phone], she started experiencing lower back pain radiating [...] daily for 5 days before surgery Start itjh-tdb-ugpzloc Hibiclens showers daily 5 days before surgery [...] and accurate as of this date. The 21st Century Cures Act makes medical notes like [...] Center 04/22/2025 10:30 AM Messi Looney MD [facility] 05/07/2025 10:30 AM Shakira Joshua APRN [facility] * Azar Andino MD - 04/22/2025 12:41 PM EDT H&P reviewed. The patient was examined and there are no changes to the H&P. Source Note - Shakira Joshua APRN - 04/09/2025 9:00 AM EDT Chief Complaint: [...] on 07/15/2018. She did well thereafter. By [phone], she started experiencing lower backpain radiating into [...] found not to be a surgical candidate. [facility] psychological evaluation with Dr Lisbet Hong on 02/20/2025: From a psychological perspective patient appears to be an appropriate candidate for a PNS, SCS or an Intrathecal Pain Pump at thistime. Eva Ward presents with significant comorbidities including chronic kidney disease, history of left nephrectomy in 2010, diabetes mellitus, hypercholesterolemia, gout, hypertension, migraines, aspirin 81 mg In terms of current analgesics, Eva Ward takes: Flora, Lyrica, amitriptyline. Patient also takes allopurinol I [...] FUSION L4-S1; Surgeon: Fidel Christensen MD; Location: [facility] OR; Service: Neurosurgery NECK SURGERY 12/2009 NEPHRECTOMY Left 2010 due to cancer ORTHOPEDIC SURGERY SPINAL FUSION 06/2018 TRIGGER POINT INJECTION 2016 TUBAL ABDOMINAL LIGATION WOUND CLOSURE Bilateral 07/19/2018 Procedure: WOUND EXPLORATION EVACUATION OF EPIDURAL ABSCESS AND PRIMARY CLOSURE; Surgeon: Fidel Christensen MD; Location: [facility] OR; Service: Neurosurgery Family History Problem Relation [...] on 07/15/2018. She did well thereafter. By [phone], she started experiencing lower back pain radiating [...] daily for 5 days before surgery Start taql-oni-kctojdx Hibiclens showers daily 5 days before surgery [...] Center 04/22/2025 10:30 AM Messi Looney MD [facility] 05/07/2025 10:30 AM Shakira Joshua APRN [facility] documented in this encounter Nursing Notes * Jessica Fuentes RN - 04/22/2025 5:42 PM EDT Caregiver Telephone Number Phone Number for Ride/Caregiver: MELISSA CARSON,[phone] Who will be staying with you post procedure for the next 24 hours? Name and Phone Number?: MELISSA CARSON,[phone] documented in this encounter OR Notes * Op Note - Azar Andino MD - 04/22/2025 12:53 PM EDT SURGERY DATE: 04/22/2025 PREOPERATIVE DIAGNOSES: 1. Lumbar postlaminectomy syndrome 2. Lumbar stenosis with neurogenic claudication 3. Ligamentum flavum hypertrophy 4. Spondylosis of lumbar region without myelopathy or radiculopathy 5. Myofascial pain 6. Physical deconditioning 7. Gait disturbance POSTOPERATIVE DIAGNOSES: 1. Lumbar postlaminectomy syndrome 2. Lumbar stenosis with neurogenic claudication 3. Ligamentum flavum hypertrophy 4. Spondylosis of lumbar region without myelopathy or radiculopathy 5. Myofascial pain 6. Physical deconditioning 7. Gait disturbance 8. Presence of neurostimulator 9. Encounter for fitting and adjustment of neuropacemaker of spinal cord PROCEDURES PERFORMED: Implantation of two spinal cord stimulator leads Nevro Senza percutaneous leads 1058-50 B LOT [id number] Exp 01/2028 and LOT #[id number] Exp 01/2028 CPT: 78161 x 2 Anchors: Two N-300 Lead [place] Kit REF [id number] Lot #[id number] Exp 02/2027 Implantation of Rechargeable IPG Nevro HFXIQ REF [id number] LOT [id number] Exp 09/2027 CPT: 32118 Complex programming of spinal cord stimulator device SCS System: Full Body MRI compatible SURGEON: Azar Andino MD ANESTHESIA: GAET plus Local anesthesia COMPLICATIONS: None BLOOD LOSS: Less than 20 cc INDICATIONS/MEDICAL DECISION MAKING: Ms. Eva Ward presents with a longstanding history of for chronic intractable lower back pain. Eva Ward underwent L4-S1 PLIF by Dr. Christensen on 06/28/2018. Her postoperative course was complicated by an abscess that required a operation on 07/15/2018.She did well thereafter. By [phone], she started experiencing lower back pain radiating into the gluteal area RT> LT with protracted sitting. Eva Ward underwent neurosurgical consultationwith Dr. Isaias Alvarado on on 02/22/2023, and was found not to be a surgical candidate. MRI of the lumbar spine without contrast on 12/22/2022 revealed PLIF L4-S1 with intact hardware. Possible neuroforaminal stenosis at L5-S1. Lumbar facet hypertrophy from L1-L2 through L3-L4. At L3-L4, disc bulge,facet hypertrophy, ligamentum flavum hypertrophy, and a left-sided [...] past experiences with lumbar surgery. Eva Ward failed to obtain pain relief with conservative measures for several years including oral analgesics, topical analgesics, ice, heat, physical therapy, physical therapist directed home exercise program HEP (ongoing), to namea few. I had a lengthy conversation with . Eva Ward regarding her chronic pain condition and potential therapeutic options including risks, benefits, alternative therapies, to name a few. Patient's chronic pain condition has been significantly improved during the spinal cord stimulator trial. Patient is very satisfied with the outcome of the spinal cord stimulator trial and would like tomove forward with implantation of a spinal cord stimulator device. Patient reports that she completed all recommendations for infection control prior to surgery and completed preop labs per protocol. PROCEDURE SUMMARY: After explaining all the risks and benefits of the procedure, informed consent was obtained. History and physical examination were updated, and the patient's surgical site was confirmed with the patient and marked with a surgical skin marker in the holding room accordingly. The IPG pocket site was marked using a surgical skin marker. The patient received antibiotic prophylaxis as per the current standard of care prior to skin incision. The patient was transferred to the operating room and placed on the operating room table in the prone position. All pressure sensitive areaswere carefully padded. Time out was completed. The thoracolumbar and gluteal areas were prepped with ChloraPrep followed by DuraPrep, and draped with sterile towels, Ioban, and universal drapes. The skin and subcutaneous tissues overlying the T11-T12 interlaminar space (target) were anesthetized with ten ml of 0.25% bupivacaine with epinephrine 1:200,000. A 4-cm vertical incision was performed two cm lateral to the spinous processes on the left paravertebral region with a 10-blade. Blunt and sharp surgical instruments were utilized until the lumbar paravertebral fascia was visualized. Hemostasis was achieved by electrocautery. Two 14-gauge Tuohy needles were advanced from about two vertebral levels below target, with a 10-degree needle angle from a left paramedian approach into the posterior epidural space at T11-T12 without difficulties. Aspiration was negative for blood and/or CSF. APand lateral X-ray view were obtained confirming appropriate needle placement. Subsequently, two octopolar leads were advanced without any difficulties up to the level of the superior endplate of the T8 vertebral body (in the anatomical midline) and the other lead up to the level of the superior endplate of the T9 vertebral body in the right side of the posterior epidural space without difficulties. AP and lateral x-ray views were obtained and will be scanned in the patient's chart. Four Nurolon0 stitches were placed in the lumbar paravertebral fascia to anchor the leads. The stylets were removed from the leads without difficulties. The anchors were advanced through each lead and buried under the lumbar fascia. The anchors were tightened to the leads using the wrench provided by the printed circuit boards router. Then, the anchors were sutured to the lumbar paravertebral fascia with two Nurolon 0 per anchor. X-rays were obtained and confirmed appropriate lead placement at the original placement site. To confirm appropriate anchoring of the leads, there was no evidence of lead movement under direct C-arm fluoroscopic guidance when gently pulling from the distal portion of the SCS leads. Attention was directed to the IPG pocket site. The skin and subcutaneous tissues were anesthetized with ten ml of 0.25% bupivacaine with epinephrine 1:200,000. A five cm horizontal incision was performed left paravertebral region using a 10 blade. The subcutaneous pocket was created by utilizing blunt and sharp surgical instruments. Hemostasis was achieved by electrocautery. The leads were tunneled to the IPG pocket site using the tunneler provided by the printed circuit boards router without difficulties. Both surgical wounds were irrigated with normal saline with vancomycin. The leads were cleaned with sterile water and dried with sterile towels. The leads were connected to the IPG. The connection was secured using the wrench provided by the printed circuit boards router. Impedances were checked before closure of the IPG pocket conf irming normal impedances for both leads and all contacts. Both surgical wounds were copiously irrigated with normal saline with antibiotic solution with vancomycin. The IPG was anchored to the fasciausing two Nurolon 0 stitches. A large relaxation loop of the leads was created in the paravertebralregion, and behind the IPG to decrease lead tension with movement. The IPG was placed with the programmable side facing the skin. X-rays of the IPG pocket confirming both leads properly aligned within the IPG header, the leads in the paravertebral region with an appropriate relaxation loop of the leads to decrease lead tension with movement, and the final lead placement in the epidural space wereobtained and will be available for documentation in the patient's chart. The surgical wounds were approximated in two layers; with a series of interrupted stitches with Vicryl 2-0 (five at the lumbarparavertebral incision, and five at the IPG pocket site). The skin edges were approximated with Nylon 3:0, a series of interrupted stitches (six at the paravertebral incision, six at the IPG site). Covaderms were applied to both surgical wounds. An abdominal binder was applied. Fluoroscopy was utilized using low-dose of radiation applying collimation, pulsed mode, and shielding following ALARA recommendations. Fluoroscopy time: 195 seconds. The patient tolerated the procedure well and without incident. Upon completion of the procedure, the patient was transferred to the recovery room. COMPLEX SPINAL CORD STIMULATOR PROGRAMMING: Complex spinal cord stimulator programming took place in the recovery room. The patient experienced significant pain relief with coverage with pleasant paresthesia in all areas of chronic pain. Program ONE (T9-T10) Electrode polarities: 6-, 7+ [...] will be scanned in the patient's chart. PLAN: Follow-up with Shakira. The patient was discharged from the hospital neurologically intact at his baseline and with appropriate discharge instructions. Wear an abdominal binder at all times Wear a back brace when out of bed The patient received a prescription for hydrocodone 5/325 mg, 1/2 to 1 tablet every 6 hours PRN postoperative pain, #12, no refills. Call with any questions or concerns 18/04; come to the ER immediately or call 911 if sudden onset ofsevere back pain, weakness, or other major events The patient has been instructed to contact my office with any questions or difficulties. The patient understands the plan and agrees to proceed accordingly. Azar Andino MD EMR Dragon/Needle Process Felt Goods Supervisor disclaimer: Much of this encounter note is an electronic can piler of spoken language to printed text. Electronic can piler of spoken language may permit erroneous, or at times, nonsensical words, or phrases to be inadvertently transcribed. Although I have reviewed the note for such errors, some may still exist. documented in this encounter Plan of Treatment Upcoming Encounters Date Type Department Care Team (Late st Contact Info) Description 07/11/2025 11:00 AM EDT Office Visit [facility] PAIN MANAGEMENT [address] [facility] [address] [place] [phone] Shakira Joshua, STOCK PREPARATION OPERATOR [address] [facility] [address] [place] [address] 01/27/2026 9:45 AM EDT Office Visit [facility] CARDIOLOGY [address] [facility] [address] [place] [phone] Messi Looney MD [address] [facility] [address] [place] [id number] documented as of this encounter Procedures Procedure Name Priority Date/Time Associated Diagnosis Comments FL C ARM DURING SURGERY Routine 04/22/2025 5:11 PM EDT WA PRQ IMPLTJ NSTIM ELECTRODE ARRAY EPIDURAL 04/22/2025 2:39 PM EDT Lumbar postlaminectomy syndrome Special Needs Abdominal binder, Weitlaner- size small, (2) 4x4 covaderm, ortho irrigation, sheet, ring clamp, NEVRO (Taurus WOLFE NOTIFIED 04/10/25) ~ WA INSJ/RPLCMT SPINAL NPG/RCVR POCKET CRTJ&CONNJ 04/22/2025 2:39 PM EDT Lumbar postlaminectomy syndrome Special Needs Abdominal binder, Weitlaner- size small, (2) 4x4 covaderm, ortho irrigation, sheet, ring clamp, NEVRO (Taurus WOLFE NOTIFIED 04/10/25) ~ POCT GLUCOSE FINGERSTICK Routine 04/22/2025 1:35 PM EDT documented in this encounter Results * FL C Arm During Surgery (04/22/2025 5:11 PM EDT) Narrative SYSTEMGENERATED, DOCUMENTATION - 04/22/2025 5:13 PM EDT This procedure was auto-finalized with no dictation required. us Azar Andino MD IMG FLUOROSCOPY ORDERABLES Fi nal Result * POC Glucose Once (04/22/2025 1:35 PM EDT) Glucose 81 70 - 130 mg/dL 04/22/2025 1:37 PM EDT [facility] Blood 04/22/2025 1:35 PM EDT 04/22/2025 1:37 PM EDT us Azar Andino MD POINT OF CARE TEST ORDERABLES Final Result [facility]
[address] [place] [address], documented in this encounter Visit Diagnoses Diagnosis Postoperative pain- Primary Other acute postoperative pain Lumbar postlaminectomy syndrome Postlaminectomy syndrome, lumbar region Lumbar postlaminectomy syndrome Postlaminectomy syndrome, lumbar region documented in this encounter Admitting Diagnoses Diagnosis Lumbar postlaminectomy syndrome Postlaminectomy syndrome, lumbar region documented in this encounter Administered Medications Inactive Administered Medications - up to 3 most recent administrations Medication Order MAR Action Action Date Dose Rate Site droperidol (INAPSINE) injection 0.625 mg 0.625 mg, Intravenous, Every 15 Minutes PRN, Nausea, Vomiting, Starting on Tue04/22/25 at 1645, For 2 doses droperidol (INAPSINE) injection 0.625 mg 0.625 mg, Intramuscular, Once As Needed, Nausea, Vomiting, Starting on Tue04/22/25 at 1645, For 2 doses famotidine (PEPCID) tablet 20 mg 20 mg, Oral, Once, On Tue04/22/25 at 1313, For 1 dose Given 04/22/2025 2:06 PM EDT 20 mg fentaNYL citrate (PF) (SUBLIMAZE) injection 50 mcg 50 mcg, Intravenous, Every 5 Minutes PRN, Moderate Pain, Starting on Tue04/22/25 at 1645, For 4 doses, Maximum total dose of fentanyl is 200 mcg. If given for pain, use the following pain scale: Mild Pain = Pain Score of 1-3, CPOT 1-2 Moderate Pain = Pain Score of 4-6, CPOT 3-4 Severe Pain = Pain Score of 7-10, CPOT 5-8 hydrALAZINE (APRESOLINE) injection 5 mg 5 mg, Intravenous, Every 10 Minutes PRN, High Blood Pressure, for systolic blood pressure greater than 180 mmHg or diastolic blood pressure greater than 105 mmHg, Starting on Tue04/22/25 at 1645, Up to 20 mg. Caution: Look alike/sound alike drug alert HYDROcodone-acetaminophen (NORCO) 5-325 MG per tablet 1 tablet 1 tablet, Oral, Once As Needed, Moderate Pain, pain, Starting on Tue04/22/25 at 1645, For 10 days, [RYAN] Do not exceed 4 grams of acetaminophen in a 24 hr period. Max dose of 2gm for AST/ALT greater than 120 units/L If given for pain, use the following pain scale: Mild Pain = Pain Score of 1-3, CPOT 1-2 Moderate Pain = Pain Score of 4-6, CPOT 3-4 Severe Pain = Pain Score of 7-10, CPOT 5-8 HYDROcodone-acetaminophen (NORCO) 7.5-325 MG per tablet 1 tablet 1 tablet, Oral, Every 4 Hours PRN, Severe Pain, Starting on Tue04/22/25 at 1645, For 5 days, Based on patient request - if ordered for moderate or severe pain, provider allows for administration of a medication prescribed for a lower pain scale. [RYAN] Do not exceed 4 grams of acetaminophen in a 24 hr period. Max dose of 2gm for AST/ALT greater than 120 units/L If given for pain, use the following pain scale: Mild Pain = Pain Score of 1-3, CPOT 1-2 Moderate Pain = Pain Score of 4-6, CPOT 3-4 Severe Pain = Pain Score of 7-10, CPOT 5-8 HYDROmorphone (DILAUDID) injection 0.5 mg 0.5 mg, Intravenous, Every 10 Minutes PRN, Severe Pain, Starting on Tue04/22/25 at 1645, For 4 doses, Maximum total dose of hydromorphone is 2 mg. If given for pain, use the following pain scale: Mild Pain = Pain Score of 1-3, CPOT 1-2 Moderate Pain = Pain Score of 4-6, CPOT 3-4 Severe Pain = Pain Score of 7-10, CPOT 5-8 ipratropium-albuterol (DUO-NEB) nebulizer solution 3 mL 3 mL, Nebulization, Once As Needed, Wheezing, Shortness of Air, bronchospasm, Starting on Tue04/22/25 at 1645, For 1 dose labetalol (NORMODYNE,TRANDATE) injection 5 mg 5 mg, Intravenous, Every 5 Minutes PRN, High Blood Pressure, for systolic blood pressure greater than 180 mmHg or diastolic blood pressure greater than 105 mmHg, Starting on Tue04/22/25 at 1645, Hold for heart rate less than 60. Give IV Push over 2 minutes. lactated ringers bolus 250 mL 250 mL, Intravenous, at 1,666.7 mL/hr, Administer over 0.15 Hours, Once As Needed, Hypotension, Starting on Tue04/22/25 at 1645, For 2 doses, Indications: HypotensionIndications:Hypotens ion lactated ringers infusion 9 mL/hr, Intravenous, Continuous, Starting on Tue04/22/25 at 1647, For 1 day lidocaine PF 1% (XYLOCAINE) injection 0.5 mL 0.5 mL, Injection, Once As Needed, IV Start, Starting on Tue04/22/25 at 1311, For 1 dose Given 04/22/2025 2:05 PM EDT 0.5 mL naloxone (NARCAN) injection 0.4 mg 0.4 mg, Intravenous, As Needed, Opioid Reversal, unresponsiveness, decrease oxygen saturation, Starting on Tue04/22/25 at 1645 ondansetron (ZOFRAN) injection 4 mg 4 mg, Intravenous, Once As Needed, Nausea, Vomiting, Starting on Tue04/22/25 at 1645, For 1 dose, If BOTH ondansetron (ZOFRAN) and promethazine (PHENERGAN) are ordered use ondansetron first and THEN promethazine IF ondansetron is ineffective. promethazine (PHENERGAN) suppository 25 mg 25 mg, Rectal, Once As Needed, Nausea, Vomiting, Starting on Tue04/22/25 at 1645, For 1 dose, If BOTH ondansetron (ZOFRAN) and promethazine (PHENERGAN) are ordered use ondansetron first and THEN promethazine IF ondansetron is ineffective. promethazine (PHENERGAN) tablet 25 mg 25 mg, Oral, Once As Needed, Nausea, Vomiting, Starting on Tue04/22/25 at 1645, For 1 dose, If BOTH ondansetron (ZOFRAN) and promethazine (PHENERGAN) are ordered use ondansetron first and THEN promethazine IF ondansetron is ineffective. ([facility]) sodium chloride 0.9 % flush 3 mL 3 mL, Intravenous, Every 12 Hours Scheduled, First dose on Tue04/22/25 at 2100 sodium chloride 0.9 % flush 3-10 mL 3-10 mL, Intravenous, As Needed, Line Care, Starting on Tue04/22/25 at 1645 sodium chloride 0.9 % infusion 9 mL 9 mL, Intravenous, As Needed, Line Care, Starting on Tue04/22/25 at 1645, For 1 day, Following administration of an IV intermittent medication, flush line with 40mL NS at 100mL/hr. sodium chloride 0.9 % infusion 9 mL/hr, Intravenous, Once, On Tue04/22/25 at 1408, For 1 dose New Bag 04/22/2025 2:08 PM EDT 9 mL/hr 9 mL/hr documented in this encounter Active and Recently Administered Medications Times are shown in EDT. Scheduled Medication Order 04/20/2025 04/21/2025 04/22/2025 ceFAZolin 2000 mg IVPB in 100 mL NS (MBP) (COMPLETED) 2,000 mg, Intravenous, Administer over 30 Minutes, Once, On Tue04/22/25 at 1313, For 1 dose, Administer within 1 hour of surgical incision. Redose 4 hours from pre-op dose if procedure ongoing or >1.5 L blood loss. Caution: Look alike/sound alike drug alert, Indications: Surgical Prophylaxis 1521 (New Bag - Prov ider: Cecy Traylor, GELA) famotidine (PEPCID) tablet 20 mg (COMPLETED) 20 mg, Oral, Once, On Tue04/22/25 at 1313, For 1 dose 1406 (Given - Provid er: Yonatan Chino RN) sodium chloride 0.9 % flush 3 mL 3 mL, Intravenous, Every 12 Hours Scheduled, First dose on Tue04/22/25 at 2100 sodium chloride 0.9 % infusion (COMPLETED) 9 mL/hr, Intravenous, Once, On Tue04/22/25 at 1408, For 1 dose 1408 (New Bag - Prov ider: Yonatan Chino RN) Continuous Medication Order 04/20/2025 04/21/2025 04/22/2025 lactated ringers infusion 9 mL/hr, Intravenous, Continuous, Starting on Tue04/22/25 at 1647, For 1 day 1647 (Due) PRN Medication Order 04/20/2025 04/21/2025 04/22/2025 bupivacaine liposome (EXPAREL) 1.3 % injection (CANCELED) As Needed, Starting on Tue04/22/25 at 1548 1548 (Given - Provid er: Azar Andino MD) bupivacaine-EPINEPHrine PF (MARCAINE w/EPI) 0.25% -1:094528 injection (CANCELED) As Needed, Starting on Tue04/22/25 at 1548 1548 (Given - Provid er: Azar Andino MD) droperidol (INAPSINE) injection 0.625 mg(Linked Group 1) 0.625 mg, Intravenous, Every 15 Minutes PRN, Nausea, Vomiting, Starting on Tue04/22/25 at 1645, For 2 doses droperidol (INAPSINE) injection 0.625 mg(Linked Group 1) 0.625 mg, Intramuscular, Once As Needed, Nausea, Vomiting, Starting on Tue04/22/25 at 1645, For 2 doses fentaNYL citrate (PF) (SUBLIMAZE) injection 50 mcg 50 mcg, Intravenous, Every 5 Minutes PRN, Moderate Pain, Starting on Tue04/22/25 at 1645, For 4 doses, Maximum total dose of fentanyl is 200 mcg. If given for pain, use the following pain scale: Mild Pain = Pain Score of 1-3, CPOT 1-2 Moderate Pain = Pain Score of 4-6, CPOT 3-4 Severe Pain = Pain Score of 7-10, CPOT 5-8 hydrALAZINE (APRESOLINE) injection 5 mg 5 mg, Intravenous, Every 10 Minutes PRN, High Blood Pressure, for systolic blood pressure greater than 180 mmHg or diastolic blood pressure greater than 105 mmHg, Starting on Tue04/22/25 at 1645, Up to 20 mg. Caution: Look alike/sound alike drug alert HYDROcodone-acetaminophen (NORCO) 5-325 MG per tablet 1 tablet 1 tablet, Oral, Once As Needed, Moderate Pain, pain, Starting on Tue04/22/25 at 1645, For 10 days, [RYAN] Do not exceed 4 grams of acetaminophen in a 24 hr period. Max dose of 2gm for AST/ALT greater than 120 units/L If given for pain, use the following pain scale: Mild Pain = Pain Score of 1-3, CPOT 1-2 Moderate Pain = Pain Score of 4-6, CPOT 3-4 Severe Pain = Pain Score of 7-10, CPOT 5-8 HYDROcodone-acetaminophen (NORCO) 7.5-325 MG per tablet 1 tablet 1 tablet, Oral, Every 4 Hours PRN, Severe Pain, Starting on Tue04/22/25 at 1645, For 5 days, Based on patient request - if ordered for moderate or severe pain, provider allows for administration of a medication prescribed for a lower pain scale. [RYAN] Do not exceed 4 grams of acetaminophen in a 24 hr period. Max dose of 2gm for AST/ALT greater than 120 units/L If given for pain, use the following pain scale: Mild Pain = Pain Score of 1-3, CPOT 1-2 Moderate Pain = Pain Score of 4-6, CPOT 3-4 Severe Pain = Pain Score of 7-10, CPOT 5-8 HYDROmorphone (DILAUDID) injection 0.5 mg 0.5 mg, Intravenous, Every 10 Minutes PRN, Severe Pain, Starting on Tue04/22/25 at 1645, For 4 doses, Maximum total dose of hydromorphone is 2 mg. If given for pain, use the following pain scale: Mild Pain = Pain Score of 1-3, CPOT 1-2 Moderate Pain = Pain Score of 4-6, CPOT 3-4 Severe Pain = Pain Score of 7-10, CPOT 5-8 ipratropium-albuterol (DUO-NEB) nebulizer solution 3 mL 3 mL, Nebulization, Once As Needed, Wheezing, Shortness of Air, bronchospasm, Starting on Tue04/22/25 at 1645, For 1 dose labetalol (NORMODYNE,TRANDATE) injection 5 mg 5 mg, Intravenous, Every 5 Minutes PRN, High Blood Pressure, for systolic blood pressure greater than 180 mmHg or diastolic blood pressure greater than 105 mmHg, Starting on Tue04/22/25 at 1645, Hold for heart rate less than 60. Give IV Push over 2 minutes. lactated ringers bolus 250 mL 250 mL, Intravenous, at 1,666.7 mL/hr, Administer over 0.15 Hours, Once As Needed, Hypotension, Starting on Tue04/22/25 at 1645, For 2 doses, Indications: Hypotension lidocaine PF 1% (XYLOCAINE) injection 0.5 mL (COMPLETED) 0.5 mL, Injection, Once As Needed, IV Start, Starting on Tue04/22/25 at 1311, For 1 dose 1405 (Given - Provid er: Yonatan Chino RN) naloxone (NARCAN) injection 0.4 mg 0.4 mg, Intravenous, As Needed, Opioid Reversal, unresponsiveness, decrease oxygen saturation, Starting on Tue04/22/25 at 1645 ondansetron (ZOFRAN) injection 4 mg 4 mg, Intravenous, Once As Needed, Nausea, Vomiting, Starting on Tue04/22/25 at 1645, For 1 dose, If BOTH ondansetron (ZOFRAN) and promethazine (PHENERGAN) are ordered use ondansetron first and THEN promethazine IF ondansetron is ineffective. promethazine (PHENERGAN) suppository 25 mg(Linked Group 2) 25 mg, Rectal, Once As Needed, Nausea, Vomiting, Starting on Tue04/22/25 at 1645, For 1 dose, If BOTH ondansetron (ZOFRAN) and promethazine (PHENERGAN) are ordered use ondansetron first and THEN promethazine IF ondansetron is ineffective. promethazine (PHENERGAN) tablet 25 mg(Linked Group 2) 25 mg, Oral, Once As Needed, Nausea, Vomiting, Starting on Tue04/22/25 at 1645, For 1 dose, If BOTH ondansetron (ZOFRAN) and promethazine (PHENERGAN) are ordered use ondansetron first and THEN promethazine IF ondansetron is ineffective. ([facility]) sodium chloride 0.9 % flush 3-10 mL 3-10 mL, Intravenous, As Needed, Line Care, Starting on Tue04/22/25 at 1645 sodium chloride 0.9 % infusion 9 mL 9 mL, Intravenous, As Needed, Line Care, Starting on Tue04/22/25 at 1645, For 1 day, Following administration of an IV intermittent medication, flush line with 40mL NS at 100mL/hr. vancomycin (VANCOCIN) powder (CANCELED) As Needed, Starting on Tue04/22/25 at 1601 1601 (Given - Provid er: Azar Andino MD) Linked Groups Order Group 1: droperidol (INAPSINE) injection 0.625 mgJump to med 0.625 mg, Intravenous, Every 15 Minutes PRN, Nausea, Vomiting, Starting on Tue04/22/25 at 1645, For 2 doses Or droperidol (INAPSINE) injection 0.625 mgJump to med 0.625 mg, Intramuscular, Once As Needed, Nausea, Vomiting, Starting on Tue04/22/25 at 1645, For 2 doses Group 2: promethazine (PHENERGAN) suppository 25 mgJump to med 25 mg, Rectal, Once As Needed, Nausea, Vomiting, Starting on Tue04/22/25 at 1645, For 1 dose, If BOTH ondansetron (ZOFRAN) and promethazine (PHENERGAN) are ordered use ondansetron first and THEN promethazine IF ondansetron is ineffective. Or promethazine (PHENERGAN) tablet 25 mgJump to med 25 mg, Oral, Once As Needed, Nausea, Vomiting, Starting on Tue04/22/25 at 1645, For 1 dose, If BOTH ondansetron (ZOFRAN) and promethazine (PHENERGAN) are ordered use ondansetron first and THEN promethazine IF ondansetron is ineffective. ([facility]) documented in this encounter Care Teams Ethics Officer Relationship Specialty Start Date End Date Jd Santacruz MD [address] [facility] [address] [place] [address] PCP - General Internal Medicine 05/18/18 documented as of this encounter
--- OUTSIDE RECORDS SUMMARY | 2025-04-22 14:19 | XMS_ITS | Encounter Summary ---
Author Organization [facility] Address [address] [place] [address] Care Team Providers Care Bookkeeping Manager Name Role Phone Jd Santacruz MD Primary Care Provider [phone] Reason for Visit * Auth/Cert Specialty Diagnoses / Procedures Referred By Contac t Referred To Contact Diagnoses Lumbar postlaminectomy syndrome Procedures TX INSJ/RPLCMT SPINAL NPG/RCVR POCKET CRTJ&CONNJ TX PRQ IMPLTJ NSTIM ELECTRODE ARRAY EPIDURAL TX PRQ IMPLTJ NSTIM ELECTRODE ARRAY EPIDURAL SPINAL CORD STIMULATOR INSERTION PHASE 2 Referral ID Status Reason Start Date Expiration Date Visits Re quested Visits Authorized [id number] 1 1 Encounter Details Date Type Department Care Team (Late st Contact Info) Description 04/22/2025 2:19 PM EDT - 04/22/2025 4:25 PM EDT Surgery [facility] [address] [place] [address] Azar Andino MD [address] [address] SPINAL CORD STIMULATOR INSERTION PHASE 2 [37528 (CPT ) +2 more] Social History Tobacco Use Types Packs/Day Years [...] or training? Not on file Preferred Language Swazi 04/16/2025 PHQ-2 Answer Date Recorded Patient Health Questionnaire-2 Score 1 02/28/2025 Comments No Sex and Gender Information Value Date Recorded Sex Assigned at Not on file Legal Sex Female 10:05 AM EDT Gender Identity Not on file Sexual Orientation Not on file documented as of this encounter Last Filed Vital Signs Vital Sign Reading Time Taken Comments Blood Pressure 137/74 04/22/2025 1:23 PM EDT Pulse 86 04/22/2025 1:23 PM EDT Temperature 36.4 C (97.6 F) 04/22/2025 1:23 PM EDT Respiratory Rate 15 04/22/2025 1:23 PM EDT Oxygen Saturation 96% 04/22/2025 1:23 PM EDT Inhaled Oxygen Concentration - - [...] Risk Indicated 04/22/2025 1:12 PM EDT Yonatan Chino, EUNICE * [place] Suicide Severity Rating Scale (Screener/Recent Self-Report) Question Answer Date of Assessment Author 6. Suicidal Behavior (Lifetime) No 1:12 PM EDT Yonatan Chino RN documented as of this encounter Discharge Instructions * Attachments The following attachments cannot be sent through Care Everywhere. * General Anesthesia Adult Care After (Swazi) * Spinal Cord Stimulator Implantation Care After (Swazi) documented in this encounter Medications at Time [...] MG/0.1ML nasal spray Call 911. Don't prime. [place] in 1 nostril for overdose. Repeat in [...] to the H&P. Source Note - Shakira Jsohua APRN - 04/09/2025 9:00 AM EDT Chief [...] pain. Eva Ward underwent L4-S1 PLIFby Dr. Christenesn on 06/28/2018. Her postoperative course was complicated by an abscess that required aoperation on 07/15/2018. She did well thereafter. By 4953-2604, she started experiencing lower backpain radiating into [...] found not to be a surgical candidate. [facility] psychological evaluation with Dr Lisbet Hong on 02/20/2025: From a psychological perspective patient appears to be an appropriate candidate for a PNS, SCS or an Intrathecal Pain Pump at thistime. vEa Ward presents with significant comorbidities including chronic kidney disease, history of left nephrectomy in 2010, diabetes mellitus, hypercholesterolemia, gout, hypertension, migraines, aspirin 81 mg In terms of current analgesics, Eva Ward takes: Paradox, Lyrica, amitriptyline. Patient also takes allopurinol I [...] FUSION L4-S1; Surgeon: Fidel Christensen MD; Location: [facility] OR; Service: Neurosurgery NECK SURGERY 12/2009 NEPHRECTOMY Left 2011 due to cancer ORTHOPEDIC SURGERY SPINAL FUSION 06/2018 TRIGGER POINT INJECTION 2016 TUBAL ABDOMINAL LIGATION WOUND CLOSURE Bilateral 07/19/2018 Procedure: WOUND EXPLORATION EVACUATION OF EPIDURAL ABSCESS AND PRIMARY CLOSURE; Surgeon: Fidel Christensen MD; Location: [facility] OR; Service: Neurosurgery Family History Problem [...] spinal cord stimulator reprogramming Patient used the shipbeatro spinal cord stimulator device 100% of the [...] on 07/15/2018. She did well thereafter. By [id number], she started experiencing lower back pain radiating [...] daily for 5 days before surgery Start [id number]-yzc-dxdknqj Hibiclens showers daily 5 days before surgery [...] on 07/15/2018. She did well thereafter. By [phone], she started experiencing lower backpain radiating into [...] found not to be a surgical candidate. [facility] psychological evaluation with Dr Lisbet Hong on 02/20/2025: From a psychological perspective patient appears to be an appropriate candidate for a PNS, SCS or an Intrathecal Pain Pump at thistime. Eva Ward presents with significant comorbidities including chronic kidney disease, history of left nephrectomy in 2011, diabetes mellitus, hypercholesterolemia, gout, hypertension, migraines, aspirin 81 mg In terms of current analgesics, Eva Ward takes: Paradox, Lyrica, amitriptyline. Patient also takes allopurinol I [...] FUSION L4-S1; Surgeon: Fidel Christensen MD; [facility]; Service: Neurosurgery NECK SURGERY 12/2009 NEPHRECTOMY Left 2010 due to cancer ORTHOPEDIC SURGERY SPINAL FUSION 06/2018 TRIGGER POINT INJECTION 2016 TUBAL ABDOMINAL LIGATION WOUND CLOSURE Bilateral 07/19/2018 Procedure: WOUND EXPLORATION EVACUATION OF EPIDURAL ABSCESS AND PRIMARY CLOSURE; Surgeon: Fidel Christensen MD; Location: [facility] OR; Service: Neurosurgery Family History Problem [...] on 07/15/2018. She did well thereafter. By [phone], she started experiencing lower back pain radiating [...] daily for 5 days before surgery Start szvb-atm-fpuzyoc Hibiclens showers daily 5 days before surgery [...] Telephone Number Phone Number for Ride/Caregiver: MELISSA CARSON,[phone] Who will be staying with you post procedure for the next 24 hours? Name and Phone Number?: MELISSA CARSON,[phone] documented in this encounter OR Notes * [...] Nevro Senza percutaneous leads 1058-50 B LOT [id number] Exp 01/2028 and LOT #[id number] Exp 01/2028 CPT: 81066 x 2 Anchors: Two N-300 Lead [place]hel Kit REF [id number] Lot #[id number] Exp 02/2027 Implantation of Rechargeable IPG Nevro HFXIQ REF [id number] LOT [id number] Exp 09/2027 CPT: 48079 Complex programming of spinal cord stimulator device [...] operation on 07/15/2018.She did well thereafter. By [phone], she started experiencing lower back pain radiating [...] leads using the wrench provided by the shipping and receiving operator. Then, the anchors were sutured to the [...] site using the tunneler provided by the shipping and receiving operator without difficulties. Both surgical wounds were irrigated with normal saline with vancomycin. The leads were cleaned with sterile water and dried with sterile towels. The leads were connected to the IPG. The connection was secured using the wrench provided by the shipping and receiving operator. Impedances were checked before closure of the [...] to proceed accordingly. Azar Andino MD EMR Dragon/Charge Master Coordinator disclaimer: Much of this encounter note is an electronic labor crew supervisor of spoken language to printed text. Electronic labor crew supervisor of spoken language may permit erroneous, or at times, nonsensical words, or phrases to be inadvertently transcribed. Although I have reviewed the note for such errors, some may still exist. documented in this encounter Plan of Treatment Upcoming Encounters Date Type Department Care Team (Late st Contact Info) Description 07/11/2025 11:00 AM EDT Office Visit [facility] [address] [facility] [address] [place] [phone] Shakira Joshua, INSPECTOR OUTSIDE PRODUCTION [address] [facility] [address] [place], [place] [id number] 01/27/2026 9:45 AM EDT Office Visit [facility] CARDI[facility] [address] [facility] [address] [place] [address] Messi Looney MD [address] [facility] [address] [place] [address] documented as of this encounter Procedures Procedure Name Priority Date/Time Associated Diagnosis Comments FL C ARM DURING SURGERY Routine 04/22/2025 5:11 PM EDT TX PRQ IMPLTJ NSTIM ELECTRODE ARRAY EPIDURAL 04/22/2025 2:39 PM EDT Lumbar postlaminectomy syndrome Special Needs Abdominal binder, Weitlaner- size small, (2) 4x4 covaderm, ortho irrigation, sheet, ring clamp, NEVRO (Taurus WOLFE NOTIFIED 04/10/25) ~ TX INSJ/RPLCMT SPINAL NPG/RCVR POCKET CRTJ&CONNJ 04/22/2025 2:39 [...] - 130 mg/dL 04/22/2025 1:37 PM EDT [facility] Blood 04/22/2025 1:35 PM EDT 04/22/2025 1:37 PM EDT us Azar Andino MD POINT OF CARE TEST ORDERABLES Final Result [facility]
[address] [place] [address], documented in this encounter Visit Diagnoses Diagnosis [...] MAR Action Action Date Dose Rate Site bupivacaine liposome (EXPAREL) 1.3 % injection As Needed, Starting on Tue04/22/25 at 1548 Given 04/22/2025 3:48 PM EDT 20 mL Ba ck bupivacaine-EPINEPHrine PF (MARCAINE w/EPI) 0.25% -1:456828 injection As Needed, Starting on Tue04/22/25 at 1548 Given 04/22/2025 3:48 PM EDT 30 mL droperidol (INAPSINE) injection 0.625 mg 0.625 mg, [...] and THEN promethazine IF ondansetron is ineffective. ([facility]) sodium chloride 0.9 % flush 3 [...] 2:08 PM EDT 9 mL/hr 9 mL/hr vancomycin (VANCOCIN) powder As Needed, Starting on Tue04/22/25 at 1601 Given 04/22/2025 4:01 PM EDT 1 g documented in this encounter Active and Recently [...] 1521 (New Bag - Prov ider: Cecy Traylor CRNA) famotidine (PEPCID) tablet 20 mg (COMPLETED) 20 [...] Andino MD) bupivacaine-EPINEPHrine PF (MARCAINE w/EPI) 0.25% -1:497622 injection (CANCELED) As Needed, Starting on Tue04/22/25 [...] and THEN promethazine IF ondansetron is ineffective. ([facility]) sodium chloride 0.9 % flush 3-10 mL [...] and THEN promethazine IF ondansetron is ineffective. ([facility]) documented in this encounter Care Teams Bookkeeping Manager Relationship Specialty Start Date End Date Jd Santacruz MD [facility] [place] [address] [address] PCP - General Internal Medicine 05/18/18 documented as of this encounter
--- OUTSIDE RECORDS SUMMARY | 2025-04-22 14:54 | XMS_ITS | Encounter Summary ---
Author Organization [facility] Address [address] [place] [address] Care Team Providers Care Sap Portal Developer Name Role Phone Jd Santacruz MD Primary Care Provider [phone] Reason for Visit * Auth/Cert Specialty Diagnoses / Procedures Referred By Contac t Referred To Contact Diagnoses Lumbar postlaminectomy syndrome Procedures MS INSJ/RPLCMT SPINAL NPG/RCVR POCKET CRTJ&CONNJ MS PRQ IMPLTJ NSTIM ELECTRODE ARRAY EPIDURAL MS PRQ IMPLTJ NSTIM ELECTRODE ARRAY EPIDURAL SPINAL CORD STIMULATOR INSERTION PHASE 2 Referral ID Status Reason Start Date Expiration Date Visits Re quested Visits Authorized [id number] 1 1 Encounter Details Date Type Department Care Team (Late st Contact Info) Description 04/22/2025 2:54 PM EDT Anesthesia Event [facility] OR [address] [place] [address] Dagoberto Anne MD [address] [phone] Dain Mcmahon MD [address] [place] [address] Anesthesia Record Procedure Summary Procedure Name Responsible Anesthesiologist Anesthesia Start Time Anesthesia Stop Time SPINAL CORD STIMULATOR INSERTION PHASE 2 (Back) Dagoberto Anne MD 04/22/25 1454 04/22/25 1710 Events Date Time Event Comment 04/22/2025 1331 1449 AN Equip Check 1454 An Start The patient was reevaluated immediately before moderate or deep sedation use and before anesthesia induction. 1454 An Start Data 1501 an mel now 1501 Quick Note IV infiltrated 1520 An Induction 1523 An Intubation 1700 An Extubation 1702 an stop data 1710 Handoff to RN The following has been completed: 1. Identification of Patient, costa family member(s) or patient surrogate 2. Identification of the responsible Practitioner (primary service) 3. Discussion of the pertinent/attainable medical history 4. Discussion of the surgical/procedure course (procedure, reason for surgery, procedure performed) 5. Intraoperative anesthetic management and issue/concerns to include things such as airway, hemodynamics, narcotic, sedation level and paralytic management and intravenous fluids/blood products and urine output during the procedure 6. Expectations/Plans for the early post-procedure period to include things such as anticipated course (anticipatory guidance), complications, need for laboratory or ECG and medication administration 7. Opportunity for questions and acknowledgment of understanding of report from the receiving PACU/ICU team 1710 An Stop Meds Name Total lidocaine PF 1% 1 % 50 mg propofol 10 MG/ML 561.6 mg rocuronium 50 MG/5ML 50 mg dexAMETHasone 4 MG/ML 8 mg ondansetron 2 mg/mL 4 mg propofol (DIPRIVAN) infusion 10 mg/mL 10 0 mL 509.6 mg ceFAZolin 2000 mg IVPB in 100 mL NS (MBP ) 2,000 mg sugammadex 200 MG/2ML 200 mg lactated ringers infusion 700 mL * Agents Name O2 N2O Air Sevoflurane Inspired Sevoflurane * Blood No blood administrations on file. Lines, Drains, and Airways Type Details Placement Removal Wound 04/22/25; 1537; N; l umbar spine 04/22/25 1537 by Staci Oreilly, EUNICE Peripheral IV Placement Date: 03/27 05/20; Placement Time: 1404; Catheter Size: 20 G; Orientation: Anterior, Left; Location: Forearm; Site Prep: Chlorhexidine; Local Anes: Injectable; Technique: Ultrasound guidance; Inserted by: Fabian Templeton RN (two unsuccessful attempts by other nurses); Insertion Attempts: 3; Patient Tolerance: Tolerated well; Removal Date: 04/22/25; Removal Time: 1548 04/22/25 1404 by Yonatan Chino RN 04/22/25 1548 by Amanda Marinelli CRNA Peripheral IV Placement Date: 03/27 05/20; Placement Time: 1516; Catheter Size: 22 G; Orientation: Right; Location: Forearm; Removal Date: 04/22/25; Removal Time: 185504/22/251516 by Amanda Marinelli CRNA 04/22/251855 by Jessica Fuentes RN ETT Placement Date: 03/27 05/20; Placement Time: 1522 (created via procedure documentation); Blade Size: 3; Location: Oral; Removal Date: 04/22/25; Removal Time: 17004/22/25 152 by Cecy Traylor CRNA 04/22/25 170 by Amanda Marinelli CRNA documented in this encounter Social History Tobacco Use Types Packs/Day Years [...] or training? Not on file Preferred Language Samoan 04/16/2025 PHQ-2 Answer Date Recorded Patient Health Questionnaire-2 Score 1 02/28/2025 Comments No Sex and Gender Information Value Date Recorded Sex Assigned at Not on file Legal Sex Female 10:05 AM EDT Gender Identity Not on file Sexual Orientation Not on file documented as of this encounter Functional Status * Question Answer [...] 1:12 PM EDT Yonatan Chino RN * Emmet Suicide Severity Rating Scale (Screener/Recent Self-Report) Question Answer Date of Assessment Author 6. Suicidal Behavior (Lifetime) No 1:12 PM EDT Yonatan Chino RN documented as of this encounter OR Notes * Anesthesia Postprocedure Evaluation - Amanda Marinelli CRNA - 04/22/2025 5:10 PM EDT Patient: Eva Avendaño Kaleva Procedure Summary Date: 04/22/25 Room / Location: [facility] [address] [place] [address] [facility] Anesthesia Start: 1454 Anesthesia Stop: 1710 Procedure: SPINAL CORD STIMULATOR INSERTION PHASE 2 (Back) Diagnosis: Lumbar postlaminectomy syndrome (Lumbar postlaminectomy syndrome [M96.1]) Surgeons: Azar Andino MD Provider: Dagoberto Anne MD Anesthesia Type: MAC ASA Status: 3 Anesthesia Type: MAC Vitals Vitals Value Taken Time BP 146/89 04/22/25 17:10 Temp 97.4 ??F (36.3 ??C) 04/22/25 17:10 Pulse 82 04/22/25 17:10 Resp 12 04/22/25 17:10 SpO2 93 % 04/22/25 17:10 Post Anesthesia Care and Evaluation Patient location during evaluation: PACU Patient participation: complete - patient participated Level of consciousness: awake and alert Pain management: adequate Airway patency: patent Anesthetic complications: No anesthetic complications PONV Status: none Cardiovascular status: hemodynamically stable and acceptable Respiratory status: nonlabored ventilation, acceptable, nasal cannula and spontaneous ventilation Hydration status: acceptable No anesthesia care post op * Anesthesia Procedure Notes - Cecy Traylor CRNA - 04/22/2025 3:41 PM EDTAssociated Order(s): Airway Airway Reason: elective Date/Time: 04/22/2025 3:23 PM Airway not difficult General Information and Staff Patient location during procedure: OR COMMUNITY SUPPORT SPECIALIST/CAA: Cecy Traylor CRNA Indications and Patient Condition Indications for airway management: airway protection Preoxygenated: yes MILS not maintained throughout Mask difficulty assessment: 1 - vent by mask Final Airway Details Final airway type: endotracheal airway Successful airway: ETT Cuffed: yes Successful intubation technique: direct laryngoscopy Adjuncts used in placement: intubating stylet Endotracheal tube insertion site: oral Blade: Cornelius Blade size: 3 ETT size (mm): 7.0 Cormack-Lehane Classification: grade I - full view of glottis Placement verified by: chest auscultation and capnometry Measured from: lips ETT/EBT to lips (cm): 20 Number of attempts at approach: 1 Assessment: lips, teeth, and gum same as pre-op and atraumatic intubation Additional Comments Negative epigastric sounds, Breath sound equal bilaterally with symmetric chest rise and fall * Anesthesia Preprocedure Evaluation - Dain Mcmahon MD - 04/22/2025 6:48 AM EDT Anesthesia Evaluation Patient summary reviewed and Nursing notes reviewed NPO Solid Status: > 8 hours NPO Liquid Status: > 2 hours Airway Mallampati: II TM distance: >3 FB Neck ROM: full Possible difficult intubation Dental Pulmonary (+) asthma (PRN MDI),sleep apnea (NC) (-) pneumonia, COPD, shortness of breath, recent URI, not a smoker, no home oxygen Cardiovascular (+) hypertension, hyperlipidemia (-) past MA, dysrhythmias, angina, cardiac stents Neuro/Psych GI/Hepatic/Renal/Endo (+) obesity, morbid obesity, renal disease (creat 2.0 k 5.0)- CRI, diabetes mellitus (A1c 6.0) type2 (-) no thyroid disorder Musculoskeletal (+) back pain, chronic pain, myalgias, neck pain 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 Plan discussed with COMMUNITY SUPPORT SPECIALIST. CODE STATUS: documented in this encounter Plan of Treatment Upcoming Encounters Date Type Department Care Team (Late st Contact Info) Description 07/11/2025 11:00 AM EDT Office Visit [facility] PAIN [facility]NA[facility] [address] [facility] [address] [place] [address] Shakira Joshua, BALE OPENER [address] [facility] [address] [place], [place] [phone] 01/27/2026 9:45 AM EDT Office Visit [facility] CARDIOLOGY [address] [facility] [address] [place] [phone] Messi Looney MD [address] [facility] [address] [place], [place] [phone] documented as of this encounter Procedures Procedure Name Priority Date/Time Associated Diagnosis Comments ANESTHESIA INTUBATION Routine 04/22/2025 3:41 PM EDT documented in this encounter Results * BH AN ETT AIRWAY (04/22/2025 3:41 PM EDT) Narrative Cecy Traylor CRNA - 04/22/2025 3:41 PM EDT Cecy Traylor CRNA 04/22/2025 3:42 PM Airway Reason: elective Date/Time: 04/22/2025 3:23 PM Airway not difficult General Information and Staff Patient location during procedure: OR COMMUNITY SUPPORT SPECIALIST/CAA: Cecy Traylor CRNA Indications and Patient Condition Indications for airway management: airway protection Preoxygenated: yes MILS not maintained throughout Mask difficulty assessment: 1 - vent by mask Final Airway Details Final airway type: endotracheal airway Successful airway: ETT Cuffed: yes Successful intubation technique: direct laryngoscopy Adjuncts used in placement: intubating stylet Endotracheal tube insertion site: oral Blade: Cornelius Blade size: 3 ETT size (mm): 7.0 Cormack-Lehane Classification: grade I - full view of glottis Placement verified by: chest auscultation and capnometry Measured from: lips ETT/EBT to lips (cm): 20 Number of attempts at approach: 1 Assessment: lips, teeth, and gum same as pre-op and atraumatic intubation Additional Comments Negative epigastric sounds, Breath sound equal bilaterally with symmetric chest rise and fall us Dagoberto Anne MD ANESTHESIA ORDERABLES Lotus l Result documented in this encounter Visit Diagnoses Not on filedocumented in this encounter Administered Medications Inactive Administered Medications - up to 3 most recent administrations Medication Order MAR Action Action Date Dose Rate Site ceFAZolin 2000 mg IVPB in 100 mL NS (MBP) 2,000 mg, Intravenous, Administer over 30 Minutes, Once, On Tue04/22/25 at 1313, For 1 dose, Administer within 1 hour of surgical incision. Redose 4 hours from pre-op dose if procedure ongoing or >1.5 L blood loss. Caution: Look alike/sound alike drug alert, Indications: Surgical ProphylaxisIndications :Surgical Prophylaxis New Bag 04/22/2025 3:21 PM EDT 2,000 mg dexAMETHasone (DECADRON) injection Intravenous, As Needed, Starting on Tue04/22/25 at 1520 Given 04/22/2025 3:20 PM EDT 8 mg lactated ringers infusion Intravenous, Continuous PRN, Starting on Tue04/22/25 at 1454 New Bag 04/22/2025 2:54 PM EDT lidocaine PF 1% (XYLOCAINE) injection Intravenous, As Needed, Starting on Tue04/22/25 at 1520 Given 04/22/2025 3:20 PM EDT 50 mg ondansetron (ZOFRAN) injection Intravenous, As Needed, Starting on Tue04/22/25 at 1631 Given 04/22/2025 4:31 PM EDT 4 mg propofol (DIPRIVAN) infusion 10 mg/mL 100 mL Intravenous, Continuous PRN, Starting on Tue04/22/25 at 1531 Rate/Dose Change 04/22/2025 3:39 PM EDT 125 mcg/kg/min 73.5 mL/hr New Bag 04/22/2025 3:31 PM EDT 150 mcg/kg/min 88.2 mL/h r propofol (DIPRIVAN) injection Intravenous, As Needed, Starting on Tue04/22/25 at 1520 New Bag 04/22/2025 4:11 PM EDT 100 mcg/kg/min 58.8 mL/hr Given 04/22/2025 3:20 PM EDT 150 mg rocuronium (ZEMURON) injection Intravenous, As Needed, Starting on Tue04/22/25 at 1520 Given 04/22/2025 3:20 PM EDT 50 mg sugammadex (BRIDION) injection Intravenous, As Needed, Starting on Tue04/22/25 at 1700 Given 04/22/2025 5:00 PM EDT 200 mg documented in this encounter Care Teams Sap Portal Developer Relationship Specialty Start Date End Date Jd Santacruz MD [address] [facility] [address] [place] [id number] PCP - General Internal Medicine 05/18/18 documented as of this encounter
--- OUTSIDE RECORDS SUMMARY | 2025-04-25 07:30 | XMS_ITS | Encounter Summary ---
Author Organization [facility] Address [address] [place] [id number] Care Team Providers Care Client Success Specialist Name Role Phone Jd Santacruz MD Primary Care Provider [phone] Reason for Visit * Reason Comments Post-op Follow-up Encounter Details Date Type Department Care Team (Late st Contact Info) Description 04/25/2025 7:30 AM EDT Office Visit [facility] PAIN MANAGEMENT [address] [phone] Shakira Joshua, CORE WINDER MACHINE OPERATOR [address] [place] [id number] Lumbar postlaminectomy syndrome; Lumbar stenosis with neurogenic claudication; Ligamentum flavum hypertrophy; Myofascial pain; Gait disturbance; Encounter for fitting and adjustment [...] or training? Not on file Preferred Language Citizen Of [place] 04/16/2025 PHQ-2 Answer Date Recorded Patient Health [...] - Inhaled Oxygen Concentration - - Weight 101 kg (222 lb) 04/25/2025 7:42 AM EDT Height - - Body Mass Index 40.6 04/22/2025 1:23 PM EDT documented in this encounter Progress Notes * Shakira Joshua, CORE WINDER MACHINE OPERATOR - 04/25/2025 7:30 AM EDT Chief Complaint: I am doing well with my stimulator device. Brief History: Mrs. Eva Ward is a 70 y.o. female, who underwent on 04/22/2025 implantation of a spinal cord stimulator device with Dr. Andino with rGeg. Greg Garza Senza percutaneous lead with the top electrodes projecting at the level of the superior endplateof the T8 vertebral body level, and the other lead up to the level of the superior endplate of the T9 vertebral body. IPG: NevroHFXIQ full body MRI compatible up to 1.5 [place]. SCS Device is full body MRI compatible. The device was primarily implanted for treatment of chronic intractable lower back and lower extremity pain. Eva Ward returns to the clinic for her first postoperative visit for evaluation of her surgical wounds, continued assessment of her chronic pain, and possible spinal cord stimulator reprogramming. Eva Ward reports that she has remained afebrile since her surgery and that her surgical wounds are healing well without erythema, drainage, or fluid accumulation. Ms. Eva Ward reports 70% pain relief along with remarkable functional improvement with the use of her stimulator device. Eva Ward reports significant relief of her previously severe neurogenic claudication. Eva Ward also reports significant improvement of her nocturnal pain. Eva Ward is doing well and feels satisfied with her SCS device and reports excellent coverage in all areas of her chronic pain and does not need of SCS reprogramming. Pain level is rated as 5/10 with the use of the spinal cord stimulator device. Patient level ranges from 1/10 to 7/10 with the use of the spinal cord stimulator device. Patient denies pain, numbness, and weakness in the lower extremities. Please see previous OV notes for a comprehensive history Nevro SCS Device: Date of implantation: 04/22/2025 Surgeon: Azar Andino MD Indications: Treatment of chronic intractable lower back and lower extremity pain. Leads: Nevro Nevro Senza percutaneous lead with the top electrodes projecting at the level of the superior endplateof the T8 vertebral body level, and the other lead up to the superior endplate of the T9 vertebral body IPG: Nevro HFXIQ rechargeable System: Full Body MRI compatible Pain History: Ms. Eva Ward, 70 y.o. female originally referred by Dr. Isaias Alvarado in consultation for longstanding for chronic progressive intractable lower back pain. Eva Ward underwent L4-S1 PLIFby Dr. Christensen on 06/28/2018. Her postoperative course was complicated by an abscess that required aoperation on 07/15/2018. She did well thereafter. By [id number], she started experiencing lower backpain radiating into [...] found not to be a surgical candidate. [facility] psychological evaluation with Dr Lisbet Hong on 02/20/2025: From a psychological perspective patient appears to be an appropriate candidate for a PNS, SCS or an Intrathecal Pain Pump at thistime. Eva Ward presents with significant comorbidities including chronic kidney disease, history of left nephrectomy in 2010, diabetes mellitus, hypercholesterolemia, gout, hypertension, migraines, aspirin 81 mg In terms of current analgesics, Eva Ward takes: [place], Lyrica, amitriptyline. Patient also takes allopurinol I have reviewed Triston Report consistent with medication reconciliation. SOAPP: Low Risk Global Pain Scale -08-16 Pain 10 3 17 Feelings 4 0 2 Clinical outcomes 5 10 16 Activities 12 0 18 GPS Total: 31 13 53 Review Diagnostic Studies: Lumbar spine x-rays with flexion-extension views 03/16/2025: Postoperative changes from prior fusionat L4-S1. Otherwise multilevel degenerative changes. No evidence of instability. X-ray of the pelvis 03/16/2025: Moderate bilateral hip arthrosis with bilateral SI joint arthritis. MRI of the thoracic spine without contrast 03/16/2025: Multilevel thoracic degenerative disc diseasewith facet arthritis. No high-grade central spinal stenosis. MRI LUMBAR SPINE WO CONTRAST: 01/24/2025. The [...] 2009 Migraine NONE SINCE MENOPAUSE Neck pain 2009 Osteoarthritis 2013 Piriformis syndrome of right side 03/15/2023 Pneumonia Sleep apnea Spinal stenosis Thoracic disc disorder 2009 TMJ dysfunction Wears reading eyeglasses resolved Past Surgical History: Procedure Laterality Date BACK SURGERY 06/2018 CERVICAL FUSION COLONOSCOPY ECTOPIC EPIDURAL BLOCK HEEL SPUR SURGERY Left HYSTERECTOMY KNEE ARTHROSCOPY Right LAMINECTOMY LUMBAR DISCECTOMY FUSION INSTRUMENTATION N/A 06/28/2018 Procedure: TLIF L4-S1, WITH POST LATERAL FUSION L4-S1; Surgeon: Fidel Christensen MD; [facility]; Service: Neurosurgery NECK SURGERY 12/2009 NEPHRECTOMY Left 2010 due to cancer ORTHOPEDIC SURGERY SPINAL CORD STIMULATOR IMPLANT N/A 04/22/2025 Procedure: SPINAL CORD STIMULATOR INSERTION PHASE 2; Surgeon: Azar Andino MD; Location: [facility] OR; Service: Pain Management; Laterality: N/A; SPINAL FUSION 06/2018 TRIGGER POINT INJECTION 2016 TUBAL ABDOMINAL LIGATION WOUND CLOSURE Bilateral 07/19/2018 Procedure: WOUND EXPLORATION EVACUATION OF EPIDURAL ABSCESS AND PRIMARY CLOSURE; Surgeon: Fidel Christensen MD; Location: [facility] OR; Service: Neurosurgery Family History Problem Relation [...] mouth Daily., Disp: 90 tablet, Rfl: 3 furosemide (LASIX) 40 MG tablet, Take 1 tablet by mouth Daily. (Patient taking differently: Take 1 tablet by mouth Daily. Takes as needed), Disp: , Rfl: HYDROcodone-acetaminophen (NORCO) 5-325 MG per tablet, Take 1 tablet by mouth 2 (Two) Times a Day As Needed., Disp: , Rfl: HYDROcodone-acetaminophen (NORCO) 7.5-325 MG per tablet, Take 1/2 to 1 tablet by mouth 4 Times a Day As Needed., Disp: 12 tablet, Rfl: 0 loperamide (IMODIUM) 2 MG capsule, Take 1 capsule by mouth 4 (Four) Times a Day As Needed for Diarrhea., Disp: , Rfl: losartan (COZAAR) 25 MG tablet, Take 1 tablet by mouth Daily., Disp: , Rfl: LYRICA 100 MG capsule, Take 1 capsule by mouth 2 (Two) Times a Day., Disp: , Rfl: Mounjaro 10 MG/0.5ML solution auto-injector, Inject 10 mg under the skin into the appropriate area as directed 1 (One) Time Per Week., Disp: , Rfl: naloxone (NARCAN) 4 MG/0.1ML nasal spray, Call 911. Don't prime. [place] in 1 nostril for overdose. Repeat in 2-3 minutes in other nostril if no or minimal breathing/responsiveness., Disp: 2 each, Rfl:0 omeprazole (priLOSEC) 40 MG capsule, 1 capsule [...] Iodine Swelling and Rash RASH AND SWELLING Povidone-Iodine Rash Soap Rash Sulfa Antibiotics Other (See Comments) Kidney function decline Sulfamethoxazole-Trimethoprim Other (See Comments) and Unknown (See Comments) DECREASES KIDNEY FUNCTION-HAS ONE KIDNEY AND CKD IN THIS KIDNEY OCCURS WITH BACTRIM Wt 101 kg (222 lb) LMP (LMP Unknown) BMI 40.60 kg/m?? Physical Exam Constitutional: Patient appears well-developed, well-nourished, well-hydrated HEENT: Head: Normocephalic and atraumatic Eyes: Conjunctivae and lids are normal Pupils: Equal, round, reactive to light Musculoskeletal Gait and station: Gait evaluation demonstrated a normal gait Neurological: Patient is alert and oriented to person, place, and time. Speech: Normal. Cortical function: Normal mental status. Motor strength: 5/5 Motor Tone: Normal . Involuntary movements: None. Skin and subcutaneous tissue: Skin is warm and intact. No rash noted. No cyanosis. The surgical wounds are healing well with appropriate epithelization and without erythema, drainage or fluid accumulation Psychiatric: Judgment and insight: Normal. Recent and remote memory: Intact. Mood and affect: Normal. PROCEDURE: Analysis of the spinal cord stimulator device without spinal cord stimulator reprogramming Patient used the Nevro spinal cord stimulator device for 100% of the time (average 24 hours per day). Analysis of impedence reveals normal impedence for all contacts. Program ONE (T9-T10) Electrode polarities: 6-, 7+ [...] will be scanned in the patient's chart. PROCEDURE: Dressing change: Dressings were removed. The surgical wounds look unremarkable without erythema, drainage, or fluid accumulation. The wounds were cleansed with chlorhexidine. Covaderm were applied. ASSESSMENT: 1. Lumbar postlaminectomy syndrome 2. Lumbar stenosis with neurogenic claudication 3. Ligamentum flavum hypertrophy 4. Myofascial pain 5. Gait disturbance 6. Encounter for fitting and adjustment of spinal cord stimulator 7. Presence of neurostimulator Patient does not receive prescriptions for controlled substances from this office. Therefore, a controlled substance agreement is not medically necessary at this time. PLAN/MEDICAL DECISION MAKING: Patient's chronic pain condition is significantly improved. Continue current management and any additional workup, referrals, and treatments as outlined in the followingplan: 1. Follow up on 05/14/2025 at for removal of stitches and evaluation of patient's chronic pain, and possible SCS reprogramming. 2. Wear abdominal binder at all times, and back brace when out of bed. 3. Patient may shower and change her dressings. Eva Ward has been instructed to carefully wash the surgical wounds with chlorhexidine, pat dry and apply and maintain sterile occlusive dressings at all times except when showering. Do not submerge in water (baths, pools, etc) for 4 weeks. 4. The patient has been instructed to contact my office with any questions or difficulties. The patient understands the plan and agrees to proceed accordingly. Pain Medications amitriptyline (ELAVIL) 10 MG tablet Take 1 tablet by mouth At Night As Needed. aspirin 81 MG EC tablet Take 1 tablet by mouth Daily. HYDROcodone-acetaminophen (NORCO) 5-325 MG per tablet Take 1 tablet by mouth 2 (Two) Times a Day AsNeeded. HYDROcodone-acetaminophen (NORCO) 7.5-325 MG per tablet Take 1/2 to 1 tablet by mouth 4 Times a DayAs Needed. LYRICA 100 MG capsule Take 1 capsule by mouth 2 (Two) Times a Day. No orders of the defined types were placed in this encounter. Patient verbalizes understanding of instructions for treatment, comfort measures, and follow-up. Please note that portions of this note [...] Future Appointments Date Time Provider Department Center 05/14/2025 9:00 AM Shakira Joshua APRN [facility] 01/27/2026 9:45 AM Messi Looney MD [facility] documented in this encounter Plan of Treatment Upcoming Encounters Date Type Department Care Team (Late st Contact Info) Description 07/11/2025 11:00 AM EDT Office Visit [facility] PAIN [facility]NA[facility] [address] [facility] [address] [place] [address] Shakira Joshua APRN [address] [facility] [address] [place] [address] 01/27/2026 9:45 AM EDT Office Visit [facility] [address] [facility] [address] [place] [phone] Messi Looney MD [address] [facility] [address] [place], [place] [phone] documented as of this encounter Visit Diagnoses Diagnosis Lumbar postlaminectomy syndrome Postlaminectomy syndrome, lumbar region Lumbar stenosis with neurogenic claudication Ligamentum flavum hypertrophy Myofascial pain Unspecified myalgia and myositis Gait disturbance Abnormality of gait Encounter for fitting and adjustment of spinal cord stimulator Presence of neurostimulator documented in this encounter Care Teams Client Success Specialist Relationship Specialty Start Date End Date Jd Santacruz MD [address] [facility] [address] [place] [id number] PCP - General Internal Medicine 05/18/18 documented as of this encounter
--- OUTSIDE RECORDS SUMMARY | 2025-05-16 10:00 | XMS_ITS | Encounter Summary ---
Author Organization [facility] Address [address] [place] [id number] Care Team Providers Care Remote Operations Producer Name Role Phone Jd Santacruz MD Primary Care Provider [phone] Encounter Details Date Type Department Care Team (Late st Contact Info) Description 05/16/2025 10:00 AM EDT Office Visit [facility]EMENT [address] [phone] Shakira Joshua, OFFICE COPY SELECTOR [address] [facility] [address] [place] [address] Lumbar postlaminectomy syndrome; Lumbar stenosis with neurogenic claudication; Gait disturbance; Spondylosis of lumbar region without myelopathy or radiculopathy; Presence of neurostimulator; Physical deconditioning; Encounter for fitting and adjustment of spinal cord stimulator Social History Tobacco Use Types Packs/Day Years [...] or training? Not on file Preferred Language Martiniquais 04/16/2025 PHQ-2 Answer Date Recorded Patient Health Questionnaire-9 Score 3 05/14/2025 Comments No Sex and Gender Information Value [...] - - Weight 97.2 kg (214 lb 4.8 oz) 05/16/2025 9:58 A M EDT Height 157.5 cm (5' 2.01 ) 05/16/2025 9:58 AM ED T Body Mass Index 39.19 05/16/2025 9:58 AM EDT documented in this encounter Progress Notes * Shakira Joshua, OFFICE COPY SELECTOR - 05/16/2025 10:00 AM EDT Chief Complaint: I am doing well with my stimulator device. Brief History: Mrs. Eva Ward is a 70 y.o. female, who underwent on 04/22/2025 implantation of a spinal cord stimulator device with Dr. Andino with Kalynro. Greg Garza Senza percutaneous lead with the [...] Eva Ward returns to the clinic for evaluation of her surgical wounds, removal of stitches, isela nued assessment of her chronic pain, and possible spinal cord stimulator reprogramming. Eva Ward reports that she has remained afebrile since her surgery and that her surgical wounds are well-healed without erythema, drainage, or fluid accumulation. Ms. [...] SCS reprogramming. Pain level is rated as 3/10 with the use of the spinal cord [...] on 07/15/2018. She did well thereafter. By [id number], she started experiencing lower backpain radiating into [...] found not to be a surgical candidate. [facility] psychological evaluation with Dr Lisbet Hong on 02/20/2025: From a psychological perspective patient appears to be an appropriate candidate for a PNS, SCS or an Intrathecal Pain Pump at thistime. Eva Ward presents with significant comorbidities including chronic kidney disease, history of left nephrectomy in 2010, diabetes mellitus, hypercholesterolemia, gout, hypertension, migraines, aspirin 81 mg In terms of current analgesics, Eva Ward takes: [place], Lyrica, amitriptyline. Patient also takes allopurinol I have reviewed Triston Report consistent with medication reconciliation. SOAPP: Low Risk Global Pain Scale -08-16-2024 Pain 10 3 17 Feelings 4 0 [...] FOLLOWING KIDNEY SURGERY Arthritis Arthritis 09/12/2018 Asthma Childhood Bronchitis Cancer kidney Cataract Cervical disc disorder 12/2009 Chronic kidney disease (CKD) stage G4/A1, severely decreased glomerular filtration rate (GFR) between 15-29 mL/min/1.73 square meter and albuminuria creatinine ratio less than 30 mg/g Chronic pain disorder 2004 Diabetes mellitus 1991 DOESN'T DO FSBG AT HOME, DOESN'T TAKE [...] FUSION L4-S1; Surgeon: Fidel Christensen MD; Location: [facility] OR; Service: Neurosurgery NECK SURGERY 12/2009 NEPHRECTOMY Left 2010 due to cancer ORTHOPEDIC SURGERY SPINAL CORD STIMULATOR IMPLANT N/A 04/22/2025 Procedure: SPINAL CORD STIMULATOR INSERTION PHASE 2; Surgeon: Azar Andino MD; Location: [facility]; Service: Pain Management; Laterality: N/A; SPINAL CORD STIMULATOR IMPLANT 04/22/2025 SPINAL FUSION 06/2018 TRIGGER POINT INJECTION 2016 TUBAL ABDOMINAL LIGATION WOUND CLOSURE Bilateral 07/19/2018 Procedure: WOUND EXPLORATION EVACUATION OF EPIDURAL ABSCESS AND PRIMARY CLOSURE; Surgeon: Fidel Christensen MD; Location: [facility]ACED BY [facility]; Service: Neurosurgery Family History Problem Relation Age of Onset Heart attack Mother Diabetes Mother Hyperlipidemia Mother Stroke Father Diabetes Father Alcohol abuse Father Hyperlipidemia Father Diabetes Sister Diabetes Brother Liver disease Brother Alcohol abuse Brother Hyperlipidemia Brother Drug abuse Brother Early Brother Hyperlipidemia Sister Hyperlipidemia Sister Hyperlipidemia Brother [...] Rfl: Mounjaro 10 MG/0.5ML solution auto-injector, Inject 12.5 mg under the skin into the appropriate area as directed 1 (One) Time Per Week., Disp: , Rfl: naloxone (NARCAN) 4 MG/0.1ML nasal spray, Call 911. Don't prime. [place] in 1 nostril for overdose. Repeat in [...] BACTRIM Ht 157.5 cm (62.01 ) Wt 97.2 kg (214 lb 4.8 oz) LMP (LMP Unknown) BMI 39.19 kg/m?? Physical Exam Constitutional: Patient appears well-developed, [...] noted. No cyanosis. The surgical wounds are well-healed with appropriate epithelization and without erythema, drainage [...] be scanned in the patient's chart. PROCEDURE: Removal of stitches: The surgical wounds were cleansed with chlorhexidine. Stitches were removed. There is complete epithelialization of the surgical wounds. There is no erythema, drainage, or fluid accumulation at the surgical sites. There is no tenderness upon mobilization of the IPG in the pocket. Covaderm were applied. ASSESSMENT: 1. Lumbar postlaminectomy syndrome 2. Lumbar stenosis with neurogenic claudication 3. Gait disturbance 4. Spondylosis of lumbar region without myelopathy or radiculopathy 5. Presence of neurostimulator 6. Physical deconditioning 7. Encounter for fitting and adjustment of spinal cord stimulator Patient does not receive prescriptions for controlled substances from this office. Therefore, a controlled substance agreement is not medically necessary at this time. PLAN/MEDICAL DECISION MAKING: Patient's chronic pain condition is significantly improved. Continue current management and any additional workup, referrals, and treatments as outlined in the followingplan: 1. Follow up in about 8 weeks for evaluation of patient's chronic pain, and possible SCS reprogramming. 2. Continue back brace when out of bed for the next 4 weeks. 3. She may start a physical therapy program in the next 4 weeks 4. The patient has been instructed to [...] Future Appointments Date Time Provider Department Center 07/11/2025 11:00 AM Shakira Joshua APRN MGKateryna [facility] 01/27/2026 9:45 AM Messi Looney MD [facility] documented in this encounter Plan of Treatment Upcoming Encounters Date Type Department Care Team (Late st Contact Info) Description 07/11/2025 11:00 AM EDT Office Visit [facility] PAIN MANAGEMENT [address] [facility] [address] [place] [phone] Shakira Joshua APRN [address] [facility] [address] [place] [address] 01/27/2026 9:45 AM EDT Office Visit [facility] CARDIOLOGY [address] [facility] [address] [place] [address] Messi Looney MD [address] [facility] [address] [place] [address] documented as of this encounter Visit Diagnoses Diagnosis Lumbar postlaminectomy syndrome Postlaminectomy syndrome, lumbar region Lumbar stenosis with neurogenic claudication Gait disturbance Abnormality of gait Spondylosis of lumbar region without myelopathy or radiculopathy Presence of neurostimulator Physical deconditioning Muscular wasting and disuse atrophy, not elsewhere classified Encounter for fitting and adjustment of spinal cord stimulator documented in this encounter Care Teams Remote Operations Producer Relationship Specialty Start Date End Date Jd Santacruz MD [address] [place] [address] [address] [facility] [place] [id number] PCP - General Internal Medicine 05/18/18 documented as of this encounter
--- OUTSIDE RECORDS SUMMARY | 2025-05-22 12:19 | XMS_ITS | Clinical Summary ---
Author DANI Salazar [id number] Phone Email Address Preferred Language Citizen Of [place] Marital Status Druze Affiliation Unknown Race White Ethnic Group Not or Lati no Author Organization [facility] Address [address] [facility] [address] [place] [address] Phone Care Team Providers Care Linotype Operator Name Role Phone Sunday Hilliard MD [ ] Conditions or Problems Problem Name Problem Code Onset Date Status Entry Date Provider Comment Standard Description Annotate Clostridium difficile colitis 686335475 (SNOMED CT) 01/03 Active 01/03 Sunday Hilliard MD Clostridium difficile colitis Spine, subsequent encounter, infection/in flammatory reaction due to internal fixation device T84.63xD (ICD-10-CM) 10/10 Active 10/10 Ct [facility] Infection and inflammatory reaction due to internal fixation device of spine, subsequent encounter Abscess, epidural G06.1 (ICD-10-CM) 10/10 Active 10/10 Ct [facility] Intraspinal abscess and granuloma Peptostrepto coccus infection 503510271070 101 (SNOMED CT) 10/10 Active 10/10 Ct [facility] Peptostreptococc us infection DM II with diabetic CKD, 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) 838871382 (SNOMED CT) 10/10 Active 10/10 Ct [facility] Renal disorder due to type 2 diabetes mellitus Neutrophilic leukemoid reaction D72.823 (ICD-10-CM) 10/10 Active 10/10 Ct [facility] Leukemoid reaction Benign Essential Hypertension 21796978 (SNOMED CT) 10/10 Active 10/10 Ct [facility] Benign hypertension CKD, Stage III 475008180 (SNOMED CT) 10/10 Active 10/10 Ct [place] Chronic kidney disease stage 3 Medications Medication Instructions Start Date Stop Date Generic Name NDC Provider CEFDINIR 300 MG CAPS by mouth daily CEFDINIR 93344959891 Mane K PREDNISONE 20 MG TABS by mouth twice daily PREDNISONE 50261558250 Mane K DOXYCYCLINE MONOHYDRATE 100 MG CAPS Take one (1) tablet by mouth twice a day 04/16 DOXYCYCLINE MONOHYDRATE 26074853325 Mane K DOXYCYCLINE MONOHYDRATE 100 MG CAPS Take one (1) tablet by mouth twice a day 04/16 DOXYCYCLINE MONOHYDRATE 59580892005 Sunday Hilliard MD AMOXICILLIN 500 MG CAPS Take one pill three times a day. 01/03 AMOXICILLIN 61299325595 Saige Alexis RN DOXYCYCLINE MONOHYDRATE 100 MG CAPS Take one (1) tablet by mouth twice a day 03/19 DOXYCYCLINE MONOHYDRATE 80363739603 Sunday Hilliard MD CYCLOBENZAPRINE HCL 10 MG TABS Take one by mouth 3 times daily, morning, afternoon and evening./PRN 2/06 CYCLOBENZAPRINE HCL 31096626414 Kristi S DULOXETINE HCL 60 MG CPEP Take one by mouth daily 0 2/06 DULOXETINE HCL 57688088126 Kristi S FLAGYL 500 MG ORAL TABLET Take one (1) tablet by mouth three times a day. 11/15 METRONIDAZOLE 52955173914 Saige Alexis RN CEFTRIAXONE SODIUM 2 GM SOLR 2gm IV Q24hrs/ OPAT 11/15 CEFTRIAXONE SODIUM 22045664297 Saige Alexis RN AMOXICILLIN 500 MG CAPS Take one pill three times a day. 03/26 AMOXICILLIN 92656108093 Sunday Hilliard MD FLAGYL 500 MG ORAL TABLET Take one (1) tablet by mouth three times a day. 11/15 METRONIDAZOLE 09578939121 Sunday Hilliard MD CEFTRIAXONE SODIUM 2 GM SOLR 2gm IV Q24hrs/ OPAT 11/15 CEFTRIAXONE SODIUM 65753234634 Ирина Salvador RN LEVOFLOXACIN 750 MG TABS 750 mg, Oral, Every Other Day, 1 tab every other day for 15 days starting 07/12/1810/14 LEVOFLOXACIN 37601053484 Sunday Hilliard MD FLAGYL 500 MG ORAL TABLET Take one (1) tablet by mouth twice a day 2/03 METRONIDAZOLE 75182219212 Sunday Hilliard MD LYRICA 100 MG CAPS Take one by mouth daily PREGABALIN 69384017712 Gladys Elizaldedox LOSARTAN POTASSIUM 50 MG TABS Take one by mouth daily LOSARTAN POTASSIUM 09075582245 Gladys Campbell LEVOFLOXACIN 750 MG TABS 750 mg, Oral, Every Other Day, 1 tab every other day for 15 days starting 07/12/1810/14 LEVOFLOXACIN 10649734177 Gladys Campbell DULOXETINE HCL 60 MG CPEP Take one by mouth daily 0 4/ DULOXETINE HCL 34800710129 Gladys Elizaldedox CYCLOBENZAPRINE HCL 10 MG TABS Take one by mouth 3 times daily, morning, afternoon and evening./PRN 2/06 CYCLOBENZAPRINE HCL 01963446942 Gladys Elizaldedox CARTIA XT 180 MG [id number] Daily, Hold for BP<100/60, or HR<60 DILTIAZEM HCL COATED BEADS 15129209232 Gladys Campbell ATORVASTATIN CALCIUM 40 MG TABS Take one by mouth daily ATORVASTATIN CALCIUM 13789725237 Gladys Elizaldedox AMITRIPTYLINE HCL 10 MG TABS Take one by mouth daily AMITRIPTYLINE HCL 63612559946 Gladys Campbell ALLOPURINOL 100 MG TABS Take one by mouth daily ALLOPURINOL 12245254031 Gladys Campbell FOLIC ACID 1 MG TABS Take one by mouth daily FOLIC ACID 78685350885 Gladys Campbell FERROUS SULFATE 325 (65 Fe) MG TBEC Take one by mouth daily FERROUS SULFATE 29951131901 Gladys Campbell BETHANECHOL CHLORIDE 25 MG TABS Take one by mouth 3 times daily, morning, afternoon and evening. BETHANECHOL CHLORIDE 57107256843 Gladys Campbell Medications Administered No information available. [...] Patient port al update - Email Push, [place] [facility] ... PAT E-MAIL [email or web address] patient's e-mail address External Other: Patient port al update - [facility]Status, [facility] ... 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 Plan of Care Type [...] Procedures Code Procedure Name Date Entry Date CPT-81305 Urine Culture & Sensitivity CPT-24704 Urinalysis with microscopic exam CPT-sl STAT Labs CPT-74274 C- reactive protein CPT-08589 Sedimentation Rate (ESR) 201 05/31/13 CPT-J8499 Med Administration (PO-SL-IN-CO) CPT-15307 C- reactive protein CPT-93247 Sedimentation Rate (ESR) 201 05/30/10 CPT-sl STAT Labs [id number], [id number] CPK CPT-sl STAT Labs CPT-21146 C- reactive protein CPT-81033 Sedimentation Rate (ESR) 201 05/28/05 CPT-94427 C- reactive protein CPT-00937 Sedimentation Rate (ESR) 201 05/27/09 CPT-75622 C- reactive protein CPT-69166 Sedimentation Rate (ESR) 201 05/07/20 CPT-ca Continue IV antibiotics 2017 CPT-07530 CMP CPT-69335 CBC w/o Differential CPT-94769 C- reactive protein CPT-18659 Sedimentation Rate (ESR) 201 05/07/10 CPT-70892 CMP CPT-83383 CBC w/o Differential CPT-18194 Sedimentation Rate (ESR) 201 05/07/03 CPT-01700 C- reactive protein CPT-92022 CMP CPT-95193 CBC w/o Differential CPT-86452 Sedimentation Rate (ESR) 201 05/06/26 CPT-89287 CMP [id number] CBC with Differential 2017 CPT-35882 C- reactive protein CPT-01390 Sedimentation Rate (ESR) 201 05/06/19 CPT- stat [...]
--- OUTSIDE RECORDS SUMMARY | 2025-05-22 12:20 | XMS_ITS | Encounter Summary ---
Author Organization [facility] Address [address] [place] [address] Care Team Providers Care Admissions Representative Name Role Phone Jd Santacruz MD Primary Care Provider [phone] Encounter Details Date Type Department Care Team [...] Description 07/11/2025 11:00 AM EDT Office Visit [facility]IN [facility]NAGEMENT [address] [facility] [address] [place] [phone] Shakira Joshua, GEOTHERMAL POWERPLANT SUPERVISOR [address] [facility] [address] [place] [address] 01/27/2026 9:45 AM EDT Office Visit [facility] CARDIOLOGY [address] [facility] [address] [place] [address] Messi Looney MD [address] [facility] [address] [place] [address] documented as of this encounter Visit Diagnoses Not on filedocumented in this encounter Care Teams Admissions Representative Relationship Specialty Start Date End Date Jd Santacruz MD [address] [facility] [address] [place] [address] PCP - General Internal Medicine 05/18/18 documented as of this encounter
--- OUTSIDE RECORDS SUMMARY | 2025-05-22 12:20 | XMS_ITS | Encounter Summary ---
Author Organization [facility] Address [address] [place] [address] Care Team Providers Care Mechanical Press Operator Name Role Phone Jd Santacruz MD Primary Care Provider [phone] Encounter Details Date Type Department Care Team (Latest Contact Info) Description 05/16/2025 Travel Social History Tobacco Use Types Packs/Day [...] or training? Not on file Preferred Language Turkmen 04/16/2025 PHQ-2 Answer Date Recorded Patient Health [...] Description 07/11/2025 11:00 AM EDT Office Visit [facility] [address] [facility] [address] [place] [phone] Shakira Joshua, DAMIAN [address] [facility] [address] [place] [address] 01/27/2026 9:45 AM EDT Office Visit [facility] [address] [facility] [address] [place] [address] Messi Looney MD [address] [facility] [address] [place], [place] [id number] documented as of this encounter Visit Diagnoses Not on filedocumented in this encounter Care Teams Mechanical Press Operator Relationship Specialty Start Date End Date Jd Santacruz MD [address] [facility] [address] [place] [address] PCP - General Internal Medicine 05/18/18 documented as of this encounter
--- OUTSIDE RECORDS SUMMARY | 2025-05-22 12:20 | XMS_ITS | Encounter Summary ---
Author Organization [facility] Address [address] [place] [id number] Care Team Providers Care Formulation Technician Name Role Phone Jd Santacruz MD Primary Care Provider [phone] Encounter Details Date Type Department Care Team (Late st Contact Info) Description 04/03/[address] [facility] PAIN MANAGEMENT [address] [address] Azar Andino MD [address] [address] Social History Tobacco Use Types Packs/Day Years [...] under HPI including the impact of patient's bqozhojx-mr-iabbfe pain contributing to significant impairment in daily [...] Tlead 1058- 50B, 50 cm Length, Lot [id number] , Expiration 08/2027 ; and Lot [id number] , Expiration 08/2027, two Tuohy needles were [...] [facility] [address] [facility] [address] [place] [address] Shakira Joshua, DAMIAN [address] [facility] [address] [place] [address] 01/27/2026 9:45 AM EDT Office Visit [facility] CARDIOLOG[facility] [address] [facility] [address] [place] [phone] Messi Looney MD [address] [facility] [address] [place], [place] [address] documented as of this encounter Visit Diagnoses Not on filedocumented in this encounter Care Teams Formulation Technician Relationship Specialty Start Date End Date Jd Santacruz MD [address] [facility] [address] [facility] [place] [address] PCP - General Internal Medicine 05/18/18 documented as of this encounter
--- OUTSIDE RECORDS SUMMARY | 2025-05-22 12:20 | XMS_ITS | Clinical Summary ---
Author Organization [facility] Address [address] [place] [address] Care Team Providers Care Rat Culturist Name Role Phone Jd Santacruz MD Primary Care Provider Allergies Active Allergy Reactions Criticality Noted Date [...] by mouth 1 (one) time each day. 6 Active furosemide (Lasix) 40 MG tablet Take by mouth as needed. As needed 1 Active HYDROcodone-jayden taminophen (Sterling) 5-325 MG tablet Take by mouth every 6 (six) hours. As need 5 Active omeprazole (PriLOSEC) [address] capsule Take by mouth 1 (one) time if needed. 0 Active pregabalin (Lyrica) 100 MG capsule Take by mouth 2 (two) times a day. 4 Active Amitriptyline HCl (ELAVIL PO) Take 10 mg by mouth if needed. 9 Active dilTIAZem CD (Cardizem CD) 180 MG 24 hr capsule Take 1 capsule (180 mg) by mouth 1 (one) time each day. 2 Active aspirin 81 MG EC tablet Take 1 tablet (81 mg) by mouth 1 (one) time each day. 3 Active ezetimibe (Zetia) 10 MG tablet Take 1 tablet (10 mg) by mouth 1 (one) time each day. 3 Active albuterol (Ventolin HFA) 108 (90 Base) MCG/ACT inhaler INHALE 4 PUFFS BY MOUTH EVERY 4 HOURS FOR 48 HOURS THEN NEEDED FOR SHORTNESS OF BREATH OR WHEEZING 3 Active losartan (Cozaar) 25 MG tablet Take 1 tablet (25 mg) by mouth 1 (one) time each day. 90 tablet 3 4 Active Dilt-XR 240 MG 24 hr capsule Take 1 capsule (240 mg) by mouth daily. 4 Active estradiol (Estrace) 0.1 MG/GM vaginal cream Apply pea-size amount daily. 2 g 3 5 Active Mounjaro 10 MG/0.5ML solution auto-injector solution pen-injector 5 Active Active Problems Problem Noted Date Diagnosed [...] Description 03/19/2025 2:20 PM EDT Office Visit [facility] [address] [facility], [address] [place] [address] Nick Harrington MD Stage 3b [...] Description 09/03/2025 9:10 AM EST Clinical Support Professional [facility] Services [address] [facility] [facility], 1st [place] [address] 09/10/2025 2:20 PM EST Office Visit [facility] Nephrology, Bone & Mineral Metabolism [address], [address] [place] [address] Nick Harrington MD [address] [place] [address] Health Maintenance Due Date Last Done Comments [facility]-Hepatitis C Screening 1955 [facility]-Medicare Annual Wellness (AWV) 1955 [facility]-/Child/Adol SDOH Screenings 1955 Diabetes: Dental Exam 02/07/1964 [facility]- SDOH Screenings 02/07/1972 [facility]-Adult SDOH Screenings 02/07/1972 [facility]-DTaP,Tdap,and Td Vaccines (1 - Tdap) 1973 CT Colonography 1999 FIT-DNA 1999 FIT 1999 FOBT 1999 Sigmoidoscopy 1999 [facility]-Breast Cancer Screening 02/07/2004 [facility]-RSV Vaccine: 60+ Years or (1 - Risk 60-74 years 1-dose series) 2014 [facility]-Diabetes: Hemoglobin A1C 01/18/2019 07/21/2018, 06/23/2018 [facility]-Pneumococcal Vaccine: 50+ Years (2 of 2 - PCV) 07/28/2019 07/28/2018 [facility]-Bone Density Scan 06/06/2021 06/06/2019, 019 Colonoscopy 10/26/2021 10/26/2011 [facility]-Colorectal Cancer Screening 10/26/2021 BVT-XHKYC-50 Vaccine ( season) 2024 07/23/2021, 12/25/2020, 11/27/2020 [facility]-Influenza Vaccine (#1) 2025 07/25/2024 [facility]-Depression Screening 06/18/2025 06/18/2024 [facility]-Hepatitis A Vaccines Aged Out 03/12/2019, 08/26 [...] MD LAB URINE ORDERABLES Final R esult [facility] [address] [place] [address] * Protein, Random, Urine with Creatinine (03/15/2025 12:39 PM EDT) Protein, Urine 9 mg/dL 03/15/2025 3:10 PM EDT [facility] Creatinine, Urine 82 mg/dL 03/15/2025 3:10 PM EDT [facility] Protein/Creati nine Ratio 0.1 mg/mg Creat 03/15/2025 3:10 PM EDT [facility] Urine Urine specimen obtained by clean catch procedure / Unknown Non-blood Collection / Unknown 03/15/2025 12:39 PM EDT 03/15/2025 12:40 PM EDT us Nick Harrington MD LAB URINE ORDERABLES Final R esult [facility] [address] [place] [address] * (ABNORMAL) Urinalysis with reflex microscopic (Culture NOT Included) (03/15/2025 12:39 PM EDT) Color, Urine Yellow LAB URINALYSIS - AUTOMATED METHOD 03/15/2025 3:09 PM EDT [facility] Clarity, Urine Clear LAB URINALYSIS - AUTOMATED METHOD 03/15/2025 3:09 PM EDT [facility] Spec [place], Urine 1.014 1.005 - 1.030 LAB URINALYSIS - AUTOMATED METHOD 03/15/2025 3:09 PM EDT [facility] pH, Urine 7.0 5.0 - 8.0 LAB URINALYSIS - AUTOMATED METHOD 03/15/2025 3:09 PM EDT [facility] Protein, Urine Negative Negative mg/dL LAB URINALYSIS - AUTOMATED METHOD 03/15/2025 3:09 PM EDT [facility] Glucose, Urine Negative Negative mg/dL LAB URINALYSIS - AUTOMATED METHOD 03/15/2025 3:09 PM EDT [facility] Ketones, Urine Negative Negative mg/dL LAB URINALYSIS - AUTOMATED METHOD 03/15/2025 3:09 PM EDT [facility] Blood, Urine Negative Negative LAB URINALYSIS - AUTOMATED METHOD 03/15/2025 3:09 PM EDT [facility] Bilirubin, Urine Negative Negative LAB URINALYSIS - AUTOMATED METHOD 03/15/2025 3:09 PM EDT [facility] Urobilinogen, Urine 1.0 0.2 to 1.0 mg/dL LAB URINALYSIS - AUTOMATED METHOD 03/15/2025 3:09 PM EDT [facility] Leukocytes, Urine Trace(A) Negative LAB URINALYSIS - AUTOMATED METHOD 03/15/2025 3:09 PM EDT [facility] Nitrite, Urine Negative Negative LAB URINALYSIS - AUTOMATED METHOD 03/15/2025 3:09 PM EDT [facility] RBC, Urine <1 0 to 3 /HPF 03/15/2025 3:09 PM EDT [facility] Comment:This result was prev iously suppressed from the chart. WBC, Urine 6 - 10(A) 0 to 5 /HPF 03/15/2025 3:09 PM EDT [facility] Comment:This result was prev iously suppressed from the chart. Squamous Epithelial Cells 6 - 10(A) 0 to 5 /HPF 03/15/2025 3:09 PM EDT [facility] Comment:This result was prev iously suppressed from the chart. Hyaline Casts 0 - 2 0 to 5 /LPF 03/15/2025 3:09 PM EDT [facility] Comment:This result was prev iously suppressed from the chart. Bacteria, Urine Present Negative 03/15/2025 3:09 PM EDT [facility] Comment:This result was prev iously suppressed from the chart. Urine Urine specimen obtained by clean catch procedure / Unknown Non-blood Collection / Unknown 03/15/2025 12:39 PM EDT 03/15/2025 12:40 PM EDT Narrative [facility] - 03/15/2025 3:09 PM EDT Performed by manual method us Nick Harrington MD LAB URINE ORDERABLES Final R esult [facility] [address] [place] [address] * (ABNORMAL) CBC W/O Differential (03/15/2025 11:01 AM EDT) WBC Count 12.45(H) 3.70 - 10.30 10*3/uL LAB HEMATOLOGY METHOD 03/15/2025 2:41 PM EDT [facility] RBC Count 5.07 3.90 - 5.20 10*6/uL LAB HEMATOLOGY METHOD 03/15/2025 2:41 PM EDT [facility] HGB 13.3 11.2 - 15.7 g/dL LAB HEMATOLOGY METHOD 03/15/2025 2:41 PM EDT [facility] HCT 42.9 34.0 - 45.0 % LAB HEMATOLOGY METHOD 03/15/2025 2:41 PM EDT [facility] Platelet Count 234 155 - 369 10*3/uL LAB HEMATOLOGY METHOD 03/15/2025 2:41 PM EDT [facility] MCV 85 79 - 98 fL LAB HEMATOLOGY METHOD 03/15/2025 2:41 PM EDT [facility] MCH 26.2 26.0 - 32.0 pg LAB HEMATOLOGY METHOD 03/15/2025 2:41 PM EDT [facility] MCHC 31.0 30.7 - 35.5 g/dL LAB HEMATOLOGY METHOD 03/15/2025 2:41 PM EDT [facility] RDW 16.5(H) 11.5 - 14.5 % LAB HEMATOLOGY METHOD 03/15/2025 2:41 PM EDT [facility] MPV 11.3 8.8 - 12.5 fL LAB HEMATOLOGY METHOD 03/15/2025 2:41 PM EDT [facility] nRBC 0.0 <=0.0 per 100 WBCs LAB HEMATOLOGY METHOD 03/15/2025 2:41 PM EDT [facility] Blood Venous blood specimen / Unknown Venipuncture / Unknown 03/15/2025 11:01 AM EDT 03/15/2025 11:01 AM EDT us Nick Harrington MD LAB BLOOD ORDERABLES Final R esult [facility] [address] [place] [address] * (ABNORMAL) Renal Function Panel, Plasma (03/15/2025 11:01 AM EDT) Glucose, Plasma 161(H) 74 - 99 mg/dL 03/15/2025 2:54 PM EDT [facility] BUN, Plasma 32(H) 8 - 23 mg/dL 03/15/2025 2:54 PM EDT [facility] Creatinine, Plasma 2.04(H) 0.60 - 1.10 mg/dL 03/15/2025 2:54 PM EDT [facility] BUN/Creatinine Ratio 16 03/15/2025 2:54 PM EDT [facility] Sodium, Plasma 142 136 - 145 mmol/L 03/15/2025 2:54 PM EDT [facility] Potassium, Plasma 4.4 3.6 - 4.9 mmol/L 03/15/2025 2:54 PM EDT [facility] Chloride, Plasma 99 97 - 107 mmol/L 03/15/2025 2:54 PM EDT [facility] CO2, Plasma 29 22 - 29 mmol/L 03/15/2025 2:54 PM EDT [facility] Anion Gap 14 6 - 16 mmol/L 03/15/2025 2:54 PM EDT [facility] Total Calcium, Plasma 9.5 8.9 - 10.2 mg/dL 03/15/2025 2:54 PM EDT [facility] Phosphorus, Plasma 3.1 2.5 - 4.5 mg/dL 03/15/2025 2:54 PM EDT [facility] Albumin, Plasma 4.1 3.5 - 5.2 g/dL 03/15/2025 2:54 PM EDT [facility] eGFRcr 25.7 mL/min/1.7 3m*2 03/15/2025 2:54 PM EDT [facility] Comment:Reported eGFRcr in m L/min/1.73m2 is based the CKD-EPI 2020 equation that does not use a race coefficient. Blood Venous blood specimen / Unknown Venipuncture / Unknown 03/15/2025 11:01 AM EDT 03/15/2025 11:01 AM EDT us Nick Harrington MD LAB BLOOD ORDERABLES Final R esult [facility] [address] [place] [address] * COLONOSCOPY (10/26/2011) Anatomical Region Laterality Modality Endoscopy Narrative 10/26/2011 Ordered by an unspecified provider. us Historical Provider GI PROCEDURE ORDERABLES Lotus l Result from Last 3 Months or Most Recently Relevant to Health Maintenance Insurance MEDICARE [facility] Care Teams Rat Culturist Relationship Specialty Start Date End Date Jd Santacruz MD [address] [facility] [address] [place] [address] PCP - General 02/06/21
--- OUTSIDE RECORDS SUMMARY | 2025-05-22 12:20 | XMS_ITS | Encounter Summary ---
Author Organization [facility] Address [address] [place] [phone] Care Team Providers Care Strap Buckler Machine Name Role Phone Jd Santacruz MD Primary Care Provider Encounter Details Date Type Department Care Team (Late Contact Info) Description 03/23/2025 Results Follow-Up [facility] PAIN MANAGEMENT [address] [address] Azar Andino MD [address] [address] Social History Tobacco Use Types Packs/Day Years [...] [facility] [address] [facility] [address] [place] [address] Shakira Joshua, ELEVATOR CONSTRUCTOR [address]60 [facility] [address] [place] [address] 01/27/2026 9:45 AM EDT Office Visit [facility] CARDIOLOGY [address] [facility] [address] [place] [phone] Messi Looney MD [address] [place] [id number] documented as of this encounter Visit Diagnoses Not on filedocumented in this encounter Care Teams Strap Buckler Machine Relationship Specialty Start Date End Date dJ Santacruz MD [address] [facility] [address] [place] [address] PCP - General Internal Medicine 05/18/18 documented as of this encounter
--- OUTSIDE RECORDS SUMMARY | 2025-05-22 12:20 | XMS_ITS | Clinical Summary ---
Author Organization [facility] Address [address] [place] [address] Care Team Providers Care Salary And Wage Administrator Name Role Phone Jd Santacruz MD Primary Care Provider [phone] Allergies Active Allergy Reactions Criticality Noted Date [...] mouth At Night As Needed. 8 Active HYDROcodone-ac etaminophen (NORCO) 5-325 MG per tablet Take 1 tablet by mouth 2 (Two) Times a Day As Needed. 3 Active Ventolin HFA 108 (90 Base) MCG/ACT inhaler INHALE 4 PUFFS BY MOUTH EVERY 4 HOURS FOR 48 HOURS THEN NEEDED FOR SHORTNESS OF BREATH OR WHEEZING 3 Active omeprazole (priLOSEC) 40 MG capsule 1 capsule Daily. 0 Active aspirin 81 MG EC tablet Take 1 tablet by mouth Daily. 90 tablet 3 4 Active ezetimibe (ZETIA) 10 MG tablet Take 1 tablet by mouth Daily. 90 tablet 3 4 Active Dilt-XR 240 MG 24 hr capsule Take 1 capsule by mouth Daily. 4 Active Mounjaro 10 MG/0.5ML solution auto-injector Inject 12.5 mg under the skin into the appropriate area as directed 1 (One) Time Per Week. Active losartan (COZAAR) 25 MG tablet Take 1 tablet by mouth Daily. 5 Active loperamide (IMODIUM) 2 MG capsule Take 1 capsule by mouth 4 (Four) Times a Day As Needed for Diarrhea. Active furosemide (LASIX) 40 MG tablet Take 1 tablet by mouth Daily. Active HYDROcodone-ac etaminophen (NORCO) 7.5-325 MG per tabletIndicati ons:Postoperat brynn pain Take 1/2 to 1 tablet by mouth 4 Times a Day As Needed. 12 tablet 04/22/2025 5:28 PM EDT 5 Active naloxone (NARCAN) 4 MG/0.1ML nasal spray Call 911. Don't prime. [place] in 1 nostril for overdose. Repeat in 2-3 minutes in other nostril if no or minimal breathing/respo nsiveness. 2 each 04/22/2025 5:28 PM EDT 5 Active Tirzepatide 10 MG/0.5ML solution auto-injector Inject under the skin into the appropriate area as directed. 04/25/20 25 Discontin ued(*Ther apy completed ) Active Problems Problem Noted Date Diagnosed Date [...] (07/19/2018): Added automatically from request for surgery [id number] Impaired mobility and ADLs 07/14/2018 Overview (07/19/2018): Added automatically from request for surgery [id number] Impaired functional mobility, balance, gait, and endurance 07/14/2018 Overview (07/19/2018): Added automatically from request for surgery [id number] Chronic renal disease 07/05/2018 Lumbar stenosis with [...] (06/14/2018): Added automatically from request for surgery [id number] Radiculopathy with lower extremity symptoms 05/30/2018 09/12/2018 Encounters Date Type Department Care Team Description 05/16/2025 10:00 AM EDT Office Visit [facility] [address] [facility] [address] [place] [address] Shakira Joshua APRN Lumbar postlaminectomy syndrome; Lumbar stenosis with neurogenic claudication; Gait disturbance; Spondylosis of lumbar region without myelopathy or radiculopathy; Presence of neurostimulator; Physical deconditioning; Encounter for fitting and adjustment of spinal cord stimulator 05/16/2025 Travel 04/25/2025 7:30 AM EDT Office Visit [facility] [address] [facility] [address] [place] [address] Shakira Joshua APRN Lumbar postlaminectomy syndrome; Lumbar stenosis with neurogenic claudication; Ligamentum flavum hypertrophy; Myofascial pain; Gait disturbance; Encounter for fitting and adjustment of spinal cord stimulator; Presence of neurostimulator 04/25/2025 Travel 04/22/2025 2:54 PM EDT Anesthesia Event [facility] OR [address] [place] [address] Dagoberto Anne MD Walmsley, Paul, MD 04/22/2025 2:19 PM EDT - 04/22/2025 4:25 PM EDT Surgery [facility] OR [address] [place] [address] Azar Andino MD SPINAL CORD STIMULATOR INSERTION PHASE 2 [16105 (CPT ) +2 more] 04/22/2025 12:35 PM EDT - 04/22/2025 7:10 PM EDT Hospital Encounter [facility] OR [address] [place] [address] Azar Andino MD Postoperative pain (Primary Dx); Lumbar postlaminectomy syndrome Discharge Disposition: Home or Self Care 04/22/2025 10:30 AM EDT Office Visit [facility] CARDI[facility] [address] [facility] [address] [place] [address] Messi Looney MD Hyperlipidemia, unspecified hyperlipidemia type (Primary Dx); Chronic stable angina 04/22/2025 Travel 04/17/2025 Telephone [facility] [address] [facility] [address] [place] [address] Shakira Joshua, DAMIAN 04/16/2025 3:30 PM EDT Pre-Admission Testing [facility] PREADMISSION T [address] [place] [address] Lumbar postlaminectomy syndrome 04/16/2025 Travel 04/10/2025 Telephone [facility] [address] [facility] [address] [place] [address] Genet Garcia RN 04/09/2025 9:00 AM EDT Office Visit [facility] [address] [facility] [address] [place] [address] Shakira Joshua, DAMIAN Lumbar postlaminectomy syndrome; Lumbar stenosis with neurogenic claudication; Ligamentum flavum hypertrophy; Spondylosis of lumbar region without myelopathy or radiculopathy; Myofascial pain; Physical deconditioning; Gait disturbance; Encounter for fitting and adjustment of spinal cord stimulator; Presence of neurostimulator 04/09/2025 Prep for Surgery [facility] ONLY [address] [place] [address] Shakira Joshua, DAMIAN Lumbar postlaminectomy syndrome (Primary Dx); Lumbar stenosis with neurogenic claudication; Ligamentum flavum hypertrophy; Spondylosis of lumbar region without myelopathy or radiculopathy; Myofascial pain; Physical deconditioning; Gait disturbance 04/09/2025 Travel 04/03/2025 8:15 AM EDT Outside Facility Service [facility] [address] [facility] [address] [place] [address] Azar Andino MD 04/03/2025 Documentation [facility] [address] [facility] [address] [place] [address] Azar Andino MD 03/23/2025 Results Follow-Up [facility] [address] [facility] [address] [place] [address] Azar Andino MD 03/20/2025 Telephone [facility] [address] [facility] [address] Lisa Chance MA 03/19/2025 1:25 PM EDT Lab [facility] DIAGNOSTIC CENTER AT [address] [place] [id number] Preoperative testing 03/19/2025 Travel 03/18/2025 Telephone [facility] [address] [facility] [address] Lisa Chance MA 03/16/2025 3:47 PM EDT - 03/16/2025 11:59 PM EDT Hospital Encounter [facility] XRAY [place] [address] [facility] [address] [place] [address] Lumbar postlaminectomy syndrome; Impaired functional mobility, balance, gait, and endurance Discharge Disposition: Home or Self Care 03/16/2025 3:30 PM EDT - 03/16/2025 11:59 PM EDT Hospital Encounter [facility] MRI [place] [address] [facility] [address] [place] [address] Lumbar stenosis with neurogenic claudication; Preoperative testing Discharge Disposition: Home or Self Care 03/16/2025 Travel 02/28/2025 1:00 PM EDT Office Visit [facility] [address] [facility] [address] [address] Azar Andino MD Lumbar postlaminectomy syndrome; Lumbar stenosis with neurogenic claudication; Ligamentum flavum hypertrophy; Degeneration of intervertebral disc of lumbosacral region with discogenic back pain; Piriformis syndrome of right side; Myofascial pain; Stage 4 chronic kidney disease; Renal insufficiency; BMI 38.0-38.9,adult; Moderate obesity; Physical deconditioning; Gait disturbance; Impaired functional mobility, balance, gait, and endurance; Preoperative testing 02/28/2025 Travel from Last 3 Months Immunizations Immunization Administration Dates Next Due Fluzone High-Dose 65+YRS 07/25/2024 Hep A, 2 Dose 03/12/2019,09/04/2018 Hep B, Unspecified 11/08/1995 Pneumococcal Polysaccharide (PPSV23) 07/28/2018 Family History Medical History Relation Name Comments Alcohol abuse Brother 1 Matias Galvan Diabetes Brother 1 Matias Galvan Drug abuse Brother 1 Matias Galvan Early Brother 1 Matias Galvan Hyperlipidemia Brother 1 Matias Galvan Liver disease Brother 1 Matias Galvan Hyperlipidemia Brother 2 Anthony Alcohol abuse Father Dionte Galvan Diabetes Father Dionte Galvan Hyperlipidemia Father Dionte Galvan Stroke Father Dionte Galvan Diabetes Mother Poppy Galvan Heart attack Mother Poppy Galvan Hyperlipidemia Mother Poppy Galvan Diabetes Sister 1 Jina Nicole Hyperlipidemia Sister 2 Jacquie Hyperlipidemia Sister 3 Harrison Relation Name Status Comments Brother 1 Matias Galvan Brother 2 Anthony Father Dionte Galvan Mother Poppy Galvan Sister 1 Jina Nicole Sister 2 Jacquie Sister 3 Harrison Social [...] or training? Not on file Preferred Language Sudanese 04/16/2025 PHQ-2 Answer Date Recorded Patient Health [...] EDT Inhaled Oxygen Concentration - - Weight 97.2 kg (214 lb 4.8 oz) 05/16/2025 9:58 A M EDT Height 157.5 cm (5' 2.01 ) 05/16/2025 9:58 AM ED T Body Mass Index 39.19 05/16/2025 9:58 AM EDT Plan of Treatment Upcoming Encounters Date Type Department Care Team (Late st Contact Info) Description 07/11/2025 11:00 AM EDT Office Visit [facility] [address] [facility] [address] [place] [address] Shakira Joshua, SOLID SURFACE FABRICATOR [address] [facility] [address] [place] [address] 01/27/2026 9:45 AM EDT Office Visit [facility] CARDI[facility] [address] [facility] [address] [place] [address] Messi Looney MD [address] [facility] [address] [place] [address] Health Maintenance Due Date Last Done Comments [...] 10/26/2011 COLORECTAL CANCER SCREENING 10/26/2021 COVID-19 Vaccine (2023-2 5 season) 2025 07/30/2024, 07/23/2021, 12/25/2020, Additional history exists LIPID PANEL 04/09/2025 04/09/2024, 06/06/2023 INFLUENZA VACCINE 06/26/2025 07/25/2024 HEMOGLOBIN A1C 09/18/2025 03/19/2025, 06/27, 06/23/2018 URINE MICROALBUMIN-CREATININ E RATIO (uACR) 11/12/2025 11/12/2024 ZOSTER VACCINE Completed 03/12/2025, 12/04/2024 Medical Devices Implanted Type Area Precision Assembler Device Identifier Shelf Expiration Date Model / Serial / Lot Scrw Kourtney Cdh Legacy Fortune 6.5x50mm - [id number] Implanted:Qty : 1 on 06/28/2018 by Fidel Christensen MD at [facility] Implant N/A: Spine Lumbar MEDTRONIC 10/28/2021 [id number] / / [id number] Spacr Capstone Ptc [id number] - [id number] Implanted:Qty : 1 on 06/28/2018 by Fidel Christensen MD at [facility] Implant N/A: Spine Lumbar [employer]TRONIC 03/21/2026 [id number] / / [id number] Scrw Peek Ext Or Extrnl Hex - [id number] Implanted:Qty : 6 on 06/28/2018 by Fidel Christensen MD at [facility] Implant N/A: Spine Lumbar [employer]TRONIC [id number] / / Michelet Peek 6.28a55rr - [id number] Implanted:Qty : 1 on 06/28/2018 by Fidel Christensen MD at [facility] Implant N/A: Spine Lumbar [employer]TRONIC 12/02/2022 [id number] / / [id number] Michelet Peek 6.90w22rm - [id number] Implanted:Qty : 1 on 06/28/2018 by Fidel Christensen MD at [facility] Implant N/A: Spine Lumbar MEDTRONIC 12/02/2022 [id number] / / [id number] Scrw Kourtney Cdh Legacy Mas Fortune 6.5x45mm - [id number] Implanted:Qty : 1 on 06/28/2018 by Fidel Christensen MD at [facility] Implant N/A: Spine Lumbar [employer]TRONIC 02/23/2022 [id number] / / [id number] Scrw Kourtney Cdh Legacy Fortune 6.5x50mm - [id number] Implanted:Qty : 1 on 06/28/2018 by Fidel Christensen MD at [facility] Implant N/A: Spine Lumbar [employer]TRON[employer] 10/28/2021 [id number] / / [id number] Scrw Kourtney Cdh Legacy Mas Fortune 6.5x45mm - [id number] Implanted:Qty : 1 on 06/28/2018 by Fidel Christensen MD at [facility] Implant N/A: Spine Lumbar [employer]TRONIC 02/23/2022 [id number] / / [id number] Scrw Kourtney Cdh Legacy Fortune 6.5x50mm - [id number] Implanted:Qty : 1 on 06/28/2018 by Fidel Christensen MD at [facility] Implant N/A: Spine Lumbar [employer]IC 10/28/2021 [id number] / / [id number] Scrw Kourtney Cdh Legacy Fortune 6.5x50mm - [id number] Implanted:Qty : 1 on 06/28/2018 by Fidel Christensen MD at [facility] Implant N/A: Spine Lumbar MEDTRONIC 10/28/2021 [id number] / / [id number] Spacr Capstone Ptc [id number] - [id number] Implanted:Qty : 1 on 06/28/2018 by Fidel Christensen MD at [facility] Implant N/A: Spine Lumbar [employer]TRONIC 05/24/2026 [id number] / / [id number] Spacr Capstone Ptc [id number] - [id number] Implanted:Qty : 1 on 06/28/2018 by Fidel Christensen MD at [facility] Implant N/A: Spine Lumbar [employer]ONIC 05/24/2026 [id number] / / [id number] Spacr Capstone Ptc [id number] - [id number] Implanted:Qty : 1 on 06/28/2018 by Fidel Christensen MD at [facility] Implant N/A: Spine Lumbar [employer]TRONIC 03/21/2026 [id number] / / [id number] Kt Ld Neurostm Hf10 50cm W/5mm Spacing Erasmo - Sna - [id number] Implanted:Qty : 2 on 04/22/2025 by Azar Andino MD at [facility] Implant N/A: Back NEVRO [id number] 02/24/2028 [id number] / NA / [id number] Kt Anch Ld Senza Stim Hf10 N300 - Sna - [id number] Implanted:Qty : 1 on 04/22/2025 by Azar Andino MD at [facility] Implant N/A: Back NEVRO [id number] 03/25/2027 [id number] / NA / [id number] Kt Ipg Hfxiq/Senza [id number] W/Chrgr/Rmt - [id number] - [id number] Implanted:Qty : 1 on 04/22/2025 by Azar Andino MD at [facility] Implant N/A: Back NEVRO [id number] 10/26/2027 [id number] / [id number] / [id number] Procedures Procedure Name Priority Date/Time Associated Diagnosis Comments FL C ARM DURING SURGERY Routine 04/22/2025 5:11 PM EDT ANESTHESIA INTUBATION Routine 04/22/2025 3:[address] PRQ IMPLTJ NSTIM ELECTRODE ARRAY EPIDURAL 04/22/2025 2:39 PM EDT Lumbar postlaminectomy syndrome Special Needs Abdominal binder, Weitlaner- size small, (2) 4x4 covaderm, ortho irrigation, sheet, ring clamp, NEVRO (Taurus WOLFE NOTIFIED 04/10/25) ~ CT INSJ/RPLCMT SPINAL NPG/RCVR POCKET CRTJ&CONNJ 04/22/2025 2:39 PM EDT Lumbar postlaminectomy syndrome Special Needs Abdominal binder, Weitlaner- size small, (2) 4x4 covaderm, ortho irrigation, sheet, ring clamp, NEVRO (Taurus WOLFE NOTIFIED 04/10/25) ~ POCT GLUCOSE FINGERSTICK Routine 04/22/2025 1:35 PM EDT ECG 12-LEAD Routine 04/16/2025 4:10 PM EDT CBC AND DIFFERENTIAL Routine 04/16/2025 3:42 PM [...] Lumbar stenosis with neurogenic claudication Preoperative testing LIPID PANEL Routine 04/09/2024 11:18 AM EDT Hyperlipidemia, unspecified hyperlipidemia type DEXA BONE DENSITY AXIAL Routine 06/06/2019 2:35 PM EDT Disorder of bone density and structure, unspecified S/P lumbar spinal fusion Chronic bilateral low back pain without sciatica Degenerative disc disease, lumbar from Last 3 Months or Most Recently Relevant to Health Maintenance Results * FL C Arm During Surgery (04/22/2025 5:11 PM EDT) Narrative SYSTEMGENERATED, DOCUMENTATION - 04/22/2025 5:13 PM EDT This procedure was auto-finalized with no dictation required. us Azar Andino MD IMG FLUOROSCOPY ORDERABLES Fi nal Result * BH AN ETT AIRWAY (04/22/2025 3:41 PM EDT) Narrative Cecy Traylor CRNA - 04/22/2025 3:41 PM EDT Cecy Traylor CRNA 04/22/2025 3:42 PM Airway Reason: elective Date/Time: 04/22/2025 3:23 PM Airway not difficult General Information and Staff Patient location during procedure: OR RETAIL INTERIOR DESIGNER/CAA: Cecy Traylor CRNA Indications and Patient Condition [...] Anne MD ANESTHESIA ORDERABLES Lotus l Result * POC Glucose Once (04/22/2025 1:35 PM EDT) [facility] Signature Glucose 81 70 - 130 mg/dL 04/22/2025 1:37 PM EDT [facility] Blood 04/22/2025 1:35 PM EDT 04/22/2025 1:37 PM EDT us Azar Andino MD POINT OF CARE TEST ORDERABLES Final Result [facility]
[address] [place] [address], * ECG 12 Lead (04/16/2025 4:10 PM [...] When compared with ECG of 01-Jul-2018 02:10, CT interval has increased Confirmed by HI DELGADO MD ([id number]) on 04/19/2025 7:10:15 PM Referred By: Confirmed By: HI DELGADO MD Procedure Note Hi Delgado MD - 04/19/2025 Test Reason : [...] When compared with ECG of 01-Jul-2018 02:10, CT interval has increased Confirmed by HI DELGADO MD ([id number]) on 04/19/2025 7:10:15 PM Referred By: Confirmed By: HI DELGADO MD Azar Andino MD ECG ORDERABLES Final Result ECG * (ABNORMAL) Urinalysis, Microscopic Only - Urine, Clean Catch (04/16/2025 3:42 PM EDT) RBC, UA 0-2 None Seen, 0-2 /HPF 04/16/2025 4:26 PM EDT [facility] WBC, UA 3-5(A) None Seen, 0-2 /HPF 04/16/2025 4:26 PM EDT [facility] Bacteria, UA 3+(A) None Seen /HPF 04/16/2025 4:26 PM EDT [facility] Squamous Epithelial Cells, UA 7-12(A) None Seen, 0-2 /HPF 04/16/2025 4:26 PM EDT [facility] Hyaline Casts, UA 0-2 None Seen /LPF 04/16/2025 4:26 PM EDT [facility] Methodology Automated Microscopy 04/16/2025 4:26 PM EDT [facility] Urine Urine specimen obtained by clean catch procedure / Unknown Collection / Unknown 04/16/2025 3:42 PM EDT 04/16/2025 4:15 PM EDT us Shakira Joshua SOLID SURFACE FABRICATOR URINE ORDERABLES Final Resul t [facility]
[address] [place] [address], * (ABNORMAL) Urinalysis With Culture If Indicated - Urine, Clean Catch (04/16/2025 3:42 PM EDT) Color, UA Yellow Yellow, Straw 04/16/2025 4:21 PM EDT [facility] Appearance, UA Cloudy(A) Clear 04/16/2025 4:21 PM EDT [facility] pH, UA 5.5 5.0 - 8.0 04/16/2025 4:21 PM EDT [facility] Specific [place], UA 1.017 1.005 - 1.030 04/16/2025 4:21 PM EDT [facility] Glucose, UA Negative Negative 04/16/2025 4:21 PM EDT [facility] Ketones, UA Negative Negative 04/16/2025 4:21 PM EDT [facility] Bilirubin, UA Negative Negative 04/16/2025 4:21 PM [facility] Blood, UA Negative Negative 04/16/2025 4:21 PM EDT [facility] Protein, UA Negative Negative 04/16/2025 4:21 PM EDT [facility] Leuk Esterase, UA Small (1+)(A) Negative 04/16/2025 4:21 PM EDT [facility] Nitrite, UA Negative Negative 04/16/2025 4:21 PM EDT [facility] Urobilinogen, UA 1.0 E.U./dL 0.2 - 1.0 E.U./dL 04/16/2025 4:21 PM EDT [facility] Urine Urine specimen obtained by clean catch procedure / Unknown Collection / Unknown 04/16/2025 3:42 PM EDT 04/16/2025 4:15 PM EDT [facility] - 04/16/2025 4:21 PM EDT In absence of clinical symptoms, the presence of pyuria, bacteria, and/or nitrites on the urinalysis result does not correlate with infection. us Shakira Joshua APRN URINE ORDERABLES Final Resul t [facility]
[address] [place] [address], * (ABNORMAL) CBC Auto Differential (04/16/2025 3:42 PM EDT) WBC 7.56 3.40 - 10.80 10*3/mm3 04/16/2025 4:33 PM EDT [facility] RBC 4.64 3.77 - 5.28 10*6/mm3 04/16/2025 4:33 PM EDT [facility] Hemoglobin 12.1 12.0 - 15.9 g/dL 04/16/2025 4:33 PM EDT [facility] Hematocrit 39.5 34.0 - 46.6 % 04/16/2025 4:33 PM EDT [facility] MCV 85.1 79.0 - 97.0 fL 04/16/2025 4:33 PM EDT [facility] MCH 26.1(L) 26.6 - 33.0 pg 04/16/2025 4:33 PM EDT [facility] MCHC 30.6(L) 31.5 - 35.7 g/dL 04/16/2025 4:33 PM EDT [facility] RDW 16.0(H) 12.3 - 15.4 % 04/16/2025 4:33 PM EDT [facility] RDW-SD 50.2 37.0 - 54.0 fl 04/16/2025 4:33 PM [facility] MPV 11.1 6.0 - 12.0 fL 04/16/2025 4:33 PM EDT [facility] Platelets 238 140 - 450 10*3/mm3 04/16/2025 4:33 PM [facility] Neutrophil % 73.1 42.7 - 76.0 % 04/16/2025 4:33 PM [facility] Lymphocyte % 13.1(L) 19.6 - 45.3 % 04/16/2025 4:33 PM [facility] Monocyte % 9.7 5.0 - 12.0 % 04/16/2025 4:33 PM [facility] Eosinophil % 3.4 0.3 - 6.2 % 04/16/2025 4:33 PM [facility] Basophil % 0.4 0.0 - 1.5 % 04/16/2025 4:33 PM EDT [facility] Immature Grans % 0.3 0.0 - 0.5 % 04/16/2025 4:33 PM EDT [facility] Neutrophils, Absolute 5.53 1.70 - 7.00 10*3/mm3 04/16/2025 4:33 PM [facility] Lymphocytes, Absolute 0.99 0.70 - 3.10 10*3/mm3 04/16/2025 4:33 PM EDT [facility] Monocytes, Absolute 0.73 0.10 - 0.90 10*3/mm3 04/16/2025 4:33 PM EDT [facility] Eosinophils, Absolute 0.26 0.00 - 0.40 10*3/mm3 04/16/2025 4:33 PM EDT [facility] Basophils, Absolute 0.03 0.00 - 0.20 10*3/mm3 04/16/2025 4:33 PM EDT [facility] Immature Grans, Absolute 0.02 0.00 - 0.05 10*3/mm3 04/16/2025 4:33 PM EDT [facility] nRBC 0.0 0.0 - 0.2 /100 WBC 04/16/2025 4:33 PM EDT [facility] Blood Venipuncture / Unknown 04/16/2025 3:42 PM EDT 04/16/2025 4:23 PM EDT Shakira Joshua APRN LAB BLOOD ORDERABLES Final R esult [facility]
[address] [place] [address], * aPTT (04/16/2025 3:42 PM EDT) Only the most recent of2 resultswithin the time period is included. PTT 33.7 22.0 - 39.0 seconds 04/16/2025 4:46 PM EDT [facility] Blood Venipuncture / Unknown 04/16/2025 3:42 PM EDT 04/16/2025 4:22 PM EDT Narrative [facility] - 04/16/2025 4:46 PM EDT PTT = The equivalent PTT values for the therapeutic range of heparin levels at 0.3 to 0.5 U/ml are 60 to 70 seconds. us Shakira Joshua APRN LAB BLOOD ORDERABLES Final R esult [facility]
[address] [place] [address], * Protime-INR (04/16/2025 3:42 PM EDT) Only the most recent of2 resultswithin the time period is included. Protime 13.8 12.2 - 15.3 Seconds 04/16/2025 4:46 PM EDT [facility] INR 1.00 0.89 - 1.12 04/16/2025 4:46 PM EDT [facility] Blood Venipuncture / Unknown 04/16/2025 3:42 PM EDT 04/16/2025 4:22 PM EDT us Shakira Joshua APRN LAB BLOOD ORDERABLES Final R esult Performing Organization Address City/[facility] Co de Phone Number [facility]
[address] [place] [address], * Urine Culture - Urine, Urine, Clean Catch (04/16/2025 3:42 PM EDT) Urine Culture 25,000 CFU/mL Normal Urogenital Lauren DIANE 04/18/2025 9:26 AM EDT [facility] Urine Urine specimen obtained by clean catch procedure / Unknown Collection / Unknown 04/16/2025 3:42 PM EDT 04/16/2025 4:15 PM EDT Narrative [facility] - 04/18/2025 9:26 AM EDT Colonization of the urinary tract without infection is common. Treatment is discouraged unless the patient is symptomatic, , or undergoing an invasive urologic procedure. us Shakira Joshua APRN MICROBIOLOGY - GENERAL ORDER MUKESH Final Result [facility]
[address] [place] [address], * MRSA Screen Culture (Outpatient) - Swab, Nares (04/16/2025 3:42 PM EDT) Pathologist [facility] MRSA Screen Cx No Methicillin Resistant Staphylococcus aureus isolated DIANE 04/17/2025 5:13 PM EDT [facility] [facility] Swab Structure of anterior naris / Unknown Collection / Unknown 04/16/2025 3:42 PM EDT 04/16/2025 4:41 PM EDT Narrative [facility] - 04/17/2025 5:13 PM EDT The negative predictive value of this diagnostic test is high and should only be used to consider de-escalating anti-MRSA therapy. A positive result may indicate colonization with MRSA and must be correlated clinically. Shakira Joshua APRN MICROBIOLOGY - GENERAL ORDER MUKESH Final Result [facility]
[address] [place] [address], * (ABNORMAL) Comprehensive Metabolic Panel (04/16/2025 3:42 PM EDT) Only the most recent of2 resultswithin the time period is included. [facility] Glucose 96 65 - 99 mg/dL 04/16/2025 4:54 PM EDT [facility] BUN 23.4(H) 8.0 - 23.0 mg/dL 04/16/2025 4:54 PM EDT [facility] Creatinine 2.00(H) 0.57 - 1.00 mg/dL 04/16/2025 4:54 PM EDT [facility] Sodium 144 136 - 145 mmol/L 04/16/2025 4:54 PM EDT [facility] Potassium 5.0 3.5 - 5.2 mmol/L 04/16/2025 4:54 PM EDT [facility] Chloride 111(H) 98 - 107 mmol/L 04/16/2025 4:54 PM EDT [facility] CO2 23.4 22.0 - 29.0 mmol/L 04/16/2025 4:54 PM EDT [facility] Calcium 9.5 8.6 - 10.5 mg/dL 04/16/2025 4:54 PM EDT [facility] Total Protein 5.7(L) 6.0 - 8.5 g/dL 04/16/2025 4:54 PM EDT [facility] Albumin 4.0 3.5 - 5.2 g/dL 04/16/2025 4:54 PM EDT [facility] ALT (SGPT) 13 1 - 33 U/L 04/16/2025 4:54 PM EDT [facility] AST (SGOT) 18 1 - 32 U/L 04/16/2025 4:54 PM EDT [facility] Alkaline Phosphatase 120(H) 39 - 117 U/L 04/16/2025 4:54 PM EDT [facility] Total Bilirubin 0.5 0.0 - 1.2 mg/dL 04/16/2025 4:54 PM EDT [facility] Globulin 1.7 gm/dL 04/16/2025 4:54 PM EDT [facility] Comment:Calculated Result A/G Ratio 2.4 g/dL 04/16/2025 4:54 PM T [facility] BUN/Creatinine Ratio 11.7 7.0 - 25.0 04/16/2025 4:54 PM T [facility] Anion Gap 9.6 5.0 - 15.0 mmol/L 04/16/2025 4:54 PM T [facility] eGFR 26.3(L) >60.0 mL/min/1.7 3 04/16/2025 4:54 PM T [facility] Blood Venipuncture / Unknown 04/16/2025 3:42 PM EDT 04/16/2025 4:23 PM EDT [facility] - 04/16/2025 4:54 PM EDT [...] does not include race as a factor Shakira Joshua SOLID SURFACE FABRICATOR LAB BLOOD ORDERABLES Final R esult [facility]
[address] [place] [address], * (ABNORMAL) CBC (No Diff) (03/19/2025 1:24 PM EDT) WBC 7.85 3.40 - 10.80 10*3/mm3 03/19/2025 11:22 PM EDT [facility] RBC 4.88 3.77 - 5.28 10*6/mm3 03/19/2025 11:22 PM EDT [facility] Hemoglobin 13.0 12.0 - 15.9 g/dL 03/19/2025 11:22 PM EDT [facility] Hematocrit 42.1 34.0 - 46.6 % 03/19/2025 11:22 PM EDT [facility] MCV 86.3 79.0 - 97.0 fL 03/19/2025 11:22 PM EDT [facility] MCH 26.6 26.6 - 33.0 pg 03/19/2025 11:22 PM EDT [facility] MCHC 30.9(L) 31.5 - 35.7 g/dL 03/19/2025 11:22 PM EDT [facility] RDW 15.5(H) 12.3 - 15.4 % 03/19/2025 11:22 PM EDT [facility] RDW-SD 48.4 37.0 - 54.0 fl 03/19/2025 11:22 PM EDT [facility] MPV 11.6 6.0 - 12.0 fL 03/19/2025 11:22 PM EDT [facility] Platelets 192 140 - 450 10*3/mm3 03/19/2025 11:22 PM EDT [facility] Blood Venipuncture / Unknown 03/19/2025 1:24 PM EDT 03/19/2025 1:24 PM EDT us Azar Andino MD LAB BLOOD ORDERABLES Final Re sult Performing Organization Address [facility] de Phone Number [facility]
[address] [place] [address], * (ABNORMAL) Hemoglobin A1c (03/19/2025 1:24 PM EDT) Hemoglobin A1C 6.00(H) 4.80 - 5.60 % 03/20/2025 12:02 AM EDT [facility] Blood Venipuncture / Unknown 03/19/2025 1:24 PM EDT 03/19/2025 1:24 PM EDT Narrative [facility] - 03/20/2025 12:02 AM EDT Hemoglobin A1C Ranges: Increased Risk for Diabetes 5.7% to 6.4% Diabetes >= 6.5% Diabetic Goal < 7.0% us Azar Andino MD LAB BLOOD ORDERABLES Final Re sult Performing Organization Address [facility] de Phone Number [facility]
[address] [place] [address], [place] [phone] * XR Pelvis 3+ View (03/16/2025 4:57 PM EDT) Anatomical Region Laterality Modality Body, Pelvis N/A Radiographic Inna ging 03/16/2025 5:03 PM EDT Impressions 03/16/2025 5:05 PM EDT Impression: 1.No evidence of acute fracture. 2.Moderate bilateral hip arthritis. Electronically Signed: Robert Walden MD 03/16/2025 5:05 PM EDT Workstation ID: [id number] Narrative 03/16/2025 5:05 PM EDT XR PELVIS [...] MD 03/16/2025 5:05 PM EDT Workstation ID: [id number] Azar Andino MD IMG DIAGNOSTIC IMAGING ORDERA [...] MD 03/16/2025 5:06 PM EDT Workstation ID: [id number] Narrative 03/16/2025 5:06 PM EDT XR SPINE [...] MD 03/16/2025 5:06 PM EDT Workstation ID: [id number] us Azar Andino MD IMG DIAGNOSTIC IMAGING [...] MD 03/23/2025 7:26 AM EDT Workstation ID: [id number] Narrative 03/23/2025 7:26 AM EDT MRI THORACIC [...] MD 03/23/2025 7:26 AM EDT Workstation ID: [id number] Azar Andino MD IM MRI ORDERABLES Final Resu lt * Lipid Panel (04/09/2024 11:18 AM EDT) Total Cholesterol 124 0 - 200 mg/dL 04/09/2024 11:28 PM EDT [facility] Triglycerides 146 0 - 150 mg/dL 04/09/2024 11:28 PM EDT [facility] HDL Cholesterol 41 40 - 60 mg/dL 04/09/2024 11:28 PM EDT [facility] LDL Cholesterol 58 0 - 100 mg/dL 04/09/2024 11:28 PM EDT [facility] VLDL Cholesterol 25 5 - 40 mg/dL 04/09/2024 11:28 PM EDT [facility] LDL/HDL Ratio 1.31 04/09/2024 11:28 PM EDT [facility] Blood Venipuncture / Unknown 04/09/2024 11:18 AM EDT 04/09/2024 11:19 AM EDT Narrative [facility] - 04/09/2024 11:28 PM EDT [...] mg/dL Messi Looney MD LAB BLOOD ORDERABLES Fi nal Result [facility]
[address] [place] [address], * DEXA Bone Density Axial (06/06/2019 2:35 [...] fall-prevention measurements. The National Osteoporosis Foundation recommends (http://www.nof.org/hcp/practice/omxkhmhu-srm-ocackhdk-guidelines/clinic ans-guide) that FDA-approved medical therapies be considered [...] the left hip with 95% confidence is 0.662669 gm/cm2 at the hip and 0.012498 g/cm2 at the lumbar spine. This report [...] fall-prevention measurements. The National Osteoporosis Foundation recommends (http://www.nof.org/hcp/practice/ftappnxe-dvt-nrkquocl-guidelines/clinic ans-guide) that FDA-approved medical therapies be considered [...] the left hip with 95% confidence is 0.331082 gm/cm2 at the hip and 0.238777 g/cm2 at the lumbar spine. This report was finalized on 06/07/2019 3:[address] Jose Antonio Roach MD. us Fidel Christensen MD IMG DXA ORDERABLES Final Res ult from Last 3 Months or Most Recently Relevant to Health Maintenance Insurance MEDICARE A [place] [address] [address] Advance Directives * CPR (Attempt to Resuscitate) [...] Of Support Discussed With: Patient Care Teams Salary And Wage Administrator Relationship Specialty Start Date End Date Jd Santacruz MD [facility] [address] [facility] [address] [place] [address] PCP - General Internal Medicine 05/18/18
--- OUTSIDE RECORDS SUMMARY | 2025-05-22 12:20 | XMS_ITS | Encounter Summary ---
[facility] Address [address] [place] [address] Care Team Providers Care Abrasive Sawyer Name Role Phone Jd Santacruz MD Primary Care Provider [phone] Encounter Details Date Type Department Care Team [...] or training? Not on file Preferred Language Turkish 04/16/2025 PHQ-2 Answer Date Recorded Patient Health Questionnaire-2 Score 1 02/28/2025 Comments No Sex and Gender Information Value Date Recorded Sex Assigned at Not on file Legal Sex Female 10:05 AM EDT Gender Identity Not on file Sexual Orientation Not on file documented as of this encounter Plan of Treatment Upcoming Encounters Date Type Department Care Team ( st Contact Info) Description 07/11/2025 11:00 AM EDT Office Visit [facility] PA[facility]EMENT [address] [address] Shakira Joshua, CUP SETTER LOCKSTITCH [address] [place] [address] 01/27/2026 9:45 AM EDT Office Visit [facility] CARDIOLOGY [address] [facility] [address] [place] [phone] Messi Looney MD [address] [place], [place] [id number] documented as of this encounter Visit Diagnoses Not on filedocumented in this encounter Care Teams Abrasive Sawyer Relationship Specialty Start Date End Date Jd Santacruz MD [address] [facility] [address] [place] [address] PCP - General Internal Medicine 05/18/18 documented as of this encounter
--- OUTSIDE RECORDS SUMMARY | 2025-05-22 12:20 | XMS_ITS | Encounter Summary ---
[facility] Address [address] [place] [id number] Care Team Providers Care Delicatessen Clerk Name Role Phone Jd Santacruz MD Primary Care Provider [phone] Encounter Details Date Type Department Care Team (Late st Contact Info) Description 04/17/2025 Telephone [facility] PAIN [facility]NAGEMENT [address] [facility] [address] [place] [address] Shakira Joshua, ROUGE PRESSER [address] [facility] [address] [place], [place] [id number] Social History Tobacco Use Types Packs/Day Years [...] or training? Not on file Preferred Language Tajik 04/16/2025 PHQ-2 Answer Date Recorded Patient Health Questionnaire-2 Score 1 02/28/2025 Comments No Sex and Gender Information Value Date Recorded Sex Assigned at Not on file Legal Sex Female 10:05 AM EDT Gender Identity Not on file Sexual Orientation Not on file documented as of this encounter Miscellaneous Notes * Telephone Encounter - Candida Cedeño MA - 04/17/2025 5:04 PM EDT Attempted to contact patient, no answer. LVM to return call to office and provided call back number. HUB relay: Please reschedule appointment from 05/07, due to provider being out of office documented in this encounter Plan of Treatment Upcoming Encounters Date Type Department Care Team (Late st Contact Info) Description 07/11/2025 11:00 AM EDT Office Visit [facility] PAIN MANAGEMENT [address] [facility] [address] [place] [phone] Shakira Joshua, ROUGE PRESSER [address] [facility] [address] [place] [address] 01/27/2026 9:45 AM EDT Office Visit [facility] CARD[facility] [address] [facility] [address] [place] [address] Messi Looney MD [address] [facility] [address] [place] [address] documented as of this encounter Visit Diagnoses Not on filedocumented in this encounter Care Teams Delicatessen Clerk Relationship Specialty Start Date End Date Jd Santacruz MD [address] [facility] [address] [facility] [place] [address] PCP - General Internal Medicine 05/18/18 documented as of this encounter
--- OUTSIDE RECORDS SUMMARY | 2025-05-22 12:20 | XMS_ITS | Encounter Summary ---
Author Organization [facility] Address [address] [place] [address] Care Team Providers Care Practical Nursing Faculty Name Role Phone Jd Santacruz MD Primary Care Provider [phone] Encounter Details Date Type Department Care Team (Latest Contact Info) Description 04/25/2025 Travel Social History Tobacco Use Types Packs/Day [...] or training? Not on file Preferred Language French 04/16/2025 PHQ-2 Answer Date Recorded Patient Health [...] [facility] [address] [facility] [address] [place] [phone] Shakira Joshua, DAMIAN [address] [facility] [address] [place] [address] 01/27/2026 9:45 AM EDT Office Visit [facility] [address] [facility] [address] [place] [address] Messi Looney MD [address] [facility] [address] [place], [place] [phone] documented as of this encounter Visit Diagnoses Not on filedocumented in this encounter Care Teams Practical Nursing Faculty Relationship Specialty Start Date End Date Jd Santacruz MD [address] [facility] [address] [place] [address] PCP - General Internal Medicine 05/18/18 documented as of this encounter
--- OUTSIDE RECORDS SUMMARY | 2025-05-22 12:20 | XMS_ITS | Encounter Summary ---
Author Organization [facility] Address [address] [place] [address] Care Team Providers Care Vending Machine Servicer Name Role Phone Jd Santacruz MD Primary Care Provider [phone] Encounter Details Date Type Department Care Team (Late Contact Info) Description 04/10/2025 Telephone [facility] PAIN MANAGEMENT [address] [address] Genet Jones RN Social History Tobacco Use Types Packs/Day [...] PM EDT LVM with surgery arrival information. Ubimo message sent to patient with same information and paper copy sent to patient. documented in this encounter Plan of Treatment Upcoming Encounters Date Type Department Care Team (Late Contact Info) Description 07/11/2025 11:00 AM EDT Office Visit [facility] PAIN MANAGEMENT [address] [facility] [address] [place] [phone] Shakira Joshua, DAMIAN [address] [facility] [address] [place] [address] 01/27/2026 9:45 AM EDT Office Visit [facility] CARDIOLOGY [address] [facility] [address] [place] [phone] Messi Looney MD [address] [facility] [address] [place], [place] [phone] documented as of this encounter Visit Diagnoses Not on filedocumented in this encounter Care Teams Vending Machine Servicer Relationship Specialty Start Date End Date Jd Santacruz MD [address] [facility] [address] [facility] [address] [place] [address] PCP - General Internal Medicine 05/18/18 documented as of this encounter
--- OUTSIDE RECORDS SUMMARY | 2025-05-22 12:20 | XMS_ITS | Encounter Summary ---
Author Organization [facility] Address [address] [place] [phone] Care Team Providers Care Territory Sales Executive Name Role Phone Jd Santacruz MD Primary Care Provider [phone] Encounter Details Date Type Department Care Team (Late st Contact Info) Description 04/09/2025 Prep for Surgery [facility] ORDERS ONLY [address] [place] [address] Shakira Joshua, BLUEPRINT DEVELOPER [address] [address] Lumbar postlaminectomy syndrome (Primary Dx); Lumbar stenosis [...] Description 07/11/2025 11:00 AM EDT Office Visit [facility] PAIN MANAGEMENT [address] [facility] [address] [place] [address] Shakira Joshua, BLUEPRINT DEVELOPER [address] [facility] [address] [place] [address] 01/27/2026 9:45 AM EDT Office Visit [facility] CARDIOLOGY [address] [facility] [address] [place] [address] Messi Looney MD [address] [facility] [address] [place], [place] [phone] documented as of this encounter Results * MRSA Screen Culture (Outpatient) - Swab, Nares (04/16/2025 3:42 PM EDT) [facility] MRSA Screen Cx No Methicillin Resistant Staphylococcus aureus isolated DIANE 04/17/2025 5:13 PM EDT [facility] Swab Structure of anterior naris / Unknown Collection / Unknown 04/16/2025 3:42 PM EDT 04/16/2025 4:41 PM EDT Narrative [facility] - 04/17/2025 5:13 PM EDT The negative predictive value of this diagnostic test is high and should only be used to consider de-escalating anti-MRSA therapy. A positive result may indicate colonization with MRSA and must be correlated clinically. Shakira Joshua APRN MICROBIOLOGY - GENERAL ORDER MUKESH Final Result [facility]
[address] [place] [address], * (ABNORMAL) Urinalysis With Culture If Indicated - Urine, Clean Catch (04/16/2025 3:42 PM EDT) Pathologist [facility] Color, UA Yellow Yellow, Straw 04/16/2025 4:21 PM EDT [facility] Appearance, UA Cloudy(A) Clear 04/16/2025 4:21 PM EDT [facility] pH, UA 5.5 5.0 - 8.0 04/16/2025 4:21 PM EDT [facility] Specific [place], UA 1.017 1.005 - 1.030 04/16/2025 4:21 PM EDT [facility] Glucose, UA Negative Negative 04/16/2025 4:21 PM EDT [facility] Ketones, UA Negative Negative 04/16/2025 4:21 PM EDT [facility] Bilirubin, UA Negative Negative 04/16/2025 4:21 PM EDT [facility] Blood, UA Negative Negative 04/16/2025 4:21 PM EDT [facility] Protein, UA Negative Negative 04/16/2025 4:21 PM EDT [facility] Leuk Esterase, UA Small (1+)(A) Negative 04/16/2025 4:21 PM EDT [facility] Nitrite, UA Negative Negative 04/16/2025 4:21 PM EDT [facility] Urobilinogen, UA 1.0 E.U./dL 0.2 - 1.0 E.U./dL 04/16/2025 4:21 PM EDT [facility] Urine Urine specimen obtained by clean catch procedure / Unknown Collection / Unknown 04/16/2025 3:42 PM EDT 04/16/2025 4:15 PM EDT [facility] - 04/16/2025 4:21 PM EDT In absence of clinical symptoms, the presence of pyuria, bacteria, and/or nitrites on the urinalysis result does not correlate with infection. us Shakira Joshua APRN URINE ORDERABLES Final Resul t [facility]
[address] [place] [address], * Protime-INR (04/16/2025 3:42 PM EDT) Protime 13.8 12.2 - 15.3 Seconds 04/16/2025 4:46 PM EDT [facility] INR 1.00 0.89 - 1.12 04/16/2025 4:46 PM EDT [facility] Blood Venipuncture / Unknown 04/16/2025 3:42 PM EDT 04/16/2025 4:22 PM EDT us Shakira Joshua APRN LAB BLOOD ORDERABLES Final R esult Performing Organization Address [facility] de Phone Number [facility]
[address] [place] [address], * aPTT (04/16/2025 3:42 PM EDT) [facility] PTT 33.7 22.0 - 39.0 seconds 04/16/2025 4:46 PM EDT [facility] Blood Venipuncture / Unknown 04/16/2025 3:42 PM EDT 04/16/2025 4:22 PM EDT Narrative [facility] - 04/16/2025 4:46 PM EDT PTT = The equivalent PTT values for the therapeutic range of heparin levels at 0.3 to 0.5 U/ml are 60 to 70 seconds. us Shakira Joshua APRN LAB BLOOD ORDERABLES Final R esult Performing Organization Address [facility] de Phone Number [facility]
[address] [place] [address], * (ABNORMAL) Comprehensive Metabolic Panel (04/16/2025 3:42 PM EDT) [facility] Glucose 96 65 - 99 mg/dL 04/16/2025 4:54 PM EDT [facility] BUN 23.4(H) 8.0 - 23.0 mg/dL 04/16/2025 4:54 PM EDT [facility] Creatinine 2.00(H) 0.57 - 1.00 mg/dL 04/16/2025 4:54 PM [facility] Sodium 144 136 - 145 mmol/L 04/16/2025 4:54 PM [facility] Potassium 5.0 3.5 - 5.2 mmol/L 04/16/2025 4:54 PM [facility] Chloride 111(H) 98 - 107 mmol/L 04/16/2025 4:54 PM [facility] CO2 23.4 22.0 - 29.0 mmol/L 04/16/2025 4:54 PM [facility] Calcium 9.5 8.6 - 10.5 mg/dL 04/16/2025 4:54 PM [facility] Total Protein 5.7(L) 6.0 - 8.5 g/dL 04/16/2025 4:54 PM [facility] Albumin 4.0 3.5 - 5.2 g/dL 04/16/2025 4:54 PM [facility] ALT (SGPT) 13 1 - 33 U/L 04/16/2025 4:54 PM [facility] AST (SGOT) 18 1 - 32 U/L 04/16/2025 4:54 PM [facility] Alkaline Phosphatase 120(H) 39 - 117 U/L 04/16/2025 4:54 PM [facility] Total Bilirubin 0.5 0.0 - 1.2 mg/dL 04/16/2025 4:54 PM [facility] Globulin 1.7 gm/dL 04/16/2025 4:54 PM [facility] Comment:Calculated Result A/G Ratio 2.4 g/dL 04/16/2025 4:54 PM [facility] BUN/Creatinine Ratio 11.7 7.0 - 25.0 04/16/2025 4:54 PM [facility] Anion Gap 9.6 5.0 - 15.0 mmol/L 04/16/2025 4:54 PM EDT [facility] eGFR 26.3(L) >60.0 mL/min/1.7 3 04/16/2025 4:54 PM EDT [facility] Blood Venipuncture / Unknown 04/16/2025 3:42 PM EDT 04/16/2025 4:23 PM EDT Narrative [facility] - 04/16/2025 4:54 PM EDT GFR [...] include race as a factor Shakira Joshua BLUEPRINT DEVELOPER LAB BLOOD ORDERABLES Final R esult [facility]
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
--- OUTSIDE RECORDS SUMMARY | 2025-05-22 12:20 | XMS_ITS | Encounter Summary ---
Author Organization [facility] Address [address] [place] [address] Care Team Providers Care Box Toe Cementer Name Role Phone Jd Santacruz MD Primary Care Provider [phone] Encounter Details Date Type Department Care Team (Latest Contact Info) Description 04/22/2025 Travel Social History Tobacco Use Types Packs/Day [...] or training? Not on file Preferred Language Kazakh 04/16/2025 PHQ-2 Answer Date Recorded Patient Health [...] 1:12 PM EDT Yonatan Chino RN * [place] Suicide Severity Rating Scale (Screener/Recent Self-Report) Question Answer Date of Assessment Author 6. Suicidal Behavior (Lifetime) No 1:12 PM EDT Yonatan Chino RN documented as of this encounter Plan of Treatment Upcoming Encounters Date Type Department Care Team (Late st Contact Info) Description 07/11/2025 11:00 AM EDT Office Visit [facility] [address] [facility] [address] [place] [id number] Shakira Joshua, REPRODUCTION MACHINE LOADER [address] [facility] [address] [place] [address] 01/27/2026 9:45 AM EDT Office Visit [facility] [address] [facility] [address] [place] [phone] Messi Looney MD [address] [facility] [address] [place] [address] documented as of this encounter Visit Diagnoses Not on filedocumented in this encounter Care Teams Box Toe Cementer Relationship Specialty Start Date End Date Jd Santacruz MD [address] [facility] [address] [place] [id number] PCP - General Internal Medicine 05/18/18 documented as of this encounter
== END 2025-05-20 23:59 | disposition home or self-care (01) ==
LOC: LAB.DROPOF 05-22 12:18
PROVIDERS: PCP Internal Medicine; Visit Provider Internal Medicine
DX: N39.0 Urinary tract infection, site not specified (principal)
CPT/HCPCS: 87086; 87088; 87186